=== PATIENT | male | born 1965 | race Caucasian/White ===

== ENCOUNTER → 2017-09-16 | Outpatient (CLI) | payer BC ==
--- NOTE | 2017-09-16 19:56 | CONS ---
CONSULTATION DATE OF SERVICE: 09/16/2017 52-year-old gentleman who has been evaluated in [facility] for obstructive sleep apnea-hypopnea syndrome. HISTORY OF PRESENT ILLNESS SLEEP WAKE EVALUATION: Patient has been diagnosed with obstructive sleep apnea about 9 years ago in [place]. Since then he is on treatment with CPAP every night for the whole night. He does not experiencing significant problem with his machine. He sleeps well with the machine. He does not have snoring, but he is not sure because he sleeps by himself. Before starting to use machine, he has had loud snoring, multiple awakenings from sleep, both sleepy during the day, tired during the day and now he just wakes up just occasionally. SLEEP SCHEDULE: His usual sleep schedule from 10 p.m. to 5 a.m. on working days and on weekends it is varied. FALLING ASLEEP: Usually no problem with falling asleep. He does have TV set in bedroom. No history of hypnagogic hallucinations, sleep paralysis or cataplexy. [place] Sleepiness Scale is 9. I checked patient's CPAP unit. CPAP pressure is 16 cm of water patient demonstrated 100% compliance with treatment on the machine. Does not have information about patient breathing during the sleep. PAST MEDICAL HISTORY: Positive for acid reflux, neck problems, low back problems, allergy. MEDICATIONS: Motrin, gabapentin, [place], Flexeril, Zyrtec, vitamin C supplement, Chantix. SOCIAL HISTORY: Positive for smoking about 1-1/2 pack a day for 35 years, trying to start stop smoking. Alcohol: Consumption occasional. FAMILY HISTORY: Cancer by his mother. REVIEW OF SYSTEMS: Occasional awakenings from sleep even while on treatment with CPAP. PHYSICAL EXAM: gentleman without distress. BP 139/91 on right arm, 136/93 on left arm, HR 90, RR 16, height 5 feet 10 inches, weight 253, BMI 36.3, temperature 98.1. Oxygen saturation on room air 98%. Oropharynx moderately low position of soft palate. Slight restriction of nasal breathing. ABDOMEN: Obese. Heart: Slight systolic murmur. Neck Supple, no JVD. Thyroid is not palpable. LUNGS Clear to percussion and to auscultation. Good air exchange. No wheezing or rhonchi. HEART : S1, S2 regular. Slight systolic murmur. ABDOMEN: Obese. Soft and nontender. Bowel sounds are present. No organomegaly appreciated. EXTREMITIES No clubbing or cyanosis. [employer] Awake, alert, and oriented X3. Cranial nerves 2 to 7 intact. There is no fasciculation or atrophy. noted. No focal deficits observed. IMPRESSION: 1. Obstructive sleep apnea-hypopnea syndrome for 9 years. [place]. The patient does not have results of sleep study. He continued to use his CPAP equipment every night. CPAP pressure is 16 cm of water. Sometimes he has awakenings from sleep while using CPAP and recently started to have some problem with CPAP equipment. 2. Obesity BMI 36.33. 3. Acid reflux. 4. Neck problem, neck pain. 5. Allergy. 6. Low back pain. PLAN: 1. Home sleep apnea test for reevaluation of patient breathing at the present time because we do not have results of previous sleep studies. 2. The patient is a candidate to replace CPAP unit to the new one. Recently, patient has started to have some problem with the equipment. 3. Losing weight. 4. Sleep hygiene with regular time in bed for at least 8 hours. 5. No driving if feels any sleepiness. Sincerely, Chino Stoll MD, PhD, FAASM Diplomat of [employer] [facility] Coordinator of [facility] [place] MMODL / HUMZA: [id number] /
== END | disposition home or self-care (01) ==
LOC: SLEEP 16:57
PROVIDERS: ATTEND Internal Medicine
DX: G47.33 Obstructive sleep apnea (adult) (pediatric) (principal); E66.9 Obesity, unspecified; M54.5 Low back pain; F17.210 Nicotine dependence, cigarettes, uncomplicated; K21.9 Gastro-esophageal reflux disease without esophagitis; M54.2 Cervicalgia; T78.40XD Allergy, unspecified, subsequent encounter; Z79.1 Long term (current) use of non-steroidal anti-inflammatories (NSAID); Z79.899 Other long term (current) drug therapy; Z79.891 Long term (current) use of opiate analgesic; Z99.89 Dependence on other enabling machines and devices; Z68.36 Body mass index [BMI] 36.0-36.9, adult
CPT/HCPCS: 99211

== ENCOUNTER → 2018-01-27 | Outpatient (CLI) | payer BC ==
--- NOTE | 2018-01-27 19:04 | PN ---
PROGRESS NOTE DATE OF SERVICE: 01/27/2018 This patient is a 52-year-old gentleman who has been followed in the sleep center for treatment of obstructive sleep apnea-hypopnea syndrome. Recently the patient had a home sleep apnea test which showed severe sleep apnea with apnea-hypopnea index 87 and oxygen desaturation to 80%. Then patient had CPAP titration and he received his new CPAP unit. Today is his first visit with the new CPAP unit. He is using his equipment every night without problems, likes his new machine, feels comfortable with the mask. [place] Sleepiness Scale today is 7. I checked readings from his machine. Usage is 100% of the time for more than 4 hours. Average usage is 7 hours 24 minutes. CPAP pressure is 16 cm of water. Apnea-hypopnea index is only 1.7. Leak is borderline. MEDICATIONS: 1. Motrin. 2. Gabapentin. 3. [place]. 4. Flexeril. 5. Prilosec. 6. Zyrtec. PHYSICAL EXAMINATION: GENERAL A pleasant gentleman in no distress. VITAL SIGNS: BP 138/90, HR 91, RR 16, weight 263.8, temperature 98.0, oxygen saturation at room air 97%. HEENT: PERRLA, EOMI. Evaluation of oropharynx showed tongue protrudes midline; low position of soft palate. NECK: Supple. No JVD. Thyroid is not palpable. LUNGS: Clear to percussion and to auscultation. Good air exchange. No wheezing or rhonchi. HEART: S1, S2 regular. No murmurs, gallops or rubs. ABDOMEN: Slightly obese. EXTREMITIES : No clubbing or cyanosis. [employer]: Awake, alert, and oriented X3. Cranial nerves 2 to 7 intact. There is no fasciculation or atrophy. noted. No focal deficits observed. IMPRESSION: 1. Extremely severe sleep apnea/hypopnea syndrome, fully controlled with CPAP. Patient demonstrated 100% compliance with treatment, benefitting from treatment. 2. Obesity. 3. Acid reflux. 4. History of neck problems. 5. Allergies. 6. Low back problems. PLAN: 1. Patient will continue to use CPAP equipment every night for the whole night. 2. Losing weight. 3. Sleep hygiene with regular time in bed for at least 8 hours. 4. No driving if feeling any sleepiness. 5. We will follow with prescriptions for all necessary CPAP supplies, including mask, tube, filters. Sincerely, Chino Stoll MD, PhD, FAASM Diplomat of [employer] Hr Manager of [facility] [place] MMODL / PRETTYN: [id number] /
== END | disposition home or self-care (01) ==
LOC: SLEEP 16:49
PROVIDERS: ATTEND Internal Medicine
DX: G47.33 Obstructive sleep apnea (adult) (pediatric) (principal); E66.9 Obesity, unspecified; K21.9 Gastro-esophageal reflux disease without esophagitis; T78.40XA Allergy, unspecified, initial encounter; Z99.89 Dependence on other enabling machines and devices; Z79.1 Long term (current) use of non-steroidal anti-inflammatories (NSAID); Z79.891 Long term (current) use of opiate analgesic; Z79.899 Other long term (current) drug therapy

== ENCOUNTER 2018-07-27 14:58 | Emergency (ER) | payer BC ==
[2018-07-27 15:20] VITALS: RESP 18; TEMP 97.8
[2018-07-27] MEDS ORDERED: HYDROmorphone 1 MG/ML 1 ML SYRINGE IM STA ×2 (15:48→18:25)
[2018-07-27] MEDS ORDERED: DIAZEPAM 5 MG TAB PO STA (15:48)
[2018-07-27] MEDS ORDERED: IBUPROFEN 800 MG TAB PO STA (15:48)
--- NOTE | 2018-07-27 17:08 | CT ---
EXAMINATION TYPE: CT thor lumbar spine wo con DATE OF EXAM: 07/27/2018 COMPARISON: None HISTORY: 53-year-old male Mid back pain TECHNIQUE: Contiguous axial scanning of the thoracic and lumbar spine without IV contrast. Coronal an d sagittal reconstructions performed. CT DLP: 2992.9 mGycm Automated exposure control for dose reduction was used. FINDINGS: Thoracic spine: 1.5 cm low-density nodule right adrenal gland suggestive of a benign lipid rich adrenal adenoma. There is mild to moderate degenerative disc disease mid thoracic spine characterized by mild disc hei ght loss since tiny endplate Schmorl's nodes. Vertebral body heights are preserved and alignment is maintained. Scattered facet degenerative changes also present. No acute fracture identified of the thoracic spine. Levoconvex curvature centered along the upper thoracic spine. On the left, changes noted in at least moderate neuroforaminal stenoses at T3-T4, T4-T5, T7-T8. On the right, changes result in at least moderate neuroforaminal narrowing at T3-T4, T4-T5, T10-T11. Lumbar spine: Vertebral body heights are preserved and alignment is maintained. Facet arthropathy particularly towa rds the left within the mid to lower lumbar spine. Bulging discs are present at multiple levels, particularly at L2-L3 mildly narrowing the spinal canal . On the left, changes result in mild to moderate neuroforaminal narrowing at L4-L5 and L5-S1. On the right, there is mild neuroforaminal narrowing at L4-L5 and L5-S1. IMPRESSION: 1. LEVOCONVEX SCOLIOTIC CURVATURE ALONG THE UPPER THORACIC SPINE. 2. NO VERTEBRAL COMPRESSION COLLAPSE OR MALALIGNMENT. 3. MILD TO MODERATE DEGENERATIVE DISC DISEASE MID THORACIC SPINE. ADDITIONAL SCATTERED FACET ARTHROPA THY IN THE THORACIC SPINE CONTRIBUTING TO VARIABLE NEURAL FORAMINAL STENOSES IN THE THORACIC SPINE OUTLINED ABOVE. 4. FACET ARTHROPATHY MID TO LOWER LUMBAR SPINE PARTICULARLY ON THE LEFT. 5. BULGING DISC AT L2-L3 MILDLY NARROWS THE SPINAL CANAL. 6. VARIABLE MILD TO MODERATE NEURAL FORAMINAL STENOSES LOWER LUMBAR SPINE OUTLINED ABOVE.
--- NOTE | 2018-07-27 17:24 | ED ---
Back Pain HPI - General Chief Complaint: Back Pain/Injury Stated Complaint: Back pain Time Seen by Provider: 07/27/18 15:22 Source: patient, RN notes reviewed, old records reviewed Limitations: no limitations - History of Present Illness Initial Comments: This is a 53-year-old male the ER today. Patient presents today for evaluation regards to back pain. Back pain for 2 days worsening. Patient has history of chronic back pain. No specific trauma noted maybe a lifting injury. No bowel or bladder issues, no neurological complaints MD Complaint: back pain -: days(s) (2) Similar Symptoms Previously: Yes Place: home Radiation: none Severity: severe Severity scale (1-10): 9 Quality: sharp, dull Consistency: constant Improves With: immobilization Worsens With: movement, walking Context: while lifting, turning/twisting Associated Symptoms: denies other symptoms - Related Data Home Medications Medication Instructions Recorded Confirmed Ascorbic Acid [Vitamin C] 500 mg PO DAILY 07/27/18 07/27/18 Cyclobenzaprine [Flexeril] 10 mg PO TID PRN 07/27/18 07/27/18 Flaxseed Oil 1,000 mg PO DAILY 07/27/18 07/27/18 Gabapentin 600 mg PO QID 07/27/18 07/27/18 Hydrocodone/Acetaminophen [[place] 1 tab PO TID PRN 07/27/18 07/27/18 10-325] Ibuprofen [Motrin Ib] 400 mg PO Q6H PRN 07/27/18 07/27/18 Multivit-Min/FA/Lycopen/Lutein 1 tab PO DAILY 07/27/18 07/27/18 [Centrum Silver Tablet] Varenicline [Chantix Continuing 1 mg PO BID 07/27/18 07/27/18 Pack] Previous Rx's Medication Instructions Recorded Diazepam [Valium] 5 mg PO Q8H PRN 3 Days #9 tab 07/27/18 predniSONE 50 mg PO DAILY #5 tab 07/27/18 Allergies Allergy/AdvReac Type Severity Reaction Status Date / Time Unable to Assess Allergy Verified 07/27/18 16:00 Review of Systems ROS Statement: Those systems with pertinent positive or pertinent negative responses have been documented in the HPI. ROS Other: All systems not noted in ROS Statement are negative. Past Medical History Additional Past Medical History / Comment(s): chronic back pain History of Any Multi-Drug Resistant Organisms: None Reported Past Surgical History: Orthopedic Surgery Past Psychological History: No Psychological Hx Reported Smoking Status: Current every day smoker Past Alcohol Use History: Occasional Past Drug Use History: None Reported General Exam Limitations: no limitations General appearance: alert, in no apparent distress Head exam: Present: atraumatic, normocephalic, normal inspection Eye exam: Present: normal appearance, PERRL, EOMI. Absent: scleral icterus, conjunctival injection, periorbital swelling ENT exam: Present: normal exam, mucous membranes moist Neck exam: Present: normal inspection. Absent: tenderness, meningismus, lymphadenopathy Respiratory exam: Present: normal lung sounds bilaterally. Absent: respiratory distress, wheezes, rales, rhonchi, stridor Cardiovascular Exam: Present: regular rate, normal rhythm, normal heart sounds. Absent: systolic murmur, diastolic murmur, rubs, gallop, clicks GI/Abdominal exam: Present: soft, normal bowel sounds. Absent: distended, tenderness, guarding, rebound, rigid Extremities exam: Present: normal inspection, full ROM, normal capillary refill. Absent: tenderness, pedal edema, joint swelling, calf tenderness Back exam: Present: normal inspection Neurological exam: Present: alert, oriented X3, CN II-XII intact Psychiatric exam: Present: normal affect, normal mood Skin exam: Present: warm, dry, intact, normal color. Absent: rash Course Vital Signs 07/27/18 15:16 Temperature 97.8 F Pulse Rate 115 H Respiratory 18 Rate Blood Pressure 158/93 O2 Sat by Pulse 97 Oximetry - Reevaluation(s) Reevaluation #1: 07/27/18 18:26 Medical record reviewed Reevaluation #2: 07/27/18 18:26 able to lay currently has improved pain control Medical Decision Making - Medical Decision Making 53 male the ER for evaluation. On chronic back pain. No specific trauma noted. Patient has normal CAT scan and can be discharged home - Radiology Data Radiology results: report reviewed (CT thoracolumbar spine negative for traumatic injury), image reviewed Disposition Clinical Impression: Thoracic back pain, Mid back pain, Mechanical back pain Disposition: HOME SELF-CARE Condition: Good Instructions (If sedation given, give patient instructions): Acute Low Back Pain (ED) Prescriptions: predniSONE 50 mg PO DAILY #5 tab Diazepam [Valium] 5 mg PO Q8H PRN 3 Days #9 tab PRN Reason: Muscle Spasm Is patient prescribed a controlled substance at d/c from ED?: Yes When asked, does pt state using other controlled substances?: Yes If prescribed controlled substance>3 days was MAPS reviewed?: Prescribed <3 Days Referrals: Nonstaff,Physician [Primary Care Provider] - 1-2 days
[2018-07-27] MEDS ORDERED: DEXAMETHASONE 4 MG TAB PO STA (17:42)
[2018-07-27 19:15] VITALS: BP 127/91; PULSE 114
== END 2018-07-27 19:12 | disposition home or self-care (01) ==
LOC: EC 14:58
DX: M54.6 Pain in thoracic spine (principal); M54.9 Dorsalgia, unspecified; G89.29 Other chronic pain; F17.200 Nicotine dependence, unspecified, uncomplicated; Z79.899 Other long term (current) drug therapy
CPT/HCPCS: 72128; 72131; 99284; 96372 ×2; J8540; J1170

== ENCOUNTER 2018-07-30 11:00 | Inpatient (IN) | payer BC ==
[2018-07-30] MEDS ORDERED: SODIUM CHLORIDE 0.9% 1,000 ML IV STA ×4 (11:15→12:25)
[2018-07-30] MEDS ORDERED: SODIUM CHLORIDE 0.9% 500 ML 500 ML IV STA (11:15)
[2018-07-30] MEDS ORDERED: HYDROmorphone 1 MG/ML 1 ML SYRINGE IVP STA ×3 (11:15→12:01)
--- NOTE | 2018-07-30 11:19 | ED ---
Back Pain HPI - General Chief Complaint: Back Pain/Injury Stated Complaint: pain in back/arms - recheck Time Seen by Provider: 07/30/18 11:17 Source: patient, RN notes reviewed, old records reviewed Limitations: no limitations - History of Present Illness Initial Comments: This is a 53-year-old male the ER for evaluation. This male presents today for evaluation regarding back pain. Patient states he was seen in ER 3 days ago for similar complaint. Patient states he did have some resolution of back pain but the pain is also been persistent. Patient's complaining of more pain in the neck now currently than it was in his thoracic spine prior. Again patient currently related to a lifting injury maybe 2 days prior to the original emergency room evaluation. Patient states pain is been progressively worse last night began with sweating and diaphoresis. Patient states he currently takes a day for chronic back pain. He hasn't taken that continuously with no relief. No nausea no vomiting no chest pain no shortness of breath. MD Complaint: back pain, other (neck pain) -: days(s) (6) Similar Symptoms Previously: Yes (ER visit 3 days prior for pain that began 2 days prior to that) Place: home Radiation: none Severity: severe Severity scale (1-10): 9 Quality: dull, aching Consistency: constant Improves With: none Worsens With: movement Context: while lifting (may have ovvured during lifting records fomr his attic) Associated Symptoms: diaphoresis Treatments Prior to Arrival: acetaminophen - Related Data Home Medications Medication Instructions Recorded Confirmed Ascorbic Acid [Vitamin C] 1,000 mg PO DAILY 07/27/18 07/30/18 Cyclobenzaprine [Flexeril] 10 mg PO TID PRN 07/27/18 07/30/18 Flaxseed Oil 1,000 mg PO DAILY 07/27/18 07/30/18 Gabapentin 600 mg PO QID 07/27/18 07/30/18 Hydrocodone/Acetaminophen [Melrose 1 tab PO TID PRN 07/27/18 07/30/18 10-325] Ibuprofen [Motrin Ib] 400 mg PO Q6H PRN 07/27/18 07/30/18 Multivit-Min/FA/Lycopen/Lutein 1 tab PO DAILY 07/27/18 07/30/18 [Centrum Silver Tablet] Varenicline [Chantix Continuing 1 mg PO BID 07/27/18 07/30/18 Pack] Previous Rx's Medication Instructions Recorded Diazepam [Valium] 5 mg PO Q8H PRN 3 Days #9 tab 07/27/18 predniSONE 50 mg PO DAILY #5 tab 07/27/18 Allergies Allergy/AdvReac Type Severity Reaction Status Date / Time Unable to Assess Allergy Verified 07/30/18 11:52 Review of Systems ROS Statement: Those systems with pertinent positive or pertinent negative responses have been documented in the HPI. ROS Other: All systems not noted in ROS Statement are negative. Past Medical History Additional Past Medical History / Comment(s): chronic back pain History of Any Multi-Drug Resistant Organisms: None Reported Past Surgical History: Orthopedic Surgery Past Psychological History: No Psychological Hx Reported Smoking Status: Current every day smoker Past Alcohol Use History: Occasional Past Drug Use History: None Reported General Exam Limitations: no limitations General appearance: anxious, in distress Head exam: Present: atraumatic, normocephalic, normal inspection Eye exam: Present: normal appearance, PERRL, EOMI. Absent: scleral icterus, conjunctival injection, periorbital swelling ENT exam: Present: normal exam, mucous membranes moist Neck exam: Present: normal inspection. Absent: tenderness, meningismus, lymphadenopathy Respiratory exam: Present: normal lung sounds bilaterally. Absent: respiratory distress, wheezes, rales, rhonchi, stridor Cardiovascular Exam: Present: normal rhythm, tachycardia, normal heart sounds. Absent: systolic murmur, diastolic murmur, rubs, gallop, clicks GI/Abdominal exam: Present: distended, tenderness, guarding (Voluntary), diminished bowel sounds. Absent: rebound, rigid Extremities exam: Present: normal inspection, full ROM, normal capillary refill. Absent: tenderness, pedal edema, joint swelling, calf tenderness Back exam: Present: normal inspection Neurological exam: Present: alert, altered (Waxing and waning), oriented X3, CN II-XII intact Psychiatric exam: Present: normal affect, normal mood Skin exam: Present: warm, dry, intact, normal color, diaphoretic, mottled (Abdomen). Absent: rash Course Vital Signs 07/30/18 07/30/18 07/30/18 11:06 11:14 11:15 Temperature 97.9 F Pulse Rate 136 H 128 H 123 H Respiratory 26 H 33 H 20 Rate Blood Pressure 125/81 O2 Sat by Pulse 95 94 L 96 Oximetry 07/30/18 07/30/18 07/30/18 11:30 11:45 12:00 Temperature Pulse Rate 115 H 113 H Respiratory 20 27 H Rate Blood Pressure 125/102 125/102 124/87 O2 Sat by Pulse 94 L 92 L Oximetry 07/30/18 07/30/18 07/30/18 12:15 12:30 13:00 Temperature Pulse Rate 113 H 114 H 118 H Respiratory 20 10 L 26 H Rate Blood Pressure 127/89 127/89 137/96 O2 Sat by Pulse 89 L 90 L 93 L Oximetry 07/30/18 07/30/18 07/30/18 13:30 14:00 14:30 Temperature Pulse Rate 120 H 114 H 114 H Respiratory 30 H 31 H Rate Blood Pressure 140/86 135/91 141/104 O2 Sat by Pulse 93 L Oximetry 07/30/18 07/30/18 07/30/18 15:00 15:30 15:35 Temperature Pulse Rate 117 H 116 H 116 H Respiratory 27 H Rate Blood Pressure 123/91 123/91 O2 Sat by Pulse 93 L 93 L Oximetry 07/30/18 15:56 Temperature 99.1 F Pulse Rate Respiratory Rate Blood Pressure O2 Sat by Pulse Oximetry - Reevaluation(s) Reevaluation #1: 07/30/18 11:24 Medical record is reviewed, prior ER visit 3 days ago and presenting for 2 days of back pain then. Patient did have computed tomography scan which is again reviewed without significant abnormality scan was thoraco lumbar spine Reevaluation #2: 07/30/18 15:[address] findings to concern and relocate CTA regarding abdominal pain, aside from significant stool burden, no acute findings found Reevaluation #3: 07/30/18 15:54 Patient did have bedside echocardiogram secondary to possible pericardial effu pawan, no effusion noted, aortic stenosis Reevaluation #4: 07/30/18 15:54 Dr. Martha davenport, Dr. Thomas did present to ER to evaluate patient at bedside Reevaluation #5: 07/30/18 15:55 (Again with patient's friend who is at bedside, again does take Melrose daily, for pain. Friend also admits patient likely does drink daily unsure of amount. 07/30/18 15:58 Patient was not altered upon prior presentation, patient is coherent but occasionally does ramble mildly altered mental status, friend also notes that he appears to be coherent and then having episodes of not acting and talking appropriately. 07/30/18 16:02 Patient will be scheduled for MRI spine to look further for abscess with back pain, leukocytosis, fever - Consultations Consultation #1: Spoke with helio SALEH for admission Consultation #2: Spoke with helio Gonzalez for ICU admission Consultation #3: Spoke with Dr. Wolfe regarding patient, was at bedside during conversation Procedures - Lumbar Puncture Consent Obtained: verbal consent Indication for Procedure: fever work up Patient Position: sitting upright/leaning forward Skin Prep: Povidone-Iodine 1% Local Anesthetic Used: Lidocaine 1% Spinal Needle Gauge: 20G Spinal Needle Length: 3.5in Interspace Used: L4-L5 Fluid Initially Obtained: clear, bloody (4) Complications: none Patient Tolerated Procedure: well Medical Decision Making - Medical Decision Making 53 male the ER for evaluation, patient resents today for evaluation of bowel pain and back pain. The patient's yesterday multiple medications patient did develop some confusion, he does have significant abdominal colonic distention with constipation, patient's diaphoresis significantly improved, vital signs are normal. Patient denying any current headache, occasionally complaining of some neck pain. Patient is neck exam and neurological exam is negative for meningismus. - Lab Data Result diagrams: 07/30/18 15:34 07/30/18 15:34 Lab Results 07/30/18 07/30/18 07/30/18 Range/Units 11:23 11:23 11:23 WBC 19.2 H (3.8-10.6) k/uL RBC 4.57 (4.30-5.90) m/uL Hgb 15.2 (13.0-17.5) gm/dL Hct 44.7 (39.0-53.0) % MCV 97.7 (80.0-100.0) fL MCH 33.1 (25.0-35.0) pg MCHC 33.9 (31.0-37.0) g/dL RDW 12.3 (11.5-15.5) % Plt Count 253 (150-450) k/uL Neutrophils % 86 % Neutrophils % (Manual) % Band Neutrophils % % Lymphocytes % 5 % Lymphocytes % (Manual) % Monocytes % 7 % Monocytes % (Manual) % Eosinophils % 0 % Basophils % 0 % Neutrophils # 16.6 H (1.3-7.7) k/uL Neutrophils # (Manual) (1.3-7.7) k/uL Lymphocytes # 0.9 L (1.0-4.8) k/uL Lymphocytes # (Manual) (1.0-4.8) k/uL Monocytes # 1.3 H (0-1.0) k/uL Monocytes # (Manual) (0-1.0) k/uL Eosinophils # 0.1 (0-0.7) k/uL Basophils # 0.0 (0-0.2) k/uL Nucleated RBCs (0-0) /100 WBC Manual Slide Review RBC Morphology ESR (0-15) mm/hr PT (9.0-12.0) sec INR (<1.2) APTT (22.0-30.0) sec VBG pH (7.31-7.41) VBG pCO2 (37-51) mmHg VBG HCO3 (24-28) mmol/L Sodium 142 (137-145) mmol/L Potassium 4.2 (3.5-5.1) mmol/L Chloride 102 (98-107) mmol/L Carbon Dioxide 25 (22-30) mmol/L Anion Gap 15 mmol/L BUN 26 H (9-20) mg/dL Creatinine 1.10 (0.66-1.25) mg/dL Est GFR (CKD-EPI)AfAm 88 (>60 ml/min/1.73 sqM) Est GFR (CKD-EPI)NonAf 76 (>60 ml/min/1.73 sqM) Glucose 219 H (74-99) mg/dL Lactic Ac Sepsis Rflx Plasma Lactic Acid Jama (0.7-2.0) mmol/L Calcium 10.2 (8.4-10.2) mg/dL Phosphorus 4.2 (2.5-4.5) mg/dL Magnesium 2.1 (1.6-2.3) mg/dL Total Bilirubin 1.4 H (0.2-1.3) mg/dL AST 25 (17-59) U/L ALT 40 (21-72) U/L Alkaline Phosphatase 98 (38-126) U/L Ammonia (<30) umol/L Troponin I (0.000-0.034) ng/mL C-Reactive Protein (<10.0) mg/L Total Protein 7.4 (6.3-8.2) g/dL Albumin 4.3 (3.5-5.0) g/dL Lipase (23-300) U/L Urine Color Urine Appearance (Clear) Urine pH (5.0-8.0) Ur Specific [place] (1.001-1.035) Urine Protein (Negative) Urine Glucose (UA) (Negative) Urine Ketones (Negative) Urine Blood (Negative) Urine Nitrite (Negative) Urine Bilirubin (Negative) Urine Urobilinogen (<2.0) mg/dL Ur Leukocyte Esterase (Negative) Urine RBC (0-5) /hpf Urine WBC (0-5) /hpf Urine Mucus (None) /hpf Salicylates mg/dL Urine Opiates Screen (NotDetected) Ur Oxycodone Screen (NotDetected) Urine Methadone Screen (NotDetected) Ur Propoxyphene Screen (NotDetected) Acetaminophen ug/mL Ur Barbiturates Screen (NotDetected) U Tricyclic Antidepress (NotDetected) Ur Phencyclidine Scrn (NotDetected) Ur Amphetamines Screen (NotDetected) U Methamphetamines Scrn (NotDetected) U Benzodiazepines Scrn (NotDetected) Urine Cocaine Screen (NotDetected) U Marijuana (THC) Screen (NotDetected) Influenza Type A RNA (Not Detectd) Influenza Type B (PCR) (Not Detectd) Blood Type O Positive Blood Type Confirm Blood Type Recheck CABO Indicated Antibody Screen NEGATIVE Spec Expiration Date 08/02/2018232207/30/18 07/30/18 07/30/18 Range/Units 11:23 11:23 11:23 WBC (3.8-10.6) k/uL RBC (4.30-5.90) m/uL Hgb (13.0-17.5) gm/dL Hct (39.0-53.0) % MCV (80.0-100.0) fL MCH (25.0-35.0) pg MCHC (31.0-37.0) g/dL RDW (11.5-15.5) % Plt Count (150-450) k/uL Neutrophils % % Neutrophils % (Manual) % Band Neutrophils % % Lymphocytes % % Lymphocytes % (Manual) % Monocytes % % Monocytes % (Manual) % Eosinophils % % Basophils % % Neutrophils # (1.3-7.7) k/uL Neutrophils # (Manual) (1.3-7.7) k/uL Lymphocytes # (1.0-4.8) k/uL Lymphocytes # (Manual) (1.0-4.8) k/uL Monocytes # (0-1.0) k/uL Monocytes # (Manual) (0-1.0) k/uL Eosinophils # (0-0.7) k/uL Basophils # (0-0.2) k/uL Nucleated RBCs (0-0) /100 WBC Manual Slide Review RBC Morphology ESR (0-15) mm/hr PT 11.3 (9.0-12.0) sec INR 1.1 (<1.2) APTT 22.0 (22.0-30.0) sec VBG pH (7.31-7.41) VBG pCO2 (37-51) mmHg VBG HCO3 (24-28) mmol/L Sodium (137-145) mmol/L Potassium (3.5-5.1) mmol/L Chloride (98-107) mmol/L Carbon Dioxide (22-30) mmol/L Anion Gap mmol/L BUN (9-20) mg/dL Creatinine (0.66-1.25) mg/dL Est GFR (CKD-EPI)AfAm (>60 ml/min/1.73 sqM) Est GFR (CKD-EPI)NonAf (>60 ml/min/1.73 sqM) Glucose (74-99) mg/dL Lactic Ac Sepsis Rflx Plasma Lactic Acid Jama 3.2 H* (0.7-2.0) mmol/L Calcium (8.4-10.2) mg/dL Phosphorus (2.5-4.5) mg/dL Magnesium (1.6-2.3) mg/dL Total Bilirubin (0.2-1.3) mg/dL AST (17-59) U/L ALT (21-72) U/L Alkaline Phosphatase (38-126) U/L Ammonia (<30) umol/L Troponin I <0.012 (0.000-0.034) ng/mL C-Reactive Protein (<10.0) mg/L Total Protein (6.3-8.2) g/dL Albumin (3.5-5.0) g/dL Lipase (23-300) U/L Urine Color Urine Appearance (Clear) Urine pH (5.0-8.0) Ur Specific [place] (1.001-1.035) Urine Protein (Negative) Urine Glucose (UA) (Negative) Urine Ketones (Negative) Urine Blood (Negative) Urine Nitrite (Negative) Urine Bilirubin (Negative) Urine Urobilinogen (<2.0) mg/dL Ur Leukocyte Esterase (Negative) Urine RBC (0-5) /hpf Urine WBC (0-5) /hpf Urine Mucus (None) /hpf Salicylates mg/dL Urine Opiates Screen (NotDetected) Ur Oxycodone Screen (NotDetected) Urine Methadone Screen (NotDetected) Ur Propoxyphene Screen (NotDetected) Acetaminophen ug/mL Ur Barbiturates Screen (NotDetected) U Tricyclic Antidepress (NotDetected) Ur Phencyclidine Scrn (NotDetected) Ur Amphetamines Screen (NotDetected) U Methamphetamines Scrn (NotDetected) U Benzodiazepines Scrn (NotDetected) Urine Cocaine Screen (NotDetected) U Marijuana (THC) Screen (NotDetected) Influenza Type A RNA (Not Detectd) Influenza Type B (PCR) (Not Detectd) Blood Type Blood Type Confirm Blood Type Recheck Antibody Screen Spec Expiration Date 07/30/18 07/30/18 07/30/18 Range/Units 11:23 12:03 12:39 WBC (3.8-10.6) k/uL RBC (4.30-5.90) m/uL Hgb (13.0-17.5) gm/dL Hct (39.0-53.0) % MCV (80.0-100.0) fL MCH (25.0-35.0) pg MCHC (31.0-37.0) g/dL RDW (11.5-15.5) % Plt Count (150-450) k/uL Neutrophils % % Neutrophils % (Manual) % Band Neutrophils % % Lymphocytes % % Lymphocytes % (Manual) % Monocytes % % Monocytes % (Manual) % Eosinophils % % Basophils % % Neutrophils # (1.3-7.7) k/uL Neutrophils # (Manual) (1.3-7.7) k/uL Lymphocytes # (1.0-4.8) k/uL Lymphocytes # (Manual) (1.0-4.8) k/uL Monocytes # (0-1.0) k/uL Monocytes # (Manual) (0-1.0) k/uL Eosinophils # (0-0.7) k/uL Basophils # (0-0.2) k/uL Nucleated RBCs (0-0) /100 WBC Manual Slide Review RBC Morphology ESR (0-15) mm/hr PT (9.0-12.0) sec INR (<1.2) APTT (22.0-30.0) sec VBG pH (7.31-7.41) VBG pCO2 (37-51) mmHg VBG HCO3 (24-28) mmol/L Sodium (137-145) mmol/L Potassium (3.5-5.1) mmol/L Chloride (98-107) mmol/L Carbon Dioxide (22-30) mmol/L Anion Gap mmol/L BUN (9-20) mg/dL Creatinine (0.66-1.25) mg/dL Est GFR (CKD-EPI)AfAm (>60 ml/min/1.73 sqM) Est GFR (CKD-EPI)NonAf (>60 ml/min/1.73 sqM) Glucose (74-99) mg/dL Lactic Ac Sepsis Rflx Y Plasma Lactic Acid Jama (0.7-2.0) mmol/L Calcium (8.4-10.2) mg/dL Phosphorus (2.5-4.5) mg/dL Magnesium (1.6-2.3) mg/dL Total Bilirubin (0.2-1.3) mg/dL AST (17-59) U/L ALT (21-72) U/L Alkaline Phosphatase (38-126) U/L Ammonia (<30) umol/L Troponin I (0.000-0.034) ng/mL C-Reactive Protein (<10.0) mg/L Total Protein (6.3-8.2) g/dL Albumin (3.5-5.0) g/dL Lipase (23-300) U/L Urine Color Yellow Urine Appearance Clear (Clear) Urine pH 6.0 (5.0-8.0) Ur Specific [place] >1.050 H (1.001-1.035) Urine Protein Trace H (Negative) Urine Glucose (UA) Trace H (Negative) Urine Ketones Negative (Negative) Urine Blood Trace H (Negative) Urine Nitrite Negative (Negative) Urine Bilirubin Negative (Negative) Urine Urobilinogen <2.0 (<2.0) mg/dL Ur Leukocyte Esterase Trace H (Negative) Urine RBC 8 H (0-5) /hpf Urine WBC 4 (0-5) /hpf Urine Mucus Rare H (None) /hpf Salicylates mg/dL Urine Opiates Screen (NotDetected) Ur Oxycodone Screen (NotDetected) Urine Methadone Screen (NotDetected) Ur Propoxyphene Screen (NotDetected) Acetaminophen ug/mL Ur Barbiturates Screen (NotDetected) U Tricyclic Antidepress (NotDetected) Ur Phencyclidine Scrn (NotDetected) Ur Amphetamines Screen (NotDetected) U Methamphetamines Scrn (NotDetected) U Benzodiazepines Scrn (NotDetected) Urine Cocaine Screen (NotDetected) U Marijuana (THC) Screen (NotDetected) Influenza Type A RNA (Not Detectd) Influenza Type B (PCR) (Not Detectd) Blood Type Blood Type Confirm O Positive Blood Type Recheck Antibody Screen Spec Expiration Date 07/30/18 07/30/18 07/30/18 Range/Units 12:43 12:43 13:35 WBC (3.8-10.6) k/uL RBC (4.30-5.90) m/uL Hgb (13.0-17.5) gm/dL Hct (39.0-53.0) % MCV (80.0-100.0) fL MCH (25.0-35.0) pg MCHC (31.0-37.0) g/dL RDW (11.5-15.5) % Plt Count (150-450) k/uL Neutrophils % % Neutrophils % (Manual) % Band Neutrophils % % Lymphocytes % % Lymphocytes % (Manual) % Monocytes % % Monocytes % (Manual) % Eosinophils % % Basophils % % Neutrophils # (1.3-7.7) k/uL Neutrophils # (Manual) (1.3-7.7) k/uL Lymphocytes # (1.0-4.8) k/uL Lymphocytes # (Manual) (1.0-4.8) k/uL Monocytes # (0-1.0) k/uL Monocytes # (Manual) (0-1.0) k/uL Eosinophils # (0-0.7) k/uL Basophils # (0-0.2) k/uL Nucleated RBCs (0-0) /100 WBC Manual Slide Review RBC Morphology ESR (0-15) mm/hr PT (9.0-12.0) sec INR (<1.2) APTT (22.0-30.0) sec VBG pH (7.31-7.41) VBG pCO2 (37-51) mmHg VBG HCO3 (24-28) mmol/L Sodium (137-145) mmol/L Potassium (3.5-5.1) mmol/L Chloride (98-107) mmol/L Carbon Dioxide (22-30) mmol/L Anion Gap mmol/L BUN (9-20) mg/dL Creatinine (0.66-1.25) mg/dL Est GFR (CKD-EPI)AfAm (>60 ml/min/1.73 sqM) Est GFR (CKD-EPI)NonAf (>60 ml/min/1.73 sqM) Glucose (74-99) mg/dL Lactic Ac Sepsis Rflx Plasma Lactic Acid Jama (0.7-2.0) mmol/L Calcium (8.4-10.2) mg/dL Phosphorus (2.5-4.5) mg/dL Magnesium (1.6-2.3) mg/dL Total Bilirubin (0.2-1.3) mg/dL AST (17-59) U/L ALT (21-72) U/L Alkaline Phosphatase (38-126) U/L Ammonia (<30) umol/L Troponin I (0.000-0.034) ng/mL C-Reactive Protein (<10.0) mg/L Total Protein (6.3-8.2) g/dL Albumin (3.5-5.0) g/dL Lipase 11 L (23-300) U/L Urine Color Urine Appearance (Clear) Urine pH (5.0-8.0) Ur Specific [place] (1.001-1.035) Urine Protein (Negative) Urine Glucose (UA) (Negative) Urine Ketones (Negative) Urine Blood (Negative) Urine Nitrite (Negative) Urine Bilirubin (Negative) Urine Urobilinogen (<2.0) mg/dL Ur Leukocyte Esterase (Negative) Urine RBC (0-5) /hpf Urine WBC (0-5) /hpf Urine Mucus (None) /hpf Salicylates mg/dL Urine Opiates Screen Detected H (NotDetected) Ur Oxycodone Screen Detected H (NotDetected) Urine Methadone Screen Not Detected (NotDetected) Ur Propoxyphene Screen Not Detected (NotDetected) Acetaminophen ug/mL Ur Barbiturates Screen Not Detected (NotDetected) U Tricyclic Antidepress Detected H (NotDetected) Ur Phencyclidine Scrn Not Detected (NotDetected) Ur Amphetamines Screen Not Detected (NotDetected) U Methamphetamines Scrn Not Detected (NotDetected) U Benzodiazepines Scrn Detected H (NotDetected) Urine Cocaine Screen Not Detected (NotDetected) U Marijuana (THC) Screen Not Detected (NotDetected) Influenza Type A RNA Not Detected (Not Detectd) Influenza Type B (PCR) Not Detected (Not Detectd) Blood Type Blood Type Confirm Blood Type Recheck Antibody Screen Spec Expiration Date 07/30/18 07/30/18 07/30/18 Range/Units 15:34 15:34 15:34 WBC 17.1 H (3.8-10.6) k/uL RBC 4.11 L (4.30-5.90) m/uL Hgb 13.4 (13.0-17.5) gm/dL Hct 40.4 (39.0-53.0) % MCV 98.1 (80.0-100.0) fL MCH 32.7 (25.0-35.0) pg MCHC 33.3 (31.0-37.0) g/dL RDW 12.8 (11.5-15.5) % Plt Count 225 (150-450) k/uL Neutrophils % % Neutrophils % (Manual) 59 % Band Neutrophils % 22 % Lymphocytes % % Lymphocytes % (Manual) 10 % Monocytes % % Monocytes % (Manual) 9 % Eosinophils % % Basophils % % Neutrophils # (1.3-7.7) k/uL Neutrophils # (Manual) 13.80 H (1.3-7.7) k/uL Lymphocytes # (1.0-4.8) k/uL Lymphocytes # (Manual) 1.71 (1.0-4.8) k/uL Monocytes # (0-1.0) k/uL Monocytes # (Manual) 1.54 H (0-1.0) k/uL Eosinophils # (0-0.7) k/uL Basophils # (0-0.2) k/uL Nucleated RBCs 0 (0-0) /100 WBC Manual Slide Review Performed RBC Morphology Normal ESR 70 H (0-15) mm/hr PT (9.0-12.0) sec INR (<1.2) APTT (22.0-30.0) sec VBG pH (7.31-7.41) VBG pCO2 (37-51) mmHg VBG HCO3 (24-28) mmol/L Sodium 139 (137-145) mmol/L Potassium 4.4 (3.5-5.1) mmol/L Chloride 107 (98-107) mmol/L Carbon Dioxide 22 (22-30) mmol/L Anion Gap 10 mmol/L BUN 26 H (9-20) mg/dL Creatinine 0.79 (0.66-1.25) mg/dL Est GFR (CKD-EPI)AfAm >90 (>60 ml/min/1.73 sqM) Est GFR (CKD-EPI)NonAf >90 (>60 ml/min/1.73 sqM) Glucose 214 H (74-99) mg/dL Lactic Ac Sepsis Rflx Plasma Lactic Acid Jama 1.4 (0.7-2.0) mmol/L Calcium 8.8 (8.4-10.2) mg/dL Phosphorus (2.5-4.5) mg/dL Magnesium (1.6-2.3) mg/dL Total Bilirubin 1.2 (0.2-1.3) mg/dL AST 20 (17-59) U/L ALT 39 (21-72) U/L Alkaline Phosphatase 91 (38-126) U/L Ammonia 12 (<30) umol/L Troponin I (0.000-0.034) ng/mL C-Reactive Protein 245.0 H (<10.0) mg/L Total Protein 6.4 (6.3-8.2) g/dL Albumin 3.6 (3.5-5.0) g/dL Lipase (23-300) U/L Urine Color Urine Appearance (Clear) Urine pH (5.0-8.0) Ur Specific [place] (1.001-1.035) Urine Protein (Negative) Urine Glucose (UA) (Negative) Urine Ketones (Negative) Urine Blood (Negative) Urine Nitrite (Negative) Urine Bilirubin (Negative) Urine Urobilinogen (<2.0) mg/dL Ur Leukocyte Esterase (Negative) Urine RBC (0-5) /hpf Urine WBC (0-5) /hpf Urine Mucus (None) /hpf Salicylates <1.0 mg/dL Urine Opiates Screen (NotDetected) Ur Oxycodone Screen (NotDetected) Urine Methadone Screen (NotDetected) Ur Propoxyphene Screen (NotDetected) Acetaminophen <10.0 ug/mL Ur Barbiturates Screen (NotDetected) U Tricyclic Antidepress (NotDetected) Ur Phencyclidine Scrn (NotDetected) Ur Amphetamines Screen (NotDetected) U Methamphetamines Scrn (NotDetected) U Benzodiazepines Scrn (NotDetected) Urine Cocaine Screen (NotDetected) U Marijuana (THC) Screen (NotDetected) Influenza Type A RNA (Not Detectd) Influenza Type B (PCR) (Not Detectd) Blood Type Blood Type Confirm Blood Type Recheck Antibody Screen Spec Expiration Date 07/30/18 Range/Units 15:34 WBC (3.8-10.6) k/uL RBC (4.30-5.90) m/uL Hgb (13.0-17.5) gm/dL Hct (39.0-53.0) % MCV (80.0-100.0) fL MCH (25.0-35.0) pg MCHC (31.0-37.0) g/dL RDW (11.5-15.5) % Plt Count (150-450) k/uL Neutrophils % % Neutrophils % (Manual) % Band Neutrophils % % Lymphocytes % % Lymphocytes % (Manual) % Monocytes % % Monocytes % (Manual) % Eosinophils % % Basophils % % Neutrophils # (1.3-7.7) k/uL Neutrophils # (Manual) (1.3-7.7) k/uL Lymphocytes # (1.0-4.8) k/uL Lymphocytes # (Manual) (1.0-4.8) k/uL Monocytes # (0-1.0) k/uL Monocytes # (Manual) (0-1.0) k/uL Eosinophils # (0-0.7) k/uL Basophils # (0-0.2) k/uL Nucleated RBCs (0-0) /100 WBC Manual Slide Review RBC Morphology ESR (0-15) mm/hr PT (9.0-12.0) sec INR (<1.2) APTT (22.0-30.0) sec VBG pH 7.44 H (7.31-7.41) VBG pCO2 32 L (37-51) mmHg VBG HCO3 21 L (24-28) mmol/L Sodium (137-145) mmol/L Potassium (3.5-5.1) mmol/L Chloride (98-107) mmol/L Carbon Dioxide (22-30) mmol/L Anion Gap mmol/L BUN (9-20) mg/dL Creatinine (0.66-1.25) mg/dL Est GFR (CKD-EPI)AfAm (>60 ml/min/1.73 sqM) Est GFR (CKD-EPI)NonAf (>60 ml/min/1.73 sqM) Glucose (74-99) mg/dL Lactic Ac Sepsis Rflx Plasma Lactic Acid Jama (0.7-2.0) mmol/L Calcium (8.4-10.2) mg/dL Phosphorus (2.5-4.5) mg/dL Magnesium (1.6-2.3) mg/dL Total Bilirubin (0.2-1.3) mg/dL AST (17-59) U/L ALT (21-72) U/L Alkaline Phosphatase (38-126) U/L Ammonia (<30) umol/L Troponin I (0.000-0.034) ng/mL C-Reactive Protein (<10.0) mg/L Total Protein (6.3-8.2) g/dL Albumin (3.5-5.0) g/dL Lipase (23-300) U/L Urine Color Urine Appearance (Clear) Urine pH (5.0-8.0) Ur Specific [place] (1.001-1.035) Urine Protein (Negative) Urine Glucose (UA) (Negative) Urine Ketones (Negative) Urine Blood (Negative) Urine Nitrite (Negative) Urine Bilirubin (Negative) Urine Urobilinogen (<2.0) mg/dL Ur Leukocyte Esterase (Negative) Urine RBC (0-5) /hpf Urine WBC (0-5) /hpf Urine Mucus (None) /hpf Salicylates mg/dL Urine Opiates Screen (NotDetected) Ur Oxycodone Screen (NotDetected) Urine Methadone Screen (NotDetected) Ur Propoxyphene Screen (NotDetected) Acetaminophen ug/mL Ur Barbiturates Screen (NotDetected) U Tricyclic Antidepress (NotDetected) Ur Phencyclidine Scrn (NotDetected) Ur Amphetamines Screen (NotDetected) U Methamphetamines Scrn (NotDetected) U Benzodiazepines Scrn (NotDetected) Urine Cocaine Screen (NotDetected) U Marijuana (THC) Screen (NotDetected) Influenza Type A RNA (Not Detectd) Influenza Type B (PCR) (Not Detectd) Blood Type Blood Type Confirm Blood Type Recheck Antibody Screen Spec Expiration Date - EKG Data -: EKG Interpreted by Me (EKG shows sinus tachycardia rate of 124, SD 140, QRS 84, QTc 453) Critical Care Time Critical Care Time: Yes Total Critical Care Time: 95 Disposition Clinical Impression: Back pain, Abdominal pain, Leukocytosis, Sepsis, Colon distention Narrative: r/o Bacteremia Disposition: ADMITTED IP TO THIS HOSP Condition: Serious
[2018-07-30 11:42] LABS: Basophils % (A) 0 %; Eosinophils # (A) 0.1 k/uL (0-0.7); Eosinophils % (A) 0 %; HCT 44.7 % (39.0-53.0); HGB 15.2 gm/dL (13.0-17.5); Lymphocytes # (A) 0.9 k/uL (1.0-4.8); Lymphocytes % (A) 5 %; MCH 33.1 pg (25.0-35.0); MCHC 33.9 g/dL (31.0-37.0); MCV 97.7 fL (80.0-100.0); Mean Platelet Volume 6.4; Monocytes # (A) 1.3 k/uL (0-1.0); Monocytes % (A) 7 %; Neutrophils # (A) 16.6 k/uL (1.3-7.7); Neutrophils % (A) 86 %; Platelet Count 253 k/uL (150-450); RBC 4.57 m/uL (4.30-5.90); RDW 12.3 % (11.5-15.5); WBC 19.2 k/uL (3.8-10.6)
[2018-07-30 11:57] LABS: Albumin 4.3 g/dL (3.5-5.0); Calcium 10.2 mg/dL (8.4-10.2); Magnesium 2.1 mg/dL (1.6-2.3); Phosphorus 4.2 mg/dL (2.5-4.5); Potassium 4.2 mmol/L (3.5-5.1); Total Bilirubin 1.4 mg/dL (0.2-1.3); Total Protein 7.4 g/dL (6.3-8.2)
[2018-07-30] MEDS ORDERED: LORazepam 2 MG/ML INJ IV STA ×2 (12:01→12:02)
--- NOTE | 2018-07-30 12:02 | CT ---
EXAMINATION TYPE: CT angio thor/abd pel aorta DATE OF EXAM: 07/30/2018 COMPARISON: None. HISTORY: Severe abdominal pain CT DLP: 1839.1 mGycm. Automated Exposure Control for Dose Reduction was Utilized. CONTRAST: CT scan of the thorax, abdomen and pelvis is performed without and with IV Contrast, patient injected with 100 mL of Isovue 370. FINDINGS: There are emphysematous changes in the upper lobes bilaterally. There is a 5 mm spiculated subpleural nodule in the right lung apex best seen on image 7. There is bibasilar airspace disease sl ightly greater on the right than the left. There is a small right-sided effusion. There is no significant axillary adenopathy. There is some shotty mediastinal lymph nodes. The heart is not enlarged. There is a 7 mm pericardial effusion. There is a small, sliding hiatal hernia. There are no large, central pulmonary emboli. The aorta is normal in caliber without evidence of diss ection. Within the abdomen, the liver is enlarged measuring 20 cm. The spleen and gallbladder are normal. Both adrenal glands are unremarkable. Both kidneys demonstrate function and appear morphologically normal. The pancreas is unremarkable. There is no significant retroperitoneal, iliac or inguinal adenopathy. The abdominal aorta is normal in caliber. There is no significant retroperitoneal, iliac or inguinal adenopathy. The bladder is unremarkable. There are scattered diverticula along the left side of the colon. There is no radiographic evidence o f diverticulitis. There is a large amount of feces within the right side of the colon. There is some fecal elevation of the distal small bowel suggesting fecal stasis. The appendix is not visualized. Small bowel loops ar e normal in caliber. There is no free fluid and no free air. There is a periventricular hernia containing fat only with a mouth measuring 1.6 cm. No bony lesion is seen. IMPRESSION: 1. NORMAL SIZED AORTA WITH OUT EVIDENCE OF DISSECTION. 2. BIBASILAR AIRSPACE DISEASE, GREATER ON THE RIGHT THAN THE LEFT WITH A SMALL ASSOCIATED RIGHT-SIDED EFFUSION. 3. TINY, SUBPLEURAL NODULE IN THE RIGHT LUNG APEX. 4. SMALL PERICARDIAL EFFUSION. 5. SMALL SLIDING HIATAL HERNIA. 6. HEPATOMEGALY. 7. UNCOMPLICATED DIVERTICULOSIS OF THE LEFT SIDE OF THE COLON. 8. NONVISUALIZATION OF THE APPENDIX. 9.. UMBILICAL HERNIA CONTAINING FAT ONLY WITH A MOUTH MEASURING 1.6 CM.
[2018-07-30] MEDS: MAGNESIUM SULFATE-D5W PMX 1 GM in DEXTROSE/WATER 1 100ML.BAG IVPB SCH ×2 (12:14→13:34)
[2018-07-30] MEDS ORDERED: GLYCERIN ADULT SUPPOSITORY 1 EACH RECTAL STA (12:24)
[2018-07-30 12:31] LABS: INR 1.1 (<1.2); Prothrombin Time 11.3 sec (9.0-12.0)
[2018-07-30] MEDS ORDERED: KETOROLAC 30 MG/ML 1 ML VIAL IVP STA (13:05)
[2018-07-30] MEDS ORDERED: ACETAMINOPHEN TAB 500 MG TAB PO STA (13:05)
[2018-07-30] MEDS ORDERED: ACETAMINOPHEN SUPPOSITORY 650 MG SUPP RECTAL STA (13:18)
[2018-07-30 13:38] LABS: Appearance,Urine Clear (Clear); Bilirubin,Urine Negative (Negative); Blood,Urine Trace (Negative); Color,Urine Yellow; Glucose,Urine (UA) Trace (Negative); Ketones,Urine Negative (Negative); Leukocyte Esterase,Urine Trace (Negative); Mucus,Urine Rare /hpf; Nitrite,Urine Negative (Negative); Protein,Urine Trace (Negative); RBC,Urine 8 /hpf (0-5); Urobilinogen,Urine <2.0 mg/dL (<2.0); WBC,Urine 4 /hpf (0-5)
[2018-07-30 13:45] LABS: Specific Gravity,Urine >1.050 (1.001-1.035)
--- NOTE | 2018-07-30 13:49 | US ---
EXAMINATION TYPE: US gallbladder DATE OF EXAM: 07/30/2018 COMPARISON: CT 07/30/2018 CLINICAL HISTORY: Pain. Patient scanned sitting up in bed due to shortness of breath. Difficult and l imited exam due to overlying bowel gas. Patient cannot take a deep breath in and hold. EXAM MEASUREMENTS: Liver Length: 19.7 cm Gallbladder Wall: 0.2 cm CBD: 0.4 cm Right Kidney: 12.0 x 5.6 x 4.7 cm Pancreas: Obscured by bowel gas Liver: Enlarged Gallbladder: No stones visualized Evidence for sonographic Quinones's sign: No CBD: wnl as visualized, distal portion obscured by bowel gas Right Kidney: No hydronephrosis or masses seen The pancreas is obscured by bowel gas. The liver is enlarged measuring 20 cm. There is no biliary dilatation. The gallbladder is unremarkable. The gallbladder wall measures 2 mm. The distal common hepatic duct m easures 4 mm. There is no sonographic Quinones's sign. The right kidney is normal in size and normal in morphology. IMPRESSION: NORMAL RIGHT UPPER QUADRANT ULTRASOUND.
[2018-07-30] MEDS ORDERED: PIPERACILLIN-TAZOBACTAM 3.375 GM in SODIUM CHLORIDE 0.9% 100 ML IVPB STA (14:11)
[2018-07-30] MEDS ORDERED: LEVOFLOXACIN 750MG-D5W PMX 750 MG in DEXTROSE/WATER 1 150ML.BAG IVPB STA (14:11)
[2018-07-30] MEDS ORDERED: IPRATROPIUM-ALBUTEROL 3 ML NEB INHALATION STA (14:12)
[2018-07-30 15:06] LABS: Amphetamine Screen,Urine Not Detected (NotDetected); Barbiturate Screen,Urine Not Detected (NotDetected); Benzodiazepines Screen,Urine Detected (NotDetected); Cocaine Screen,Urine Not Detected (NotDetected); Methadone Screen, Urine Not Detected (NotDetected); Opiate Screen,Urine Detected (NotDetected); Oxycodone Screen, Urine Detected (NotDetected); Phencyclidine Screen,Urine Not Detected (NotDetected); Tricyclic Antidepressant,Urine Detected (NotDetected); Urn Cannabinoid Scrn Not Detected (NotDetected)
[2018-07-30] MEDS ORDERED: DIAZEPAM 5 MG/ML 2 ML INJ IVP STA (15:09)
[2018-07-30] MEDS ORDERED: BISACODYL 10 MG SUPP RECTAL STA (15:15)
--- NOTE | 2018-07-30 15:15 | P.GSCN ---
History of Present Illness Consult date: 07/30/18 Reason for Consult: Abdominal distention and mottling, lactic acidosis History of present illness: The patient's a 53-year-old man who was brought into the emergency department by his friend who sought you look bad and was breathing hard and sweating. He was seen in the emergency department 3 days ago for back pain. A CT of the spine was done and was unremarkable and the patient was discharged home. The patient's friend saw him last night and says the patient was complaining of pain but otherwise his breathing was normal and he was not confused. When his friend saw him today, the patient was sweating, breathing hard and confused. In questioning the patient he has a poor historian. He answers questions but does seem confused and has nonsensical answers. Complaining of back pain, and some pain in the left side of his abdomen. He reportedly had a bowel movement Wednesday. None today. He thinks his had a colonoscopy while he was in the [place], he left the [place] in the early . Denies any previous abdominal surgery. Review of Systems ROS unobtainable: due to mental status All systems: negative Past Medical History Additional Past Medical History / Comment(s): chronic back pain History of Any Multi-Drug Resistant Organisms: None Reported Past Surgical History: Orthopedic Surgery Past Psychological History: No Psychological Hx Reported Smoking Status: Current every day smoker Past Alcohol Use History: Occasional Past Drug Use History: None Reported Medications and Allergies Home Medications Medication Instructions Recorded Confirmed Type Ascorbic Acid [Vitamin C] 1,000 mg PO DAILY 07/27/18 07/30/18 History Cyclobenzaprine [Flexeril] 10 mg PO TID PRN 07/27/18 07/30/18 History Diazepam [Valium] 5 mg PO Q8H PRN 3 Days #9 tab 07/27/18 07/30/18 Rx Flaxseed Oil 1,000 mg PO DAILY 07/27/18 07/30/18 History Gabapentin 600 mg PO QID 07/27/18 07/30/18 History Hydrocodone/Acetaminophen [[place] 1 tab PO TID PRN 07/27/18 07/30/18 History 10-325] Ibuprofen [Motrin Ib] 400 mg PO Q6H PRN 07/27/18 07/30/18 History Multivit-Min/FA/Lycopen/Lutein 1 tab PO DAILY 07/27/18 07/30/18 History [Centrum Silver Tablet] Varenicline [Chantix Continuing 1 mg PO BID 07/27/18 07/30/18 History Pack] predniSONE 50 mg PO DAILY #5 tab 07/27/18 07/30/18 Rx Allergies Allergy/AdvReac Type Severity Reaction Status Date / Time Unable to Assess Allergy Verified 07/30/18 11:52 Surgical - Exam Osteopathic Statement: *. No significant issues noted on an osteopathic structural exam other than those noted in the History and Physical/Consult. Vital Signs Temp Pulse Resp BP Pulse Ox 97.9 F 136 H 26 H 125/81 95 07/30/18 11:06 07/30/18 11:06 07/30/18 11:06 07/30/18 11:06 07/30/18 11:06 - General tachypenic, diaphoretic, appears ill moderate distress - Eyes normal ocular movement - ENT normal mucosa, no congestion - Neck trachea midline, no venous distension - Respiratory tachpnic clear to auscultation absent: wheezing, rales - Cardiovascular Rhythm: other (Tachycardic, regular rhythm) - Abdomen Abdomen is very firm and the skin is mottled Abdomen: tender (Minimal tenderness to deep palpation. No tenderness with percussion), bowel sounds, no guarding, no rebound - Neurologic Appears confused, friend also thinks he is confused and is unsure what the patient's responses are to questioning disoriented, no combative, confused - Psychiatric oriented to person Results - Labs 07/30/18 11:23 07/30/18 11:23 Abnormal Lab Results - Last 24 Hours (Table) 07/30/18 07/30/18 07/30/18 Range/Units 11:23 11:23 11:23 WBC 19.2 H (3.8-10.6) k/uL Neutrophils # 16.6 H (1.3-7.7) k/uL Lymphocytes # 0.9 L (1.0-4.8) k/uL Monocytes # 1.3 H (0-1.0) k/uL BUN 26 H (9-20) mg/dL Glucose 219 H (74-99) mg/dL Plasma Lactic Acid [place] 3.2 H* (0.7-2.0) mmol/L Total Bilirubin 1.4 H (0.2-1.3) mg/dL Lipase (23-300) U/L Ur Specific [place] (1.001-1.035) Urine Protein (Negative) Urine Glucose (UA) (Negative) Urine Blood (Negative) Ur Leukocyte Esterase (Negative) Urine RBC (0-5) /hpf Urine Mucus (None) /hpf 07/30/18 07/30/18 Range/Units 11:23 12:43 WBC (3.8-10.6) k/uL Neutrophils # (1.3-7.7) k/uL Lymphocytes # (1.0-4.8) k/uL Monocytes # (0-1.0) k/uL BUN (9-20) mg/dL Glucose (74-99) mg/dL Plasma Lactic Acid [place] (0.7-2.0) mmol/L Total Bilirubin (0.2-1.3) mg/dL Lipase 11 L (23-300) U/L Ur Specific [place] >1.050 H (1.001-1.035) Urine Protein Trace H (Negative) Urine Glucose (UA) Trace H (Negative) Urine Blood Trace H (Negative) Ur Leukocyte Esterase Trace H (Negative) Urine RBC 8 H (0-5) /hpf Urine Mucus Rare H (None) /hpf Diabetes panel 07/30/18 Range/Units 11:23 Sodium 142 (137-145) mmol/L Potassium 4.2 (3.5-5.1) mmol/L Chloride 102 (98-107) mmol/L Carbon Dioxide 25 (22-30) mmol/L BUN 26 H (9-20) mg/dL Creatinine 1.10 (0.66-1.25) mg/dL Glucose 219 H (74-99) mg/dL Calcium 10.2 (8.4-10.2) mg/dL AST 25 (17-59) U/L ALT 40 (21-72) U/L Alkaline Phosphatase 98 (38-126) U/L Total Protein 7.4 (6.3-8.2) g/dL Albumin 4.3 (3.5-5.0) g/dL Calcium panel 07/30/18 Range/Units 11:23 Calcium 10.2 (8.4-10.2) mg/dL Phosphorus 4.2 (2.5-4.5) mg/dL Albumin 4.3 (3.5-5.0) g/dL Pituitary panel 07/30/18 Range/Units 11:23 Sodium 142 (137-145) mmol/L Potassium 4.2 (3.5-5.1) mmol/L Chloride 102 (98-107) mmol/L Carbon Dioxide 25 (22-30) mmol/L BUN 26 H (9-20) mg/dL Creatinine 1.10 (0.66-1.25) mg/dL Glucose 219 H (74-99) mg/dL Calcium 10.2 (8.4-10.2) mg/dL Adrenal panel 07/30/18 Range/Units 11:23 Sodium 142 (137-145) mmol/L Potassium 4.2 (3.5-5.1) mmol/L Chloride 102 (98-107) mmol/L Carbon Dioxide 25 (22-30) mmol/L BUN 26 H (9-20) mg/dL Creatinine 1.10 (0.66-1.25) mg/dL Glucose 219 H (74-99) mg/dL Calcium 10.2 (8.4-10.2) mg/dL Total Bilirubin 1.4 H (0.2-1.3) mg/dL AST 25 (17-59) U/L ALT 40 (21-72) U/L Alkaline Phosphatase 98 (38-126) U/L Total Protein 7.4 (6.3-8.2) g/dL Albumin 4.3 (3.5-5.0) g/dL - Imaging CT scan - abdomen: report reviewed, image reviewed (I compared the convertible top installer x-ray of the abdomen on today's CT versus the CT from the . On the there was much more air in the right colon than today. Today there is more stool. There is also small bowel feces sign. The distal transverse colon, descending and sigmoid colons are very small as compared to the right colon.) Assessment and Plan (1) Lactic acidosis Current Visit: Yes Status: Acute Code(s): E87.2 - ACIDOSIS SNOMED Code(s): 65591986 (2) Leukocytosis Current Visit: Yes Status: Acute Code(s): D72.829 - ELEVATED WHITE BLOOD CELL COUNT, UNSPECIFIED SNOMED Code(s): 104546372 (3) SIRS (systemic inflammatory response syndrome) Current Visit: Yes Status: Acute Code(s): R65.10 - SIRS OF NON-INFECTIOUS ORIGIN W/O ACUTE ORGAN DYSFUNCTION SNOMED Code(s): 591985938 (4) Colon distention Current Visit: Yes Status: Acute Code(s): K63.89 - OTHER SPECIFIED DISEASES OF INTESTINE SNOMED Code(s): 486628813 Plan: The patient's right colon is very distended with stool. He's complaining of some tenderness in the abdomen but also the back. Other than distention of the colon the abdominal exam is fairly benign. There is no free fluid or free air on his computed tomography scan. Recommend admission to the ICU. Serial lab and x-rays. Order suppository to try to stimulate the distal colon to evacuate. Obtain a Hemoccult of the stool. I'll recheck him later today. Further recommendations to follow.
[2018-07-30 15:48] LABS: VBG PH 7.44 (7.31-7.41)
[2018-07-30] MEDS ORDERED: THIAMINE 200 MG in SODIUM CHLORIDE 0.9% 100 ML IVPB STA (15:48)
[2018-07-30] MEDS ORDERED: NALOXONE 0.4 MG/ML 1 ML VIAL IV PRN (15:50)
[2018-07-30] MEDS ORDERED: ACETAMINOPHEN SUPPOSITORY 650 MG SUPP RECTAL PRN (15:50)
[2018-07-30] MEDS ORDERED: LORazepam 2 MG/ML INJ IV PRN ×2 (15:50)
[2018-07-30] MEDS ORDERED: THIAMINE 100 MG/ML 2 ML VIAL IM STA (15:50)
[2018-07-30 15:55] LABS: HCT 40.4 % (39.0-53.0); HGB 13.4 gm/dL (13.0-17.5); MCH 32.7 pg (25.0-35.0); MCHC 33.3 g/dL (31.0-37.0); MCV 98.1 fL (80.0-100.0); Mean Platelet Volume 6.9; Platelet Count 225 k/uL (150-450); RBC 4.11 m/uL (4.30-5.90); RDW 12.8 % (11.5-15.5); WBC 17.1 k/uL (3.8-10.6)
[2018-07-30 15:57] LABS: Lactic Acid, Venous 1.4 mmol/L (0.7-2.0)
[2018-07-30] MEDS ORDERED: DEXTROSE 5%-0.45% NACL 1,000 ML IV SCH (16:00)
[2018-07-30 16:01] LABS: ALT 39 U/L (21-72); AST 20 U/L (17-59); Acetaminophen <10.0 ug/mL; Albumin 3.6 g/dL (3.5-5.0); Alkaline Phosphatase 91 U/L (38-126); Anion Gap 10 mmol/L; Blood Urea Nitrogen 26 mg/dL (9-20); Calcium 8.8 mg/dL (8.4-10.2); Carbon Dioxide 22 mmol/L (22-30); Chloride 107 mmol/L (98-107); Glucose 214 mg/dL (74-99); Potassium 4.4 mmol/L (3.5-5.1); Salicylate <1.0 mg/dL; Sodium 139 mmol/L (137-145); Total Bilirubin 1.2 mg/dL (0.2-1.3); Total Protein 6.4 g/dL (6.3-8.2)
[2018-07-30] MEDS ORDERED: VANCOMYCIN IV PER PHARMACY 1 EACH MISC MISCELLANE PRN (16:02)
[2018-07-30 16:13] LABS: Band Neutrophils % 22 %; Lymphocytes # (M) 1.71 k/uL (1.0-4.8); Monocytes # (M) 1.54 k/uL (0-1.0); Neutrophils % (M) 59 %; Nucleated Red Blood Cells 0 /100 WBC (0-0); Total Cells Counted 100
[2018-07-30 16:35] LABS: Erythrocyte Sedimentation Rate 70 mm/hr (0-15)
--- NOTE | 2018-07-30 16:43 | CT ---
EXAMINATION TYPE: CT brain mirian montgomery con DATE OF EXAM: 07/30/2018 COMPARISON: NONE HISTORY: neck pain, no injury CT DLP: 1538.3 mGycm. Automated Exposure Control for Dose Reduction was Utilized. TECHNIQUE: CT scan of the head and cervical spine are performed without contrast. FINDINGS: There is no acute intracranial hemorrhage, mass effect, or midline shift identified. The ventricles and sulci are within normal limits in size. The globes are intact and the visualized sin uses are clear. Cervical spine is visualized in its entirety from C1 through upper thoracic levels and demonstrates s atisfactory alignment without evidence of acute fracture or dislocation. Prevertebral soft tissue ap pears within normal limits. The C1-C2 articulation is unremarkable. Emphysematous changes are noted of the partially visualized lung apices. IMPRESSION: 1. There is no acute fracture or dislocation in the cervical spine. 2. No acute intracranial hemorrhage, mass effect, or midline shift.
[2018-07-30] MEDS ORDERED: THIAMINE 100 MG TAB PO SCH (17:00)
[2018-07-30] MEDS ORDERED: VANCOMYCIN 2,000 MG in SODIUM CHLORIDE 0.9% 500 ML 500 ML IVPB ONE (17:00)
[2018-07-30 17:57] LABS: ABG Base Excess -0.6 mmol/L; ABG HCO3 23 mmol/L (21-25); ABG Oxygen Saturation 96.1 % (94-97); ABG PCO2 32 mmHg (35-45); ABG PH 7.47 (7.35-7.45); ABG PO2 74 mmHg (83-108); ABG TCO2 24 mmol/L (19-24)
[2018-07-30 18:09] LABS: Glucose,Whole Blood 224 mg/dL (75-99)
[2018-07-30 18:10] LABS: Glucose,CSF 29 mg/dL (40-70); Total Protein,CSF >600 mg/dL (12-60)
[2018-07-30 18:32] LABS: CSF Tube Number 2
[2018-07-30 18:33] LABS: Appearance,CSF Hazy; CSF Tube Volume 0.25; Nucleated Cells, CSF 1415 u/L (0-5); Red Blood Cell,CSF 965 u/L (0-10)
[2018-07-30] MEDS ORDERED: ACYCLOVIR SODIUM IV ONE (18:37)
[2018-07-30] MEDS ORDERED: SODIUM CHLORIDE 0.9% IV ONE (18:37)
--- NOTE | 2018-07-30 18:47 | XR ---
EXAMINATION TYPE: XR chest 1V portable DATE OF EXAM: 07/30/2018 COMPARISON: 07/30/2018 HISTORY: Pneumonia. Shortness of breath. TECHNIQUE: Single frontal view of the chest is obtained. FINDINGS: There is minimal bibasilar airspace disease is seen on the CT dated 07/30/2018. The known t race right pleural effusion is not well visualized. The cardiac silhouette size is mildly enlarged. The osseous structures are intact. IMPRESSION: Normal bibasilar airspace disease is seen on the CT of the same date. This may represent atelectasis or pneumonia.
--- NOTE | 2018-07-30 18:59 | HP ---
HISTORY AND PHYSICAL DATE OF SERVICE: 07/30/2018 CHIEF COMPLAINT: Abdominal pain, abdominal wall mottling and as well as confusion. HISTORY OF PRESENT ILLNESS: This 53-year-old gentleman with a past medical history of chronic back pain, history of DJD, history of nicotine dependence. Apparently alcohol intake, is living by himself and the patient is complaining of back pain about 3 days ago and the patient was seen in the emergency room and CT scan was done which was unremarkable apparently and the patient discharged home. Last night again, the patient was complaining of back pain, abdominal pain and patient had abdominal mottling. Patient progressively became confused and the friend brought him to the emergency room and was admitted for further evaluation and treatment. The patient had elevated WBC indicating possible sepsis and plasma lactic acid was also elevated at 3.5, abdomen was distended and a CT scan of the thoracic aorta was done which showed with evidence of dissection but bibasilar airspace disease greater than the right than left and also tiny superior nodule and small pericardial effusion and hepatomegaly and complicated diverticulosis of the left side of the colon. Nonvisualized appendix and umbilical hernia containing fat only. Some fecal status was also noted. Surgical evaluation by Dr. Thomas is in progress. Dr. Flannery was also consulted. Patient transferred to ICU and is being closely monitored. Lumbar puncture was also done. The patient also started on broad spectrum IV antibiotics. Cultures are being obtained at this time. LP showed features of meningitis possibly bacterial per Dr Kenney who is evalauting the patient. The patient is able to given only sketchy history. Most of the history taken from my discussion with staff, ER physician and review of the chart and as well as discussion with the friend at the bedside. PAST MEDICAL HISTORY: History of DJD, history of back pain, history of smoking. MEDICATION: Medications are: 1. Prednisone 50 mg p.o. daily. 2. Chantix. 3. Multivitamins. 4. Motrin 400 mg q.h.s. 5. [place] 10 mg t.i.d. p.r.n. 6. Gabapentin 600 mg p.o. daily. 7. Flaxseed oil 1000 mg p.o. daily. 8. Valium 5 mg q.8 p.r.n. 9. Flexeril 10 mg p.o. t.i.d. 10.Vitamin C 1000 mg p.o. daily. ALLERGIES: Unable to access SOCIAL HISTORY: History of smoking, alcohol as mentioned earlier. FAMILY HISTORY: No history of heart disease or strokes in family. REVIEW OF SYSTEMS: Could not be taken the patient. The patient is slightly confused. PHYSICAL EXAM: Pulse is 116. Blood pressure 123/91, respiration 27, temperature 99.1, pulse ox 93% on room air. HEENT: Conjunctivae normal. Oral mucosa moist. Neck stiif. No jugular venous distention. No carotid bruit. No lymph node enlargement. Cardiovascular system: S1, S2. Tachycardic. No murmur. No thrill. RESPIRATORY: Breath sounds diminished in the bases. A few scattered rhonchi and crackles. ABDOMEN: Soft. Mild diffuse distention. Mild diffuse guarding present. Mild tenderness present otherwise. No ascites. Diffuse abdominal wall mottling also present. BS normal. LEGS: No edema. No swelling. NERVOUS SYSTEM: Higher functions as mentioned earlier. Moves all four extremities. No focal deficits.Neck stiffness. Lymphatics: No lymph nodes palpable in the neck, axillae or groin. SKIN: No ulcer, rash or bleeding. JOINTS: No active deforming arthropathy. LABS: WBC 19.2 and ABG showed pH of 7.47 and pCO2 32, and PO2 is 74. Glucose is 219, plasma lactic acid 3.5. Total bilirubin is 1.4. CO2 is 245. Lipase 11. ESR is elevated. UA noted. Drug screen is positive for benzodiazepines and oxycodone and opiates. Influenza is negative. ASSESSMENT: 1. Fever headache possible acute meningis, possibly bacterial with sepsis 2. Abdominal pain and distention with possible sepsis for evaluation.Rule out ischemic bowel. 3. Low back pain for evaluation, status post lumbar puncture. 4. Lactic acidosis, possibly secondary to either sepsis. 5. Increased random blood sugar. 6. Increased WBC. 7. Respiratory alkalosis. 8. Chronic back pain. 9. Degenerative joint disease. 10.History of nicotine dependence. 11.FULL CODE. 12.Obesity with body mass of 38. RECOMMENDATIONS AND DISCUSSION: In this 53-year-old gentleman who presented with multiple complex medical issues, we will monitor the patient closely, continue the current medications, management and symptomatic treatment. We will initiate broad-spectrum IV antibiotics. Await cultures. CSF reviewed by Dr Kenney. Monitor in ICU. See orders for detailed antibiotic orders prescribed by ID. Obtain cultures. I would also recommend DVT prophylaxis, proton pump inhibitors and we will follow the patient closely with surgery and as well as Dr. Flannery. The prognosis guarded because of multiple complex medical issues. We will also monitor for alcohol withdrawals and DT precautions. Final lumbar puncture results are pending at this time. Discussed with Dr Kenney who recommended close observation in ICU. The prognosis is guarded because of multiple complex medical issues. Further recommendations to follow. MMODL / IJN: [id number] / ELISE
[2018-07-30 19:15] LABS: Diff, Total Cells Cnt, CSF 100; Mononuclear WBC,CSF 8 %; Polynuclear WBC,CSF 92 %; Red Blood Cell, CSF Crenated 0 %; Red Blood Cell, CSF Fresh 100 %
[2018-07-30] MEDS ORDERED: PIPERACILLIN-TAZOBACTAM 3.375 GM in SODIUM CHLORIDE 0.9% 100 ML IVPB SCH (20:00)
[2018-07-30] MEDS: HYDROmorphone 0.5 MG/0.5 ML SYRINGE IVP PRN (20:15)
[2018-07-30] MEDS ORDERED: HYDROcodone/APAP 5-325MG 1 EACH TAB PO PRN (21:35)
[2018-07-30] MEDS: AMPICILLIN 2,000 MG in SODIUM CHLORIDE 0.9% 100 ML IVPB SCH (22:42)
[2018-07-30] MEDS: SODIUM CHLORIDE 0.9% 1,000 ML IV SCH (22:44)
[2018-07-30] MEDS: HEPARIN SODIUM,PORCINE 5,000 UNIT/ML 1 ML VIAL SQ SCH (22:45)
[2018-07-30] MEDS: HYDROmorphone 1 MG/ML 1 ML SYRINGE IVP PRN (22:59)
--- NOTE | 2018-07-30 22:59 | P.CONS ---
History of Present Illness - Reason for Consult Consult date: 07/30/18 - Chief Complaint Fever headaches stiff neck - History of Present Illness 53-year-old male presents to the emergency center with ongoing difficulties with abdominal pain and back pain. Approximate 5 days prior he developed worsening amounts of back pain and was taking some medication for it. 3 days prior to this admission he did come to the emergency center with complaints of back and abdominal pain. Imaging studies were performed and there was evidence of some colonic dilatation without other acute concern there was no diverticulitis or free air. During the time in the emergency center the patient's status worsened. His mental status altered, although he did not have evidence of high-grade fever there was leukocytosis. Given that the imaging studies were not acutely diffe rent, the patient underwent lumbar puncture. This material was markedly abnormal and with evidence of the significant white blood cells of the CSF the infectious diseases consultation was requested. The patient was transferred to the intensive care unit. At this time the patient is sitting upright in the intensive care unit. He is awake and alert, the visitors in the room relate that he is more cognizant than he was in the emergency center. The patient however continues to have a altered affect. Of note drug screen is positive admission for opiates, oxycodone, benzodiazepines, tricyclics. At the time of the call the patient's CSF material was evaluated personally in the laboratory. An extensive pleocytosis was seen but knows that he amount of bacteria were noted. The smears were reviewed with the lab techs and no bacteria was seen. Of note the medication list from the emergency center is reviewed and there is a notation on prednisone 50 mg a day. Review of Systems As noted with patient's poor mental status a full review of systems is difficult. The patient however does relate that he has abdominal pain, he has back pain and neck pain. Apparently he has been approximate 5 days since his last bowel movement but he has not had nausea or emesis, the visitors relate that he has not eaten well in the last several days either. ROS unobtainable: due to mental status Past Medical History Additional Past Medical History / Comment(s): chronic back pain History of Any Multi-Drug Resistant Organisms: None Reported Past Surgical History: Orthopedic Surgery Past Psychological History: No Psychological Hx Reported Additional Psychological History / Comment(s): This the visitors late the patient is single and lives independently. They do not relate that he has children. Positive tobacco use. Positive alcohol use, likely daily. No injection drug use. No travel. Not working. No animal exposures Smoking Status: Current every day smoker Past Alcohol Use History: Daily, Occasional Past Drug Use History: None Reported, Opiates Medications and Allergies Home Medications and Allergies Comment(s): Current Medications Acetaminophen (Tylenol Suppository) 650 mg RECTAL Q4HR PRN PRN Reason: Fever And/ Or Mild Pain Hydrocodone Bitart/Acetaminophen (Lupton 5-325) 1 each PO Q6HR PRN PRN Reason: Pain Albuterol/Ipratropium (Duoneb 0.5 Mg-3 Mg/3 Ml Soln) 3 ml INHALATION RT-Q4H PRN PRN Reason: Shortness Of Breath Or Wheezing Heparin Sodium (Porcine) (Heparin) 5,000 unit SQ Q12HR TOY Hydromorphone HCl (Dilaudid) 1 mg IVP Q4HR PRN PRN Reason: Pain Hydromorphone HCl (Dilaudid) 0.5 mg IVP Q6HR PRN PRN Reason: Severe Pain Last Admin: 07/30/18 20:15 Dose: 0.5 mg Documented by: Thiamine HCl 100 mg/ Sodium (Chloride) 101 mls @ 202 mls/hr IVPB Q12H [facility] Sodium Chloride (Saline 0.9%) 1,000 mls @ 100 mls/hr IV .Q10H [facility] Acyclovir Sodium 1,200 mg/ (Sodium Chloride) 274 mls @ 274 mls/hr IVPB Q8HR [facility] Ceftriaxone Sodium 2 gm/ (Sodium Chloride) 50 mls @ 100 mls/hr IVPB Q12HR [facility] Last Admin: 07/30/18 21:20 Dose: 100 mls/hr Documented by: Ampicillin Sodium 2,000 mg/ (Sodium Chloride) 100 mls @ 200 mls/hr IVPB Q4H [facility] Metronidazole 500 mg/ IV (Solution) 100 mls @ 100 mls/hr IVPB Q8HR [facility] Vancomycin HCl 1,500 mg/ (Sodium Chloride) 250 mls @ 125 mls/hr IVPB Q8H [facility] Insulin Aspart (Novolog) 0 unit SQ Q6HR [facility]; Protocol Lorazepam (Ativan) 1 mg IV Q2HR PRN PRN Reason: CIWA 8 or 9 Lorazepam (Ativan) 1 mg IV Q1HR PRN PRN Reason: CIWA 10 to 15 Lorazepam (Ativan) 2 mg IV Q10M PRN PRN Reason: CIWA 16 or higher Stop: 08/01/18 15:50 Miscellaneous Information (Pharmacy To Dose Iv Vancomycin) 1 each MISCELLANE DIRECTED PRN PRN Reason: Per Protocol Multivitamins (Theragran) 1 each PO DAILY@1200 TOY Naloxone HCl (Narcan) 0.2 mg IV Q2M PRN PRN Reason: Opioid Reversal Pantoprazole Sodium (Protonix) 40 mg IV DAILY [facility] Home Medications Medication Instructions Recorded Confirmed Type Ascorbic Acid [Vitamin C] 1,000 mg PO DAILY 07/27/18 07/30/18 History Cyclobenzaprine [Flexeril] 10 mg PO TID PRN 07/27/18 07/30/18 History Diazepam [Valium] 5 mg PO Q8H PRN 3 Days #9 tab 07/27/18 07/30/18 Rx Flaxseed Oil 1,000 mg PO DAILY 07/27/18 07/30/18 History Gabapentin 600 mg PO QID 07/27/18 07/30/18 History Hydrocodone/Acetaminophen [Lupton 1 tab PO TID PRN 07/27/18 07/30/18 History 10-325] Ibuprofen [Motrin Ib] 400 mg PO Q6H PRN 07/27/18 07/30/18 History Multivit-Min/FA/Lycopen/Lutein 1 tab PO DAILY 07/27/18 07/30/18 History [Centrum Silver Tablet] Varenicline [Chantix Continuing 1 mg PO BID 07/27/18 07/30/18 History Pack] predniSONE 50 mg PO DAILY #5 tab 07/27/18 07/30/18 Rx Allergies Allergy/AdvReac Type Severity Reaction Status Date / Time Unable to Assess Allergy Verified 07/30/18 11:52 Physical Exam Vitals: Vital Signs Temp Pulse Resp BP Pulse Ox 07/30/18 19:00 134 H 24 126/91 93 L 07/30/18 18:30 137 H 16 126/91 93 L 07/30/18 18:14 137 H 28 H 92 L 07/30/18 17:52 99.1 F 135 H 27 H 123/91 93 L 07/30/18 17:30 97.6 F 133 H 33 H 122/96 93 L 07/30/18 15:56 99.1 F 07/30/18 15:35 116 H 123/91 93 L 07/30/18 15:30 116 H 123/91 93 L 07/30/18 15:00 117 H 27 H 07/30/18 14:30 114 H 31 H 141/104 07/30/18 14:00 114 H 30 H 135/91 07/30/18 13:30 120 H 140/86 93 L 07/30/18 13:00 118 H 26 H 137/96 93 L 07/30/18 12:30 114 H 10 L 127/89 90 L 07/30/18 12:15 113 H 20 127/89 89 L 07/30/18 12:00 113 H 27 H 124/87 92 L 07/30/18 11:45 115 H 20 125/102 94 L 07/30/18 11:30 125/102 07/30/18 11:15 123 H 20 96 07/30/18 11:14 128 H 33 H 94 L 07/30/18 11:06 97.9 F 136 H 26 H 125/81 95 Intake and Output 07/30/18 07/30/18 07/30/18 06:59 14:59 22:59 Intake Total 3600 Balance 3600 Intake: IV 300 Sodium Chloride 0.9% 1, 300 000 ml @ 100 mls/hr IV . Q10H [facility] Rx#:[id number] Amount of Fluid Infused ( 3300 ml) Other: Weight 120.202 kg 53-year-old male presents to Hospital from home with a 5 day history of progressive illness. He has had abdominal pain, back pain and now has developed the progressive discomfort with his neck and then some altered mental status. The alterations in mental status was most noted when he was in the emergency center. HEENT: Anicteric conjunctiva are pink and moist nasal mucosa grossly intact without significant lesions, there is no thrush. Neck: The neck is with significant tenderness and complaint of pain upon flexion of the neck, is not frankly rigid Lungs: Symmetrical bilateral air entry few basilar crackles expiratory wheezes are noted throughout Heart: Tachycardic no audible murmur click or rub Abdomen: Obese, mildly distended is only minimal tenderness upon palpation of the right upper quadrant with percussion, no palpable mass or organomegaly no rigidity and no guarding or rebound Extremities: The upper extremities have excellent pulses they are symmetric, no significant petechiae or telangiectasia. No splinter hemorrhages were noted. Lower extremities have some chronic edema no open ulcerations Neuro: The patient is awake upon entry into the room. Looks to the observer. He does follow simple commands without difficulty. His muscle strength was 4/5 bilaterally to the upper extremities, patellar reflexes were 2+ and symmetric Patient was able to move all extremities without difficulty. Able to answer some simple questions but has vague and mildly disjointed answers. Is having difficulty with concentration. Results CBC & Chem 7: 07/30/18 15:34 07/30/18 15:34 Labs: Abnormal Lab Results - Last 24 Hours (Table) 07/30/18 07/30/18 07/30/18 Range/Units 11:23 11:23 11:23 WBC 19.2 H (3.8-10.6) k/uL RBC (4.30-5.90) m/uL Neutrophils # 16.6 H (1.3-7.7) k/uL Neutrophils # (Manual) (1.3-7.7) k/uL Lymphocytes # 0.9 L (1.0-4.8) k/uL Monocytes # 1.3 H (0-1.0) k/uL Monocytes # (Manual) (0-1.0) k/uL ESR (0-15) mm/hr D-Dimer (<0.60) mg/L FEU ABG pH (7.35-7.45) ABG pCO2 (35-45) mmHg ABG pO2 (83-108) mmHg VBG pH (7.31-7.41) VBG pCO2 (37-51) mmHg VBG HCO3 (24-28) mmol/L BUN 26 H (9-20) mg/dL Glucose 219 H (74-99) mg/dL POC Glucose (mg/dL) (75-99) mg/dL Plasma Lactic Acid Jama 3.2 H* (0.7-2.0) mmol/L Total Bilirubin 1.4 H (0.2-1.3) mg/dL C-Reactive Protein (<10.0) mg/L Lipase (23-300) U/L Ur Specific Barry (1.001-1.035) Urine Protein (Negative) Urine Glucose (UA) (Negative) Urine Blood (Negative) Ur Leukocyte Esterase (Negative) Urine RBC (0-5) /hpf Urine Mucus (None) /hpf CSF RBC (0-10) u/L CSF Tot Nucleated Cells (0-5) u/L CSF Glucose (40-70) mg/dL CSF Total Protein (12-60) mg/dL Urine Opiates Screen (NotDetected) Ur Oxycodone Screen (NotDetected) U Tricyclic Antidepress (NotDetected) U Benzodiazepines Scrn (NotDetected) 07/30/18 07/30/18 07/30/18 Range/Units 11:23 12:43 12:43 WBC (3.8-10.6) k/uL RBC (4.30-5.90) m/uL Neutrophils # (1.3-7.7) k/uL Neutrophils # (Manual) (1.3-7.7) k/uL Lymphocytes # (1.0-4.8) k/uL Monocytes # (0-1.0) k/uL Monocytes # (Manual) (0-1.0) k/uL ESR (0-15) mm/hr D-Dimer (<0.60) mg/L FEU ABG pH (7.35-7.45) ABG pCO2 (35-45) mmHg ABG pO2 (83-108) mmHg VBG pH (7.31-7.41) VBG pCO2 (37-51) mmHg VBG HCO3 (24-28) mmol/L BUN (9-20) mg/dL Glucose (74-99) mg/dL POC Glucose (mg/dL) (75-99) mg/dL Plasma Lactic Acid Jama (0.7-2.0) mmol/L Total Bilirubin (0.2-1.3) mg/dL C-Reactive Protein (<10.0) mg/L Lipase 11 L (23-300) U/L Ur Specific Barry >1.050 H (1.001-1.035) Urine Protein Trace H (Negative) Urine Glucose (UA) Trace H (Negative) Urine Blood Trace H (Negative) Ur Leukocyte Esterase Trace H (Negative) Urine RBC 8 H (0-5) /hpf Urine Mucus Rare H (None) /hpf CSF RBC (0-10) u/L CSF Tot Nucleated Cells (0-5) u/L CSF Glucose (40-70) mg/dL CSF Total Protein (12-60) mg/dL Urine Opiates Screen Detected H (NotDetected) Ur Oxycodone Screen Detected H (NotDetected) U Tricyclic Antidepress Detected H (NotDetected) U Benzodiazepines Scrn Detected H (NotDetected) 07/30/18 07/30/18 07/30/18 Range/Units 15:34 15:34 15:34 WBC 17.1 H (3.8-10.6) k/uL RBC 4.11 L (4.30-5.90) m/uL Neutrophils # (1.3-7.7) k/uL Neutrophils # (Manual) 13.80 H (1.3-7.7) k/uL Lymphocytes # (1.0-4.8) k/uL Monocytes # (0-1.0) k/uL Monocytes # (Manual) 1.54 H (0-1.0) k/uL ESR 70 H (0-15) mm/hr D-Dimer (<0.60) mg/L FEU ABG pH (7.35-7.45) ABG pCO2 (35-45) mmHg ABG pO2 (83-108) mmHg VBG pH 7.44 H (7.31-7.41) VBG pCO2 32 L (37-51) mmHg VBG HCO3 21 L (24-28) mmol/L BUN 26 H (9-20) mg/dL Glucose 214 H (74-99) mg/dL POC Glucose (mg/dL) (75-99) mg/dL Plasma Lactic Acid Jama (0.7-2.0) mmol/L Total Bilirubin (0.2-1.3) mg/dL C-Reactive Protein 245.0 H (<10.0) mg/L Lipase (23-300) U/L Ur Specific Barry (1.001-1.035) Urine Protein (Negative) Urine Glucose (UA) (Negative) Urine Blood (Negative) Ur Leukocyte Esterase (Negative) Urine RBC (0-5) /hpf Urine Mucus (None) /hpf CSF RBC (0-10) u/L CSF Tot Nucleated Cells (0-5) u/L CSF Glucose (40-70) mg/dL CSF Total Protein (12-60) mg/dL Urine Opiates Screen (NotDetected) Ur Oxycodone Screen (NotDetected) U Tricyclic Antidepress (NotDetected) U Benzodiazepines Scrn (NotDetected) 07/30/18 07/30/18 07/30/18 Range/Units 15:36 17:30 17:47 WBC (3.8-10.6) k/uL RBC (4.30-5.90) m/uL Neutrophils # (1.3-7.7) k/uL Neutrophils # (Manual) (1.3-7.7) k/uL Lymphocytes # (1.0-4.8) k/uL Monocytes # (0-1.0) k/uL Monocytes # (Manual) (0-1.0) k/uL ESR (0-15) mm/hr D-Dimer 2.27 H (<0.60) mg/L FEU ABG pH (7.35-7.45) ABG pCO2 (35-45) mmHg ABG pO2 (83-108) mmHg VBG pH (7.31-7.41) VBG pCO2 (37-51) mmHg VBG HCO3 (24-28) mmol/L BUN (9-20) mg/dL Glucose (74-99) mg/dL POC Glucose (mg/dL) 224 H (75-99) mg/dL Plasma Lactic Acid Jama (0.7-2.0) mmol/L Total Bilirubin (0.2-1.3) mg/dL C-Reactive Protein (<10.0) mg/L Lipase (23-300) U/L Ur Specific Barry (1.001-1.035) Urine Protein (Negative) Urine Glucose (UA) (Negative) Urine Blood (Negative) Ur Leukocyte Esterase (Negative) Urine RBC (0-5) /hpf Urine Mucus (None) /hpf CSF RBC 965 H (0-10) u/L CSF Tot Nucleated Cells 1415 H* (0-5) u/L CSF Glucose 29 L* (40-70) mg/dL CSF Total Protein >600 H (12-60) mg/dL Urine Opiates Screen (NotDetected) Ur Oxycodone Screen (NotDetected) U Tricyclic Antidepress (NotDetected) U Benzodiazepines Scrn (NotDetected) 07/30/18 Range/Units 17:50 WBC (3.8-10.6) k/uL RBC (4.30-5.90) m/uL Neutrophils # (1.3-7.7) k/uL Neutrophils # (Manual) (1.3-7.7) k/uL Lymphocytes # (1.0-4.8) k/uL Monocytes # (0-1.0) k/uL Monocytes # (Manual) (0-1.0) k/uL ESR (0-15) mm/hr D-Dimer (<0.60) mg/L FEU ABG pH 7.47 H (7.35-7.45) ABG pCO2 32 L (35-45) mmHg ABG pO2 74 L (83-108) mmHg VBG pH (7.31-7.41) VBG pCO2 (37-51) mmHg VBG HCO3 (24-28) mmol/L BUN (9-20) mg/dL Glucose (74-99) mg/dL POC Glucose (mg/dL) (75-99) mg/dL Plasma Lactic Acid Jama (0.7-2.0) mmol/L Total Bilirubin (0.2-1.3) mg/dL C-Reactive Protein (<10.0) mg/L Lipase (23-300) U/L Ur Specific Barry (1.001-1.035) Urine Protein (Negative) Urine Glucose (UA) (Negative) Urine Blood (Negative) Ur Leukocyte Esterase (Negative) Urine RBC (0-5) /hpf Urine Mucus (None) /hpf CSF RBC (0-10) u/L CSF Tot Nucleated Cells (0-5) u/L CSF Glucose (40-70) mg/dL CSF Total Protein (12-60) mg/dL Urine Opiates Screen (NotDetected) Ur Oxycodone Screen (NotDetected) U Tricyclic Antidepress (NotDetected) U Benzodiazepines Scrn (NotDetected) Microbiology - Last 24 Hours (Table) 07/30/18 17:30 CSF Gram Stain - Preliminary Cerebral Spinal Fluid CSF Culture - Preliminary Laboratory Results WBC 17.1 k/uL (3.8-10.6) H 07/30/18 15:34 RBC 4.11 m/uL (4.30-5.90) L 07/30/18 15:34 Hgb 13.4 gm/dL (13.0-17.5) 07/30/18 15:34 Hct 40.4 % (39.0-53.0) 07/30/18 15:34 MCV 98.1 fL (80.0-100.0) 07/30/18 15:34 MCH 32.7 pg (25.0-35.0) 07/30/18 15:34 MCHC 33.3 g/dL (31.0-37.0) 07/30/18 15:34 RDW 12.8 % (11.5-15.5) 07/30/18 15:34 Plt Count 225 k/uL (150-450) 07/30/18 15:34 Neutrophils % 86 % 07/30/18 11:23 Neutrophils % (Manual) 59 % 07/30/18 15:34 Band Neutrophils % 22 % 07/30/18 15:34 Lymphocytes % 5 % 07/30/18 11:23 Lymphocytes % (Manual) 10 % 07/30/18 15:34 Monocytes % 7 % 07/30/18 11:23 Monocytes % (Manual) 9 % 07/30/18 15:34 Eosinophils % 0 % 07/30/18 11:23 Basophils % 0 % 07/30/18 11:23 Neutrophils # 16.6 k/uL (1.3-7.7) H 07/30/18 11:23 Neutrophils # (Manual) 13.80 k/uL (1.3-7.7) H 07/30/18 15:34 Lymphocytes # 0.9 k/uL (1.0-4.8) L 07/30/18 11:23 Lymphocytes # (Manual) 1.71 k/uL (1.0-4.8) 07/30/18 15:34 Monocytes # 1.3 k/uL (0-1.0) H 07/30/18 11:23 Monocytes # (Manual) 1.54 k/uL (0-1.0) H 07/30/18 15:34 Eosinophils # 0.1 k/uL (0-0.7) 07/30/18 11:23 Basophils # 0.0 k/uL (0-0.2) 07/30/18 11:23 Nucleated RBCs 0 /100 WBC (0-0) 07/30/18 15:34 Manual Slide Review Performed 07/30/18 15:34 RBC Morphology Normal 07/30/18 15:34 ESR 70 mm/hr (0-15) H 07/30/18 15:34 PT 11.3 sec (9.0-12.0) 07/30/18 11:23 INR 1.1 (<1.2) 07/30/18 11:23 APTT 22.0 sec (22.0-30.0) 07/30/18 11:23 D-Dimer 2.27 mg/L FEU (<0.60) H 07/30/18 15:36 Sample Site r rad 07/30/18 17:50 ABG pH 7.47 (7.35-7.45) H 07/30/18 17:50 ABG pCO2 32 mmHg (35-45) L 07/30/18 17:50 ABG pO2 74 mmHg (83-108) L 07/30/18 17:50 ABG HCO3 23 mmol/L (21-25) 07/30/18 17:50 ABG Total CO2 24 mmol/L (19-24) 07/30/18 17:50 ABG O2 Saturation 96.1 % (94-97) 07/30/18 17:50 ABG Base Excess -0.6 mmol/L 07/30/18 17:50 Abhinav Test Yes 07/30/18 17:50 VBG pH 7.44 (7.31-7.41) H 07/30/18 15:34 VBG pCO2 32 mmHg (37-51) L 07/30/18 15:34 VBG HCO3 21 mmol/L (24-28) L 07/30/18 15:34 FiO2 36 % 07/30/18 17:50 Sodium 139 mmol/L (137-145) 07/30/18 15:34 Potassium 4.4 mmol/L (3.5-5.1) 07/30/18 15:34 Chloride 107 mmol/L (98-107) 07/30/18 15:34 Carbon Dioxide 22 mmol/L (22-30) 07/30/18 15:34 Anion Gap 10 mmol/L 07/30/18 15:34 BUN 26 mg/dL (9-20) H 07/30/18 15:34 Creatinine 0.79 mg/dL (0.66-1.25) 07/30/18 15:34 Est GFR (CKD-EPI)AfAm >90 (>60 ml/min/1.73 sqM) 07/30/18 15:34 Est GFR (CKD-EPI)NonAf >90 (>60 ml/min/1.73 sqM) 07/30/18 15:34 Glucose 214 mg/dL (74-99) H 07/30/18 15:34 POC Glucose (mg/dL) 224 mg/dL (75-99) H 07/30/18 17:47 POC Glu [employer] Collector ID Marcella Julien 07/30/18 17:47 Lactic Ac Sepsis Rflx Y 07/30/18 12:03 Plasma Lactic Acid Jama 1.4 mmol/L (0.7-2.0) 07/30/18 15:34 Calcium 8.8 mg/dL (8.4-10.2) 07/30/18 15:34 Phosphorus 4.2 mg/dL (2.5-4.5) 07/30/18 11:23 Magnesium 2.1 mg/dL (1.6-2.3) 07/30/18 11:23 Total Bilirubin 1.2 mg/dL (0.2-1.3) 07/30/18 15:34 AST 20 U/L (17-59) 07/30/18 15:34 ALT 39 U/L (21-72) 07/30/18 15:34 Alkaline Phosphatase 91 U/L (38-126) 07/30/18 15:34 Ammonia 12 umol/L (<30) 07/30/18 15:34 Troponin I <0.012 ng/mL (0.000-0.034) 07/30/18 11:23 C-Reactive Protein 245.0 mg/L (<10.0) H 07/30/18 15:34 Total Protein 6.4 g/dL (6.3-8.2) 07/30/18 15:34 Albumin 3.6 g/dL (3.5-5.0) 07/30/18 15:34 Lipase 11 U/L (23-300) L 07/30/18 12:43 Urine Color Yellow 07/30/18 11:23 Urine Appearance Clear (Clear) 07/30/18 11:23 Urine pH 6.0 (5.0-8.0) 07/30/18 11:23 Ur Specific Barry >1.050 (1.001-1.035) H 07/30/18 11:23 Urine Protein Trace (Negative) H 07/30/18 11:23 Urine Glucose (UA) Trace (Negative) H 07/30/18 11:23 Urine Ketones Negative (Negative) 07/30/18 11:23 Urine Blood Trace (Negative) H 07/30/18 11:23 Urine Nitrite Negative (Negative) 07/30/18 11:23 Urine Bilirubin Negative (Negative) 07/30/18 11:23 Urine Urobilinogen <2.0 mg/dL (<2.0) 07/30/18 11:23 Ur Leukocyte Esterase Trace (Negative) H 07/30/18 11:23 Urine RBC 8 /hpf (0-5) H 07/30/18 11:23 Urine WBC 4 /hpf (0-5) 07/30/18 11:23 Urine Mucus Rare /hpf (None) H 07/30/18 11:23 CSF Tube Number 2 07/30/18 17:30 CSF Volume 0.25 07/30/18 17:30 CSF Appearance Hazy 07/30/18 17:30 CSF Color Xanthochromic 07/30/18 17:30 CSF RBC 965 u/L (0-10) H 07/30/18 17:30 CSF Tot Nucleated Cells 1415 u/L (0-5) H* 07/30/18 17:30 CSF Mononuclear WBCs % 8 % 07/30/18 17:30 CSF Polynuclear WBCs % 92 % 07/30/18 17:30 CSF Crenated Cells 0 % 07/30/18 17:30 CSF Fresh RBCs 100 % 07/30/18 17:30 CSF Glucose 29 mg/dL (40-70) L* 07/30/18 17:30 CSF Total Protein >600 mg/dL (12-60) H 07/30/18 17:30 Salicylates <1.0 mg/dL 07/30/18 15:34 Urine Opiates Screen Detected (NotDetected) H 07/30/18 12:43 Ur Oxycodone Screen Detected (NotDetected) H 07/30/18 12:43 Urine Methadone Screen Not Detected (NotDetected) 07/30/18 12:43 Ur Propoxyphene Screen Not Detected (NotDetected) 07/30/18 12:43 Acetaminophen <10.0 ug/mL 07/30/18 15:34 Ur Barbiturates Screen Not Detected (NotDetected) 07/30/18 12:43 U Tricyclic Antidepress Detected (NotDetected) H 07/30/18 12:43 Ur Phencyclidine Scrn Not Detected (NotDetected) 07/30/18 12:43 Ur Amphetamines Screen Not Detected (NotDetected) 07/30/18 12:43 U Methamphetamines Scrn Not Detected (NotDetected) 07/30/18 12:43 U Benzodiazepines Scrn Detected (NotDetected) H 07/30/18 12:43 Urine Cocaine Screen Not Detected (NotDetected) 07/30/18 12:43 U Marijuana (THC) Screen Not Detected (NotDetected) 07/30/18 12:43 Influenza Type A RNA Not Detected (Not Detectd) 07/30/18 13:35 Influenza Type B (PCR) Not Detected (Not Detectd) 07/30/18 13:35 Blood Type O Positive 07/30/18 11:23 Blood Type Confirm O Positive 07/30/18 12:39 Blood Type Recheck CABO Indicated 07/30/18 11:23 Antibody Screen NEGATIVE 07/30/18 11:23 Spec Expiration Date 08/02/2018232207/30/18 11:23 Microbiology 07/30/18 12:43 Urine,Clean Catch Urine Culture - Preliminary 07/30/18 17:30 Cerebral Spinal Fluid CSF Gram Stain - Preliminary 07/30/18 17:30 Cerebral Spinal Fluid CSF Culture - Preliminary CT scan - abdomen: report reviewed, image reviewed (And reviewed with the surgeon evidence of the dilated bowel loops without free air, abscess or acute diverticulitis. No aneurysm of the abdominal aorta) CT scan - chest: report reviewed (Evidence of any mass effect cervical spine intact) Assessment and Plan (1) Abdominal pain Current Visit: Yes Status: Acute Code(s): R10.9 - UNSPECIFIED ABDOMINAL PAIN SNOMED Code(s): 69949590 (2) Acute exacerbation of chronic low back pain Current Visit: Yes Status: Acute Code(s): M54.5 - LOW BACK PAIN; G89.29 - OTHER CHRONIC PAIN SNOMED Code(s): 789429943 (3) Altered mental status Narrative/Plan: 53-year-old male presents to hospital with progressive symptoms over the 5 days before admission. Approximately 3 days prior he been in the emergency center with complaints of ongoing abdominal pain. There is evidence of some constipation at that point in time and patient was symptomatically treated. However he now has a great difficulties with ongoing abdominal pain worsening back pain and now while in the emergency center the altered mental status developed. Because of these findings in the leukocytosis lumbar puncture was performed the reveals a markedly abnormal fluid. There were 1415 white blood cells, 965 red blood cells, glucose was 29 and protein was greater than 600 with some xanthochromia being seen. The Gram stain is personally reviewed without evidence of any bacterial pathogens being seen. At this time the patient has evidence of bacterial meningitis with evidence of a systemic inflammatory response, leukocytosis, lactic acidosis, hypoglycorrhachia and evidence of marked elevated protein of the CSF. Without evidence of gram- negative organisms seen on the Gram stain is unlikely the patient has no severe meningitidis in no prophylaxis is given to visitors or to the care team here at the hospital. This will be with ongoing review. At this time cultures are in process however antimicrobial therapy is being utilized with concerns to multiple potential pathogens which would include Streptococcus pneumoniae, listeria meningitis which is of some great concern given the patient's history of alcohol use and what appears to be high doses of steroids as of late. Constantly for antibiotic therapy high doses of ampicillin, ceftriaxone and vancomycin are being utilized. Although I do not suspect brain abscess the patient does have potential intra-abdominal pathology with a dilated colon and constantly metronidazole is added to the ceftriaxone for treatment of potential intra-abdominal infection also. Cultures are all in process at this point in time he may further help direct antimicrobial therapy in the near future. Fortunately with hydration and initiation of some metabolic therapy his mentation seems to be a bit improved and as described in the emergency center. The case as directed we discussed with the surgeon and at this time no acute indication for surgical intervention to the abdomen at this time, treatment for constipation is in process. Also discussed with the hospitalist as far as the course of treatment for the meningitis and follow-up. Current Visit: Yes Status: Acute Code(s): R41.82 - ALTERED MENTAL STATUS, UNSPECIFIED SNOMED Code(s): 106724137 (4) SIRS (systemic inflammatory response syndrome) Current Visit: Yes Status: Acute Code(s): R65.10 - SIRS OF NON-INFECTIOUS ORIGIN W/O ACUTE ORGAN DYSFUNCTION SNOMED Code(s): 430233249
[2018-07-30] MEDS ORDERED: SUCCINYLCHOLINE CHLORIDE 100 MG/5 ML SYR IV ONE (23:30)
[2018-07-30] MEDS ORDERED: PROPOFOL 10 MG/ML 20 ML VIAL IV ONE ×2 (23:30→23:40)
[2018-07-30] MEDS ORDERED: SUCCINYLCHOLINE CHLORIDE VIAL 200 MG/10 ML VIAL IV ONE (23:40)
[2018-07-30] MEDS: PROPOFOL 1,000 MG in EMPTY BAG 1 BAG IV SCH (23:42)
[2018-07-31] MEDS ORDERED: SODIUM CHLORIDE 0.9% IVPB SCH ×2
[2018-07-31] MEDS ORDERED: AMPICILLIN 1,000 MG in SODIUM CHLORIDE 0.9% 50 ML IVPB SCH ×2
[2018-07-31] MEDS ORDERED: ACYCLOVIR SODIUM IVPB SCH ×2
--- NOTE | 2018-07-31 00:13 | XR ---
EXAM: XR Chest, 1 View CLINICAL HISTORY: ITS.REASON XR Reason: intubtion TECHNIQUE: Frontal view of the chest. COMPARISON: No relevant prior studies available. FINDINGS: Lungs: Unremarkable. No consolidation. Pleural space: Unremarkable. No pneumothorax. Heart: No pneumomediastinum. Mediastinum: Unremarkable. Bones/joints: No definite fracture. Tubes, lines and devices: Endotracheal and nasogastric tubes in proper placement. IMPRESSION: No acute findings.
[2018-07-31 00:31] LABS: ABG HCO3 25 mmol/L (21-25); ABG Oxygen Saturation 99.9 % (94-97); ABG PCO2 44 mmHg (35-45); ABG PH 7.35 (7.35-7.45); ABG PO2 286 mmHg (83-108); ABG TCO2 26 mmol/L (19-24)
[2018-07-31] MEDS: metroNIDAZOLE-NS PMX 500 MG in SALINE 1 100ML.BAG IVPB SCH ×3 (01:14→18:13)
[2018-07-31] MEDS: INSULIN ASPART (NovoLOG) 100 UNIT/ML VIAL SQ SCH ×4 (01:14→18:15)
[2018-07-31] MEDS: AMPICILLIN 2,000 MG in SODIUM CHLORIDE 0.9% 100 ML IVPB SCH ×6 (01:18→22:06)
[2018-07-31 01:22] LABS: Glucose,Whole Blood 177 mg/dL (75-99)
[2018-07-31] MEDS: PROPOFOL 1,000 MG in EMPTY BAG 1 BAG IV SCH ×7 (02:38→22:06)
[2018-07-31] MEDS: VANCOMYCIN 1,500 MG in SODIUM CHLORIDE 0.9% 250 ML IVPB SCH ×3 (03:59→22:05)
[2018-07-31] MEDS: HYDROmorphone 1 MG/ML 1 ML SYRINGE IVP PRN ×2 (04:17→11:49)
[2018-07-31] MEDS: LORazepam 2 MG/ML INJ IV PRN (04:18)
[2018-07-31 05:45] LABS: ALT 34 U/L (21-72); AST 25 U/L (17-59); Alkaline Phosphatase 78 U/L (38-126); Anion Gap 8 mmol/L; Blood Urea Nitrogen 33 mg/dL (9-20); Calcium 8.9 mg/dL (8.4-10.2); Carbon Dioxide 24 mmol/L (22-30); Chloride 110 mmol/L (98-107); Glucose 166 mg/dL (74-99); Lipase <10 U/L (23-300); Magnesium 2.6 mg/dL (1.6-2.3); Phosphorus 2.9 mg/dL (2.5-4.5); Potassium 4.2 mmol/L (3.5-5.1); Sodium 142 mmol/L (137-145); Total Protein 5.6 g/dL (6.3-8.2)
[2018-07-31 05:53] LABS: MCH 33.2 pg (25.0-35.0); MCHC 33.3 g/dL (31.0-37.0); MCV 99.7 fL (80.0-100.0); Mean Platelet Volume 7.2; Platelet Count 189 k/uL (150-450); RBC 3.91 m/uL (4.30-5.90); RDW 13.1 % (11.5-15.5); WBC 13.2 k/uL (3.8-10.6)
[2018-07-31 06:19] LABS: Band Neutrophils % 32 %; Monocytes # (M) 0.53 k/uL (0-1.0); Neutrophils % (M) 61 %; Nucleated Red Blood Cells 0 /100 WBC (0-0); Total Cells Counted 100
[2018-07-31 06:35] LABS: Glucose,Whole Blood 191 mg/dL (75-99)
[2018-07-31] MEDS: HYDROmorphone 0.5 MG/0.5 ML SYRINGE IVP PRN (06:35)
[2018-07-31 08:15] LABS: ABG HCO3 25 mmol/L (21-25); ABG Oxygen Saturation 96.7 % (94-97); ABG PCO2 35 mmHg (35-45); ABG PH 7.46 (7.35-7.45); ABG PO2 79 mmHg (83-108); ABG TCO2 26 mmol/L (19-24)
[2018-07-31] MEDS ORDERED: HYDROmorphone 1 MG/ML 1 ML SYRINGE IVP STA (08:41)
[2018-07-31] MEDS: SODIUM CHLORIDE 0.9% 1,000 ML IV SCH ×2 (08:43→16:10)
[2018-07-31] MEDS ORDERED: ENOXAPARIN 40 MG/0.4 ML SYRINGE SQ SCH (09:00)
[2018-07-31] MEDS: fentaNYL (PF) 1,000 MCG in SODIUM CHLORIDE 0.9% 80 ML IV SCH ×2 (09:23→16:40)
[2018-07-31] MEDS: THIAMINE 100 MG in SODIUM CHLORIDE 0.9% 100 ML IVPB SCH ×2 (09:26→21:00)
[2018-07-31] MEDS: PANTOPRAZOLE 40 MG/10 ML VIAL IV SCH (09:27)
[2018-07-31] MEDS: CHLORHEXIDINE GLUCONATE 15 ML CUP MUCOUS MEM SCH ×2 (09:27→22:04)
[2018-07-31] MEDS: HEPARIN SODIUM,PORCINE 5,000 UNIT/ML 1 ML VIAL SQ SCH ×2 (09:27→22:04)
[2018-07-31] MEDS ORDERED: CISATRACURIUM 2 MG/ML 5 ML VIAL IV ONE (09:56)
[2018-07-31 10:38] LABS: ABG Base Excess 1.1 mmol/L; ABG HCO3 26 mmol/L (21-25); ABG Oxygen Saturation 97.9 % (94-97); ABG PCO2 46 mmHg (35-45); ABG PH 7.37 (7.35-7.45); ABG PO2 101 mmHg (83-108); ABG TCO2 28 mmol/L (19-24)
--- NOTE | 2018-07-31 10:59 | ECHOF ---
Referral Reason:effusion MEASUREMENTS -------- HEIGHT: 182.9 cm WEIGHT: 120.2 kg BP: IVSd: 1.8 cm (0.6 - 1.1) LVIDd: 1.9 cm (3.9 - 5.3) LVPWd: 1.6 cm (0.6 - 1.1) IVSs: 2.1 cm LVIDs: 1.4 cm LVPWs: 1.6 cm LAESV Index (A-L): 15.60 ml/m Ao Diam: 3.1 cm (2.0 - 3.7) LA Diam: 3.3 cm (2.7 - 3.8) AV Cusp: 1.8 cm (1.5 - 2.6) EPSS: 1.6 cm AV maxP.24 mmHg AV meanP.95 mmHg RAP: 5.00 mmHg RVSP: 23.62 mmHg MV EF SLOPE: 69.69 mm/s (70 - 150) MV EXCURSION: 1.33 cm (> 18.000) FINDINGS -------- Resting tachycardia (HR>100bpm). This was a technically good study. The left ventricular size is normal. There is moderate concentric left ventricular hypertrophy. O verall left ventricular systolic function is normal with, an EF between 55 - 60 %. The right ventricle is normal in size. The left atrial size is normal. The right atrial size is normal. Aortic valve is trileaflet and is severely thickened. There is czhazjth-pu-olbbnh aortic stenosis p resent. Peak/mean gradient across the Aortic Valve is 45.24mmHg / 28.95mmHg. Can't exclude possib le bicuspid aortic valve. The mitral valve leaflets are mildly thickened. There is trace mitral regurgitation. Trace tricuspid regurgitation present. The right ventricular systolic pressure, as measured by Dopp ler, is 23.62mmHg. There is no pulmonic regurgitation present. The aortic root size is normal. Decending aorta appears narrowed with a max gradient of 23mmHg. Normal inferior vena cava with normal inspiratory collapse consistent with estimated right atrial pre ssure of 5 mmHg. There is a trivial pericardial effusion present. CONCLUSIONS -------- 1. Resting tachycardia (HR>100bpm). 2. This was a technically good study. 3. The left ventricular size is normal. 4. There is moderate concentric left ventricular hypertrophy. 5. Overall left ventricular systolic function is normal with, an EF between 55 - 60 %. 6. The right ventricle is normal in size. 7. The left atrial size is normal. 8. The right atrial size is normal. 9. Aortic valve is trileaflet and is severely thickened. 10. There is qwrzhxao-eg-ghsgck aortic stenosis present. 11. Peak/mean gradient across the Aortic Valve is 45.24mmHg / 28.95mmHg. 12. Can't exclude possible bicuspid aortic valve. 13. The mitral valve leaflets are mildly thickened. 14. There is trace mitral regurgitation. 15. Trace tricuspid regurgitation present. 16. The right ventricular systolic pressure, as measured by Doppler, is 23.62mmHg. 17. There is no pulmonic regurgitation present. 18. The aortic root size is normal. 19. Decending aorta appears narrowed with a max gradient of 23mmHg. 20. Normal inferior vena cava with normal inspiratory collapse consistent with estimated right atrial pressure of 5 mmHg. SALES REPRESENTATIVE: Joelle Mata RDCS
[2018-07-31] MEDS: CISATRACURIUM 200 MG in SODIUM CHLORIDE 0.9% 180 ML IV SCH ×2 (11:03→16:42)
--- NOTE | 2018-07-31 11:39 | P.PN ---
Subjective Progress Note Date: 07/31/18 Principal diagnosis: sepsis, SIRS, meningitis, abdominal distention The patient's a 53-year-old man who presented with back pain and abdominal pain along with confusion. He required intubation overnight and is currently sedated on the ventilator. Objective - Vital Signs Vital signs: Vital Signs Temp 99.5 F 07/31/18 08:30 Pulse 133 H 07/31/18 10:00 Resp 38 H 07/31/18 10:00 BP 144/105 07/31/18 10:00 Pulse Ox 95 07/31/18 10:00 Intake & Output 07/30/18 07/31/18 07/31/18 18:59 06:59 18:59 Intake Total 3500 2595.447 750 Output Total 875 450 Balance 3500 1720.447 300 Weight 120.202 kg 120.1 kg Intake: IV 200 2350 650 Ampicillin 2,000 mg In 200 Sodium Chloride 0.9% 100 ml @ 200 mls/hr IVPB Q4H TOY Rx#:[id number] Piperacillin-Tazobactam 3 100 .375 gm In Sodium Chloride 0.9% 100 ml @ 25 mls/hr IVPB ONCE STA Rx# :[id number] Sodium Chloride 0.9% 1, 200 1200 300 000 ml @ 100 mls/hr IV . Q10H TOY Rx#:[id number] Thiamine 200 mg In Sodium 200 Chloride 0.9% 100 ml @ 200 mls/hr IVPB ONCE STA Rx#:[id number] Vancomycin 1,500 mg In 250 Sodium Chloride 0.9% 250 ml @ 125 mls/hr IVPB Q8H TOY Rx#:[id number] Vancomycin 2,000 mg In 500 Sodium Chloride 0.9% 500 ml 500 ml @ 167 mls/hr IVPB ONCE ONE Rx#: [id number] cefTRIAXone 2 gm In 50 Sodium Chloride 0.9% 50 ml @ 100 mls/hr IVPB Q12HR TOY Rx#:[id number] metroNIDAZOLE-NS PMX 500 100 100 mg In Saline 1 100ml.bag @ 100 mls/hr IVPB Q8HR TOY Rx#:[id number] Amount of Fluid Infused ( 3300 ml) Intake, IV Titration 245.447 100 Amount Propofol 1,000 mg In 245.447 100 Empty Bag 1 bag @ Titrate IV .Q0M TOY Rx#: [id number] Output: Urine 875 450 - Constitutional Constitutional Comment(s): Sedated, some mild diaphoresis - Respiratory Respiratory: bilateral: CTA, rhonchi (Rare) - Cardiovascular Rhythm: other (Tachycardic, regular rhythm) - Gastrointestinal General gastrointestinal: Present: distended (abdomen may be slightly softer than last night.) - Labs CBC & Chem 7: 07/31/18 04:28 07/31/18 04:28 Labs: Abnormal Lab Results - Last 24 Hours (Table) 07/30/18 07/30/18 07/30/18 Range/Units 11:23 11:23 11:23 WBC 19.2 H (3.8-10.6) k/uL RBC (4.30-5.90) m/uL Neutrophils # 16.6 H (1.3-7.7) k/uL Neutrophils # (Manual) (1.3-7.7) k/uL Lymphocytes # 0.9 L (1.0-4.8) k/uL Lymphocytes # (Manual) (1.0-4.8) k/uL Monocytes # 1.3 H (0-1.0) k/uL Monocytes # (Manual) (0-1.0) k/uL ESR (0-15) mm/hr D-Dimer (<0.60) mg/L FEU ABG pH (7.35-7.45) ABG pCO2 (35-45) mmHg ABG pO2 (83-108) mmHg ABG HCO3 (21-25) mmol/L ABG Total CO2 (19-24) mmol/L ABG O2 Saturation (94-97) % VBG pH (7.31-7.41) VBG pCO2 (37-51) mmHg VBG HCO3 (24-28) mmol/L Chloride (98-107) mmol/L BUN 26 H (9-20) mg/dL Glucose 219 H (74-99) mg/dL POC Glucose (mg/dL) (75-99) mg/dL Plasma Lactic Acid Jama 3.2 H* (0.7-2.0) mmol/L Magnesium (1.6-2.3) mg/dL Total Bilirubin 1.4 H (0.2-1.3) mg/dL C-Reactive Protein (<10.0) mg/L Total Protein (6.3-8.2) g/dL Albumin (3.5-5.0) g/dL Lipase (23-300) U/L Ur Specific Brook (1.001-1.035) Urine Protein (Negative) Urine Glucose (UA) (Negative) Urine Blood (Negative) Ur Leukocyte Esterase (Negative) Urine RBC (0-5) /hpf Urine Mucus (None) /hpf CSF RBC (0-10) u/L CSF Tot Nucleated Cells (0-5) u/L CSF Glucose (40-70) mg/dL CSF Total Protein (12-60) mg/dL Urine Opiates Screen (NotDetected) Ur Oxycodone Screen (NotDetected) U Tricyclic Antidepress (NotDetected) U Benzodiazepines Scrn (NotDetected) 07/30/18 07/30/18 07/30/18 Range/Units 11:23 12:43 12:43 WBC (3.8-10.6) k/uL RBC (4.30-5.90) m/uL Neutrophils # (1.3-7.7) k/uL Neutrophils # (Manual) (1.3-7.7) k/uL Lymphocytes # (1.0-4.8) k/uL Lymphocytes # (Manual) (1.0-4.8) k/uL Monocytes # (0-1.0) k/uL Monocytes # (Manual) (0-1.0) k/uL ESR (0-15) mm/hr D-Dimer (<0.60) mg/L FEU ABG pH (7.35-7.45) ABG pCO2 (35-45) mmHg ABG pO2 (83-108) mmHg ABG HCO3 (21-25) mmol/L ABG Total CO2 (19-24) mmol/L ABG O2 Saturation (94-97) % VBG pH (7.31-7.41) VBG pCO2 (37-51) mmHg VBG HCO3 (24-28) mmol/L Chloride (98-107) mmol/L BUN (9-20) mg/dL Glucose (74-99) mg/dL POC Glucose (mg/dL) (75-99) mg/dL Plasma Lactic Acid Jama (0.7-2.0) mmol/L Magnesium (1.6-2.3) mg/dL Total Bilirubin (0.2-1.3) mg/dL C-Reactive Protein (<10.0) mg/L Total Protein (6.3-8.2) g/dL Albumin (3.5-5.0) g/dL Lipase 11 L (23-300) U/L Ur Specific Brook >1.050 H (1.001-1.035) Urine Protein Trace H (Negative) Urine Glucose (UA) Trace H (Negative) Urine Blood Trace H (Negative) Ur Leukocyte Esterase Trace H (Negative) Urine RBC 8 H (0-5) /hpf Urine Mucus Rare H (None) /hpf CSF RBC (0-10) u/L CSF Tot Nucleated Cells (0-5) u/L CSF Glucose (40-70) mg/dL CSF Total Protein (12-60) mg/dL Urine Opiates Screen Detected H (NotDetected) Ur Oxycodone Screen Detected H (NotDetected) U Tricyclic Antidepress Detected H (NotDetected) U Benzodiazepines Scrn Detected H (NotDetected) 07/30/18 07/30/18 07/30/18 Range/Units 15:34 15:34 15:34 WBC 17.1 H (3.8-10.6) k/uL RBC 4.11 L (4.30-5.90) m/uL Neutrophils # (1.3-7.7) k/uL Neutrophils # (Manual) 13.80 H (1.3-7.7) k/uL Lymphocytes # (1.0-4.8) k/uL Lymphocytes # (Manual) (1.0-4.8) k/uL Monocytes # (0-1.0) k/uL Monocytes # (Manual) 1.54 H (0-1.0) k/uL ESR 70 H (0-15) mm/hr D-Dimer (<0.60) mg/L FEU ABG pH (7.35-7.45) ABG pCO2 (35-45) mmHg ABG pO2 (83-108) mmHg ABG HCO3 (21-25) mmol/L ABG Total CO2 (19-24) mmol/L ABG O2 Saturation (94-97) % VBG pH 7.44 H (7.31-7.41) VBG pCO2 32 L (37-51) mmHg VBG HCO3 21 L (24-28) mmol/L Chloride (98-107) mmol/L BUN 26 H (9-20) mg/dL Glucose 214 H (74-99) mg/dL POC Glucose (mg/dL) (75-99) mg/dL Plasma Lactic Acid Jama (0.7-2.0) mmol/L Magnesium (1.6-2.3) mg/dL Total Bilirubin (0.2-1.3) mg/dL C-Reactive Protein 245.0 H (<10.0) mg/L Total Protein (6.3-8.2) g/dL Albumin (3.5-5.0) g/dL Lipase (23-300) U/L Ur Specific Brook (1.001-1.035) Urine Protein (Negative) Urine Glucose (UA) (Negative) Urine Blood (Negative) Ur Leukocyte Esterase (Negative) Urine RBC (0-5) /hpf Urine Mucus (None) /hpf CSF RBC (0-10) u/L CSF Tot Nucleated Cells (0-5) u/L CSF Glucose (40-70) mg/dL CSF Total Protein (12-60) mg/dL Urine Opiates Screen (NotDetected) Ur Oxycodone Screen (NotDetected) U Tricyclic Antidepress (NotDetected) U Benzodiazepines Scrn (NotDetected) 07/30/18 07/30/18 07/30/18 Range/Units 15:36 17:30 17:47 WBC (3.8-10.6) k/uL RBC (4.30-5.90) m/uL Neutrophils # (1.3-7.7) k/uL Neutrophils # (Manual) (1.3-7.7) k/uL Lymphocytes # (1.0-4.8) k/uL Lymphocytes # (Manual) (1.0-4.8) k/uL Monocytes # (0-1.0) k/uL Monocytes # (Manual) (0-1.0) k/uL ESR (0-15) mm/hr D-Dimer 2.27 H (<0.60) mg/L FEU ABG pH (7.35-7.45) ABG pCO2 (35-45) mmHg ABG pO2 (83-108) mmHg ABG HCO3 (21-25) mmol/L ABG Total CO2 (19-24) mmol/L ABG O2 Saturation (94-97) % VBG pH (7.31-7.41) VBG pCO2 (37-51) mmHg VBG HCO3 (24-28) mmol/L Chloride (98-107) mmol/L BUN (9-20) mg/dL Glucose (74-99) mg/dL POC Glucose (mg/dL) 224 H (75-99) mg/dL Plasma Lactic Acid Jama (0.7-2.0) mmol/L Magnesium (1.6-2.3) mg/dL Total Bilirubin (0.2-1.3) mg/dL C-Reactive Protein (<10.0) mg/L Total Protein (6.3-8.2) g/dL Albumin (3.5-5.0) g/dL Lipase (23-300) U/L Ur Specific Brook (1.001-1.035) Urine Protein (Negative) Urine Glucose (UA) (Negative) Urine Blood (Negative) Ur Leukocyte Esterase (Negative) Urine RBC (0-5) /hpf Urine Mucus (None) /hpf CSF RBC 965 H (0-10) u/L CSF Tot Nucleated Cells 1415 H* (0-5) u/L CSF Glucose 29 L* (40-70) mg/dL CSF Total Protein >600 H (12-60) mg/dL Urine Opiates Screen (NotDetected) Ur Oxycodone Screen (NotDetected) U Tricyclic Antidepress (NotDetected) U Benzodiazepines Scrn (NotDetected) 07/30/18 07/31/18 07/31/18 Range/Units 17:50 00:26 01:09 WBC (3.8-10.6) k/uL RBC (4.30-5.90) m/uL Neutrophils # (1.3-7.7) k/uL Neutrophils # (Manual) (1.3-7.7) k/uL Lymphocytes # (1.0-4.8) k/uL Lymphocytes # (Manual) (1.0-4.8) k/uL Monocytes # (0-1.0) k/uL Monocytes # (Manual) (0-1.0) k/uL ESR (0-15) mm/hr D-Dimer (<0.60) mg/L FEU ABG pH 7.47 H (7.35-7.45) ABG pCO2 32 L (35-45) mmHg ABG pO2 74 L 286 H (83-108) mmHg ABG HCO3 (21-25) mmol/L ABG Total CO2 26 H (19-24) mmol/L ABG O2 Saturation 99.9 H (94-97) % VBG pH (7.31-7.41) VBG pCO2 (37-51) mmHg VBG HCO3 (24-28) mmol/L Chloride (98-107) mmol/L BUN (9-20) mg/dL Glucose (74-99) mg/dL POC Glucose (mg/dL) 177 H (75-99) mg/dL Plasma Lactic Acid Jama (0.7-2.0) mmol/L Magnesium (1.6-2.3) mg/dL Total Bilirubin (0.2-1.3) mg/dL C-Reactive Protein (<10.0) mg/L Total Protein (6.3-8.2) g/dL Albumin (3.5-5.0) g/dL Lipase (23-300) U/L Ur Specific Brook (1.001-1.035) Urine Protein (Negative) Urine Glucose (UA) (Negative) Urine Blood (Negative) Ur Leukocyte Esterase (Negative) Urine RBC (0-5) /hpf Urine Mucus (None) /hpf CSF RBC (0-10) u/L CSF Tot Nucleated Cells (0-5) u/L CSF Glucose (40-70) mg/dL CSF Total Protein (12-60) mg/dL Urine Opiates Screen (NotDetected) Ur Oxycodone Screen (NotDetected) U Tricyclic Antidepress (NotDetected) U Benzodiazepines Scrn (NotDetected) 07/31/18 07/31/18 07/31/18 Range/Units 04:28 04:28 06:32 WBC 13.2 H (3.8-10.6) k/uL RBC 3.91 L (4.30-5.90) m/uL Neutrophils # (1.3-7.7) k/uL Neutrophils # (Manual) 12.20 H (1.3-7.7) k/uL Lymphocytes # (1.0-4.8) k/uL Lymphocytes # (Manual) 0.40 L (1.0-4.8) k/uL Monocytes # (0-1.0) k/uL Monocytes # (Manual) (0-1.0) k/uL ESR (0-15) mm/hr D-Dimer (<0.60) mg/L FEU ABG pH (7.35-7.45) ABG pCO2 (35-45) mmHg ABG pO2 (83-108) mmHg ABG HCO3 (21-25) mmol/L ABG Total CO2 (19-24) mmol/L ABG O2 Saturation (94-97) % VBG pH (7.31-7.41) VBG pCO2 (37-51) mmHg VBG HCO3 (24-28) mmol/L Chloride 110 H (98-107) mmol/L BUN 33 H (9-20) mg/dL Glucose 166 H (74-99) mg/dL POC Glucose (mg/dL) 191 H (75-99) mg/dL Plasma Lactic Acid Jama (0.7-2.0) mmol/L Magnesium 2.6 H (1.6-2.3) mg/dL Total Bilirubin (0.2-1.3) mg/dL C-Reactive Protein (<10.0) mg/L Total Protein 5.6 L (6.3-8.2) g/dL Albumin 3.0 L (3.5-5.0) g/dL Lipase <10 L (23-300) U/L Ur Specific Brook (1.001-1.035) Urine Protein (Negative) Urine Glucose (UA) (Negative) Urine Blood (Negative) Ur Leukocyte Esterase (Negative) Urine RBC (0-5) /hpf Urine Mucus (None) /hpf CSF RBC (0-10) u/L CSF Tot Nucleated Cells (0-5) u/L CSF Glucose (40-70) mg/dL CSF Total Protein (12-60) mg/dL Urine Opiates Screen (NotDetected) Ur Oxycodone Screen (NotDetected) U Tricyclic Antidepress (NotDetected) U Benzodiazepines Scrn (NotDetected) 07/31/18 07/31/18 Range/Units 08:10 10:36 WBC (3.8-10.6) k/uL RBC (4.30-5.90) m/uL Neutrophils # (1.3-7.7) k/uL Neutrophils # (Manual) (1.3-7.7) k/uL Lymphocytes # (1.0-4.8) k/uL Lymphocytes # (Manual) (1.0-4.8) k/uL Monocytes # (0-1.0) k/uL Monocytes # (Manual) (0-1.0) k/uL ESR (0-15) mm/hr D-Dimer (<0.60) mg/L FEU ABG pH 7.46 H (7.35-7.45) ABG pCO2 46 H (35-45) mmHg ABG pO2 79 L (83-108) mmHg ABG HCO3 26 H (21-25) mmol/L ABG Total CO2 26 H 28 H (19-24) mmol/L ABG O2 Saturation 97.9 H (94-97) % VBG pH (7.31-7.41) VBG pCO2 (37-51) mmHg VBG HCO3 (24-28) mmol/L Chloride (98-107) mmol/L BUN (9-20) mg/dL Glucose (74-99) mg/dL POC Glucose (mg/dL) (75-99) mg/dL Plasma Lactic Acid Jama (0.7-2.0) mmol/L Magnesium (1.6-2.3) mg/dL Total Bilirubin (0.2-1.3) mg/dL C-Reactive Protein (<10.0) mg/L Total Protein (6.3-8.2) g/dL Albumin (3.5-5.0) g/dL Lipase (23-300) U/L Ur Specific Brook (1.001-1.035) Urine Protein (Negative) Urine Glucose (UA) (Negative) Urine Blood (Negative) Ur Leukocyte Esterase (Negative) Urine RBC (0-5) /hpf Urine Mucus (None) /hpf CSF RBC (0-10) u/L CSF Tot Nucleated Cells (0-5) u/L CSF Glucose (40-70) mg/dL CSF Total Protein (12-60) mg/dL Urine Opiates Screen (NotDetected) Ur Oxycodone Screen (NotDetected) U Tricyclic Antidepress (NotDetected) U Benzodiazepines Scrn (NotDetected) Microbiology - Last 24 Hours (Table) 07/30/18 15:34 Blood Culture Gram Stain - Preliminary Blood 07/31/18 00:15 Sputum Culture - Preliminary Sputum 07/30/18 15:34 Blood Culture - Final Blood 07/30/18 17:30 CSF Gram Stain - Preliminary Cerebral Spinal Fluid CSF Culture - Preliminary 07/30/18 12:43 Urine Culture - Preliminary Urine,Clean Catch Assessment and Plan (1) Lactic acidosis Current Visit: Yes Status: Acute Code(s): E87.2 - ACIDOSIS SNOMED Code(s): 29016617 (2) Leukocytosis Current Visit: Yes Status: Acute Code(s): D72.829 - ELEVATED WHITE BLOOD CELL COUNT, UNSPECIFIED SNOMED Code(s): 509627193 (3) SIRS (systemic inflammatory response syndrome) Current Visit: Yes Status: Acute Code(s): R65.10 - SIRS OF NON-INFECTIOUS ORIGIN W/O ACUTE ORGAN DYSFUNCTION SNOMED Code(s): 227515865 (4) Colon distention Current Visit: Yes Status: Acute Code(s): K63.89 - OTHER SPECIFIED DISEASES OF INTESTINE SNOMED Code(s): 499030048 (5) Meningitis Current Visit: Yes Status: Acute Code(s): G03.9 - MENINGITIS, UNSPECIFIED SNOMED Code(s): 2435596 (6) Sepsis Current Visit: Yes Status: Acute Code(s): A41.9 - SEPSIS, UNSPECIFIED ORGANISM SNOMED Code(s): 89951304 Plan: The patient's leukocytosis and lactic acidosis have improved. Blood cultures are positive with gram-positive cocci in clusters. He is on broad-spectrum antibiotics. We'll monitor his abdomen closely. The colonic distention is likely a reactive colonic ileus due to his sepsis. I'll follow with you
--- NOTE | 2018-07-31 13:01 | P.CNPUL ---
History of Present Illness Consult date: 07/31/18 Requesting physician: Myron Wolfe Reason for consult: other (Acute meningitis) Chief complaint: Fever headache and stiff neck History of present illness: This is a 53-year-old white male admitted yesterday from the emergency room. Patient initially presented with 5 days history of back pain. Patient was seen in the ER 3 days ago for similar complaint. His pain was not getting any better, and it was persistent. Patient was also complaining of neck pain, patient gave a history of lifting injury 2 days prior to his original visit in the emergency room. Again the pain became worse, and this time was associated with fever, sweating, and diaphoresis. Patient had extensive workup in the ER, and the workup included thoracic aorta CT angiogram. Gallbladder ultrasound. CT of the head and cervical spine. Chest x-ray. And echocardiogram. Chest x- ray did show by basilar airspace disease. Suggestive of pneumonia or atelectasis. Surgery was consulted for his abdominal distention and mottling as well as lactic acidosis, it was felt that the patient did not have actual surgical abdomen. Then lumbar puncture was performed by the ER physician, and it came back positive for significantly elevated CSF protein, more than 600, glucose was quite low at 29, total nucleated cells were also noted to be high 1415 and 92% were polynuclear cells. Based on that finding alone, this is cons istent with acute bacterial meningitis. Patient was transferred to the ICU before the report on the CSF was available, and as soon as he arrived to the ICU, I was notified about the results of the spinal fluid. Recommended immediate vancomycin, Rocephin, ampicillin, and I have also recommended a stat infectious disease consultation. Patient was also placed on acyclovir by the ER physician. Patient was seen by Dr. Kenney on consultation, kept him on the same antibiotics, however he was also concerned about his abdominal complaints and he kept him on metronidazole. Shortly after the patient arrived to the ICU, I was later notified that the patient was getting more tachypneic, tachycardic, and his respiratory rate was in the 40 minute range. I recommended intubating the patient, placed on mechanical ventilation, also placed on propofol. This morning the patient was noted to be still tachypneic, tachycardic, and could not slow down his breathing or heart rate in spite of propofol and fentanyl. Then I recommended placing the patient on Nimbex. His ventilator settings were adjuste d, and he was placed on tidal volume of 480 assist control rate of 28 FiO2 of 50% and PEEP of 5. ABG with those vent changes showed a pO2 of 101 pCO2 of 46 pH of 7.37. Hence no more changes were made on the ventilator. Review of Systems ROS unobtainable: due to endotracheal tube Past Medical History Past Medical History: Hypertension Additional Past Medical History / Comment(s): chronic back pain History of Any Multi-Drug Resistant Organisms: None Reported Past Surgical History: Orthopedic Surgery Past Anesthesia/Blood Transfusion Reactions: No Reported Reaction Past Psychological History: No Psychological Hx Reported Additional Psychological History / Comment(s): This the visitors late the patient is single and lives independently. They do not relate that he has children. Positive tobacco use. Positive alcohol use, likely daily. No injection drug use. No travel. Not working. No animal exposures Smoking Status: Current every day smoker Past Alcohol Use History: Daily, Occasional Past Drug Use History: None Reported, Opiates Medications and Allergies Home Medications Medication Instructions Recorded Confirmed Type Ascorbic Acid [Vitamin C] 1,000 mg PO DAILY 07/27/18 07/30/18 History Cyclobenzaprine [Flexeril] 10 mg PO TID PRN 07/27/18 07/30/18 History Diazepam [Valium] 5 mg PO Q8H PRN 3 Days #9 tab 07/27/18 07/30/18 Rx Flaxseed Oil 1,000 mg PO DAILY 07/27/18 07/30/18 History Gabapentin 600 mg PO QID 07/27/18 07/30/18 History Hydrocodone/Acetaminophen [[place] 1 tab PO TID PRN 07/27/18 07/30/18 History 10-325] Ibuprofen [Motrin Ib] 400 mg PO Q6H PRN 07/27/18 07/30/18 History Multivit-Min/FA/Lycopen/Lutein 1 tab PO DAILY 07/27/18 07/30/18 History [Centrum Silver Tablet] Varenicline [Chantix Continuing 1 mg PO BID 07/27/18 07/30/18 History Pack] predniSONE 50 mg PO DAILY #5 tab 07/27/18 07/30/18 Rx Allergies Allergy/AdvReac Type Severity Reaction Status Date / Time Unable to Assess Allergy Verified 07/30/18 11:52 Physical Exam Vitals: Vital Signs Temp Pulse Resp BP Pulse Ox 07/31/18 12:00 99.8 F H 138 H 28 H 149/97 95 07/31/18 11:30 135 H 28 H 151/101 95 07/31/18 11:00 135 H 34 H 141/99 96 07/31/18 10:30 134 H 30 H 151/102 96 07/31/18 10:00 133 H 38 H 144/105 95 07/31/18 09:30 134 H 34 H 135/92 95 07/31/18 09:00 134 H 33 H 140/97 95 07/31/18 08:30 99.5 F 130 H 37 H 145/98 94 L 07/31/18 08:00 129 H 89 H 135/99 95 07/31/18 07:30 129 H 37 H 137/99 95 07/31/18 07:00 129 H 35 H 134/96 94 L 07/31/18 06:30 125 H 37 H 138/98 94 L 07/31/18 06:00 125 H 36 H 130/96 94 L 07/31/18 05:30 124 H 35 H 127/93 94 L 07/31/18 05:00 123 H 30 H 116/90 96 07/31/18 04:30 121 H 27 H 134/90 96 07/31/18 04:00 98.6 F 120 H 30 H 132/96 96 07/31/18 03:30 117 H 31 H 128/86 96 07/31/18 03:00 118 H 29 H 121/83 96 07/31/18 02:30 116 H 30 H 118/84 96 07/31/18 02:00 116 H 27 H 121/80 96 07/31/18 01:30 118 H 23 117/78 96 07/31/18 01:00 121 H 25 H 111/76 97 07/31/18 00:31 129 H 27 H 119/72 96 07/31/18 00:01 99.8 F H 125 H 28 H 121/86 97 07/30/18 23:30 133 H 16 141/89 97 07/30/18 23:00 140 H 34 H 130/79 97 07/30/18 22:30 149 H 42 H 134/87 94 L 07/30/18 22:00 138 H 19 133/101 94 L 07/30/18 21:30 137 H 23 129/97 95 07/30/18 21:00 137 H 41 H 127/102 94 L 07/30/18 20:30 134 H 46 H 129/83 93 L 07/30/18 20:00 100.4 F H 138 H 40 H 134/94 93 L 07/30/18 19:30 137 H 48 H 126/91 92 L 07/30/18 19:00 134 H 24 126/91 93 L 07/30/18 18:30 137 H 16 126/91 93 L 07/30/18 18:14 137 H 28 H 92 L 07/30/18 17:52 99.1 F 135 H 27 H 123/91 93 L 07/30/18 17:30 97.6 F 133 H 33 H 122/96 93 L 07/30/18 15:56 99.1 F 07/30/18 15:35 116 H 123/91 93 L 07/30/18 15:30 116 H 123/91 93 L 07/30/18 15:00 117 H 27 H 07/30/18 14:30 114 H 31 H 141/104 07/30/18 14:00 114 H 30 H 135/91 07/30/18 13:30 120 H 140/86 93 L 07/30/18 13:00 118 H 26 H 137/96 93 L Intake and Output 07/30/18 07/31/18 07/31/18 22:59 06:59 14:59 Intake Total 4500 6324.507 4883.526 Output Total 325 550 725 Balance 4175 1045.447 299.526 Intake: IV 1200 1350 850 Ampicillin 2,000 mg In 200 Sodium Chloride 0.9% 100 ml @ 200 mls/hr IVPB Q4H [facility] Rx#:[id number] Piperacillin-Tazobactam 3 100 .375 gm In Sodium Chloride 0.9% 100 ml @ 25 mls/hr IVPB ONCE STA Rx# :[id number] Sodium Chloride 0.9% 1, 600 800 500 000 ml @ 100 mls/hr IV . Q10H [facility] Rx#:[id number] Thiamine 200 mg In Sodium 200 Chloride 0.9% 100 ml @ 200 mls/hr IVPB ONCE STA Rx#:[id number] Vancomycin 1,500 mg In 250 Sodium Chloride 0.9% 250 ml @ 125 mls/hr IVPB Q8H [facility] Rx#:[id number] Vancomycin 2,000 mg In 500 Sodium Chloride 0.9% 500 ml 500 ml @ 167 mls/hr IVPB ONCE ONE Rx#: [id number] cefTRIAXone 2 gm In 50 Sodium Chloride 0.9% 50 ml @ 100 mls/hr IVPB Q12HR [facility] Rx#:[id number] metroNIDAZOLE-NS PMX 500 100 100 mg In Saline 1 100ml.bag @ 100 mls/hr IVPB Q8HR [facility] Rx#:[id number] Amount of Fluid Infused ( 3300 ml) Intake, IV Titration 245.447 174.526 Amount Propofol 1,000 mg In 245.447 174.526 Empty Bag 1 bag @ Titrate IV .Q0M [facility] Rx#: [id number] Output: Urine 325 550 725 Other: Weight 120.1 kg Physical exam revealed a 53-year-old white male, on mechanical ventilation, sedated, on propofol, fentanyl, and Nimbex was just added. Head: Atraumatic, normocephalic. HEENT: Anicteric conjunctiva are pink and moist nasal mucosa,noJVD. Neck: Neck is supple, however it was mentioned to be tender on motion, and patient was reported to have a stiff neck earlier before he was in the ICU. Lungs: Few crackles bilaterally, no rhonchi and no wheezes. Heart: Normal S1 and S2, no S3 gallop. No murmur. Abdomen: Obese, soft, nontender, no megaly, no rebound. No guarding. Extremities: 1+ bipedal edema, good distal pulses bilaterally, no rashes were appreciated. No cyanosis. Neuro: Could not be assessed. Patient is sedated on propofol, fentanyl, and N imbex. Psychiatric: Could not be assessed. Lymphatics: No lymphadenopathy. Skin: No rashes. Results - Laboratory Findings CBC and BMP: 07/31/18 04:28 07/31/18 04:28 ABG ABG pH 7.37 (7.35-7.45) 07/31/18 10:36 ABG pCO2 46 mmHg (35-45) H 07/31/18 10:36 ABG pO2 101 mmHg (83-108) 07/31/18 10:36 ABG O2 Saturation 97.9 % (94-97) H 07/31/18 10:36 PT/INR, D-dimer PT 11.3 sec (9.0-12.0) 07/30/18 11:23 INR 1.1 (<1.2) 07/30/18 11:23 D-Dimer 2.27 mg/L FEU (<0.60) H 07/30/18 15:36 Abnormal lab findings: Abnormal Labs 07/30/18 07/30/18 07/30/18 11:23 11:23 11:23 WBC 19.2 H RBC Neutrophils # 16.6 H Neutrophils # (Manual) Lymphocytes # 0.9 L Lymphocytes # (Manual) Monocytes # 1.3 H Monocytes # (Manual) ESR D-Dimer ABG pH ABG pCO2 ABG pO2 ABG HCO3 ABG Total CO2 ABG O2 Saturation VBG pH VBG pCO2 VBG HCO3 Chloride BUN 26 H Glucose 219 H POC Glucose (mg/dL) Plasma Lactic Acid [place] 3.2 H* Magnesium Total Bilirubin 1.4 H C-Reactive Protein Total Protein Albumin Lipase Ur Specific [place] Urine Protein Urine Glucose (UA) Urine Blood Ur Leukocyte Esterase Urine RBC Urine Mucus CSF RBC CSF Tot Nucleated Cells CSF Glucose CSF Total Protein Urine Opiates Screen Ur Oxycodone Screen U Tricyclic Antidepress U Benzodiazepines Scrn 07/30/18 07/30/18 07/30/18 11:23 12:43 12:43 WBC RBC Neutrophils # Neutrophils # (Manual) Lymphocytes # Lymphocytes # (Manual) Monocytes # Monocytes # (Manual) ESR D-Dimer ABG pH ABG pCO2 ABG pO2 ABG HCO3 ABG Total CO2 ABG O2 Saturation VBG pH VBG pCO2 VBG HCO3 Chloride BUN Glucose POC Glucose (mg/dL) Plasma Lactic Acid [place] Magnesium Total Bilirubin C-Reactive Protein Total Protein Albumin Lipase 11 L Ur Specific [place] >1.050 H Urine Protein Trace H Urine Glucose (UA) Trace H Urine Blood Trace H Ur Leukocyte Esterase Trace H Urine RBC 8 H Urine Mucus Rare H CSF RBC CSF Tot Nucleated Cells CSF Glucose CSF Total Protein Urine Opiates Screen Detected H Ur Oxycodone Screen Detected H U Tricyclic Antidepress Detected H U Benzodiazepines Scrn Detected H 07/30/18 07/30/18 07/30/18 15:34 15:34 15:34 WBC 17.1 H RBC 4.11 L Neutrophils # Neutrophils # (Manual) 13.80 H Lymphocytes # Lymphocytes # (Manual) Monocytes # Monocytes # (Manual) 1.54 H ESR 70 H D-Dimer ABG pH ABG pCO2 ABG pO2 ABG HCO3 ABG Total CO2 ABG O2 Saturation VBG pH 7.44 H VBG pCO2 32 L VBG HCO3 21 L Chloride BUN 26 H Glucose 214 H POC Glucose (mg/dL) Plasma Lactic Acid [place] Magnesium Total Bilirubin C-Reactive Protein 245.0 H Total Protein Albumin Lipase Ur Specific [place] Urine Protein Urine Glucose (UA) Urine Blood Ur Leukocyte Esterase Urine RBC Urine Mucus CSF RBC CSF Tot Nucleated Cells CSF Glucose CSF Total Protein Urine Opiates Screen Ur Oxycodone Screen U Tricyclic Antidepress U Benzodiazepines Scrn 07/30/18 07/30/18 07/30/18 15:36 17:30 17:47 WBC RBC Neutrophils # Neutrophils # (Manual) Lymphocytes # Lymphocytes # (Manual) Monocytes # Monocytes # (Manual) ESR D-Dimer 2.27 H ABG pH ABG pCO2 ABG pO2 ABG HCO3 ABG Total CO2 ABG O2 Saturation VBG pH VBG pCO2 VBG HCO3 Chloride BUN Glucose POC Glucose (mg/dL) 224 H Plasma Lactic Acid [place] Magnesium Total Bilirubin C-Reactive Protein Total Protein Albumin Lipase Ur Specific [place] Urine Protein Urine Glucose (UA) Urine Blood Ur Leukocyte Esterase Urine RBC Urine Mucus CSF RBC 965 H CSF Tot Nucleated Cells 1415 H* CSF Glucose 29 L* CSF Total Protein >600 H Urine Opiates Screen Ur Oxycodone Screen U Tricyclic Antidepress U Benzodiazepines Scrn 07/30/18 07/31/18 07/31/18 17:50 00:26 01:09 WBC RBC Neutrophils # Neutrophils # (Manual) Lymphocytes # Lymphocytes # (Manual) Monocytes # Monocytes # (Manual) ESR D-Dimer ABG pH 7.47 H ABG pCO2 32 L ABG pO2 74 L 286 H ABG HCO3 ABG Total CO2 26 H ABG O2 Saturation 99.9 H VBG pH VBG pCO2 VBG HCO3 Chloride BUN Glucose POC Glucose (mg/dL) 177 H Plasma Lactic Acid [place] Magnesium Total Bilirubin C-Reactive Protein Total Protein Albumin Lipase Ur Specific [place] Urine Protein Urine Glucose (UA) Urine Blood Ur Leukocyte Esterase Urine RBC Urine Mucus CSF RBC CSF Tot Nucleated Cells CSF Glucose CSF Total Protein Urine Opiates Screen Ur Oxycodone Screen U Tricyclic Antidepress U Benzodiazepines Scrn 07/31/18 07/31/18 07/31/18 04:28 04:28 06:32 WBC 13.2 H RBC 3.91 L Neutrophils # Neutrophils # (Manual) 12.20 H Lymphocytes # Lymphocytes # (Manual) 0.40 L Monocytes # Monocytes # (Manual) ESR D-Dimer ABG pH ABG pCO2 ABG pO2 ABG HCO3 ABG Total CO2 ABG O2 Saturation VBG pH VBG pCO2 VBG HCO3 Chloride 110 H BUN 33 H Glucose 166 H POC Glucose (mg/dL) 191 H Plasma Lactic Acid [place] Magnesium 2.6 H Total Bilirubin C-Reactive Protein Total Protein 5.6 L Albumin 3.0 L Lipase <10 L Ur Specific [place] Urine Protein Urine Glucose (UA) Urine Blood Ur Leukocyte Esterase Urine RBC Urine Mucus CSF RBC CSF Tot Nucleated Cells CSF Glucose CSF Total Protein Urine Opiates Screen Ur Oxycodone Screen U Tricyclic Antidepress U Benzodiazepines Scrn 07/31/18 07/31/18 08:10 10:36 WBC RBC Neutrophils # Neutrophils # (Manual) Lymphocytes # Lymphocytes # (Manual) Monocytes # Monocytes # (Manual) ESR D-Dimer ABG pH 7.46 H ABG pCO2 46 H ABG pO2 79 L ABG HCO3 26 H ABG Total CO2 26 H 28 H ABG O2 Saturation 97.9 H VBG pH VBG pCO2 VBG HCO3 Chloride BUN Glucose POC Glucose (mg/dL) Plasma Lactic Acid [place] Magnesium Total Bilirubin C-Reactive Protein Total Protein Albumin Lipase Ur Specific [place] Urine Protein Urine Glucose (UA) Urine Blood Ur Leukocyte Esterase Urine RBC Urine Mucus CSF RBC CSF Tot Nucleated Cells CSF Glucose CSF Total Protein Urine Opiates Screen Ur Oxycodone Screen U Tricyclic Antidepress U Benzodiazepines Scrn - Diagnostic Findings Chest x-ray: image reviewed (Chest x-ray is suggestive of bilateral infiltrates) Assessment and Plan Assessment: Impression: 1 acute hypoxic respiratory failure secondary to pneumonia and acute meningitis. Pneumonia is likely community-acquired. 2 acute bacterial meningitis is strongly suspected based on the CSF findings, however Gram stain is negative, and I am certain the cultures will be positive in the next 24-48 hours. 3 abdominal pain, exact etiology is not clear, patient is being followed by general surgery for his abdominal pain. It was felt that the patient did not have surgical abdomen. 4 altered mental status secondary to meningitis 5 positive drug screen for multiple narcotics, patient has been taking pain medications for his back pain. 6 acute lactic acidosis secondary to sepsis/meningitis, improved with fluid boluses. Recommendation: Patient will remain in the ICU on mechanical ventilation, his ventilator settings were reviewed and adjusted accordingly, ABG was noted. We'll continue antibiotics for presumptive bacterial meningitis including vancomycin, Rocephin, and ampicillin. Continue GI and DVT prophylaxis. Patient is extremely ill, not ready for any form of weaning at this point. We will address his nutritional status, and patient will be started on enteral feeding. At this point prognosis is guarded, discussed his condition with infectious disease on the case, and we will continue to follow. Time with Patient: Greater than 30
[2018-07-31] MEDS: MULTIVITAMINS, THERA 1 EACH TAB PO SCH (13:23)
[2018-07-31 13:39] LABS: Glucose,Whole Blood 173 mg/dL (75-99)
--- NOTE | 2018-07-31 14:04 | XR ---
EXAMINATION TYPE: XR chest 1V portable DATE OF EXAM: 07/31/2018 COMPARISON: 07/30/2018 INDICATION: CHF TECHNIQUE: Single frontal view of the chest is obtained. FINDINGS: The heart size is normal. The pulmonary vasculature is normal. Subtle infiltrate is along the right diaphragm likely related atelectasis. Endotracheal tube tip is above the heri. Nasogastric tube transverses the thorax. IMPRESSION: 1. Minimal right basilar atelectasis. 2. Lines and catheters discussed above
[2018-07-31] MEDS: ARTIFICIAL TEARS-HYPROMELLOSE DROPS 15 ML BTL BOTH EYES SCH ×2 (16:10→22:05)
[2018-07-31] MEDS: CLEVIDIPINE BUTYRATE 25 MG in EMPTY BAG 1 BAG IV SCH ×3 (16:11→22:04)
[2018-07-31] MEDS: ACETAMINOPHEN IV (For NPO) 1,000 MG in EMPTY BAG 1 BAG IVPB PRN (16:43)
[2018-07-31 18:08] LABS: Glucose,Whole Blood 168 mg/dL (75-99)
[2018-07-31] MEDS ORDERED: VANCOMYCIN TROUGH DUE 1 EACH MISC MISCELLANE ONE (19:00)
--- NOTE | 2018-07-31 19:49 | PN ---
PROGRESS NOTE DATE OF SERVICE: 07/31/2018 This 53-year-old gentleman with past medical history of multiple medical problems was admitted with features of sepsis and abdominal pain, Staph aureus is growing from the cultures. The CSF showed evidence of meningitis. The Staph is also growing from the cultures also. Patient on multiple antibiotics. Patient also has features of acute respiratory failure. Patient intubated and mechanically ventilated. Multiple consultants including Dr. Kenney and Dr. Flannery is following the patient closely. The most recent chest x-ray showed minimal right basilar atelectasis. Past medical history and review of systems could not be taken because the patient mechanically sedated. CURRENT MEDICATIONS ARE: 1. Tylenol suppository p.r.n. 2. Tylenol 1000 mg p.r.n. 3. [place] 5 mg q.6h p.r.n. 4. DuoNeb q.4h p.r.n. 5. Unasyn 2 g IV q.4. 6. Artificial Tears. 7. Cefotaxime 2 g IV b.i.d. 8. Peridex 15 mL b.i.d. 9. Nimbex. 10.Clevidipine 25 mg. 11.Fentanyl patch. 12.Ativan p.r.n. 13.Vancomycin. 14.Multivitamins. 15.Narcan. 16.Protonix. 17.P.r.n. medications. PHYSICAL EXAM: Patient is mechanically sedated. The vent settings are noted. They are assist- control 480, 50% FiO2 and 5 of PEEP. The patient is saturating around 96%. The pulse is 135, regular. Blood pressure 130/80. Respiratory rate 20. Temperature is normal. Pulse ox 94% on 50% FiO2. HEENT: Conjunctivae normal. Oral mucosa moist. Neck is no jugular venous distention. No carotid bruit. No lymph node enlargement. Cardiovascular systems: S1, S2 muffled. No S3, no S4. RESPIRATORY: Breath sounds diminished in the bases. A few scattered rhonchi and crackles. ABDOMEN: Soft, obese, minimal rash present in the abdomen. Soft. No guarding. No rigidity. Legs: No edema. No swelling. CENTRAL NERVOUS SYSTEM: No focal deficits. LABS: At this time shows pH of 7.37. Accu-Cheks are 173, 168. WBC 13.2, hemoglobin 13. ABGs noted. Sodium 140, potassium 4.2. CSF noted. Cultures noted. ASSESSMENT: 1. Fever, change in mental status. Possible acute meningitis possibly with Staph aureus with sepsis. 2. Abdominal pain and distention with possibly sepsis, rule out ischemic bowel. 3. Low back pain evaluation status post lumbar puncture. 4. Lactic acidosis, possibly secondary to sepsis. 5. Increased random blood sugar. 6. respiratory alkalosis. 7. Chronic back pain. 8. Degenerative joint disease. 9. History of nicotine dependence. 10.Obesity with body mass of 38. 11.FULL CODE. RECOMMENDATIONS AND DISCUSSION: Recommend to continue the current medications, continue with monitoring, symptomatic treatment. Otherwise, at this time, I recommend continue with broad-spectrum IV antibiotics. Treat meningitis, part and closely follow with Dr. Kenney and Dr. Flannery. Guarded prognosis. See orders for details. The patient is currently intubated and mechanically ventilated and we will await for the final ID of organisms. MMODL / IJN: [id number] / MTDD
--- NOTE | 2018-07-31 21:36 | P.PN ---
Subjective Progress Note Date: 07/31/18 53-year-old male presents to the emergency center with ongoing difficulties with abdominal pain and back pain. Approximate 5 days prior he developed worsening amounts of back pain and was taking some medication for it. 3 days prior to this admission he did come to the emergency center with com plaints of back and abdominal pain. Imaging studies were performed and there was evidence of some colonic dilatation without other acute concern there was no diverticulitis or free air. During the time in the emergency center the patient's status worsened. His mental status altered, although he did not have evidence of high-grade fever there was leukocytosis. Given that the imaging studies were not acutely different, the patient underwent lumbar puncture. This material was markedly abnormal and with evidence of the significant white blood cells of the CSF the infectious diseases consultation was requested. The patient was transferred to the intensive care unit. At this time the patient is sitting upright in the intensive care unit. He is awake and alert, the visitors in the room relate that he is more cognizant than he was in the emergency center. The patient however continues to have a altered affect. Of note drug screen is positive admission for opiates, oxycodone, benzodiazepines, tricyclics. At the time of the call the patient's CSF material was evaluated personally in t he laboratory. An extensive pleocytosis was seen but no evidnece of bacteria were noted. The smears were reviewed with the lab techs and no bacteria was seen. Of note the medication list from the emergency center is reviewed and there is a notation on prednisone 50 mg a day. 07/31/2018 the patient remains in intensive care unit now is intubated sedated and mechanically ventilated but seems to be more stable today than yesterday. Still seems to be somewhat uncomfortable and further steps are being taken to improve his discomfort and likely paralysis to improve his coordination with the ventilator. Has ongoing leukocytosis, no evidence of renal failure. Not on vasopressor therapy at this time. Laboratories during to identify staph aureus in cultures Objective - Vital Signs Vital signs: Vital Signs Temp 100.3 F H 07/31/18 16:00 Pulse 131 H 07/31/18 19:30 Resp 28 H 07/31/18 19:30 BP 131/90 07/31/18 19:30 Pulse Ox 93 L 07/31/18 19:30 Intake & Output 0307/31/18 08/01/18 06:59 18:59 06:59 Intake Total 2595.447 2353.042 404.582 Output Total 875 1530 80 Balance 1720.447 823.042 324.582 Weight 120.1 kg 120.1 kg Intake: IV 2350 1800 300 Ampicillin 2,000 mg In 200 100 100 Sodium Chloride 0.9% 100 ml @ 200 mls/hr IVPB Q4H TOY Rx#:[id number] Piperacillin-Tazobactam 3 100 .375 gm In Sodium Chloride 0.9% 100 ml @ 25 mls/hr IVPB ONCE STA Rx# :[id number] Sodium Chloride 0.9% 1, 1200 1100 100 000 ml @ 100 mls/hr IV . Q10H TOY Rx#:[id number] Thiamine 200 mg In Sodium 200 Chloride 0.9% 100 ml @ 200 mls/hr IVPB ONCE STA Rx#:[id number] Vancomycin 1,500 mg In 250 250 Sodium Chloride 0.9% 250 ml @ 125 mls/hr IVPB Q8H TOY Rx#:[id number] Vancomycin 2,000 mg In 500 Sodium Chloride 0.9% 500 ml 500 ml @ 167 mls/hr IVPB ONCE ONE Rx#: [id number] cefTRIAXone 2 gm In 50 Sodium Chloride 0.9% 50 ml @ 100 mls/hr IVPB Q12HR TOY Rx#:[id number] metroNIDAZOLE-NS PMX 500 100 100 100 mg In Saline 1 100ml.bag @ 100 mls/hr IVPB Q8HR TOY Rx#:[id number] Intake, IV Titration 245.447 448.042 74.582 Amount Cisatracurium 200 mg In 156.130 74.582 Sodium Chloride 0.9% 180 ml @ 4 MCG/KG/MIN 28.824 mls/hr IV .Q6H57M TOY Rx# :[id number] Clevidipine Butyrate 25 20.266 mg In Empty Bag 1 bag @ 1 MG/HR 2 mls/hr IV .Q24H [facility]Y Rx#:[id number] Propofol 1,000 mg In 245.447 235.229 Empty Bag 1 bag @ Titrate IV .Q0M TOY Rx#: [id number] fentaNYL (PF) 1,000 mcg 36.417 In Sodium Chloride 0.9% 80 ml @ 100 MCG/HR 10 mls /hr IV .Q10H [facility] Rx#: [id number] Tube Feeding 45 30 Other 60 Output: Urine 875 1530 80 Other: Voiding Method Indwelling Catheter - Exam 53-year-old male presents to Hospital from home with a 5 day history of progressive illness. He has had abdominal pain, back pain and now has developed the progressive discomfort with his neck and then some altered mental status. Patient has had alteration status is now intubated sedated and mechanically ventilated, likely will undergo paralysis HEENT: Anicteric conjunctiva are pink and moist nasal mucosa grossly intact without significant lesions, there is no thrush. Neck: The neck is mildly stiff but not rigid Lungs: Symmetrical bilateral air entry few basilar crackles expiratory wheezes are noted throughout Heart: Tachycardic no audible murmur click or rub Abdomen: Obese, mildly distended is only minimal tenderness upon palpation of the right upper quadrant with percussion, no palpable mass or organomegaly no rigidity and no guarding or rebound Extremities: The upper extremities have excellent pulses they are symmetric, no significant petechiae or telangiectasia. No splinter hemorrhages were noted. Lower extremities have some chronic edema no open ulcerations Neuro: Patient is no intubated sedated and mechanically ventilated and likely paralyzed to improve his coordination with the ventilator - Labs CBC & Chem 7: 07/31/18 04:28 07/31/18 04:28 Labs: Abnormal Lab Results - Last 24 Hours (Table) 07/31/18 07/31/18 07/31/18 Range/Units 00:26 01:09 04:28 WBC (3.8-10.6) k/uL RBC (4.30-5.90) m/uL Neutrophils # (Manual) (1.3-7.7) k/uL Lymphocytes # (Manual) (1.0-4.8) k/uL ABG pH (7.35-7.45) ABG pCO2 (35-45) mmHg ABG pO2 286 H (83-108) mmHg ABG HCO3 (21-25) mmol/L ABG Total CO2 26 H (19-24) mmol/L ABG O2 Saturation 99.9 H (94-97) % Chloride 110 H (98-107) mmol/L BUN 33 H (9-20) mg/dL Glucose 166 H (74-99) mg/dL POC Glucose (mg/dL) 177 H (75-99) mg/dL Magnesium 2.6 H (1.6-2.3) mg/dL Total Protein 5.6 L (6.3-8.2) g/dL Albumin 3.0 L (3.5-5.0) g/dL Lipase <10 L (23-300) U/L 07/31/18 07/31/18 07/31/18 Range/Units 04:28 06:32 08:10 WBC 13.2 H (3.8-10.6) k/uL RBC 3.91 L (4.30-5.90) m/uL Neutrophils # (Manual) 12.20 H (1.3-7.7) k/uL Lymphocytes # (Manual) 0.40 L (1.0-4.8) k/uL ABG pH 7.46 H (7.35-7.45) ABG pCO2 (35-45) mmHg ABG pO2 79 L (83-108) mmHg ABG HCO3 (21-25) mmol/L ABG Total CO2 26 H (19-24) mmol/L ABG O2 Saturation (94-97) % Chloride (98-107) mmol/L BUN (9-20) mg/dL Glucose (74-99) mg/dL POC Glucose (mg/dL) 191 H (75-99) mg/dL Magnesium (1.6-2.3) mg/dL Total Protein (6.3-8.2) g/dL Albumin (3.5-5.0) g/dL Lipase (23-300) U/L 07/31/18 07/31/18 07/31/18 Range/Units 10:36 12:31 18:05 WBC (3.8-10.6) k/uL RBC (4.30-5.90) m/uL Neutrophils # (Manual) (1.3-7.7) k/uL Lymphocytes # (Manual) (1.0-4.8) k/uL ABG pH (7.35-7.45) ABG pCO2 46 H (35-45) mmHg ABG pO2 (83-108) mmHg ABG HCO3 26 H (21-25) mmol/L ABG Total CO2 28 H (19-24) mmol/L ABG O2 Saturation 97.9 H (94-97) % Chloride (98-107) mmol/L BUN (9-20) mg/dL Glucose (74-99) mg/dL POC Glucose (mg/dL) 173 H 168 H (75-99) mg/dL Magnesium (1.6-2.3) mg/dL Total Protein (6.3-8.2) g/dL Albumin (3.5-5.0) g/dL Lipase (23-300) U/L Microbiology - Last 24 Hours (Table) 07/30/18 12:43 Urine Culture - Preliminary Urine,Clean Catch Presumptive Staph aureus 07/30/18 17:30 CSF Gram Stain - Preliminary Cerebral Spinal Fluid CSF Culture - Preliminary Presumptive Staph aureus 07/31/18 00:15 Gram Stain - Preliminary Sputum Sputum Culture - Preliminary 07/30/18 15:34 Blood Culture Gram Stain - Preliminary Blood Blood Culture - Preliminary Staphylococcus aureus 07/30/18 20:45 Blood Culture Gram Stain - Preliminary Blood 07/30/18 20:45 Blood Culture Gram Stain - Preliminary Blood 07/30/18 20:45 Blood Culture - Final Blood 07/30/18 20:45 Blood Culture - Final Blood 07/30/18 15:34 Blood Culture - Final Blood Laboratory Results WBC 13.2 k/uL (3.8-10.6) H 07/31/18 04:28 RBC 3.91 m/uL (4.30-5.90) L 07/31/18 04:28 Hgb 13.0 gm/dL (13.0-17.5) 07/31/18 04:28 Hct 39.0 % (39.0-53.0) 07/31/18 04:28 MCV 99.7 fL (80.0-100.0) 07/31/18 04:28 MCH 33.2 pg (25.0-35.0) 07/31/18 04:28 MCHC 33.3 g/dL (31.0-37.0) 07/31/18 04:28 RDW 13.1 % (11.5-15.5) 07/31/18 04:28 Plt Count 189 k/uL (150-450) 07/31/18 04:28 Neutrophils % 86 % 07/30/18 11:23 Neutrophils % (Manual) 61 % 07/31/18 04:28 Band Neutrophils % 32 % 07/31/18 04:28 Lymphocytes % 5 % 07/30/18 11:23 Lymphocytes % (Manual) 3 % 07/31/18 04:28 Monocytes % 7 % 07/30/18 11:23 Monocytes % (Manual) 4 % 07/31/18 04:28 Eosinophils % 0 % 07/30/18 11:23 Basophils % 0 % 07/30/18 11:23 Neutrophils # 16.6 k/uL (1.3-7.7) H 07/30/18 11:23 Neutrophils # (Manual) 12.20 k/uL (1.3-7.7) H 07/31/18 04:28 Lymphocytes # 0.9 k/uL (1.0-4.8) L 07/30/18 11:23 Lymphocytes # (Manual) 0.40 k/uL (1.0-4.8) L 07/31/18 04:28 Monocytes # 1.3 k/uL (0-1.0) H 07/30/18 11:23 Monocytes # (Manual) 0.53 k/uL (0-1.0) 07/31/18 04:28 Eosinophils # 0.1 k/uL (0-0.7) 07/30/18 11:23 Basophils # 0.0 k/uL (0-0.2) 07/30/18 11:23 Nucleated RBCs 0 /100 WBC (0-0) 07/31/18 04:28 Manual Slide Review Performed 07/31/18 04:28 RBC Morphology Normal 07/30/18 15:34 ESR 70 mm/hr (0-15) H 07/30/18 15:34 PT 11.3 sec (9.0-12.0) 07/30/18 11:23 INR 1.1 (<1.2) 07/30/18 11:23 APTT 22.0 sec (22.0-30.0) 07/30/18 11:23 D-Dimer 2.27 mg/L FEU (<0.60) H 07/30/18 15:36 Sample Site R radial 07/31/18 10:36 ABG pH 7.37 (7.35-7.45) 07/31/18 10:36 ABG pCO2 46 mmHg (35-45) H 07/31/18 10:36 ABG pO2 101 mmHg (83-108) 07/31/18 10:36 ABG HCO3 26 mmol/L (21-25) H 07/31/18 10:36 ABG Total CO2 28 mmol/L (19-24) H 07/31/18 10:36 ABG O2 Saturation 97.9 % (94-97) H 07/31/18 10:36 ABG Base Excess 1.1 mmol/L 07/31/18 10:36 Abhinav Test Yes 07/31/18 10:36 VBG pH 7.44 (7.31-7.41) H 07/30/18 15:34 VBG pCO2 32 mmHg (37-51) L 07/30/18 15:34 VBG HCO3 21 mmol/L (24-28) L 07/30/18 15:34 FiO2 50 % 07/31/18 10:36 Sodium 142 mmol/L (137-145) 07/31/18 04:28 Potassium 4.2 mmol/L (3.5-5.1) 07/31/18 04:28 Chloride 110 mmol/L (98-107) H 07/31/18 04:28 Carbon Dioxide 24 mmol/L (22-30) 07/31/18 04:28 Anion Gap 8 mmol/L 07/31/18 04:28 BUN 33 mg/dL (9-20) H 07/31/18 04:28 Creatinine 0.79 mg/dL (0.66-1.25) 07/31/18 04:28 Est GFR (CKD-EPI)AfAm >90 (>60 ml/min/1.73 sqM) 07/31/18 04:28 Est GFR (CKD-EPI)NonAf >90 (>60 ml/min/1.73 sqM) 07/31/18 04:28 Glucose 166 mg/dL (74-99) H 07/31/18 04:28 POC Glucose (mg/dL) 168 mg/dL (75-99) H 07/31/18 18:05 POC Glu Crime Analyst ID Marcella Julien 07/31/18 18:05 Lactic Ac Sepsis Rflx Y 07/30/18 12:03 Plasma Lactic Acid Jama 1.4 mmol/L (0.7-2.0) 07/31/18 04:28 Calcium 8.9 mg/dL (8.4-10.2) 07/31/18 04:28 Phosphorus 2.9 mg/dL (2.5-4.5) 07/31/18 04:28 Magnesium 2.6 mg/dL (1.6-2.3) H 07/31/18 04:28 Total Bilirubin 1.0 mg/dL (0.2-1.3) 07/31/18 04:28 AST 25 U/L (17-59) 07/31/18 04:28 ALT 34 U/L (21-72) 07/31/18 04:28 Alkaline Phosphatase 78 U/L (38-126) 07/31/18 04:28 Ammonia 12 umol/L (<30) 07/30/18 15:34 Troponin I <0.012 ng/mL (0.000-0.034) 07/30/18 11:23 C-Reactive Protein 245.0 mg/L (<10.0) H 07/30/18 15:34 Total Protein 5.6 g/dL (6.3-8.2) L 07/31/18 04:28 Albumin 3.0 g/dL (3.5-5.0) L 07/31/18 04:28 Lipase <10 U/L (23-300) L 07/31/18 04:28 Urine Color Yellow 07/30/18 11:23 Urine Appearance Clear (Clear) 07/30/18 11:23 Urine pH 6.0 (5.0-8.0) 07/30/18 11:23 Ur Specific [place] >1.050 (1.001-1.035) H 07/30/18 11:23 Urine Protein Trace (Negative) H 07/30/18 11:23 Urine Glucose (UA) Trace (Negative) H 07/30/18 11:23 Urine Ketones Negative (Negative) 07/30/18 11:23 Urine Blood Trace (Negative) H 07/30/18 11:23 Urine Nitrite Negative (Negative) 07/30/18 11:23 Urine Bilirubin Negative (Negative) 07/30/18 11:23 Urine Urobilinogen <2.0 mg/dL (<2.0) 07/30/18 11:23 Ur Leukocyte Esterase Trace (Negative) H 07/30/18 11:23 Urine RBC 8 /hpf (0-5) H 07/30/18 11:23 Urine WBC 4 /hpf (0-5) 07/30/18 11:23 Urine Mucus Rare /hpf (None) H 07/30/18 11:23 CSF Tube Number 2 07/30/18 17:30 CSF Volume 0.25 07/30/18 17:30 CSF Appearance Hazy 07/30/18 17:30 CSF Color Xanthochromic 07/30/18 17:30 CSF RBC 965 u/L (0-10) H 07/30/18 17:30 CSF Tot Nucleated Cells 1415 u/L (0-5) H* 07/30/18 17:30 CSF Mononuclear WBCs % 8 % 07/30/18 17:30 CSF Polynuclear WBCs % 92 % 07/30/18 17:30 CSF Crenated Cells 0 % 07/30/18 17:30 CSF Fresh RBCs 100 % 07/30/18 17:30 CSF Glucose 29 mg/dL (40-70) L* 07/30/18 17:30 CSF Total Protein >600 mg/dL (12-60) H 07/30/18 17:30 Vancomycin Trough 10.9 ug/mL 07/31/18 18:17 Salicylates <1.0 mg/dL 07/30/18 15:34 Urine Opiates Screen Detected (NotDetected) H 07/30/18 12:43 Ur Oxycodone Screen Detected (NotDetected) H 07/30/18 12:43 Urine Methadone Screen Not Detected (NotDetected) 07/30/18 12:43 Ur Propoxyphene Screen Not Detected (NotDetected) 07/30/18 12:43 Acetaminophen <10.0 ug/mL 07/30/18 15:34 Ur Barbiturates Screen Not Detected (NotDetected) 07/30/18 12:43 U Tricyclic Antidepress Detected (NotDetected) H 07/30/18 12:43 Ur Phencyclidine Scrn Not Detected (NotDetected) 07/30/18 12:43 Ur Amphetamines Screen Not Detected (NotDetected) 07/30/18 12:43 U Methamphetamines Scrn Not Detected (NotDetected) 07/30/18 12:43 U Benzodiazepines Scrn Detected (NotDetected) H 07/30/18 12:43 Urine Cocaine Screen Not Detected (NotDetected) 07/30/18 12:43 U Marijuana (THC) Screen Not Detected (NotDetected) 07/30/18 12:43 Influenza Type A RNA Not Detected (Not Detectd) 07/30/18 13:35 Influenza Type B (PCR) Not Detected (Not Detectd) 07/30/18 13:35 Blood Type O Positive 07/30/18 11:23 Blood Type Confirm O Positive 07/30/18 12:39 Blood Type Recheck CABO Indicated 07/30/18 11:23 Antibody Screen NEGATIVE 07/30/18 11:23 Spec Expiration Date 08/02/2018 - 232207/30/18 11:23 Microbiology 07/30/18 12:43 Urine,Clean Catch Urine Culture - Preliminary Presumptive Staph aureus 07/30/18 17:30 Cerebral Spinal Fluid CSF Gram Stain - Preliminary 07/30/18 17:30 Cerebral Spinal Fluid CSF Culture - Preliminary Presumptive Staph aureus 07/31/18 00:15 Sputum Gram Stain - Preliminary 07/31/18 00:15 Sputum Sputum Culture - Preliminary 07/30/18 15:34 Blood Blood Culture Gram Stain - Preliminary 07/30/18 15:34 Blood Blood Culture - Preliminary Staphylococcus aureus 07/30/18 20:45 Blood Blood Culture Gram Stain - Preliminary 07/30/18 20:45 Blood Blood Culture Gram Stain - Preliminary 07/30/18 20:45 Blood Blood Culture - Final 07/30/18 20:45 Blood Blood Culture - Final 07/30/18 15:34 Blood Blood Culture - Final Assessment and Plan (1) Abdominal pain Current Visit: Yes Status: Acute Code(s): R10.9 - UNSPECIFIED ABDOMINAL PAIN SNOMED Code(s): 99444986 (2) Acute exacerbation of chronic low back pain Current Visit: Yes Status: Acute Code(s): M54.5 - LOW BACK PAIN; G89.29 - OTHER CHRONIC PAIN SNOMED Code(s): 155748100 (3) Altered mental status Narrative/Plan: 53-year-old male presents to hospital with progressive symptoms over the 5 days before admission. Approximately 3 days prior he been in the emergency center with complaints of ongoing abdominal pain. There is evidence of some constipation at that point in time and patient was symptomatically treated. However he now has a great difficulties with ongoing abdominal pain worsening back pain and now while in the emergency center the altered mental status developed. Because of these findings in the leukocytosis lumbar puncture was performed the reveals a markedly abnormal fluid. There were 1415 white blood cells, 965 red blood cells, glucose was 29 and protein was greater than 600 with some xanthochromia being seen. The Gram stain is personally reviewed without evidence of any bacterial pathogens being seen. At this time the patient has evidence of bacterial meningitis with evidence of a systemic inflammatory response, leukocytosis, lactic acidosis, hypoglycorrhachia and evidence of marked elevated protein of the CSF. Without evidence of gram- negative organisms seen on the Gram stain is unlikely the patient has no severe meningitidis in no prophylaxis is given to visitors or to the care team here at the hospital. This will be with ongoing review. At this time cultures are in process however antimicrobial therapy is being utilized with concerns to multiple potential pathogens which would include Streptococcus pneumoniae, listeria meningitis which is of some great concern given the patient's history of alcohol use and what appears to be high doses of steroids as of late. Constantly for antibiotic therapy high doses of ampicillin, ceftriaxone and vancomycin are being utilized. Although I do not suspect brain abscess the patient does have potential intra-abdominal pathology with a dilated colon and constantly metronidazole is added to the ceftriaxone for treatment of potential intra-abdominal infection also. Cultures are all in process at this point in time he may further help direct antimicrobial therapy in the near future. Fortunately with hydration and initiation of some metabolic therapy his mentation seems to be a bit improved and as described in the emergency center. The case as directed we discussed with the surgeon and at this time no acute indication for surgical intervention to the abdomen at this time, treatment for constipation is in process. Also discussed with the hospitalist as far as the course of treatment for the meningitis and follow-up. 07/31/2018 the patient remains in intensive care unit, has now been intubated mechanically ventilated and is sedated and paralyzed later to improve synchrony with the ventilator. There is no evidence of positive blood culture, positive urine culture, and positive CSF culture for staph aureus. Laboratory has yet to definitively determine MSSA versus MRSA. However noted a pathogen has been identified ampicillin can be discontinued since it is not likely that this is listeria . Continue vancomycin, Rocephin and metronidazole. Although patient does have meningitis there is still concerned about an intra-abdominal process and consequently Rocephin and Flagyl would give coverage for that. Follow blood cultures are requested to determine the clearance of his bacteremia. Patient did have an outpatient computed tomography scan of the spine without evidence of discitis or osteomyelitis. A parameningeal focus of infection is still in consideration, but no evidence of that by the imaging studies to date. Current Visit: Yes Status: Acute Code(s): R41.82 - ALTERED MENTAL STATUS, UNSPECIFIED SNOMED Code(s): 640374770 (4) SIRS (systemic inflammatory response syndrome) Current Visit: Yes Status: Acute Code(s): R65.10 - SIRS OF NON-INFECTIOUS ORIGIN W/O ACUTE ORGAN DYSFUNCTION SNOMED Code(s): 312098100
[2018-07-31 23:51] LABS: Glucose,Whole Blood 189 mg/dL (75-99)
[2018-08-01] MEDS: PROPOFOL 1,000 MG in EMPTY BAG 1 BAG IV SCH ×11 (00:03→21:02)
[2018-08-01] MEDS: metroNIDAZOLE-NS PMX 500 MG in SALINE 1 100ML.BAG IVPB SCH ×3 (00:04→16:19)
[2018-08-01] MEDS: ARTIFICIAL TEARS-HYPROMELLOSE DROPS 15 ML BTL BOTH EYES SCH ×6 (00:04→20:53)
[2018-08-01] MEDS: INSULIN ASPART (NovoLOG) 100 UNIT/ML VIAL SQ SCH ×6 (00:04→21:01)
[2018-08-01] MEDS: SODIUM CHLORIDE 0.9% 1,000 ML IV SCH ×3 (00:05→20:54)
[2018-08-01] MEDS: CISATRACURIUM 200 MG in SODIUM CHLORIDE 0.9% 180 ML IV SCH ×4 (01:00→21:46)
[2018-08-01] MEDS: fentaNYL (PF) 1,000 MCG in SODIUM CHLORIDE 0.9% 80 ML IV SCH ×2 (01:36→10:28)
[2018-08-01] MEDS: CLEVIDIPINE BUTYRATE 25 MG in EMPTY BAG 1 BAG IV SCH ×6 (01:40→21:09)
[2018-08-01] MEDS: VANCOMYCIN 1,500 MG in SODIUM CHLORIDE 0.9% 250 ML IVPB SCH (03:42)
[2018-08-01] MEDS: AMPICILLIN 2,000 MG in SODIUM CHLORIDE 0.9% 100 ML IVPB SCH ×5 (03:42→19:26)
[2018-08-01 04:31] LABS: Basophils # (A) 0.1 k/uL (0-0.2); Basophils % (A) 0 %; Eosinophils # (A) 0.1 k/uL (0-0.7); Eosinophils % (A) 1 %; HCT 36.9 % (39.0-53.0); HGB 12.3 gm/dL (13.0-17.5); Lymphocytes # (A) 0.7 k/uL (1.0-4.8); Lymphocytes % (A) 4 %; MCH 33.2 pg (25.0-35.0); MCHC 33.3 g/dL (31.0-37.0); MCV 99.6 fL (80.0-100.0); Mean Platelet Volume 6.9; Monocytes # (A) 0.6 k/uL (0-1.0); Monocytes % (A) 4 %; Neutrophils # (A) 13.7 k/uL (1.3-7.7); Neutrophils % (A) 89 %; Platelet Count 184 k/uL (150-450); RDW 12.5 % (11.5-15.5); WBC 15.4 k/uL (3.8-10.6)
[2018-08-01 04:36] LABS: ALT 26 U/L (21-72); AST 37 U/L (17-59); Albumin 2.2 g/dL (3.5-5.0); Alkaline Phosphatase 57 U/L (38-126); Anion Gap 5 mmol/L; Blood Urea Nitrogen 23 mg/dL (9-20); Calcium 7.3 mg/dL (8.4-10.2); Carbon Dioxide 24 mmol/L (22-30); Chloride 115 mmol/L (98-107); Glucose 162 mg/dL (74-99); Magnesium 2.3 mg/dL (1.6-2.3); Phosphorus 2.3 mg/dL (2.5-4.5); Sodium 144 mmol/L (137-145); Total Protein 4.7 g/dL (6.3-8.2)
[2018-08-01] MEDS: ACETAMINOPHEN IV (For NPO) 1,000 MG in EMPTY BAG 1 BAG IVPB PRN ×3 (04:48→20:56)
[2018-08-01 04:49] LABS: Potassium 4.3 mmol/L (3.5-5.1)
[2018-08-01] MEDS: LORazepam 2 MG/ML INJ IV PRN (04:56)
[2018-08-01 05:28] LABS: ABG Base Excess 2.3 mmol/L; ABG HCO3 29 mmol/L (21-25); ABG Oxygen Saturation 94.2 % (94-97); ABG PCO2 60 mmHg (35-45); ABG PH 7.29 (7.35-7.45); ABG PO2 75 mmHg (83-108); ABG TCO2 31 mmol/L (19-24)
[2018-08-01 06:04] LABS: Glucose,Whole Blood 216 mg/dL (75-99)
[2018-08-01 07:18] LABS: Glucose,Whole Blood 216 mg/dL (75-99)
[2018-08-01] MEDS: THIAMINE 100 MG in SODIUM CHLORIDE 0.9% 100 ML IVPB SCH ×2 (07:18→20:51)
[2018-08-01] MEDS ORDERED: POTASSIUM PHOSPHATE 10 MMOL in SODIUM CHLORIDE 0.9% 250 ML IV ONE (07:30)
[2018-08-01] MEDS: IPRATROPIUM-ALBUTEROL 3 ML NEB INHALATION PRN ×3 (07:53→15:56)
--- NOTE | 2018-08-01 08:59 | XR ---
EXAMINATION TYPE: XR chest 1V portable DATE OF EXAM: 08/01/2018 COMPARISON: 07/31/2018 HISTORY: Shortness of breath TECHNIQUE: Single frontal view of the chest is obtained. FINDINGS: ET and NG tubes stable. Bilateral consolidation and pleural effusion noted. Heart is enlar ged. No pneumothorax. Marked asymmetric right apical pleural thickening. IMPRESSION: Bilateral infiltrate and pleural effusion stable. Correlate for CHF versus pneumonia. No te is made there is asymmetric right apical pleural thickening which could be correlated with CT of t he chest.
--- NOTE | 2018-08-01 09:39 | PN ---
PROGRESS NOTE This is a 53-year-old gentleman seen by my partner yesterday for acute hypoxemic respiratory failure secondary to both pneumonia and acute meningitis. The patient is on the mechanical ventilator. He was intubated on the , admitted on the . He came with mental status changes secondary to meningitis and a positive drug screen positive for narcotics. He had acute lactic acidosis and acute sepsis. He is suspected to have bacterial meningitis based on his CSF findings. Anyway, his CSF cultures, blood cultures, urine cultures, and sputum sampling was all positive for presumptive Staph. Currently, he is on the volume assist-control mode rate of 28, tidal volume 480, FiO2 80%, PEEP of 5. Blood gases show pO2 of 75, pCO2 60, pH 7.29. I asked the respiratory therapist to bump the PEEP up from 5 to 10 and titrate the FiO2 down. The patient is currently on ampicillin, Flagyl, Rocephin, and vancomycin. The IVs include saline at 100 mL an hour, fentanyl drip 100 mcg/hour, Diprivan at 75 mcg/kg per minute, Cleviprex at 8 mg an hour and Nimbex at 1 mcg/kg per minute. The Nimbex was apparently started yesterday. Currently, the patient appears to be relatively stable but obviously very ill. Current vital signs are reviewed. His most recent temperature is 100.1, heart rate is 131, respiratory rate is 28, blood pressure 144/98, mean 113, saturations are in the mid to low 90s. Appears in no acute distress. HEENT examination is grossly unremarkable. There is an orally placed endotracheal tube and NG tube. NECK: Supple. Full range of motion. No adenopathy or thyromegaly. Neck veins are flat. Cardiovascular examination reveals tachycardia. It is regular tachycardia, sinus likely. Heart rate 131. S1, S2 normal. No murmur. Heart sounds are somewhat distant. Lungs reveal coarse bilateral rhonchi. Breath sounds are diminished. There is prolongation. Abdomen is soft. Bowel sounds are noted. Extremities are intact. No cyanosis, clubbing, or edema. Skin without rash. Neurologic examination cannot be adequately assessed. The patient is currently sedated and paralyzed. Laboratory data is reviewed. White count 15.4, hemoglobin 12.3, hematocrit 36.9, platelet count 184,000. Blood gases are noted. The PEEP was increased to 10 and I asked the nurses to tell respiratory therapy to titrate down the FiO2. Sodium 144, potassium 4.3, chloride 115, CO2 is 24. Anion gap is 5. BUN and creatinine were 23 and 0.53. The rest of the labs look okay. Albumin is only 2.2. Microbiology as mentioned previously shows presumptive staph in the urine, blood, CSF and sputum. Medications are reviewed. In addition to ampicillin, Flagyl, Rocephin and Vanco, he is on appropriate medications. They will be reviewed. Chest x-ray shows evidence of some bilateral small effusions, right greater than left. A properly placed endotracheal tube. Infiltrates or atelectasis at the bases, particularly in the left basilar retrocardiac area. ASSESSMENT: 1. Acute hypoxemic respiratory failure requiring intubation and mechanical ventilation on July 31 for pneumonia and acute meningitis. 2. Presumptive Staphylococcus aureus sepsis/bacteremia with meningitis. 3. Acute bacterial meningitis secondary to Staphylococcus. 4. Diffuse abdominal pain. 5. Mental status changes secondary to meningitis. 6. Positive drug screen secondary to narcotics. 7. Acute lactic acidosis. 8. History of chronic pain syndrome. PLAN: The patient is on appropriate medications. The infectious disease team has been consulted. The ampicillin, Rocephin and Vanco are appropriate for the meningitis. We will continue to follow. Medications are reviewed. Labs are reviewed. The patient does have multiorgan system failure. Overall prognosis remains very guarded. We will continue to follow closely. CRITICAL CARE TIME: 34 minutes. MMKAVITA / PRETTYN: [id number] /
--- NOTE | 2018-08-01 09:45 | CDI ---
Documentation Clarification Form Date: 08/01/2018 9:30:36 AM From: Fani SchreiberRichardsonREMBERTO, CCDS Admit Date: 07/30/2018 3:50:00 PM Patient Name: James Ribeiro Visit Number: [id number] Discharge Date: ATTENTION: The Clinical Documentation Specialists (CDI) and [facility] Coding Staff appreciate your assistance in clarifying documentation. Please respond to the clarification below the line at the bottom and electronically sign. The CDI & [facility] Coding staff will review the response and follow-up if needed. Please note: Queries are made part of the Legal Health Record. If you have any questions, please contact the author of this message via ITS. Dr. Myron Wolfe: Per the History & Physical, the patient has confusion. Per the Surgical, ID & Pulm notes, the patient has altered mental status. History/Risk Factors: Hypertension, smoker, daily alcohol. Clinical Indicators: Presented with "Abdominal pain, abdominal wall mottling and as well as confusion." Went into acute hypoxic respiratory failure & is now intubated on vent. Diagnosed with Sepsis with preliminary Staph positive cultures & possible bacterial meningitis per LP cultures. VS: T 97.9, P 136^, R 26-37^, BP 125/81 - 141/104^, PO 95 - 91 RA. Labs: WBC 19.2^, Neut 16.6, D Dimer 2.27^. Blood Gas: pH 7.47^, pCO2 32*, pO2 74*, pH 7.44^, pCO2 32*, HCO3 21*. BUN 26^, Gluc 219^, Lactic Acid 3.2^^. CRP 245.0^. LP CSF: RBC 965^, Total Nucleated cells 1415^^, Glucose 29, total protein >600^. CT Brain: No acute Treatment: IV antibiotics: IV Dilaudid, IV Ativan, IV MagSulfate, IV toradol, IV Levaquin, IV Zosyn, IV Thiamine, Albuterol INH, IV Vancomycin, IV Acyclovir, IV Rocephin, IV Flagyl. Consults: Infectious Disease, Pulmonary/Critical Care (ICU management) In your professional opinion, can you please clarify the specific type of Encephalopathy, if known? Hypertensive Encephalopathy Metabolic Encephalopathy Septic Encephalopathy Toxic Encephalopathy Other, please specify Unable to determine (Last Revision: August 2017) Unable to determine MTDD
[2018-08-01] MEDS: HEPARIN SODIUM,PORCINE 5,000 UNIT/ML 1 ML VIAL SQ SCH ×2 (10:01→21:02)
[2018-08-01] MEDS: CHLORHEXIDINE GLUCONATE 15 ML CUP MUCOUS MEM SCH ×2 (10:01→21:02)
[2018-08-01] MEDS: PANTOPRAZOLE 40 MG/10 ML VIAL IV SCH (10:07)
[2018-08-01] MEDS ORDERED: NEOSTIGMINE 1 MG/ML 10 ML VIAL IV ONE (10:25)
--- NOTE | 2018-08-01 10:25 | P.PN ---
Subjective Progress Note Date: 08/01/18 Principal diagnosis: sepsis, SIRS, meningitis, abdominal distention The patient remains sedated on the ventilator. No real change in condition per nursing Objective - Vital Signs Vital signs: Vital Signs Temp 99.4 F 08/01/18 09:00 Pulse 135 H 08/01/18 09:00 Resp 28 H 08/01/18 09:00 BP 144/99 08/01/18 09:00 Pulse Ox 93 L 08/01/18 09:00 Intake & Output 07/31/18 08/01/18 08/01/18 18:59 06:59 18:59 Intake Total 2453.042 3375.799 497.330 Output Total 1530 1780 465 Balance 505.836 0694.799 32.330 Weight 120.1 kg 125.3 kg Intake: IV 1800 2350 200 Ampicillin 2,000 mg In 100 400 Sodium Chloride 0.9% 100 ml @ 200 mls/hr IVPB Q4H [facility] Rx#:[id number] Sodium Chloride 0.9% 1, 1100 1000 200 000 ml @ 100 mls/hr IV . Q10H [facility] Rx#:[id number] Thiamine 200 mg In Sodium 200 200 Chloride 0.9% 100 ml @ 200 mls/hr IVPB ONCE STA Rx#:[id number] Vancomycin 1,500 mg In 250 500 Sodium Chloride 0.9% 250 ml @ 125 mls/hr IVPB Q8H [facility] Rx#:[id number] cefTRIAXone 2 gm In 50 50 Sodium Chloride 0.9% 50 ml @ 100 mls/hr IVPB Q12HR [facility] Rx#:[id number] metroNIDAZOLE-NS PMX 500 100 200 mg In Saline 1 100ml.bag @ 100 mls/hr IVPB Q8HR [facility] Rx#:[id number] Intake, IV Titration 548.042 710.799 157.330 Amount Cisatracurium 200 mg In 156.130 192.400 Sodium Chloride 0.9% 180 ml @ 4 MCG/KG/MIN 28.824 mls/hr IV .Q6H57M [facility] Rx# :[id number] Clevidipine Butyrate 25 20.266 182.8 mg In Empty Bag 1 bag @ 1 MG/HR 2 mls/hr IV .Q24H [facility] Rx#:[id number] Propofol 1,000 mg In 335.229 246.266 157.330 Empty Bag 1 bag @ Titrate IV .Q0M [facility] Rx#: [id number] fentaNYL (PF) 1,000 mcg 36.417 89.333 In Sodium Chloride 0.9% 80 ml @ 100 MCG/HR 10 mls /hr IV .Q10H [facility] Rx#: [id number] Tube Feeding 45 225 140 Other 60 90 Output: Urine 1530 1780 465 Other: Voiding Method Indwelling Catheter Indwelling Catheter - Constitutional Constitutional Comment(s): Sedated on the ventilator, mild diaphoresis - Respiratory Respiratory: bilateral: CTA, rhonchi - Gastrointestinal Gastrointestinal Comment(s): Some mottling, much improved from the ER General gastrointestinal: Present: decreased bowel sounds (Hypoactive bowel sounds), distended (Tympanitic along the ascending and transverse colon) - Labs CBC & Chem 7: 08/01/18 04:15 08/01/18 04:15 Labs: Abnormal Lab Results - Last 24 Hours (Table) 07/31/18 07/31/18 07/31/18 Range/Units 10:36 12:31 18:05 WBC (3.8-10.6) k/uL RBC (4.30-5.90) m/uL Hgb (13.0-17.5) gm/dL Hct (39.0-53.0) % Neutrophils # (1.3-7.7) k/uL Lymphocytes # (1.0-4.8) k/uL ABG pH (7.35-7.45) ABG pCO2 46 H (35-45) mmHg ABG pO2 (83-108) mmHg ABG HCO3 26 H (21-25) mmol/L ABG Total CO2 28 H (19-24) mmol/L ABG O2 Saturation 97.9 H (94-97) % Chloride (98-107) mmol/L BUN (9-20) mg/dL Creatinine (0.66-1.25) mg/dL Glucose (74-99) mg/dL POC Glucose (mg/dL) 173 H 168 H (75-99) mg/dL Calcium (8.4-10.2) mg/dL Phosphorus (2.5-4.5) mg/dL Total Protein (6.3-8.2) g/dL Albumin (3.5-5.0) g/dL 07/31/18 08/01/18 08/01/18 Range/Units 23:49 04:15 04:15 WBC 15.4 H (3.8-10.6) k/uL RBC 3.70 L (4.30-5.90) m/uL Hgb 12.3 L (13.0-17.5) gm/dL Hct 36.9 L (39.0-53.0) % Neutrophils # 13.7 H (1.3-7.7) k/uL Lymphocytes # 0.7 L (1.0-4.8) k/uL ABG pH (7.35-7.45) ABG pCO2 (35-45) mmHg ABG pO2 (83-108) mmHg ABG HCO3 (21-25) mmol/L ABG Total CO2 (19-24) mmol/L ABG O2 Saturation (94-97) % Chloride 115 H (98-107) mmol/L BUN 23 H (9-20) mg/dL Creatinine 0.53 L (0.66-1.25) mg/dL Glucose 162 H (74-99) mg/dL POC Glucose (mg/dL) 189 H (75-99) mg/dL Calcium 7.3 L (8.4-10.2) mg/dL Phosphorus 2.3 L (2.5-4.5) mg/dL Total Protein 4.7 L (6.3-8.2) g/dL Albumin 2.2 L (3.5-5.0) g/dL 08/01/18 08/01/18 08/01/18 Range/Units 05:26 05:47 07:15 WBC (3.8-10.6) k/uL RBC (4.30-5.90) m/uL Hgb (13.0-17.5) gm/dL Hct (39.0-53.0) % Neutrophils # (1.3-7.7) k/uL Lymphocytes # (1.0-4.8) k/uL ABG pH 7.29 L (7.35-7.45) ABG pCO2 60 H (35-45) mmHg ABG pO2 75 L (83-108) mmHg ABG HCO3 29 H (21-25) mmol/L ABG Total CO2 31 H (19-24) mmol/L ABG O2 Saturation (94-97) % Chloride (98-107) mmol/L BUN (9-20) mg/dL Creatinine (0.66-1.25) mg/dL Glucose (74-99) mg/dL POC Glucose (mg/dL) 216 H 216 H (75-99) mg/dL Calcium (8.4-10.2) mg/dL Phosphorus (2.5-4.5) mg/dL Total Protein (6.3-8.2) g/dL Albumin (3.5-5.0) g/dL Microbiology - Last 24 Hours (Table) 07/30/18 20:45 Blood Culture Gram Stain - Preliminary Blood Blood Culture - Preliminary Staphylococcus aureus 07/30/18 20:45 Blood Culture Gram Stain - Preliminary Blood Blood Culture - Preliminary Staphylococcus aureus 07/30/18 12:43 Urine Culture - Preliminary Urine,Clean Catch Presumptive Staph aureus 07/30/18 17:30 CSF Gram Stain - Preliminary Cerebral Spinal Fluid CSF Culture - Preliminary Presumptive Staph aureus 07/31/18 00:15 Gram Stain - Preliminary Sputum Sputum Culture - Preliminary 07/30/18 15:34 Blood Culture Gram Stain - Preliminary Blood Blood Culture - Preliminary Staphylococcus aureus 07/30/18 20:45 Blood Culture - Final Blood 07/30/18 20:45 Blood Culture - Final Blood 07/30/18 15:34 Blood Culture - Final Blood Assessment and Plan (1) Lactic acidosis Current Visit: Yes Status: Acute Code(s): E87.2 - ACIDOSIS SNOMED Code(s): 14373358 (2) Leukocytosis Current Visit: Yes Status: Acute Code(s): D72.829 - ELEVATED WHITE BLOOD CELL COUNT, UNSPECIFIED SNOMED Code(s): 635569699 (3) SIRS (systemic inflammatory response syndrome) Current Visit: Yes Status: Acute Code(s): R65.10 - SIRS OF NON-INFECTIOUS ORIGIN W/O ACUTE ORGAN DYSFUNCTION SNOMED Code(s): 250118810 (4) Colon distention Current Visit: Yes Status: Acute Code(s): K63.89 - OTHER SPECIFIED DISEASES OF INTESTINE SNOMED Code(s): 224081136 (5) Meningitis Current Visit: Yes Status: Acute Code(s): G03.9 - MENINGITIS, UNSPECIFIED SNOMED Code(s): 6343973 (6) Sepsis Current Visit: Yes Status: Acute Code(s): A41.9 - SEPSIS, UNSPECIFIED ORGANISM SNOMED Code(s): 26966507 Plan: The patient's blood cultures, sputum culture, CSF culture are all positive for staph aureus. His abdomen remains distended. We will have nursing give him a dose of neostigmine to try to stimulate the colon to empty. Continue to monitor him. If his condition worsens on appropriate antibiotic therapy and it may be beneficial to repeat the computed tomography scan.
[2018-08-01 11:14] LABS: Hemoglobin A1C 6.9 % (4.0-6.0)
[2018-08-01] MEDS ORDERED: VANCOMYCIN 1,750 MG in SODIUM CHLORIDE 0.9% 500 ML 500 ML IVPB SCH (12:00)
[2018-08-01 12:33] LABS: Glucose,Whole Blood 190 mg/dL (75-99)
[2018-08-01] MEDS: MULTIVITAMINS, THERA 1 EACH TAB PO SCH (15:21)
[2018-08-01 16:49] LABS: Glucose,Whole Blood 203 mg/dL (75-99)
[2018-08-01] MEDS ORDERED: BISACODYL 10 MG SUPP RECTAL STA ×2 (19:29→19:33)
--- NOTE | 2018-08-01 19:42 | PN ---
PROGRESS NOTE DATE OF SERVICE: 08/01/2018 This 53-year-old gentleman who was admitted with fever, change in mental status with possible acute meningitis, possibly Staph aureus sepsis, is being closely monitored. The patient is on IV antibiotics. Patient is mechanically ventilated and sedated. Chest x-ray done today, reviewed personally by me, showed bilateral infiltrate and pleural effusion. The possibility of pneumonia is also being considered. The patient cannot undergo MRI of the back at this time because of the fact that the patient is mechanically ventilated and sedated. The patient is on broad-spectrum IV antibiotics, anyway. Past medical history reviewed. Review of systems could not be taken; the patient is mechanically ventilated and sedated. CURRENT MEDICATIONS: 1. Tylenol suppository 650. 2. DuoNeb q.i.d. and p.r.n. 3. Unasyn 2 grams IV q.4. 4. Artificial Tears. 5. Rocephin 2 grams IV b.i.d. 6. Peridex 15 mL b.i.d. 7. Cisatracurium p.r.n. 8. Clevidipine infusion. 9. Fentanyl patch. 10.Heparin 5000 units subcutaneously b.i.d. 11.Dilaudid. 12.NovoLog scale. 13.Multivitamins. 14.Other p.r.n. medications. PHYSICAL EXAMINATION: Patient is mechanically ventilated and sedated. Pulse is 134, regular, blood pressure 163/105, respiration 20, temperature normal, pulse ox 91% on mechanical ventilation. Vent settings are noted at 60% FiO2, tidal volume, PEEP of 10. HEENT: Conjunctivae normal. Oral mucosa moist. NECK: No jugular venous distention. No carotid bruit. No lymph node enlargement. CARDIOVASCULAR SYSTEM: S1, S2 muffled. RESPIRATORY SYSTEM: Breath sounds diminished at the bases. A few bilateral scattered rhonchi and crackles. ABDOMEN: Soft, obese, non-tender. LEGS: No edema. No swelling. NERVOUS SYSTEM: Patient is mechanically ventilated and sedated. SKIN: Some mild Otherwise, skin shows no ulcer, rash, bleeding. JOINTS: No active deforming arthropathy. LABS: ABGs noted; pH of 7.29, pCO2 60 and PO2 75. Other labs are WBC 15.4, hemoglobin 12.3. Sodium 144, potassium 4.3, glucose 203. Influenza positive. ASSESSMENT: 1. Fever, change in mental status, possible acute meningitis, possibly with Staphylococcus aureus with sepsis which is methicillin-susceptible Staphylococcus aeruginosa. 2. Abdominal pain and distention with possible sepsis; rule out ischemic bowel. 3. Low back pain evaluation, status post lumbar puncture. 4. Lactic acidosis, possibly secondary to sepsis. 5. Increased random blood sugar. 6. Respiratory alkalosis. 7. Chronic back pain. 8. Degenerative joint disease. 9. History of nicotine dependence. 10.Obesity with body mass index 38. 11.FULL CODE. RECOMMENDATIONS AND DISCUSSION: I recommend to continue current medications, continue with the monitoring, symptomatic treatment. Otherwise, continue with broad-spectrum IV antibiotics, including vancomycin, ampicillin as well as Rocephin. Otherwise closely follow with Infectious Disease. I would also recommend a CT scan of the spine. MRI could not be done because of the mechanical ventilation. Closely follow. Continue to follow with the consultants. Discussed with family. Prognosis guarded. Further recommendations to follow. MMIGNACIOL / IJN: [id number] / [id number]
[2018-08-01] MEDS: HYDROmorphone 1 MG/ML 1 ML SYRINGE IVP PRN (21:36)
--- NOTE | 2018-08-01 21:59 | P.PN ---
Subjective Progress Note Date: 08/01/18 53-year-old male presents to the emergency center with ongoing difficulties with abdominal pain and back pain. Approximate 5 days prior he developed worsening amounts of back pain and was taking some medication for it. 3 days prior to this admission he did come to the emergency center with com plaints of back and abdominal pain. Imaging studies were performed and there was evidence of some colonic dilatation without other acute concern there was no diverticulitis or free air. During the time in the emergency center the patient's status worsened. His mental status altered, although he did not have evidence of high-grade fever there was leukocytosis. Given that the imaging studies were not acutely different, the patient underwent lumbar puncture. This material was markedly abnormal and with evidence of the significant white blood cells of the CSF the infectious diseases consultation was requested. The patient was transferred to the intensive care unit. At this time the patient is sitting upright in the intensive care unit. He is awake and alert, the visitors in the room relate that he is more cognizant than he was in the emergency center. The patient however continues to have a altered affect. Of note drug screen is positive admission for opiates, oxycodone, benzodiazepines, tricyclics. At the time of the call the patient's CSF material was evaluated personally in t he laboratory. An extensive pleocytosis was seen but no evidnece of bacteria were noted. The smears were reviewed with the lab techs and no bacteria was seen. Of note the medication list from the emergency center is reviewed and there is a notation on prednisone 50 mg a day. 07/31/2018 the patient remains in intensive care unit now is intubated sedated and mechanically ventilated but seems to be more stable today than yesterday. Still seems to be somewhat uncomfortable and further steps are being taken to improve his discomfort and likely paralysis to improve his coordination with the ventilator. Has ongoing leukocytosis, no evidence of renal failure. Not on vasopressor therapy at this time. Laboratories during to identify staph aureus in cultures 08/01/2018 patient remains intubated sedated and mechanically ventilated. Hemodynamically he is become hypertension and cleviprexl has been started. Patient is sedated and comfortable, synchronous with the ventilator. No further fevers today. Objective - Vital Signs Vital signs: Vital Signs Temp 99.3 F 08/01/18 16:00 Pulse 131 H 08/01/18 19:00 Resp 28 H 08/01/18 19:00 BP 138/98 08/01/18 19:00 Pulse Ox 91 L 08/01/18 19:00 Intake & Output 08/01/18 08/01/18 08/02/18 06:59 18:59 06:59 Intake Total 3375.799 2635.767 195.741 Output Total 1780 2390 Balance 1595.799 245.767 195.741 Weight 125.3 kg Intake: IV 2350 1350 Ampicillin 2,000 mg In 400 Sodium Chloride 0.9% 100 ml @ 200 mls/hr IVPB Q4H TOY Rx#:[id number] Sodium Chloride 0.9% 1, 1000 1200 000 ml @ 100 mls/hr IV . Q10H TOY Rx#:[id number] Thiamine 200 mg In Sodium 200 Chloride 0.9% 100 ml @ 200 mls/hr IVPB ONCE STA Rx#:[id number] Vancomycin 1,500 mg In 500 Sodium Chloride 0.9% 250 ml @ 125 mls/hr IVPB Q8H TOY Rx#:[id number] cefTRIAXone 2 gm In 50 50 Sodium Chloride 0.9% 50 ml @ 100 mls/hr IVPB Q12HR TOY Rx#:[id number] metroNIDAZOLE-NS PMX 500 200 100 mg In Saline 1 100ml.bag @ 100 mls/hr IVPB Q8HR TOY Rx#:[id number] Intake, IV Titration 710.799 830.767 195.741 Amount Cisatracurium 200 mg In 192.400 113.735 54.585 Sodium Chloride 0.9% 180 ml @ 4 MCG/KG/MIN 28.824 mls/hr IV .Q6H57M TOY Rx# :[id number] Clevidipine Butyrate 25 182.8 100 50 mg In Empty Bag 1 bag @ 1 MG/HR 2 mls/hr IV .Q24H TOY Rx#:[id number] Propofol 1,000 mg In 246.266 528.365 91.156 Empty Bag 1 bag @ Titrate IV .Q0M TOY Rx#: [id number] fentaNYL (PF) 1,000 mcg 89.333 88.667 In Sodium Chloride 0.9% 80 ml @ 100 MCG/HR 10 mls /hr IV .Q10H TOY Rx#: [id number] Tube Feeding 225 455 Other 90 Output: Urine 1780 2390 Other: Voiding Method Indwelling Catheter Indwelling Catheter ABP, PAP, CO, CI - Last Documented Arterial Blood Pressure 144/84 - Exam 53-year-old male presents to Hospital from home with a 5 day history of progressive illness. He has had abdominal pain, back pain and now has developed the progressive discomfort with his neck and then some altered mental status. Patient has had alteration status is now intubated sedated and mechanically ventilated, likely will undergo paralysis HEENT: Anicteric conjunctiva are pink and moist nasal mucosa grossly intact without significant lesions, there is no thrush. Neck: The neck is mildly stiff but not rigid Lungs: Symmetrical bilateral air entry few basilar crackles expiratory wheezes are noted throughout Heart: Tachycardic no audible murmur click or rub Abdomen: Obese, mildly distended is only minimal tenderness upon palpation of the right upper quadrant with percussion, no palpable mass or organomegaly no rigidity and no guarding or rebound Extremities: The upper extremities have excellent pulses they are symmetric, no significant petechiae or telangiectasia. No splinter hemorrhages were noted. Lower extremities have some chronic edema no open ulcerations Neuro: Patient is no intubated sedated and mechanically ventilated and likely paralyzed to improve his coordination with the ventilator - Labs CBC & Chem 7: 08/01/18 04:15 08/01/18 04:15 Labs: Abnormal Lab Results - Last 24 Hours (Table) 07/31/18 07/31/18 08/01/18 Range/Units 04:28 23:49 04:15 WBC 15.4 H (3.8-10.6) k/uL RBC 3.70 L (4.30-5.90) m/uL Hgb 12.3 L (13.0-17.5) gm/dL Hct 36.9 L (39.0-53.0) % Neutrophils # 13.7 H (1.3-7.7) k/uL Lymphocytes # 0.7 L (1.0-4.8) k/uL ABG pH (7.35-7.45) ABG pCO2 (35-45) mmHg ABG pO2 (83-108) mmHg ABG HCO3 (21-25) mmol/L ABG Total CO2 (19-24) mmol/L Chloride (98-107) mmol/L BUN (9-20) mg/dL Creatinine (0.66-1.25) mg/dL Glucose (74-99) mg/dL POC Glucose (mg/dL) 189 H (75-99) mg/dL Hemoglobin A1c 6.9 H (4.0-6.0) % Calcium (8.4-10.2) mg/dL Phosphorus (2.5-4.5) mg/dL Total Protein (6.3-8.2) g/dL Albumin (3.5-5.0) g/dL 08/01/18 08/01/18 08/01/18 Range/Units 04:15 05:26 05:47 WBC (3.8-10.6) k/uL RBC (4.30-5.90) m/uL Hgb (13.0-17.5) gm/dL Hct (39.0-53.0) % Neutrophils # (1.3-7.7) k/uL Lymphocytes # (1.0-4.8) k/uL ABG pH 7.29 L (7.35-7.45) ABG pCO2 60 H (35-45) mmHg ABG pO2 75 L (83-108) mmHg ABG HCO3 29 H (21-25) mmol/L ABG Total CO2 31 H (19-24) mmol/L Chloride 115 H (98-107) mmol/L BUN 23 H (9-20) mg/dL Creatinine 0.53 L (0.66-1.25) mg/dL Glucose 162 H (74-99) mg/dL POC Glucose (mg/dL) 216 H (75-99) mg/dL Hemoglobin A1c (4.0-6.0) % Calcium 7.3 L (8.4-10.2) mg/dL Phosphorus 2.3 L (2.5-4.5) mg/dL Total Protein 4.7 L (6.3-8.2) g/dL Albumin 2.2 L (3.5-5.0) g/dL 08/01/18 08/01/18 08/01/18 Range/Units 07:15 12:30 16:46 WBC (3.8-10.6) k/uL RBC (4.30-5.90) m/uL Hgb (13.0-17.5) gm/dL Hct (39.0-53.0) % Neutrophils # (1.3-7.7) k/uL Lymphocytes # (1.0-4.8) k/uL ABG pH (7.35-7.45) ABG pCO2 (35-45) mmHg ABG pO2 (83-108) mmHg ABG HCO3 (21-25) mmol/L ABG Total CO2 (19-24) mmol/L Chloride (98-107) mmol/L BUN (9-20) mg/dL Creatinine (0.66-1.25) mg/dL Glucose (74-99) mg/dL POC Glucose (mg/dL) 216 H 190 H 203 H (75-99) mg/dL Hemoglobin A1c (4.0-6.0) % Calcium (8.4-10.2) mg/dL Phosphorus (2.5-4.5) mg/dL Total Protein (6.3-8.2) g/dL Albumin (3.5-5.0) g/dL Microbiology - Last 24 Hours (Table) 07/30/18 17:30 CSF Gram Stain - Final Cerebral Spinal Fluid CSF Culture - Final Staphylococcus aureus 07/30/18 12:43 Urine Culture - Final Urine,Clean Catch Staphylococcus aureus 07/30/18 20:45 Blood Culture Gram Stain - Preliminary Blood Blood Culture - Preliminary Staphylococcus aureus 07/30/18 20:45 Blood Culture Gram Stain - Preliminary Blood Blood Culture - Preliminary Staphylococcus aureus 07/31/18 00:15 Gram Stain - Preliminary Sputum Sputum Culture - Preliminary Presumptive Staph aureus Laboratory Results WBC 15.4 k/uL (3.8-10.6) H 08/01/18 04:15 RBC 3.70 m/uL (4.30-5.90) L 08/01/18 04:15 Hgb 12.3 gm/dL (13.0-17.5) L 08/01/18 04:15 Hct 36.9 % (39.0-53.0) L 08/01/18 04:15 MCV 99.6 fL (80.0-100.0) 08/01/18 04:15 MCH 33.2 pg (25.0-35.0) 08/01/18 04:15 MCHC 33.3 g/dL (31.0-37.0) 08/01/18 04:15 RDW 12.5 % (11.5-15.5) 08/01/18 04:15 Plt Count 184 k/uL (150-450) 08/01/18 04:15 Neutrophils % 89 % 08/01/18 04:15 Neutrophils % (Manual) 61 % 07/31/18 04:28 Band Neutrophils % 32 % 07/31/18 04:28 Lymphocytes % 4 % 08/01/18 04:15 Lymphocytes % (Manual) 3 % 07/31/18 04:28 Monocytes % 4 % 08/01/18 04:15 Monocytes % (Manual) 4 % 07/31/18 04:28 Eosinophils % 1 % 08/01/18 04:15 Basophils % 0 % 08/01/18 04:15 Neutrophils # 13.7 k/uL (1.3-7.7) H 08/01/18 04:15 Neutrophils # (Manual) 12.20 k/uL (1.3-7.7) H 07/31/18 04:28 Lymphocytes # 0.7 k/uL (1.0-4.8) L 08/01/18 04:15 Lymphocytes # (Manual) 0.40 k/uL (1.0-4.8) L 07/31/18 04:28 Monocytes # 0.6 k/uL (0-1.0) 08/01/18 04:15 Monocytes # (Manual) 0.53 k/uL (0-1.0) 07/31/18 04:28 Eosinophils # 0.1 k/uL (0-0.7) 08/01/18 04:15 Basophils # 0.1 k/uL (0-0.2) 08/01/18 04:15 Nucleated RBCs 0 /100 WBC (0-0) 07/31/18 04:28 Manual Slide Review Performed 07/31/18 04:28 RBC Morphology Normal 07/30/18 15:34 ESR 70 mm/hr (0-15) H 07/30/18 15:34 PT 11.3 sec (9.0-12.0) 07/30/18 11:23 INR 1.1 (<1.2) 07/30/18 11:23 APTT 22.0 sec (22.0-30.0) 07/30/18 11:23 D-Dimer 2.27 mg/L FEU (<0.60) H 07/30/18 15:36 Sample Site lrad 08/01/18 05:26 ABG pH 7.29 (7.35-7.45) L 08/01/18 05:26 ABG pCO2 60 mmHg (35-45) H 08/01/18 05:26 ABG pO2 75 mmHg (83-108) L 08/01/18 05:26 ABG HCO3 29 mmol/L (21-25) H 08/01/18 05:26 ABG Total CO2 31 mmol/L (19-24) H 08/01/18 05:26 ABG O2 Saturation 94.2 % (94-97) 08/01/18 05:26 ABG Base Excess 2.3 mmol/L 08/01/18 05:26 Abhinav Test Yes 08/01/18 05:26 VBG pH 7.44 (7.31-7.41) H 07/30/18 15:34 VBG pCO2 32 mmHg (37-51) L 07/30/18 15:34 VBG HCO3 21 mmol/L (24-28) L 07/30/18 15:34 FiO2 80 % 08/01/18 05:26 Sodium 144 mmol/L (137-145) 08/01/18 04:15 Potassium 4.3 mmol/L (3.5-5.1) 08/01/18 04:15 Chloride 115 mmol/L (98-107) H 08/01/18 04:15 Carbon Dioxide 24 mmol/L (22-30) 08/01/18 04:15 Anion Gap 5 mmol/L 08/01/18 04:15 BUN 23 mg/dL (9-20) H 08/01/18 04:15 Creatinine 0.53 mg/dL (0.66-1.25) L 08/01/18 04:15 Est GFR (CKD-EPI)AfAm >90 (>60 ml/min/1.73 sqM) 08/01/18 04:15 Est GFR (CKD-EPI)NonAf >90 (>60 ml/min/1.73 sqM) 08/01/18 04:15 Glucose 162 mg/dL (74-99) H 08/01/18 04:15 POC Glucose (mg/dL) 203 mg/dL (75-99) H 08/01/18 16:46 POC Glu Graduate Student ID 08/01/18 16:[address] Glu mg/dL 151 07/31/18 04:28 Hemoglobin A1c 6.9 % (4.0-6.0) H 07/31/18 04:28 Lactic Ac Sepsis Rflx Y 07/30/18 12:03 Plasma Lactic Acid Jama 1.4 mmol/L (0.7-2.0) 07/31/18 04:28 Calcium 7.3 mg/dL (8.4-10.2) L 08/01/18 04:15 Phosphorus 2.3 mg/dL (2.5-4.5) L 08/01/18 04:15 Magnesium 2.3 mg/dL (1.6-2.3) 08/01/18 04:15 Total Bilirubin 1.0 mg/dL (0.2-1.3) 08/01/18 04:15 AST 37 U/L (17-59) 08/01/18 04:15 ALT 26 U/L (21-72) 08/01/18 04:15 Alkaline Phosphatase 57 U/L (38-126) 08/01/18 04:15 Ammonia 12 umol/L (<30) 07/30/18 15:34 Troponin I <0.012 ng/mL (0.000-0.034) 07/30/18 11:23 C-Reactive Protein 245.0 mg/L (<10.0) H 07/30/18 15:34 Total Protein 4.7 g/dL (6.3-8.2) L 08/01/18 04:15 Albumin 2.2 g/dL (3.5-5.0) L 08/01/18 04:15 Lipase <10 U/L (23-300) L 07/31/18 04:28 Urine Color Yellow 07/30/18 11:23 Urine Appearance Clear (Clear) 07/30/18 11:23 Urine pH 6.0 (5.0-8.0) 07/30/18 11:23 Ur Specific [place] >1.050 (1.001-1.035) H 07/30/18 11:23 Urine Protein Trace (Negative) H 07/30/18 11:23 Urine Glucose (UA) Trace (Negative) H 07/30/18 11:23 Urine Ketones Negative (Negative) 07/30/18 11:23 Urine Blood Trace (Negative) H 07/30/18 11:23 Urine Nitrite Negative (Negative) 07/30/18 11:23 Urine Bilirubin Negative (Negative) 07/30/18 11:23 Urine Urobilinogen <2.0 mg/dL (<2.0) 07/30/18 11:23 Ur Leukocyte Esterase Trace (Negative) H 07/30/18 11:23 Urine RBC 8 /hpf (0-5) H 07/30/18 11:23 Urine WBC 4 /hpf (0-5) 07/30/18 11:23 Urine Mucus Rare /hpf (None) H 07/30/18 11:23 CSF Tube Number 2 07/30/18 17:30 CSF Volume 0.25 07/30/18 17:30 CSF Appearance Hazy 07/30/18 17:30 CSF Color Xanthochromic 07/30/18 17:30 CSF RBC 965 u/L (0-10) H 07/30/18 17:30 CSF Tot Nucleated Cells 1415 u/L (0-5) H* 07/30/18 17:30 CSF Mononuclear WBCs % 8 % 07/30/18 17:30 CSF Polynuclear WBCs % 92 % 07/30/18 17:30 CSF Crenated Cells 0 % 07/30/18 17:30 CSF Fresh RBCs 100 % 07/30/18 17:30 CSF Glucose 29 mg/dL (40-70) L* 07/30/18 17:30 CSF Total Protein >600 mg/dL (12-60) H 07/30/18 17:30 Vancomycin Trough 10.9 ug/mL 07/31/18 18:17 Salicylates <1.0 mg/dL 07/30/18 15:34 Urine Opiates Screen Detected (NotDetected) H 07/30/18 12:43 Ur Oxycodone Screen Detected (NotDetected) H 07/30/18 12:43 Urine Methadone Screen Not Detected (NotDetected) 07/30/18 12:43 Ur Propoxyphene Screen Not Detected (NotDetected) 07/30/18 12:43 Acetaminophen <10.0 ug/mL 07/30/18 15:34 Ur Barbiturates Screen Not Detected (NotDetected) 07/30/18 12:43 U Tricyclic Antidepress Detected (NotDetected) H 07/30/18 12:43 Ur Phencyclidine Scrn Not Detected (NotDetected) 07/30/18 12:43 Ur Amphetamines Screen Not Detected (NotDetected) 07/30/18 12:43 U Methamphetamines Scrn Not Detected (NotDetected) 07/30/18 12:43 U Benzodiazepines Scrn Detected (NotDetected) H 07/30/18 12:43 Urine Cocaine Screen Not Detected (NotDetected) 07/30/18 12:43 U Marijuana (THC) Screen Not Detected (NotDetected) 07/30/18 12:43 Influenza Type A RNA Not Detected (Not Detectd) 07/30/18 13:35 Influenza Type B (PCR) Not Detected (Not Detectd) 07/30/18 13:35 Blood Type O Positive 07/30/18 11:23 Blood Type Confirm O Positive 07/30/18 12:39 Blood Type Recheck CABO Indicated 07/30/18 11:23 Antibody Screen NEGATIVE 07/30/18 11:23 Spec Expiration Date 08/02/2018232207/30/18 11:23 Microbiology 07/30/18 17:30 Cerebral Spinal Fluid CSF Gram Stain - Final 07/30/18 17:30 Cerebral Spinal Fluid CSF Culture - Final Staphylococcus aureus 07/30/18 12:43 Urine,Clean Catch Urine Culture - Final Staphylococcus aureus 07/30/18 20:45 Blood Blood Culture Gram Stain - Preliminary 07/30/18 20:45 Blood Blood Culture - Preliminary Staphylococcus aureus 07/30/18 20:45 Blood Blood Culture Gram Stain - Preliminary 07/30/18 20:45 Blood Blood Culture - Preliminary Staphylococcus aureus 07/31/18 00:15 Sputum Gram Stain - Preliminary 07/31/18 00:15 Sputum Sputum Culture - Preliminary Presumptive Staph aureus 07/30/18 15:34 Blood Blood Culture Gram Stain - Preliminary 07/30/18 15:34 Blood Blood Culture - Preliminary Staphylococcus aureus 07/30/18 20:45 Blood Blood Culture - Final 07/30/18 20:45 Blood Blood Culture - Final 07/30/18 15:34 Blood Blood Culture - Final Assessment and Plan (1) Abdominal pain Current Visit: Yes Status: Acute Code(s): R10.9 - UNSPECIFIED ABDOMINAL PAIN SNOMED Code(s): 87799123 (2) Acute exacerbation of chronic low back pain Current Visit: Yes Status: Acute Code(s): M54.5 - LOW BACK PAIN; G89.29 - OTHER CHRONIC PAIN SNOMED Code(s): 708588939 (3) Altered mental status Narrative/Plan: 53-year-old male presents to hospital with progressive symptoms over the 5 days before admission. Approximately 3 days prior he been in the emergency center with complaints of ongoing abdominal pain. There is evidence of some constipation at that point in time and patient was symptomatically don ated. However he now has a great difficulties with ongoing abdominal pain worsening back pain and now while in the emergency center the altered mental status developed. Because of these findings in the leukocytosis lumbar puncture was performed the reveals a markedly abnormal fluid. There were 1415 white blood cells, 965 red blood cells, glucose was 29 and protein was greater than 600 with some xanthochromia being seen. The Gram stain is personally reviewed without evidence of any bacterial p athogens being seen. At this time the patient has evidence of bacterial meningitis with evidence of a systemic inflammatory response, leukocytosis, lactic acidosis, hypoglycorrhachia and evidence of marked elevated protein of the CSF. Without evidence of gram- negative organisms seen on the Gram stain is unlikely the patient has no severe meningitidis in no prophylaxis is given to visitors or to the care team here at the hospital. This will be with ongoing review. At this time cultures are in process however antimicrobial therapy is being utilized with concerns to multiple potential pathogens which would include Streptococcus pneumoniae, listeria meningitis which is of some great concern keo maravilla the patient's history of alcohol use and what appears to be high doses of steroids as of late. Constantly for antibiotic therapy high doses of ampicillin, ceftriaxone and vancomycin are being utilized. Although I do not suspect brain abscess the patient does have potential intra-abdominal pathology with a dilated colon and constantly metronidazole is added to the ceftriaxone for treatment of potential intra-abdominal infection also. Cultures are all in process at this point in time he may further help direct antimicrobial therapy in the near future. Fortunately with hydration and initiation of some metabolic therapy his mentation seems to be a bit improved and as described in the emergency center. The case as directed we discussed with the surgeon and at this time no acute indication for surgical intervention to the abdomen at this time, treatment for constipation is in process. Also discussed with the hospitalist as far as the course of treatment for the meningitis and follow-up. 07/31/2018 the patient remains in intensive care unit, has now been intubated mechanically ventilated and is sedated and paralyzed later to improve synchrony with the ventilator. There is no evidence of positive blood culture, positive urine culture, and positive CSF culture for staph aureus. Laboratory has yet to definitively determine MSSA versus MRSA. However noted a pathogen has been identified ampicillin can be discontinued since it is not likely that this is listeria . Continue vancomycin, Rocephin and metronidazole. Although patient does have meningitis there is still concerned about an intra-abdominal process and consequently Rocephin and Flagyl would give coverage for that. Follow blood cultures are requested to determine the clearance of his bacteremia. Patient did have an outpatient computed tomography scan of the spine without evidence of discitis or osteomyelitis. A parameningeal focus of infection is still in consideration, but no evidence of that by the imaging studies to date. 08/01/2018 patient remains in intensive care unit intubated state and mechanically ventilated. There has been some improvement. He is no longer hypotensive actually is hypertensive and cleviprex has been added. Oxygenation is adequate Leukocytosis continues with response to his MSSA sepsis, bacteremia, and meningitis. Patient did have a computed tomography scan of the spine on 07/27/2018 without evidence of discitis or osteomyelitis of the spine. CT of the brain without intracranial abscess Patient has evidence of MSSA meningitis and sepsis currently being treated with Rocephin, vancomycin and Flagyl. The patient did have complaints of stabbing abdominal pain at admission and is being followed by surgery and since there is a concern for potential intra-abdominal process also the metronidazole continues for now Once the blood cultures are finalized vancomycin will likely be discontinued at that time. Current Visit: Yes Status: Acute Code(s): R41.82 - ALTERED MENTAL STATUS, UNSPECIFIED SNOMED Code(s): 505653450 (4) SIRS (systemic inflammatory response syndrome) Current Visit: Yes Status: Acute Code(s): R65.10 - SIRS OF NON-INFECTIOUS ORIGIN W/O ACUTE ORGAN DYSFUNCTION SNOMED Code(s): 534496174
[2018-08-01] MEDS ORDERED: MINERAL OIL 1 APPLIC/ML OIL TOPICAL PRN (22:22)
[2018-08-01 23:13] LABS: Glucose,Whole Blood 196 mg/dL (75-99)
[2018-08-01 23:53] LABS: Glucose,Whole Blood 215 mg/dL (75-99)
[2018-08-01] MEDS ORDERED: INSULIN REGULAR BOLUS (FROM DRIP BAG) IV PRN (23:57)
[2018-08-02] MEDS: ARTIFICIAL TEARS-HYPROMELLOSE DROPS 15 ML BTL BOTH EYES SCH ×6 (00:04→21:25)
[2018-08-02] MEDS: metroNIDAZOLE-NS PMX 500 MG in SALINE 1 100ML.BAG IVPB SCH ×3 (00:04→16:15)
[2018-08-02] MEDS: VANCOMYCIN 1,750 MG in SODIUM CHLORIDE 0.9% 500 ML 500 ML IVPB SCH ×3 (00:05→16:24)
[2018-08-02] MEDS: PROPOFOL 1,000 MG in EMPTY BAG 1 BAG IV SCH ×8 (00:05→22:11)
[2018-08-02] MEDS: INSULIN REGULAR 100 UNIT in SODIUM CHLORIDE 0.9% 100 ML IV SCH ×2 (00:27→21:26)
[2018-08-02] MEDS: HYDROmorphone 1 MG/ML 1 ML SYRINGE IVP PRN ×2 (00:54→20:19)
[2018-08-02] MEDS: CLEVIDIPINE BUTYRATE 25 MG in EMPTY BAG 1 BAG IV SCH ×6 (01:04→23:47)
[2018-08-02 01:05] LABS: Glucose,Whole Blood 170 mg/dL (75-99)
[2018-08-02 02:13] LABS: Glucose,Whole Blood 174 mg/dL (75-99)
[2018-08-02 03:17] LABS: Glucose,Whole Blood 146 mg/dL (75-99)
[2018-08-02] MEDS: IPRATROPIUM-ALBUTEROL 3 ML NEB INHALATION PRN ×2 (03:31→07:22)
[2018-08-02 04:28] LABS: Glucose,Whole Blood 156 mg/dL (75-99)
[2018-08-02] MEDS: fentaNYL (PF) 1,000 MCG in SODIUM CHLORIDE 0.9% 80 ML IV SCH ×3 (04:45→19:59)
[2018-08-02 05:15] LABS: ABG Base Excess 5.9 mmol/L; ABG HCO3 32 mmol/L (21-25); ABG Oxygen Saturation 92.3 % (94-97); ABG PCO2 62 mmHg (35-45); ABG PH 7.32 (7.35-7.45); ABG PO2 66 mmHg (83-108); ABG TCO2 34 mmol/L (19-24)
[2018-08-02] MEDS: CISATRACURIUM 200 MG in SODIUM CHLORIDE 0.9% 180 ML IV SCH ×3 (05:15→20:13)
[2018-08-02] MEDS: ACETAMINOPHEN IV (For NPO) 1,000 MG in EMPTY BAG 1 BAG IVPB PRN ×3 (05:19→21:27)
[2018-08-02 05:20] LABS: Glucose,Whole Blood 168 mg/dL (75-99)
--- NOTE | 2018-08-02 05:41 | PCN ---
PROCEDURE NOTE ARTERIAL LINE PLACEMENT: Indications: Hemodynamic monitoring. A time-out was completed verifying correct patient, procedure, site, positioning, and implant(s) or special equipment if applicable. Abhinav's test was performed to ensure adequate perfusion. The patient's right wrist was prepped and draped in sterile fashion. 1% Lidocaine was used to anesthetize the area. An 18G Arrow arterial line was introduced into the right radial artery. The catheter was threaded over the guide wire and the needle was removed with appropriate pulsatile blood return. Blood loss was minimal. The catheter was then sutured in place to the skin and a sterile dressing applied. Perfusion to the extremity distal to the point of catheter insertion was checked and found to be adequate. The patient tolerated the procedure well and there were no complications. The patient tolerated the procedure very well, right radial art line was inserted without any difficulty, good waveform was noted, blood return. Line was sutured in place. Sterile dressing was applied. MMODL / IJN: [id number] /
[2018-08-02 05:43] LABS: HCT 38.9 % (39.0-53.0); HGB 13.3 gm/dL (13.0-17.5); MCH 34.2 pg (25.0-35.0); MCHC 34.1 g/dL (31.0-37.0); MCV 100.2 fL (80.0-100.0); Mean Platelet Volume 6.6; Platelet Count 245 k/uL (150-450); RBC 3.88 m/uL (4.30-5.90); RDW 12.8 % (11.5-15.5); WBC 25.7 k/uL (3.8-10.6)
--- NOTE | 2018-08-02 05:44 | PCN ---
PROCEDURE NOTE PROCEDURE: Central line, right femoral vein triple lumen catheter. PREOPERATIVE DIAGNOSIS: Administration of fluids and pressors. POSTOPERATIVE DIAGNOSIS: Administration of fluids and pressors. TRIPLE LUMEN CATHETER PLACEMENT: Indication: Hemodynamic monitoring/Intravenous access. A time-out was completed verifying correct patient, procedure, site, positioning, and implant(s) or special equipment if applicable. The patient was placed in a dependent position appropriate for triple lumen catheter placement based on the vein to be cannulated. The patient's right groin was prepped and draped in sterile fashion. 1% Lidocaine was used to anesthetize the surrounding skin area. A triple lumen 9F Cordis catheter was introduced into the right common femoral vein using Seldinger technique. The catheter was threaded smoothly over the guide wire and appropriate blood return was obtained. Each lumen of the catheter was evacuated of air and flushed with sterile saline. The catheter was then sutured in place to the skin and a sterile dressing applied. Perfusion to the extremity distal to the point of catheter insertion was checked and found to be adequate. There was no immediate complications. There was good blood return from all 3 ports. The catheter was sutured in place. Sterile dressing was applied by the nurse. There was no immediate complication. The patient tolerated the procedure well. MMODL / IJN: [id number] /
[2018-08-02 05:52] LABS: ALT 33 U/L (21-72); AST 23 U/L (17-59); Albumin 2.4 g/dL (3.5-5.0); Alkaline Phosphatase 130 U/L (38-126); Anion Gap 5 mmol/L; Blood Urea Nitrogen 25 mg/dL (9-20); Calcium 8.7 mg/dL (8.4-10.2); Carbon Dioxide 30 mmol/L (22-30); Chloride 109 mmol/L (98-107); Glucose 171 mg/dL (74-99); Magnesium 2.5 mg/dL (1.6-2.3); Phosphorus 3.2 mg/dL (2.5-4.5); Potassium 3.7 mmol/L (3.5-5.1); Sodium 144 mmol/L (137-145); Total Bilirubin 0.6 mg/dL (0.2-1.3); Total Protein 4.9 g/dL (6.3-8.2)
[2018-08-02 06:07] LABS: Glucose,Whole Blood 161 mg/dL (75-99)
[2018-08-02] MEDS: SODIUM CHLORIDE 0.9% 1,000 ML IV SCH ×2 (06:09→18:00)
[2018-08-02] MEDS ORDERED: Potassium Replacement Protocol 1 EACH MISC MISCELLANE PRN (06:20)
[2018-08-02 06:23] LABS: Band Neutrophils % 22 %; Eosinophils # (M) 0.26 k/uL (0-0.7); Lymphocytes # (M) 0.77 k/uL (1.0-4.8); Metamyelocytes # (M) 0.51 k/uL (0); Metamyelocytes % 2 %; Monocytes # (M) 0.26 k/uL (0-1.0); Neutrophils % (M) 71 %; Nucleated Red Blood Cells 0 /100 WBC (0-0); Total Cells Counted 100
[2018-08-02] MEDS: POTASSIUM CHLORIDE 10 MEQ in WATER FOR INJECTION 1 100ML.BAG IVPB SCH ×2 (06:35→07:38)
[2018-08-02] MEDS: THIAMINE 100 MG in SODIUM CHLORIDE 0.9% 100 ML IVPB SCH ×2 (07:09→19:59)
[2018-08-02 07:19] LABS: Glucose,Whole Blood 179 mg/dL (75-99)
--- NOTE | 2018-08-02 08:05 | P.PN ---
Subjective Principal diagnosis: sepsis, SIRS, meningitis, abdominal distention Remains sedated on the ventilator. No longer hypotensive. Tube feeding was started yesterday. Objective - Vital Signs Vital signs: Vital Signs Temp 100.6 F H 08/02/18 04:00 Pulse 134 H 08/02/18 07:40 Resp 28 H 08/02/18 07:00 BP 138/98 08/01/18 19:00 Pulse Ox 91 L 08/02/18 07:00 Intake & Output 08/01/18 08/02/18 08/02/18 18:59 06:59 18:59 Intake Total 2635.767 3059.063 237.958 Output Total 2390 1850 175 Balance 653.442 7434.063 62.958 Weight 126 kg Intake: IV 1350 1800 200 ACETAMINOPHEN IV (For NPO 200 ) 1,000 mg In Empty Bag 1 bag @ 400 mls/hr IVPB Q6HR PRN Rx#:[id number] Potassium Chloride 10 meq 100 In Water For Injection 1 100ml.bag @ 100 mls/hr IVPB Q1H TOY Rx#: [id number] Sodium Chloride 0.9% 1, 1200 1000 100 000 ml @ 100 mls/hr IV . Q10H TOY Rx#:[id number] Thiamine 200 mg In Sodium 100 100 Chloride 0.9% 100 ml @ 200 mls/hr IVPB ONCE STA Rx#:[id number] Vancomycin 1,500 mg In 250 Sodium Chloride 0.9% 250 ml @ 125 mls/hr IVPB Q8H TOY Rx#:[id number] cefTRIAXone 2 gm In 50 50 Sodium Chloride 0.9% 50 ml @ 100 mls/hr IVPB Q12HR TOY Rx#:[id number] metroNIDAZOLE-NS PMX 500 100 100 mg In Saline 1 100ml.bag @ 100 mls/hr IVPB Q8HR TOY Rx#:[id number] Intake, IV Titration 830.767 784.063 2.958 Amount Cisatracurium 200 mg In 113.735 54.585 Sodium Chloride 0.9% 180 ml @ 4 MCG/KG/MIN 28.824 mls/hr IV .Q6H57M TOY Rx# :[id number] Clevidipine Butyrate 25 100 175.6 mg In Empty Bag 1 bag @ 1 MG/HR 2 mls/hr IV .Q24H TOY Rx#:[id number] Insulin Regular 100 unit 14.242 2.958 In Sodium Chloride 0.9% 100 ml @ Per Protocol IV .Q0M TOY Rx#:[id number] Propofol 1,000 mg In 528.365 439.636 Empty Bag 1 bag @ Titrate IV .Q0M TOY Rx#: [id number] fentaNYL (PF) 1,000 mcg 88.667 100 In Sodium Chloride 0.9% 80 ml @ 100 MCG/HR 10 mls /hr IV .Q10H TOY Rx#: [id number] Tube Feeding 455 385 35 Other 90 Output: Urine 2390 1850 175 Other: Voiding Method Indwelling Catheter Indwelling Catheter ABP, PAP, CO, CI - Last Documented Arterial Blood Pressure 139/75 - Constitutional Constitutional Comment(s): Sedated on the ventilator - Respiratory Respiratory: bilateral: CTA (Improved aeration from yesterday) - Cardiovascular Rhythm: other (Tachycardic with regular rhythm) - Gastrointestinal General gastrointestinal: Present: decreased bowel sounds (Still distended but somewhat softer than yesterday and tympanitic,), distended - Labs CBC & Chem 7: 08/02/18 05:16 08/02/18 05:16 Labs: Abnormal Lab Results - Last 24 Hours (Table) 07/31/18 08/01/18 08/01/18 Range/Units 04:28 12:30 16:46 WBC (3.8-10.6) k/uL RBC (4.30-5.90) m/uL Hct (39.0-53.0) % MCV (80.0-100.0) fL Neutrophils # (Manual) (1.3-7.7) k/uL Lymphocytes # (Manual) (1.0-4.8) k/uL Metamyelocytes # (Man) (0) k/uL ABG pH (7.35-7.45) ABG pCO2 (35-45) mmHg ABG pO2 (83-108) mmHg ABG HCO3 (21-25) mmol/L ABG Total CO2 (19-24) mmol/L ABG O2 Saturation (94-97) % Chloride (98-107) mmol/L BUN (9-20) mg/dL Creatinine (0.66-1.25) mg/dL Glucose (74-99) mg/dL POC Glucose (mg/dL) 190 H 203 H (75-99) mg/dL Hemoglobin A1c 6.9 H (4.0-6.0) % Magnesium (1.6-2.3) mg/dL Alkaline Phosphatase (38-126) U/L Total Protein (6.3-8.2) g/dL Albumin (3.5-5.0) g/dL 08/01/18 08/01/18 08/02/18 Range/Units 20:57 23:50 01:00 WBC (3.8-10.6) k/uL RBC (4.30-5.90) m/uL Hct (39.0-53.0) % MCV (80.0-100.0) fL Neutrophils # (Manual) (1.3-7.7) k/uL Lymphocytes # (Manual) (1.0-4.8) k/uL Metamyelocytes # (Man) (0) k/uL ABG pH (7.35-7.45) ABG pCO2 (35-45) mmHg ABG pO2 (83-108) mmHg ABG HCO3 (21-25) mmol/L ABG Total CO2 (19-24) mmol/L ABG O2 Saturation (94-97) % Chloride (98-107) mmol/L BUN (9-20) mg/dL Creatinine (0.66-1.25) mg/dL Glucose (74-99) mg/dL POC Glucose (mg/dL) 196 H 215 H 170 H (75-99) mg/dL Hemoglobin A1c (4.0-6.0) % Magnesium (1.6-2.3) mg/dL Alkaline Phosphatase (38-126) U/L Total Protein (6.3-8.2) g/dL Albumin (3.5-5.0) g/dL 08/02/18 08/02/18 08/02/18 Range/Units 02:09 03:03 04:02 WBC (3.8-10.6) k/uL RBC (4.30-5.90) m/uL Hct (39.0-53.0) % MCV (80.0-100.0) fL Neutrophils # (Manual) (1.3-7.7) k/uL Lymphocytes # (Manual) (1.0-4.8) k/uL Metamyelocytes # (Man) (0) k/uL ABG pH (7.35-7.45) ABG pCO2 (35-45) mmHg ABG pO2 (83-108) mmHg ABG HCO3 (21-25) mmol/L ABG Total CO2 (19-24) mmol/L ABG O2 Saturation (94-97) % Chloride (98-107) mmol/L BUN (9-20) mg/dL Creatinine (0.66-1.25) mg/dL Glucose (74-99) mg/dL POC Glucose (mg/dL) 174 H 146 H 156 H (75-99) mg/dL Hemoglobin A1c (4.0-6.0) % Magnesium (1.6-2.3) mg/dL Alkaline Phosphatase (38-126) U/L Total Protein (6.3-8.2) g/dL Albumin (3.5-5.0) g/dL 08/02/18 08/02/18 08/02/18 Range/Units 05:08 05:10 05:16 WBC 25.7 H (3.8-10.6) k/uL RBC 3.88 L (4.30-5.90) m/uL Hct 38.9 L (39.0-53.0) % MCV 100.2 H (80.0-100.0) fL Neutrophils # (Manual) 23.90 H (1.3-7.7) k/uL Lymphocytes # (Manual) 0.77 L (1.0-4.8) k/uL Metamyelocytes # (Man) 0.51 H (0) k/uL ABG pH 7.32 L (7.35-7.45) ABG pCO2 62 H (35-45) mmHg ABG pO2 66 L (83-108) mmHg ABG HCO3 32 H (21-25) mmol/L ABG Total CO2 34 H (19-24) mmol/L ABG O2 Saturation 92.3 L (94-97) % Chloride (98-107) mmol/L BUN (9-20) mg/dL Creatinine (0.66-1.25) mg/dL Glucose (74-99) mg/dL POC Glucose (mg/dL) 168 H (75-99) mg/dL Hemoglobin A1c (4.0-6.0) % Magnesium (1.6-2.3) mg/dL Alkaline Phosphatase (38-126) U/L Total Protein (6.3-8.2) g/dL Albumin (3.5-5.0) g/dL 08/02/18 08/02/18 08/02/18 Range/Units 05:16 06:04 07:15 WBC (3.8-10.6) k/uL RBC (4.30-5.90) m/uL Hct (39.0-53.0) % MCV (80.0-100.0) fL Neutrophils # (Manual) (1.3-7.7) k/uL Lymphocytes # (Manual) (1.0-4.8) k/uL Metamyelocytes # (Man) (0) k/uL ABG pH (7.35-7.45) ABG pCO2 (35-45) mmHg ABG pO2 (83-108) mmHg ABG HCO3 (21-25) mmol/L ABG Total CO2 (19-24) mmol/L ABG O2 Saturation (94-97) % Chloride 109 H (98-107) mmol/L BUN 25 H (9-20) mg/dL Creatinine 0.56 L (0.66-1.25) mg/dL Glucose 171 H (74-99) mg/dL POC Glucose (mg/dL) 161 H 179 H (75-99) mg/dL Hemoglobin A1c (4.0-6.0) % Magnesium 2.5 H (1.6-2.3) mg/dL Alkaline Phosphatase 130 H (38-126) U/L Total Protein 4.9 L (6.3-8.2) g/dL Albumin 2.4 L (3.5-5.0) g/dL Microbiology - Last 24 Hours (Table) 08/01/18 06:00 Blood Culture Gram Stain - Preliminary Blood 08/01/18 06:00 Blood Culture - Final Blood 07/30/18 20:45 Blood Culture Gram Stain - Final Blood Blood Culture - Final Staphylococcus aureus 07/30/18 20:45 Blood Culture Gram Stain - Final Blood Blood Culture - Final Staphylococcus aureus 07/30/18 15:34 Blood Culture Gram Stain - Final Blood Blood Culture - Final Staphylococcus aureus 07/30/18 17:30 CSF Gram Stain - Final Cerebral Spinal Fluid CSF Culture - Final Staphylococcus aureus 07/30/18 12:43 Urine Culture - Final Urine,Clean Catch Staphylococcus aureus 07/31/18 00:15 Gram Stain - Preliminary Sputum Sputum Culture - Preliminary Presumptive Staph aureus Assessment and Plan (1) Lactic acidosis Current Visit: Yes Status: Acute Code(s): E87.2 - ACIDOSIS SNOMED Code(s): 03315861 (2) Leukocytosis Current Visit: Yes Status: Acute Code(s): D72.829 - ELEVATED WHITE BLOOD CELL COUNT, UNSPECIFIED SNOMED Code(s): 039620810 (3) SIRS (systemic inflammatory response syndrome) Current Visit: Yes Status: Acute Code(s): R65.10 - SIRS OF NON-INFECTIOUS ORIGIN W/O ACUTE ORGAN DYSFUNCTION SNOMED Code(s): 187498606 (4) Colon distention Current Visit: Yes Status: Acute Code(s): K63.89 - OTHER SPECIFIED DISEASES OF INTESTINE SNOMED Code(s): 547046269 (5) Meningitis Current Visit: Yes Status: Acute Code(s): G03.9 - MENINGITIS, UNSPECIFIED SNOMED Code(s): 4898047 (6) Sepsis Current Visit: Yes Status: Acute Code(s): A41.9 - SEPSIS, UNSPECIFIED ORGANISM SNOMED Code(s): 35906191 Plan: Cultures continue to show staph aureus. Repeated blood cultures from yesterday are again suggestive of staph. We'll monitor the patient. At the present he shows no signs of gram negatives or anaerobes so the colonic ileus is likely r eactive. We'll monitor.
--- NOTE | 2018-08-02 08:44 | XR ---
EXAMINATION TYPE: XR chest 1V portable DATE OF EXAM: 08/02/2018 COMPARISON: Prior chest x-ray dated 08/01/2018 HISTORY: Intubated TECHNIQUE: Single frontal view of the chest is obtained. FINDINGS: Endotracheal tube and NG tube are overlying appropriate position. Patient is again rotated . Heart size is stable and there are cardiac leads. Pleural parenchymal changes are stable, there is no pneumothorax. Apical pleural thickening is stable. IMPRESSION: No significant interval change. There may be basilar effusions and atelectasis, correlat e to exclude pneumonia. Congestive heart failure not excluded.
[2018-08-02] MEDS: HEPARIN SODIUM,PORCINE 5,000 UNIT/ML 1 ML VIAL SQ SCH ×2 (08:55→21:26)
[2018-08-02] MEDS: CHLORHEXIDINE GLUCONATE 15 ML CUP MUCOUS MEM SCH ×2 (08:55→21:25)
[2018-08-02] MEDS: PANTOPRAZOLE 40 MG/10 ML VIAL IV SCH (08:56)
[2018-08-02 09:56] LABS: Glucose,Whole Blood 158 mg/dL (75-99)
--- NOTE | 2018-08-02 10:06 | PN ---
PROGRESS NOTE DATE OF SERVICE: August 02, 2018 This is a 53-year-old gentleman seen by my partner 2 days for acute hypoxic respiratory failure secondary to both pneumonia and acute meningitis. The patient was placed on mechanical ventilator because of hypoxemic respiratory failure and intubated on the . He was admitted the day before the . He came in with mental status changes secondary to meningitis and a positive drug screen for narcotics. He had acute lactic acidosis and acute sepsis. Anyway, currently, the patient remains on mechanical ventilator. He is on the volume assist-control mode rate of 28, tidal volume 480, FiO2 60%, PEEP of 10. The blood gases show a pO2 of 66, a PaCO2 of 62, and a pH 7.32. This is consistent with respiratory acidosis and relative hypoxemia. The PEEP was increased from 10 to 13 to improve oxygenation and hopefully wean the FiO2. The patient's chest x-ray shows a right-sided pleural effusion. In addition, cultures including CSF, blood, sputum and urine were all positive for Staph. The patient is on a saline IV 100 mL an hour, Diprivan at 75 mcg/kg per per minute, fentanyl 100 mcg/hour, Cleviprex at 9 mg an hour, Nimbex 2 mcg/kg per minute, Vital high-protein at 35 with a goal of 35 mL an hour and insulin drip of 4 units an hour. Currently, the patient is relatively stable. He has had an uneventful evening. Not much progress has been made though. Infectious Disease has been consulted. Current vital signs are reviewed. Temperature 100.1, heart rate 134, respiratory rate 28, blood pressure 136/72, saturations are 91% on 60% and 10 of PEEP. HEENT examination is grossly unremarkable. He has got an orally placed endotracheal tube and NG tube. NECK: Supple. Full range of motion. No adenopathy. Neck veins are flat. Cardiovascular examination reveals tachycardia. Heart rate about 120 beats per minute. S1, S2 normal. No S3, S4, or murmur. Lungs reveal coarse rhonchi. No wheezes or crackles. Breath sounds equal bilaterally. No crackles. ABDOMEN: Soft. Bowel sounds are heard. No masses or tenderness. Extremities are intact. No cyanosis, clubbing, or edema. Skin without rash. Neurologic examination could not be adequately assessed as the patient is currently heavily sedated. Current labs include a white count of 25.7, hemoglobin 13.3, hematocrit 38.9, platelet count 245,000. Sodium 144, potassium 3.7, chloride 109, CO2 is 30, BUN and creatinine were 25 and 0.56. Alkaline phosphatase is 130, total protein 4.9. Albumin 2.4. Chest x-ray is relatively stable. It shows a properly placed endotracheal tube and and NG tube. Heart size is stable. No pneumothorax is noted. There appears to be some right-sided pleural effusion and/or atelectasis. Microbiologic studies are positive for Staph as mentioned above. The Staph is oxacillin sensitive. Currently, the patient's antibiotics include Rocephin, Flagyl and vancomycin. ASSESSMENT: 1. Acute hypoxemic respiratory failure secondary to pneumonia and acute meningitis caused by oxacillin sensitive Staph aureus, requiring intubation and mechanical ventilation on July 31. 2. Presumptive Staphylococcus aureus sepsis bacteremia with meningitis. 3. Acute bacterial meningitis secondary to oxacillin sensitive Staphylococcus aureus. 4. Diffuse abdominal pain. 5. Mental status changes secondary to meningitis. 6. Positive drug screen secondary to narcotics. 7. Acute lactic acidemia. 8. History of chronic pain syndrome. PLAN: Currently patient is on appropriate antibiotics. Infectious Disease is following along. The PEEP was increased from 10 to 13 to improve oxygenation and wean the FiO2. The patient will get Lasix 40 mg IV push x1. Chest x-ray, labs and medications are all reviewed. The patient remains on appropriate medications. The patient is being nourished. Additional recommendations and suggestions are forthcoming. Prognosis is very guarded. CRITICAL CARE TIME: 35 minutes. MARISOLL / PRETTYN: [id number] /
[2018-08-02 10:48] LABS: VDRL, Qualitative CSF Nonreactive (Nonreactive)
[2018-08-02] MEDS ORDERED: FUROSEMIDE 10 MG/ML 4 ML VIAL IV STA (11:08)
[2018-08-02] MEDS ORDERED: FUROSEMIDE 10 MG/ML 4 ML VIAL ONE (11:13)
[2018-08-02 11:27] LABS: Glucose,Whole Blood 158 mg/dL (75-99)
[2018-08-02] MEDS: IPRATROPIUM-ALBUTEROL 3 ML NEB INHALATION SCH ×3 (11:52→19:17)
[2018-08-02] MEDS: MULTIVITAMINS, THERA 1 EACH TAB PO SCH (12:48)
[2018-08-02 13:26] LABS: Glucose,Whole Blood 191 mg/dL (75-99)
[2018-08-02 14:37] LABS: Glucose,Whole Blood 193 mg/dL (75-99)
[2018-08-02] MEDS: METOPROLOL TARTRATE 5 MG/5 ML VIAL IVP PRN ×2 (15:02→22:12)
[2018-08-02 16:11] LABS: Glucose,Whole Blood 172 mg/dL (75-99)
[2018-08-02 17:11] LABS: Glucose,Whole Blood 173 mg/dL (75-99)
[2018-08-02 18:06] LABS: Glucose,Whole Blood 152 mg/dL (75-99)
[2018-08-02 19:24] LABS: Glucose,Whole Blood 166 mg/dL (75-99)
[2018-08-02 20:29] LABS: Glucose,Whole Blood 163 mg/dL (75-99)
[2018-08-02 20:59] LABS: Glucose,Whole Blood 147 mg/dL (75-99)
--- NOTE | 2018-08-02 21:15 | PN ---
PROGRESS NOTE DATE OF SERVICE: 08/02/2018 This 53-year-old gentleman who was admitted with fever, change in mental status also had features of acute meningitis, Staph aureus MSSA grown from the cultures. Multiple cultures. Patient continues to be on mechanical ventilation, needing high set at 13 and the patient also had heart rate 132. Multiple consultants are following the patient closely. The cultures apparently growing Staph aureus in multiple samples. PAST MEDICAL HISTORY: Reviewed. REVIEW OF SYSTEMS: Could not be taken. CURRENT MEDICATIONS ARE: Reviewed and include: 1. Tylenol 50 q.6h p.r.n. 2. DuoNeb. 4. Rocephin 2 g IV b.i.d. 5. Peridex. 7. Fentanyl drip. 8. Heparin subcu b.i.d. 9. Dilaudid. 10.P.r.n. 11.Lopressor. 12.Magnesium. 13.Narcan. 14.Protonix. 15.Thiamin. 16.Vancomycin. PHYSICAL EXAM: Patient is mechanically ventilated and sedated. Pulse is 133, respirations 28, temperature is normal. Temperature T-max is 100.7. The blood pressure 175/90, respiration 28, pulse ox 93% on 50% vent settings. Vent settings are noted. HEENT: Conjunctivae normal. NECK: No jugular venous distention. CARDIOVASCULAR: S1, S2 muffled. RESPIRATORY: Breath sounds diminished in the bases. A few scattered rhonchi and crackles. ABDOMEN: Soft, obese, nontender. No guarding and no rigidity. LEGS:ntd Nervous system: Patient is mechanically ventilated and sedated. LAB STUDIES: At this time shows labs WBC 25.2, hemoglobin 13.3, and . ABGs: PH of 7.3 and pCO2 of 62, and glucose 152, albumin is 2.4, CSF noted. ASSESSMENT: 1. Fever, change in mental status, possible acute meningitis, possibly with MSSA and Staph aureus with acute hypoxic respiratory failure on mechanical ventilation. 2. Abdominal pain and distention with possible sepsis, rule out ischemic bowel. 3. Low back pain for evaluation status post lumbar puncture. 4. Lactic acidosis, possibly secondary to sepsis. 5. Increased random blood sugar. 6. Alkalosis. 7. Chronic back pain. 8. Degenerative joint disease. 9. History of nicotine dependence. 10.Obesity with body mass index of 38. 11.FULL CODE. RECOMMENDATIONS AND DISCUSSION: Recommend to continue current medications, monitoring, management and symptomatic treatment. Continue current broad-spectrum IV antibiotics. Currently the patient is on a combination of multiple antibiotics including Rocephin, Flagyl and vancomycin. We will monitor the patient closely. Infectious Disease, Dr. Kenney as well as Pulmonary Critical Care Dr. Briceño. The patient stable at this time with multiple complex medical issues as listed above. The patient is on high PEEP. I would also recommend further evaluation once the patient's condition is slightly better. Past medical history reviewed. Discussed with staff. ANDREW / PRETTYN: [id number] / MTDD
[2018-08-02 22:11] LABS: Glucose,Whole Blood 161 mg/dL (75-99)
[2018-08-02 23:35] LABS: Glucose,Whole Blood 172 mg/dL (75-99)
[2018-08-03 00:12] LABS: Glucose,Whole Blood 172 mg/dL (75-99)
[2018-08-03] MEDS: IPRATROPIUM-ALBUTEROL 3 ML NEB INHALATION SCH ×7 (00:22→23:42)
[2018-08-03] MEDS: PROPOFOL 1,000 MG in EMPTY BAG 1 BAG IV SCH ×6 (00:24→16:42)
[2018-08-03] MEDS: VANCOMYCIN 1,750 MG in SODIUM CHLORIDE 0.9% 500 ML 500 ML IVPB SCH ×3 (00:24→16:56)
[2018-08-03] MEDS: ARTIFICIAL TEARS-HYPROMELLOSE DROPS 15 ML BTL BOTH EYES SCH ×6 (00:25→20:34)
[2018-08-03] MEDS: metroNIDAZOLE-NS PMX 500 MG in SALINE 1 100ML.BAG IVPB SCH ×3 (00:25→16:57)
[2018-08-03 00:54] LABS: Glucose,Whole Blood 157 mg/dL (75-99)
[2018-08-03] MEDS: CISATRACURIUM 200 MG in SODIUM CHLORIDE 0.9% 180 ML IV SCH ×4 (01:53→23:29)
[2018-08-03] MEDS: HYDROmorphone 1 MG/ML 1 ML SYRINGE IVP PRN ×3 (02:10→21:11)
[2018-08-03] MEDS: SODIUM CHLORIDE 0.9% 1,000 ML IV SCH ×2 (02:29→16:47)
[2018-08-03 02:45] LABS: Glucose,Whole Blood 154 mg/dL (75-99)
[2018-08-03 02:59] LABS: Glucose,Whole Blood 172 mg/dL (75-99)
[2018-08-03] MEDS: ACETAMINOPHEN IV (For NPO) 1,000 MG in EMPTY BAG 1 BAG IVPB PRN ×2 (03:52→17:07)
[2018-08-03] MEDS: CLEVIDIPINE BUTYRATE 25 MG in EMPTY BAG 1 BAG IV SCH ×3 (03:57→16:49)
[2018-08-03 04:04] LABS: Glucose,Whole Blood 170 mg/dL (75-99)
[2018-08-03] MEDS: METOPROLOL TARTRATE 5 MG/5 ML VIAL IVP PRN ×4 (04:15→23:31)
[2018-08-03 05:19] LABS: Glucose,Whole Blood 159 mg/dL (75-99)
[2018-08-03 05:42] LABS: ABG Base Excess 9.5 mmol/L; ABG HCO3 35 mmol/L (21-25); ABG Oxygen Saturation 90.6 % (94-97); ABG PCO2 65 mmHg (35-45); ABG PH 7.35 (7.35-7.45); ABG PO2 63 mmHg (83-108); ABG TCO2 37 mmol/L (19-24)
[2018-08-03 05:53] LABS: ALT 37 U/L (21-72); AST 36 U/L (17-59); Albumin 2.3 g/dL (3.5-5.0); Alkaline Phosphatase 137 U/L (38-126); Anion Gap 5 mmol/L; Blood Urea Nitrogen 30 mg/dL (9-20); Calcium 8.4 mg/dL (8.4-10.2); Carbon Dioxide 32 mmol/L (22-30); Chloride 109 mmol/L (98-107); Glucose 164 mg/dL (74-99); Phosphorus 3.1 mg/dL (2.5-4.5); Sodium 146 mmol/L (137-145); Total Bilirubin 0.8 mg/dL (0.2-1.3); Total Protein 4.8 g/dL (6.3-8.2)
[2018-08-03 06:04] LABS: Potassium 3.8 mmol/L (3.5-5.1)
[2018-08-03 06:13] LABS: HGB 13.8 gm/dL (13.0-17.5); MCH 34.9 pg (25.0-35.0); MCHC 35.3 g/dL (31.0-37.0); MCV 98.8 fL (80.0-100.0); Mean Platelet Volume 7.3; Platelet Count 269 k/uL (150-450); RBC 3.95 m/uL (4.30-5.90); RDW 13.2 % (11.5-15.5); WBC 24.6 k/uL (3.8-10.6)
[2018-08-03] MEDS ORDERED: Potassium Replacement Protocol 1 EACH MISC MISCELLANE PRN (06:19)
[2018-08-03 06:26] LABS: Glucose,Whole Blood 148 mg/dL (75-99)
[2018-08-03] MEDS ORDERED: VANCOMYCIN TROUGH DUE 1 EACH MISC MISCELLANE ONE ×2 (07:00→15:00)
[2018-08-03] MEDS: THIAMINE 100 MG in SODIUM CHLORIDE 0.9% 100 ML IVPB SCH ×2 (07:19→20:27)
[2018-08-03] MEDS: POTASSIUM CHLORIDE 10 MEQ in WATER FOR INJECTION 1 100ML.BAG IVPB SCH ×2 (07:19→08:24)
[2018-08-03 07:27] LABS: Glucose,Whole Blood 161 mg/dL (75-99)
--- NOTE | 2018-08-03 08:13 | XR ---
Abdomen HISTORY: Pain Frontal view of the abdomen on 2 images There is a large amount of suspected fecal debris at the level of the right lower quadrant. Suspect t here is some contrast material and air within the urinary bladder. Right femoral catheter is in place with the tip overlying the L5 vertebral body. There is an NG tube with the distal tip at the level o f the 1st-2nd portion of the duodenum. Basilar atelectatic changes and possible associated effusion a re noted. No evident pneumoperitoneum or bowel obstruction. IMPRESSION: Basilar atelectasis and possible associated effusions, correlate to exclude pneumonia. Th ere may be colonic distention at the level of the cecum. Correlate, consider additional imaging as in dicated.
--- NOTE | 2018-08-03 08:23 | XR ---
EXAMINATION TYPE: XR chest 1V portable DATE OF EXAM: 08/03/2018 COMPARISON: Prior chest x-ray dated 08/02/2018 HISTORY: Intubated Technique: frontal view of the chest is obtained on 2 images. FINDINGS: Endotracheal tube and NG tube are overlying appropriate positions. There are overlying car diac leads. Bibasilar density persists. No evident pneumothorax. Heart size is stable. IMPRESSION: There is not a significant interval change. Follow-up recommended.
[2018-08-03] MEDS: PANTOPRAZOLE 40 MG/10 ML VIAL IV SCH (08:24)
[2018-08-03] MEDS: HEPARIN SODIUM,PORCINE 5,000 UNIT/ML 1 ML VIAL SQ SCH ×2 (08:24→20:34)
[2018-08-03] MEDS: CHLORHEXIDINE GLUCONATE 15 ML CUP MUCOUS MEM SCH ×2 (08:24→20:34)
[2018-08-03 08:31] LABS: Band Neutrophils % 12 %; Lymphocytes # (M) 1.72 k/uL (1.0-4.8); Metamyelocytes # (M) 0.74 k/uL (0); Metamyelocytes % 3 %; Monocytes # (M) 0.74 k/uL (0-1.0); Myelocytes # (M) 0.98 k/uL (0); Myelocytes % 4 %; Neutrophils % (M) 72 %; Nucleated Red Blood Cells 0 /100 WBC (0-0); Total Cells Counted 200
[2018-08-03 08:32] LABS: Poikilocytosis (M) Present
[2018-08-03 08:33] LABS: Toxic Granulation Present
[2018-08-03 09:19] LABS: Glucose,Whole Blood 135 mg/dL (75-99)
--- NOTE | 2018-08-03 10:02 | P.PN ---
Subjective Progress Note Date: 08/03/18 Principal diagnosis: sepsis, SIRS, meningitis, abdominal distention The patient remains sedated on the ventilator. Attempt was made at tube feeding yesterday. He became more distended. Objective - Vital Signs Vital signs: Vital Signs Temp 101.8 F H 08/03/18 04:00 Pulse 135 H 08/03/18 08:27 Resp 28 H 08/03/18 07:00 BP 138/98 08/01/18 19:00 Pulse Ox 88 L 08/03/18 07:00 Intake & Output 08/02/18 08/03/18 08/03/18 18:59 06:59 18:59 Intake Total 3651.938 3183.193 437.75 Output Total 2745 1870 325 Balance 707.651 1372.193 112.75 Weight 126 kg 128.9 kg Intake: IV 2550 2050 400 ACETAMINOPHEN IV (For NPO 200 ) 1,000 mg In Empty Bag 1 bag @ 400 mls/hr IVPB Q6HR PRN Rx#:[id number] Potassium Chloride 10 meq 100 In Water For Injection 1 100ml.bag @ 100 mls/hr IVPB Q1H TOY Rx#: [id number] Sodium Chloride 0.9% 1, 1200 1100 200 000 ml @ 100 mls/hr IV . Q10H TOY Rx#:[id number] Thiamine 100 mg In Sodium 100 100 Chloride 0.9% 100 ml @ 202 mls/hr IVPB Q12H TOY Rx#:[id number] Thiamine 200 mg In Sodium 100 Chloride 0.9% 100 ml @ 200 mls/hr IVPB ONCE STA Rx#:[id number] Vancomycin 1,500 mg In 500 Sodium Chloride 0.9% 250 ml @ 125 mls/hr IVPB Q8H TOY Rx#:[id number] Vancomycin 1,750 mg In 500 500 Sodium Chloride 0.9% 500 ml 500 ml @ 167 mls/hr IVPB Q8H TOY Rx#: [id number] cefTRIAXone 2 gm In 50 50 Sodium Chloride 0.9% 50 ml @ 100 mls/hr IVPB Q12HR TOY Rx#:[id number] metroNIDAZOLE-NS PMX 500 200 100 mg In Saline 1 100ml.bag @ 100 mls/hr IVPB Q8HR TOY Rx#:[id number] Intake, IV Titration 686.938 858.193 2.75 Amount Cisatracurium 200 mg In 262.298 126.259 Sodium Chloride 0.9% 180 ml @ 4 MCG/KG/MIN 28.824 mls/hr IV .Q6H57M TOY Rx# :[id number] Clevidipine Butyrate 25 93.399 139.534 mg In Empty Bag 1 bag @ 1 MG/HR 2 mls/hr IV .Q24H TOY Rx#:[id number] Insulin Regular 100 unit 42.408 39.624 2.75 In Sodium Chloride 0.9% 100 ml @ Per Protocol IV .Q0M TOY Rx#:[id number] Propofol 1,000 mg In 200 489.276 Empty Bag 1 bag @ Titrate IV .Q0M TOY Rx#: [id number] fentaNYL (PF) 1,000 mcg 88.833 63.5 In Sodium Chloride 0.9% 80 ml @ 100 MCG/HR 10 mls /hr IV .Q10H TOY Rx#: [id number] Tube Feeding 385 245 35 Other 30 30 Output: Urine 2745 1870 325 Other: Voiding Method Indwelling Catheter Indwelling Catheter ABP, PAP, CO, CI - Last Documented Arterial Blood Pressure 129/74 - Exam Sedated on the ventilator - Respiratory Respiratory: bilateral: rhonchi - Cardiovascular Rhythm: other (Tachycardic, regular rhythm) - Gastrointestinal General gastrointestinal: Present: absent bowel sounds, distended (More distended than yesterday) - Integumentary Integumentary Comment(s): Increased mottling on the abdomen. He now has mottling on both lower extremities - Labs CBC & Chem 7: 08/03/18 05:15 08/03/18 05:15 Labs: Abnormal Lab Results - Last 24 Hours (Table) 08/02/18 08/02/18 08/02/18 Range/Units 09:53 11:25 13:23 WBC (3.8-10.6) k/uL RBC (4.30-5.90) m/uL Neutrophils # (Manual) (1.3-7.7) k/uL Metamyelocytes # (Man) (0) k/uL Myelocytes # (Manual) (0) k/uL ABG pCO2 (35-45) mmHg ABG pO2 (83-108) mmHg ABG HCO3 (21-25) mmol/L ABG Total CO2 (19-24) mmol/L ABG O2 Saturation (94-97) % Sodium (137-145) mmol/L Chloride (98-107) mmol/L Carbon Dioxide (22-30) mmol/L BUN (9-20) mg/dL Creatinine (0.66-1.25) mg/dL Glucose (74-99) mg/dL POC Glucose (mg/dL) 158 H 158 H 191 H (75-99) mg/dL Magnesium (1.6-2.3) mg/dL Alkaline Phosphatase (38-126) U/L Total Protein (6.3-8.2) g/dL Albumin (3.5-5.0) g/dL 08/02/18 08/02/18 08/02/18 Range/Units 14:33 16:05 17:09 WBC (3.8-10.6) k/uL RBC (4.30-5.90) m/uL Neutrophils # (Manual) (1.3-7.7) k/uL Metamyelocytes # (Man) (0) k/uL Myelocytes # (Manual) (0) k/uL ABG pCO2 (35-45) mmHg ABG pO2 (83-108) mmHg ABG HCO3 (21-25) mmol/L ABG Total CO2 (19-24) mmol/L ABG O2 Saturation (94-97) % Sodium (137-145) mmol/L Chloride (98-107) mmol/L Carbon Dioxide (22-30) mmol/L BUN (9-20) mg/dL Creatinine (0.66-1.25) mg/dL Glucose (74-99) mg/dL POC Glucose (mg/dL) 193 H 172 H 173 H (75-99) mg/dL Magnesium (1.6-2.3) mg/dL Alkaline Phosphatase (38-126) U/L Total Protein (6.3-8.2) g/dL Albumin (3.5-5.0) g/dL 08/02/18 08/02/18 08/02/18 Range/Units 18:03 19:21 20:24 WBC (3.8-10.6) k/uL RBC (4.30-5.90) m/uL Neutrophils # (Manual) (1.3-7.7) k/uL Metamyelocytes # (Man) (0) k/uL Myelocytes # (Manual) (0) k/uL ABG pCO2 (35-45) mmHg ABG pO2 (83-108) mmHg ABG HCO3 (21-25) mmol/L ABG Total CO2 (19-24) mmol/L ABG O2 Saturation (94-97) % Sodium (137-145) mmol/L Chloride (98-107) mmol/L Carbon Dioxide (22-30) mmol/L BUN (9-20) mg/dL Creatinine (0.66-1.25) mg/dL Glucose (74-99) mg/dL POC Glucose (mg/dL) 152 H 166 H 163 H (75-99) mg/dL Magnesium (1.6-2.3) mg/dL Alkaline Phosphatase (38-126) U/L Total Protein (6.3-8.2) g/dL Albumin (3.5-5.0) g/dL 08/02/18 08/02/18 08/02/18 Range/Units 20:57 22:07 23:08 WBC (3.8-10.6) k/uL RBC (4.30-5.90) m/uL Neutrophils # (Manual) (1.3-7.7) k/uL Metamyelocytes # (Man) (0) k/uL Myelocytes # (Manual) (0) k/uL ABG pCO2 (35-45) mmHg ABG pO2 (83-108) mmHg ABG HCO3 (21-25) mmol/L ABG Total CO2 (19-24) mmol/L ABG O2 Saturation (94-97) % Sodium (137-145) mmol/L Chloride (98-107) mmol/L Carbon Dioxide (22-30) mmol/L BUN (9-20) mg/dL Creatinine (0.66-1.25) mg/dL Glucose (74-99) mg/dL POC Glucose (mg/dL) 147 H 161 H 172 H (75-99) mg/dL Magnesium (1.6-2.3) mg/dL Alkaline Phosphatase (38-126) U/L Total Protein (6.3-8.2) g/dL Albumin (3.5-5.0) g/dL 08/03/18 08/03/18 08/03/18 Range/Units 00:08 00:51 02:18 WBC (3.8-10.6) k/uL RBC (4.30-5.90) m/uL Neutrophils # (Manual) (1.3-7.7) k/uL Metamyelocytes # (Man) (0) k/uL Myelocytes # (Manual) (0) k/uL ABG pCO2 (35-45) mmHg ABG pO2 (83-108) mmHg ABG HCO3 (21-25) mmol/L ABG Total CO2 (19-24) mmol/L ABG O2 Saturation (94-97) % Sodium (137-145) mmol/L Chloride (98-107) mmol/L Carbon Dioxide (22-30) mmol/L BUN (9-20) mg/dL Creatinine (0.66-1.25) mg/dL Glucose (74-99) mg/dL POC Glucose (mg/dL) 172 H 157 H 154 H (75-99) mg/dL Magnesium (1.6-2.3) mg/dL Alkaline Phosphatase (38-126) U/L Total Protein (6.3-8.2) g/dL Albumin (3.5-5.0) g/dL 08/03/18 08/03/18 08/03/18 Range/Units 02:55 04:02 05:13 WBC (3.8-10.6) k/uL RBC (4.30-5.90) m/uL Neutrophils # (Manual) (1.3-7.7) k/uL Metamyelocytes # (Man) (0) k/uL Myelocytes # (Manual) (0) k/uL ABG pCO2 (35-45) mmHg ABG pO2 (83-108) mmHg ABG HCO3 (21-25) mmol/L ABG Total CO2 (19-24) mmol/L ABG O2 Saturation (94-97) % Sodium (137-145) mmol/L Chloride (98-107) mmol/L Carbon Dioxide (22-30) mmol/L BUN (9-20) mg/dL Creatinine (0.66-1.25) mg/dL Glucose (74-99) mg/dL POC Glucose (mg/dL) 172 H 170 H 159 H (75-99) mg/dL Magnesium (1.6-2.3) mg/dL Alkaline Phosphatase (38-126) U/L Total Protein (6.3-8.2) g/dL Albumin (3.5-5.0) g/dL 08/03/18 08/03/18 08/03/18 Range/Units 05:15 05:15 05:35 WBC 24.6 H (3.8-10.6) k/uL RBC 3.95 L (4.30-5.90) m/uL Neutrophils # (Manual) 20.60 H (1.3-7.7) k/uL Metamyelocytes # (Man) 0.74 H (0) k/uL Myelocytes # (Manual) 0.98 H (0) k/uL ABG pCO2 65 H (35-45) mmHg ABG pO2 63 L (83-108) mmHg ABG HCO3 35 H (21-25) mmol/L ABG Total CO2 37 H (19-24) mmol/L ABG O2 Saturation 90.6 L (94-97) % Sodium 146 H (137-145) mmol/L Chloride 109 H (98-107) mmol/L Carbon Dioxide 32 H (22-30) mmol/L BUN 30 H (9-20) mg/dL Creatinine 0.59 L (0.66-1.25) mg/dL Glucose 164 H (74-99) mg/dL POC Glucose (mg/dL) (75-99) mg/dL Magnesium (1.6-2.3) mg/dL Alkaline Phosphatase 137 H (38-126) U/L Total Protein 4.8 L (6.3-8.2) g/dL Albumin 2.3 L (3.5-5.0) g/dL 08/03/18 08/03/18 08/03/18 Range/Units 06:12 07:03 07:17 WBC (3.8-10.6) k/uL RBC (4.30-5.90) m/uL Neutrophils # (Manual) (1.3-7.7) k/uL Metamyelocytes # (Man) (0) k/uL Myelocytes # (Manual) (0) k/uL ABG pCO2 (35-45) mmHg ABG pO2 (83-108) mmHg ABG HCO3 (21-25) mmol/L ABG Total CO2 (19-24) mmol/L ABG O2 Saturation (94-97) % Sodium (137-145) mmol/L Chloride (98-107) mmol/L Carbon Dioxide (22-30) mmol/L BUN (9-20) mg/dL Creatinine (0.66-1.25) mg/dL Glucose (74-99) mg/dL POC Glucose (mg/dL) 148 H 161 H (75-99) mg/dL Magnesium 2.4 H (1.6-2.3) mg/dL Alkaline Phosphatase (38-126) U/L Total Protein (6.3-8.2) g/dL Albumin (3.5-5.0) g/dL 08/03/18 Range/Units 09:04 WBC (3.8-10.6) k/uL RBC (4.30-5.90) m/uL Neutrophils # (Manual) (1.3-7.7) k/uL Metamyelocytes # (Man) (0) k/uL Myelocytes # (Manual) (0) k/uL ABG pCO2 (35-45) mmHg ABG pO2 (83-108) mmHg ABG HCO3 (21-25) mmol/L ABG Total CO2 (19-24) mmol/L ABG O2 Saturation (94-97) % Sodium (137-145) mmol/L Chloride (98-107) mmol/L Carbon Dioxide (22-30) mmol/L BUN (9-20) mg/dL Creatinine (0.66-1.25) mg/dL Glucose (74-99) mg/dL POC Glucose (mg/dL) 135 H (75-99) mg/dL Magnesium (1.6-2.3) mg/dL Alkaline Phosphatase (38-126) U/L Total Protein (6.3-8.2) g/dL Albumin (3.5-5.0) g/dL Microbiology - Last 24 Hours (Table) 08/01/18 05:40 Blood Culture Gram Stain - Preliminary Blood 08/01/18 05:40 Blood Culture - Final Blood 07/31/18 00:15 Gram Stain - Final Sputum Sputum Culture - Final Staphylococcus aureus 08/01/18 06:00 Blood Culture Gram Stain - Preliminary Blood Blood Culture - Preliminary Presumptive Staph aureus 07/30/18 20:45 Blood Culture Gram Stain - Final Blood Blood Culture - Final Staphylococcus aureus 07/30/18 20:45 Blood Culture Gram Stain - Final Blood Blood Culture - Final Staphylococcus aureus - Imaging and Cardiology Abdominal x-ray: report reviewed, image reviewed (The overall size of the fecal bolus in the cecum has increased from admission) Assessment and Plan (1) Lactic acidosis Current Visit: Yes Status: Acute Code(s): E87.2 - ACIDOSIS SNOMED Code(s): 21343113 (2) Leukocytosis Current Visit: Yes Status: Acute Code(s): D72.829 - ELEVATED WHITE BLOOD CELL COUNT, UNSPECIFIED SNOMED Code(s): 240491846 (3) SIRS (systemic inflammatory response syndrome) Current Visit: Yes Status: Acute Code(s): R65.10 - SIRS OF NON-INFECTIOUS ORIGIN W/O ACUTE ORGAN DYSFUNCTION SNOMED Code(s): 281695765 (4) Colon distention Current Visit: Yes Status: Acute Code(s): K63.89 - OTHER SPECIFIED DISEASES OF INTESTINE SNOMED Code(s): 044300622 (5) Meningitis Current Visit: Yes Status: Acute Code(s): G03.9 - MENINGITIS, UNSPECIFIED SNOMED Code(s): 4941747 (6) Sepsis Current Visit: Yes Status: Acute Code(s): A41.9 - SEPSIS, UNSPECIFIED ORGANISM SNOMED Code(s): 21543967 Plan: He remains critically ill. Repeated blood cultures continue to show staph aureus. Agree with computed tomography scan of the abdomen. If any pathology shows up we'll need to talk to his friend and sister about how aggressive we should be. Overall prognosis poor
[2018-08-03] MEDS: IOPAMIDOL-300 CONTRAST 30 ML VIAL (ORAL USE) PO PRN ×2 (10:17→11:27)
[2018-08-03 10:22] LABS: Glucose,Whole Blood 138 mg/dL (75-99)
--- NOTE | 2018-08-03 11:41 | PN ---
PROGRESS NOTE DATE OF SERVICE: 08/03/2018 This is a 53-year-old gentleman seen by my partner 3 days ago for acute hypoxemic respiratory failure secondary to both pneumonia and acute meningitis thought to be secondary to Staph. The patient was placed on mechanical ventilation because of hypoxemic respiratory failure and was intubated on July 31. He was admitted the day before on July 30. He came with mental status changes, secondary to meningitis and a positive drug screen for narcotics with an altered mental status. He had acute lactic acidosis and acute sepsis. The patient remains on mechanical ventilation. He is on the volume assist-control mode rate of 28, tidal volume 480, FiO2 50%, PEEP of 13. Blood gases show PO2 63, pCO2 65, pH is 7.35. The patient is on an insulin drip at 3.5 units an hour, fentanyl 100 mcg/hour, Nimbex at 2.5 mcg/kg per minute, Diprivan at 75 mcg/kg per minute 0.9 at 100 mL an hour and Cleviprex 4 mg an hour. Antibiotics with vancomycin, Rocephin and Flagyl. Infectious Disease is on the case. His abdominal film shows a paucity of air and some stool within the intestinal tract. His abdomen is distended and tympanitic. I am going to send him for a CT scan of the abdomen. Will do it with oral contrast only. Overall, the patient really has not made much progress. Tube feeds are on hold given his abdominal distention and lack of bowel transit. Current vital signs are reviewed. Temperature is 101.8, heart rate is 135, respiratory rate 28, blood pressure 129/74, saturations are right around 90% and that is on 50% FiO2 and PEEP of 13. He is currently sedated. He is not paralyzed. He is paralyzed. The patient had a reasonably stable 9 OU. He is very critically ill. HEENT examination is grossly unremarkable. There is an orally placed endotracheal tube and NG tube. Neck is supple. Cardiovascular examination reveals regular rhythm and rate. Heart rate is 130. He has got sinus tachycardia. Some of the sinus tachycardia certainly relates to fever. Cardiovascular and pulmonary examination reveals diffuse coarse rhonchi. Breath sounds equal. No wheezes or crackles. Breath sounds equal bilaterally but diminished throughout. Abdomen is distended and tympanitic. No bowel sounds. Extremities are intact. No cyanosis, clubbing, or edema. 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 Skin is positive for the livedo reticularis and some mildly in lower extremities. Neurologic examination could not be assessed because the patient is sedated and paralyzed. Microbiologic study show Staph everywhere. It is in the blood. Sputum, CSF and urine. It is an oxacillin sensitive Staph aureus. LAB DATA: Lab data is reviewed. His white count 24.6, hemoglobin 13.8, hematocrit 39.0, platelet count 269,000. His sodium 146, potassium 3.8, chloride 109, CO2 is 32, anion gap is 5, BUN and creatinine were 30 and 0.59. His magnesium is 2.4, alkaline phosphatase 137, albumin 2.3. The rest of his labs are reviewed. Medications are reviewed extensively. ASSESSMENT: 1. Acute hypoxemic respiratory failure secondary to pneumonia and acute meningitis caused by oxacillin sensitive Staph aureus, requiring intubation and mechanical ventilation on July 31. The patient has not had much progress since that time. 2. Presumptive Staph aureus sepsis bacteremia and meningitis. 3. Acute bacterial meningitis secondary to oxacillin sensitive Staph aureus. 4. Diffuse abdominal pain. 5. Mental status changes secondary to meningitis. 6. Positive drug screen secondary to narcotics. 7. Two lactic acidosis. 8. History of chronic pain syndrome. PLAN: Because of his abdominal distention and tympany, the patient's tube feeds were stopped and the patient was going for CT scan of the abdomen with oral contrast today. No vent changes today. When she comes back from CT scan, we will see if we cannot wean him off the Nimbex. Additional recommendations and suggestions are forthcoming. He remains on vancomycin, Rocephin and Flagyl. Prognosis is very poor. We will attempt to talk to the family members today. Code status needs to be addressed. Again, the patient has made very little progress Critical care time is 37 minutes. MMODL / IJN: [id number] /
--- NOTE | 2018-08-03 13:56 | CT ---
EXAMINATION TYPE: CT abdomen pelvis wo con DATE OF EXAM: 08/03/2018 COMPARISON: 07/30/2018 INDICATION: abdominal pain, sepsis DLP: 1612 mGycm, Automated exposure control for dose reduction was used. CONTRAST: 0 mL of Isovue 300. Study performed with Oral Contrast TECHNIQUE: Axial images were obtained from above the diaphragm to the pubic rami in the axial plane a t 5 mm thick sections. Reconstructed images are reviewed on the computer in the coronal plane. FINDINGS: Limited CT sections are obtained the lung bases. Bilateral lung consolidations are present read smal l pleural effusions are present. These have developed from the comparison study. CT ABDOMEN: Liver: Normal. Small amount fluid is adjacent to the liver. Spleen: Normal Pancreas: Normal Adrenal glands: The adrenal glands are normal. Gallbladder: Small amount of density is within the gallbladder. This could be some extrarenal excreti on of contrast. Gallstones or not identified previously. Kidneys: No masses are evident. No hydronephrosis is present. No cysts are present. No renal stone s are identified. Some minimal fluid may be adjacent to left kidney. Aorta: Vascular calcification is within the aorta. Inferior vena cava: Normal. CT PELVIS: Small amount of fluid is within the pelvis. Loops of bowel within the abdomen and pelvis are normal. Large fecal bolus is at the ascending co chantel and cecum. Transverse colon has a normal appearance Appendix: Normal as visualized. No suspicious tubular structures or inflammatory changes evident. Urinary bladder: Decompressed the Mcknight catheter. Genitourinary structures: Prostate appears normal. Some prostate calcifications present. Osseous structures: No suspicious lytic or sclerotic lesions. IMPRESSIONS: 1. Abundant fecal debris within the ascending colon. Obstruction however is not identified. 2. A small amount of ascites fluid is distributed through the abdomen. 3. Interval development of large consolidations in the posterior lung bases with small bilateral pleu ral effusions.
[2018-08-03 14:00] LABS: Glucose,Whole Blood 143 mg/dL (75-99)
[2018-08-03] MEDS ORDERED: BISACODYL 10 MG SUPP RECTAL STA (15:08)
[2018-08-03 15:12] LABS: Glucose,Whole Blood 140 mg/dL (75-99)
--- NOTE | 2018-08-03 15:14 | P.PN ---
Progress Note - Text Progress Note Date: 08/03/18 CT scan report and films personally reviewed. No changes concerning for acute surgical abdomen. Will give additional suppositories. Will recheck in am
[2018-08-03 16:41] LABS: Glucose,Whole Blood 144 mg/dL (75-99)
[2018-08-03] MEDS: MULTIVITAMINS, THERA 1 EACH TAB PO SCH (16:47)
[2018-08-03] MEDS: fentaNYL (PF) 1,000 MCG in SODIUM CHLORIDE 0.9% 80 ML IV SCH ×2 (16:57→23:15)
[2018-08-03] MEDS: SODIUM CHLORIDE 0.45% 1,000 ML IV SCH (17:02)
[2018-08-03 18:18] LABS: Glucose,Whole Blood 140 mg/dL (75-99)
--- NOTE | 2018-08-03 18:53 | PN ---
PROGRESS NOTE DATE OF SERVICE: 08/03/2018 This 53-year-old gentleman who was admitted with fever and change in mental status is being closely monitored. Patient also had MSSA sepsis. The patient had acute hypoxic respiratory failure. The patient is being closely monitored at this time. The patient is mechanically sedated. He continues to require a high amount of PEEP at 13. His chest x-ray done today, reviewed by me personally, showed features of bibasilar shadows and possible infiltrates. The patient staph sepsis and bacteremia. Patient is on multiple antibiotics, including Rocephin, Flagyl and vancomycin. Past medical history reviewed. REVIEW OF SYSTEMS: CARDIOVASCULAR SYSTEM: No angina, palpitations. RESPIRATORY SYSTEM: As mentioned earlier. GI: As mentioned earlier. : No dysuria or retention. NERVOUS SYSTEM: No numbness, weakness. Otherwise as mentioned earlier. CURRENT MEDICATIONS: Reviewed. They include:; 1. Tylenol p.r.n. 2. Acetaminophen p.r.n. 3. DuoNeb q.i.d. and p.r.n. 4. Rocephin 2 grams IV b.i.d. 5. Peridex. 6. Clevidipine 25 mg drip. 7. Fentanyl patch. 8. Heparin. 9. Dilaudid. 10.Lopressor p.r.n. 11.Flagyl 500 mg p.o. at bedtime. 12.Narcan. 13.Protonix. 14.Propofol. 15.Thiamine. 16.Vancomycin. PHYSICAL EXAMINATION: Patient is mechanically ventilated and sedated. Pulse is 130, blood pressure 121/76, respiration 30, temperature normal, pulse ox 90% on 50% FiO2. HEENT: Conjunctivae normal. Oral mucosa moist. NECK: No jugular venous distention. No carotid bruit. No lymph node enlargement. CARDIOVASCULAR SYSTEM: S1, S2 muffled. RESPIRATORY SYSTEM: Breath sounds diminished at the bases. A few scattered rhonchi and crackles. ABDOMEN: Soft, obese, non-tender. LEGS: No edema. No swelling. NERVOUS SYSTEM: No focal deficit. LABS: WBC 24.6, hemoglobin 13.8. ABGs: pH of 7.35, pCO2 65. Sodium is 146, potassium 3.8. Serum ammonia normal, but alkaline phosphatase 137. Albumin is 3.1. CSF cultures are noted. Influenza, HSV negative. ASSESSMENT: 1. Fever and change in mental status, possible acute meningitis with methicillin- susceptible Staphylococcus aeruginosa with acute hypoxic respiratory failure, on mechanical ventilation. 2. Abdominal pain and distention, possibly sepsis. 3. Low back pain for evaluation. 4. Status post lumbar puncture. 5. Lactic acidosis, possibly secondary to sepsis. 6. Respiratory alkalosis. 7. Increased random blood sugar. 8. Chronic back pain. 9. Degenerative joint disease. 10.History of nicotine dependence. 11.Obesity with body mass index of 38. 12.FULL CODE. RECOMMENDATIONS AND DISCUSSION: I recommend to continue current medications, continue with the monitoring, symptomatic treatment. Continue with the broad-spectrum IV antibiotics. Will closely follow with Infectious Disease and multiple consultants. Continue with mechanical ventilation. Otherwise, we will repeat cultures and continue to monitor. The prognosis is guarded because of the multiple complex medical issues. Discussed with the family at length. The patient has a significant history of alcoholism also prior to the episode. Further recommendations to follow. MMIGNACIOL / IJN: [id number] / ELISE
[2018-08-03 20:14] LABS: Glucose,Whole Blood 117 mg/dL (75-99)
[2018-08-03 21:20] LABS: Glucose,Whole Blood 112 mg/dL (75-99)
[2018-08-03 22:15] LABS: Glucose,Whole Blood 110 mg/dL (75-99)
--- NOTE | 2018-08-03 22:55 | P.PN ---
Subjective Progress Note Date: 08/03/18 53-year-old male presents to the emergency center with ongoing difficulties with abdominal pain and back pain. Approximate 5 days prior he developed worsening amounts of back pain and was taking some medication for it. 3 days prior to this admission he did come to the emergency center with com plaints of back and abdominal pain. Imaging studies were performed and there was evidence of some colonic dilatation without other acute concern there was no diverticulitis or free air. During the time in the emergency center the patient's status worsened. His mental status altered, although he did not have evidence of high-grade fever there was leukocytosis. Given that the imaging studies were not acutely different, the patient underwent lumbar puncture. This material was markedly abnormal and with evidence of the significant white blood cells of the CSF the infectious diseases consultation was requested. The patient was transferred to the intensive care unit. At this time the patient is sitting upright in the intensive care unit. He is awake and alert, the visitors in the room relate that he is more cognizant than he was in the emergency center. The patient however continues to have a altered affect. Of note drug screen is positive admission for opiates, oxycodone, benzodiazepines, tricyclics. At the time of the call the patient's CSF material was evaluated personally in t he laboratory. An extensive pleocytosis was seen but no evidnece of bacteria were noted. The smears were reviewed with the lab techs and no bacteria was seen. Of note the medication list from the emergency center is reviewed and there is a notation on prednisone 50 mg a day. 07/31/2018 the patient remains in intensive care unit now is intubated sedated and mechanically ventilated but seems to be more stable today than yesterday. Still seems to be somewhat uncomfortable and further steps are being taken to improve his discomfort and likely paralysis to improve his coordination with the ventilator. Has ongoing leukocytosis, no evidence of renal failure. Not on vasopressor therapy at this time. Laboratories during to identify staph aureus in cultures 08/01/2018 patient remains intubated sedated and mechanically ventilated. Hemodynamically he is become hypertension and cleviprexl has been started. Patient is sedated and comfortable, synchronous with the ventilator. No further fevers today. 08/03/2018 patient remains profoundly ill, intubated sedated and mechanically ventilated on Cleviprex therapy. Despite antibiotic therapy is continued to have positive blood cultures and has had some further fevers again today. He's been followed by surgery and a computed tomography scan of abdomen and pelvis was performed without evidence of any acute perforation tumor mass. Does have retained stool. The computed tomography scan does show evidence of worsening bibasilar infiltrates. Objective - Vital Signs Vital signs: Vital Signs Temp 101.9 F H 08/03/18 21:00 Pulse 133 H 08/03/18 22:30 Resp 28 H 08/03/18 22:30 BP 138/98 08/01/18 19:00 Pulse Ox 94 L 08/03/18 22:30 Intake & Output 08/03/18 08/03/18 08/04/18 06:59 18:59 06:59 Intake Total 3283.193 1870.298 623.731 Output Total 1870 1785 600 Balance 1413.193 85.298 23.731 Weight 128.9 kg Intake: IV 2050 1400 550 ACETAMINOPHEN IV (For NPO 200 ) 1,000 mg In Empty Bag 1 bag @ 400 mls/hr IVPB Q6HR PRN Rx#:[id number] Potassium Chloride 10 meq 100 In Water For Injection 1 100ml.bag @ 100 mls/hr IVPB Q1H TOY Rx#: [id number] Sodium Chloride 0.45% 1, 300 400 000 ml @ 100 mls/hr IV . Q10H TOY Rx#:[id number] Sodium Chloride 0.9% 1, 1100 900 000 ml @ 100 mls/hr IV . Q10H TOY Rx#:[id number] Thiamine 100 mg In Sodium 100 100 100 Chloride 0.9% 100 ml @ 202 mls/hr IVPB Q12H TOY Rx#:[id number] Vancomycin 1,750 mg In 500 Sodium Chloride 0.9% 500 ml 500 ml @ 167 mls/hr IVPB Q8H TOY Rx#: [id number] cefTRIAXone 2 gm In 50 50 Sodium Chloride 0.9% 50 ml @ 100 mls/hr IVPB Q12HR TOY Rx#:[id number] metroNIDAZOLE-NS PMX 500 100 mg In Saline 1 100ml.bag @ 100 mls/hr IVPB Q8HR TOY Rx#:[id number] Intake, IV Titration 958.193 435.298 73.731 Amount Cisatracurium 200 mg In 126.259 139.256 25.581 Sodium Chloride 0.9% 180 ml @ 4 MCG/KG/MIN 28.824 mls/hr IV .Q6H57M TOY Rx# :[id number] Clevidipine Butyrate 25 139.534 56.367 42.4 mg In Empty Bag 1 bag @ 1 MG/HR 2 mls/hr IV .Q24H TOY Rx#:[id number] Insulin Regular 100 unit 39.624 39.675 5.75 In Sodium Chloride 0.9% 100 ml @ Per Protocol IV .Q0M TOY Rx#:[id number] Propofol 1,000 mg In 489.276 200 Empty Bag 1 bag @ Titrate IV .Q0M TOY Rx#: [id number] fentaNYL (PF) 1,000 mcg 163.5 In Sodium Chloride 0.9% 80 ml @ 100 MCG/HR 10 mls /hr IV .Q10H TOY Rx#: [id number] Tube Feeding 245 35 Other 30 Output: Urine 1870 1785 600 Other: Voiding Method Indwelling Catheter Indwelling Catheter ABP, PAP, CO, CI - Last Documented Arterial Blood Pressure 114/73 - Exam 53-year-old male presents to Hospital from home with a 5 day history of progressive illness. He has had abdominal pain, back pain and now has de veloped the progressive discomfort with his neck and then some altered mental status. Patient has had alteration status is now intubated sedated and mechanically ventilated, and has required paralysis HEENT: Anicteric conjunctiva are pink and moist nasal mucosa grossly intact without significant lesions, there is no thrush. Neck: The neck is mildly stiff but not rigid Lungs: Symmetrical bilateral air entry few basilar crackles Heart: Tachycardic no audible murmur click or rub Abdomen: Obese, mildly distended is only minimal tenderness upon palpation of the right upper quadrant with percussion, no palpable mass or organomegaly no rigidity and no guarding or rebound Extremities: The upper extremities have excellent pulses they are symmetric, no significant petechiae or telangiectasia. No splinter hemorrhages were noted. Without open lesions Neuro: Patient is no intubated sedated and mechanically ventilated and paralyzed to improve his coordination with the ventilator - Labs CBC & Chem 7: 08/03/18 05:15 08/03/18 05:15 Labs: Abnormal Lab Results - Last 24 Hours (Table) 08/02/18 08/03/18 08/03/18 Range/Units 23:08 00:08 00:51 WBC (3.8-10.6) k/uL RBC (4.30-5.90) m/uL Neutrophils # (Manual) (1.3-7.7) k/uL Metamyelocytes # (Man) (0) k/uL Myelocytes # (Manual) (0) k/uL ABG pCO2 (35-45) mmHg ABG pO2 (83-108) mmHg ABG HCO3 (21-25) mmol/L ABG Total CO2 (19-24) mmol/L ABG O2 Saturation (94-97) % Sodium (137-145) mmol/L Chloride (98-107) mmol/L Carbon Dioxide (22-30) mmol/L BUN (9-20) mg/dL Creatinine (0.66-1.25) mg/dL Glucose (74-99) mg/dL POC Glucose (mg/dL) 172 H 172 H 157 H (75-99) mg/dL Magnesium (1.6-2.3) mg/dL Alkaline Phosphatase (38-126) U/L Total Protein (6.3-8.2) g/dL Albumin (3.5-5.0) g/dL 08/03/18 08/03/18 08/03/18 Range/Units 02:18 02:55 04:02 WBC (3.8-10.6) k/uL RBC (4.30-5.90) m/uL Neutrophils # (Manual) (1.3-7.7) k/uL Metamyelocytes # (Man) (0) k/uL Myelocytes # (Manual) (0) k/uL ABG pCO2 (35-45) mmHg ABG pO2 (83-108) mmHg ABG HCO3 (21-25) mmol/L ABG Total CO2 (19-24) mmol/L ABG O2 Saturation (94-97) % Sodium (137-145) mmol/L Chloride (98-107) mmol/L Carbon Dioxide (22-30) mmol/L BUN (9-20) mg/dL Creatinine (0.66-1.25) mg/dL Glucose (74-99) mg/dL POC Glucose (mg/dL) 154 H 172 H 170 H (75-99) mg/dL Magnesium (1.6-2.3) mg/dL Alkaline Phosphatase (38-126) U/L Total Protein (6.3-8.2) g/dL Albumin (3.5-5.0) g/dL 08/03/18 08/03/18 08/03/18 Range/Units 05:13 05:15 05:15 WBC 24.6 H (3.8-10.6) k/uL RBC 3.95 L (4.30-5.90) m/uL Neutrophils # (Manual) 20.60 H (1.3-7.7) k/uL Metamyelocytes # (Man) 0.74 H (0) k/uL Myelocytes # (Manual) 0.98 H (0) k/uL ABG pCO2 (35-45) mmHg ABG pO2 (83-108) mmHg ABG HCO3 (21-25) mmol/L ABG Total CO2 (19-24) mmol/L ABG O2 Saturation (94-97) % Sodium 146 H (137-145) mmol/L Chloride 109 H (98-107) mmol/L Carbon Dioxide 32 H (22-30) mmol/L BUN 30 H (9-20) mg/dL Creatinine 0.59 L (0.66-1.25) mg/dL Glucose 164 H (74-99) mg/dL POC Glucose (mg/dL) 159 H (75-99) mg/dL Magnesium (1.6-2.3) mg/dL Alkaline Phosphatase 137 H (38-126) U/L Total Protein 4.8 L (6.3-8.2) g/dL Albumin 2.3 L (3.5-5.0) g/dL 08/03/18 08/03/18 08/03/18 Range/Units 05:35 06:12 07:03 WBC (3.8-10.6) k/uL RBC (4.30-5.90) m/uL Neutrophils # (Manual) (1.3-7.7) k/uL Metamyelocytes # (Man) (0) k/uL Myelocytes # (Manual) (0) k/uL ABG pCO2 65 H (35-45) mmHg ABG pO2 63 L (83-108) mmHg ABG HCO3 35 H (21-25) mmol/L ABG Total CO2 37 H (19-24) mmol/L ABG O2 Saturation 90.6 L (94-97) % Sodium (137-145) mmol/L Chloride (98-107) mmol/L Carbon Dioxide (22-30) mmol/L BUN (9-20) mg/dL Creatinine (0.66-1.25) mg/dL Glucose (74-99) mg/dL POC Glucose (mg/dL) 148 H 161 H (75-99) mg/dL Magnesium (1.6-2.3) mg/dL Alkaline Phosphatase (38-126) U/L Total Protein (6.3-8.2) g/dL Albumin (3.5-5.0) g/dL 08/03/18 08/03/18 08/03/18 Range/Units 07:17 09:04 10:13 WBC (3.8-10.6) k/uL RBC (4.30-5.90) m/uL Neutrophils # (Manual) (1.3-7.7) k/uL Metamyelocytes # (Man) (0) k/uL Myelocytes # (Manual) (0) k/uL ABG pCO2 (35-45) mmHg ABG pO2 (83-108) mmHg ABG HCO3 (21-25) mmol/L ABG Total CO2 (19-24) mmol/L ABG O2 Saturation (94-97) % Sodium (137-145) mmol/L Chloride (98-107) mmol/L Carbon Dioxide (22-30) mmol/L BUN (9-20) mg/dL Creatinine (0.66-1.25) mg/dL Glucose (74-99) mg/dL POC Glucose (mg/dL) 135 H 138 H (75-99) mg/dL Magnesium 2.4 H (1.6-2.3) mg/dL Alkaline Phosphatase (38-126) U/L Total Protein (6.3-8.2) g/dL Albumin (3.5-5.0) g/dL 08/03/18 08/03/18 08/03/18 Range/Units 13:11 14:57 16:03 WBC (3.8-10.6) k/uL RBC (4.30-5.90) m/uL Neutrophils # (Manual) (1.3-7.7) k/uL Metamyelocytes # (Man) (0) k/uL Myelocytes # (Manual) (0) k/uL ABG pCO2 (35-45) mmHg ABG pO2 (83-108) mmHg ABG HCO3 (21-25) mmol/L ABG Total CO2 (19-24) mmol/L ABG O2 Saturation (94-97) % Sodium (137-145) mmol/L Chloride (98-107) mmol/L Carbon Dioxide (22-30) mmol/L BUN (9-20) mg/dL Creatinine (0.66-1.25) mg/dL Glucose (74-99) mg/dL POC Glucose (mg/dL) 143 H 140 H 144 H (75-99) mg/dL Magnesium (1.6-2.3) mg/dL Alkaline Phosphatase (38-126) U/L Total Protein (6.3-8.2) g/dL Albumin (3.5-5.0) g/dL 08/03/18 08/03/18 08/03/18 Range/Units 17:52 20:11 21:06 WBC (3.8-10.6) k/uL RBC (4.30-5.90) m/uL Neutrophils # (Manual) (1.3-7.7) k/uL Metamyelocytes # (Man) (0) k/uL Myelocytes # (Manual) (0) k/uL ABG pCO2 (35-45) mmHg ABG pO2 (83-108) mmHg ABG HCO3 (21-25) mmol/L ABG Total CO2 (19-24) mmol/L ABG O2 Saturation (94-97) % Sodium (137-145) mmol/L Chloride (98-107) mmol/L Carbon Dioxide (22-30) mmol/L BUN (9-20) mg/dL Creatinine (0.66-1.25) mg/dL Glucose (74-99) mg/dL POC Glucose (mg/dL) 140 H 117 H 112 H (75-99) mg/dL Magnesium (1.6-2.3) mg/dL Alkaline Phosphatase (38-126) U/L Total Protein (6.3-8.2) g/dL Albumin (3.5-5.0) g/dL 08/03/18 Range/Units 22:11 WBC (3.8-10.6) k/uL RBC (4.30-5.90) m/uL Neutrophils # (Manual) (1.3-7.7) k/uL Metamyelocytes # (Man) (0) k/uL Myelocytes # (Manual) (0) k/uL ABG pCO2 (35-45) mmHg ABG pO2 (83-108) mmHg ABG HCO3 (21-25) mmol/L ABG Total CO2 (19-24) mmol/L ABG O2 Saturation (94-97) % Sodium (137-145) mmol/L Chloride (98-107) mmol/L Carbon Dioxide (22-30) mmol/L BUN (9-20) mg/dL Creatinine (0.66-1.25) mg/dL Glucose (74-99) mg/dL POC Glucose (mg/dL) 110 H (75-99) mg/dL Magnesium (1.6-2.3) mg/dL Alkaline Phosphatase (38-126) U/L Total Protein (6.3-8.2) g/dL Albumin (3.5-5.0) g/dL Microbiology - Last 24 Hours (Table) 08/01/18 05:40 Blood Culture Gram Stain - Final Blood Blood Culture - Final Staph aureus 08/01/18 06:00 Blood Culture Gram Stain - Final Blood Blood Culture - Final Staphylococcus aureus Laboratory Results WBC 24.6 k/uL (3.8-10.6) H 08/03/18 05:15 RBC 3.95 m/uL (4.30-5.90) L 08/03/18 05:15 Hgb 13.8 gm/dL (13.0-17.5) 08/03/18 05:15 Hct 39.0 % (39.0-53.0) 08/03/18 05:15 MCV 98.8 fL (80.0-100.0) 08/03/18 05:15 MCH 34.9 pg (25.0-35.0) 08/03/18 05:15 MCHC 35.3 g/dL (31.0-37.0) 08/03/18 05:15 RDW 13.2 % (11.5-15.5) 08/03/18 05:15 Plt Count 269 k/uL (150-450) 08/03/18 05:15 Neutrophils % 89 % 08/01/18 04:15 Neutrophils % (Manual) 72 % 08/03/18 05:15 Band Neutrophils % 12 % 08/03/18 05:15 Lymphocytes % 4 % 08/01/18 04:15 Lymphocytes % (Manual) 7 % 08/03/18 05:15 Monocytes % 4 % 08/01/18 04:15 Monocytes % (Manual) 3 % 08/03/18 05:15 Eosinophils % 1 % 08/01/18 04:15 Eosinophils % (Manual) 1 % 08/02/18 05:16 Basophils % 0 % 08/01/18 04:15 Metamyelocytes % 3 % 08/03/18 05:15 Myelocytes % 4 % 08/03/18 05:15 Neutrophils # 13.7 k/uL (1.3-7.7) H 08/01/18 04:15 Neutrophils # (Manual) 20.60 k/uL (1.3-7.7) H 08/03/18 05:15 Lymphocytes # 0.7 k/uL (1.0-4.8) L 08/01/18 04:15 Lymphocytes # (Manual) 1.72 k/uL (1.0-4.8) 08/03/18 05:15 Monocytes # 0.6 k/uL (0-1.0) 08/01/18 04:15 Monocytes # (Manual) 0.74 k/uL (0-1.0) 08/03/18 05:15 Eosinophils # 0.1 k/uL (0-0.7) 08/01/18 04:15 Eosinophils # (Manual) 0.26 k/uL (0-0.7) 08/02/18 05:16 Basophils # 0.1 k/uL (0-0.2) 08/01/18 04:15 Metamyelocytes # (Man) 0.74 k/uL (0) H 08/03/18 05:15 Myelocytes # (Manual) 0.98 k/uL (0) H 08/03/18 05:15 Nucleated RBCs 0 /100 WBC (0-0) 08/03/18 05:15 Manual Slide Review Performed 08/03/18 05:15 Toxic Granulation Present 08/03/18 05:15 RBC Morphology Normal 07/30/18 15:34 Poikilocytosis (manual Present 08/03/18 05:15 ESR 70 mm/hr (0-15) H 07/30/18 15:34 PT 11.3 sec (9.0-12.0) 07/30/18 11:23 INR 1.1 (<1.2) 07/30/18 11:23 APTT 22.0 sec (22.0-30.0) 07/30/18 11:23 D-Dimer 2.27 mg/L FEU (<0.60) H 07/30/18 15:36 Sample Site TRINITY 08/03/18 05:35 ABG pH 7.35 (7.35-7.45) 08/03/18 05:35 ABG pCO2 65 mmHg (35-45) H 08/03/18 05:35 ABG pO2 63 mmHg (83-108) L 08/03/18 05:35 ABG HCO3 35 mmol/L (21-25) H 08/03/18 05:35 ABG Total CO2 37 mmol/L (19-24) H 08/03/18 05:35 ABG O2 Saturation 90.6 % (94-97) L 08/03/18 05:35 ABG Base Excess 9.5 mmol/L 08/03/18 05:35 Abhinav Test Yes 08/03/18 05:35 ABG Lactic Acid 0.9 mmol/L (0.5-1.6) 08/03/18 05:15 VBG pH 7.44 (7.31-7.41) H 07/30/18 15:34 VBG pCO2 32 mmHg (37-51) L 07/30/18 15:34 VBG HCO3 21 mmol/L (24-28) L 07/30/18 15:34 FiO2 50 % 08/03/18 05:35 Sodium 146 mmol/L (137-145) H 08/03/18 05:15 Potassium 3.8 mmol/L (3.5-5.1) 08/03/18 05:15 Chloride 109 mmol/L (98-107) H 08/03/18 05:15 Carbon Dioxide 32 mmol/L (22-30) H 08/03/18 05:15 Anion Gap 5 mmol/L 08/03/18 05:15 BUN 30 mg/dL (9-20) H 08/03/18 05:15 Creatinine 0.59 mg/dL (0.66-1.25) L 08/03/18 05:15 Est GFR (CKD-EPI)AfAm >90 (>60 ml/min/1.73 sqM) 08/03/18 05:15 Est GFR (CKD-EPI)NonAf >90 (>60 ml/min/1.73 sqM) 08/03/18 05:15 Glucose 164 mg/dL (74-99) H 08/03/18 05:15 POC Glucose (mg/dL) 110 mg/dL (75-99) H 08/03/18 22:11 POC Glu Chefs ID 08/03/18 22:[address] Glu mg/dL 151 07/31/18 04:28 Hemoglobin A1c 6.9 % (4.0-6.0) H 07/31/18 04:28 Lactic Ac Sepsis Rflx Y 07/30/18 12:03 Plasma Lactic Acid [place] 1.4 mmol/L (0.7-2.0) 07/31/18 04:28 Calcium 8.4 mg/dL (8.4-10.2) 08/03/18 05:15 Phosphorus 3.1 mg/dL (2.5-4.5) 08/03/18 05:15 Magnesium 2.4 mg/dL (1.6-2.3) H 08/03/18 07:17 Total Bilirubin 0.8 mg/dL (0.2-1.3) 08/03/18 05:15 AST 36 U/L (17-59) 08/03/18 05:15 ALT 37 U/L (21-72) 08/03/18 05:15 Alkaline Phosphatase 137 U/L (38-126) H 08/03/18 05:15 Ammonia 12 umol/L (<30) 07/30/18 15:34 Troponin I <0.012 ng/mL (0.000-0.034) 07/30/18 11:23 C-Reactive Protein 245.0 mg/L (<10.0) H 07/30/18 15:34 Total Protein 4.8 g/dL (6.3-8.2) L 08/03/18 05:15 Albumin 2.3 g/dL (3.5-5.0) L 08/03/18 05:15 Lipase <10 U/L (23-300) L 07/31/18 04:28 Urine Color Yellow 07/30/18 11:23 Urine Appearance Clear (Clear) 07/30/18 11:23 Urine pH 6.0 (5.0-8.0) 07/30/18 11:23 Ur Specific [place] >1.050 (1.001-1.035) H 07/30/18 11:23 Urine Protein Trace (Negative) H 07/30/18 11:23 Urine Glucose (UA) Trace (Negative) H 07/30/18 11:23 Urine Ketones Negative (Negative) 07/30/18 11:23 Urine Blood Trace (Negative) H 07/30/18 11:23 Urine Nitrite Negative (Negative) 07/30/18 11:23 Urine Bilirubin Negative (Negative) 07/30/18 11:23 Urine Urobilinogen <2.0 mg/dL (<2.0) 07/30/18 11:23 Ur Leukocyte Esterase Trace (Negative) H 07/30/18 11:23 Urine RBC 8 /hpf (0-5) H 07/30/18 11:23 Urine WBC 4 /hpf (0-5) 07/30/18 11:23 Urine Mucus Rare /hpf (None) H 07/30/18 11:23 CSF Tube Number 2 07/30/18 17:30 CSF Volume 0.25 07/30/18 17:30 CSF Appearance Hazy 07/30/18 17:30 CSF Color Xanthochromic 07/30/18 17:30 CSF RBC 965 u/L (0-10) H 07/30/18 17:30 CSF Tot Nucleated Cells 1415 u/L (0-5) H* 07/30/18 17:30 CSF Mononuclear WBCs % 8 % 07/30/18 17:30 CSF Polynuclear WBCs % 92 % 07/30/18 17:30 CSF Crenated Cells 0 % 07/30/18 17:30 CSF Fresh RBCs 100 % 07/30/18 17:30 CSF Glucose 29 mg/dL (40-70) L* 07/30/18 17:30 CSF Total Protein >600 mg/dL (12-60) H 07/30/18 17:30 CSF VDRL Titer TNP 07/30/18 17:30 CSF VDRL Nonreactive (Nonreactive) 07/30/18 17:30 Vancomycin Trough 16.6 ug/mL 08/03/18 14:55 Salicylates <1.0 mg/dL 07/30/18 15:34 Urine Opiates Screen Detected (NotDetected) H 07/30/18 12:43 Ur Oxycodone Screen Detected (NotDetected) H 07/30/18 12:43 Urine Methadone Screen Not Detected (NotDetected) 07/30/18 12:43 Ur Propoxyphene Screen Not Detected (NotDetected) 07/30/18 12:43 Acetaminophen <10.0 ug/mL 07/30/18 15:34 Ur Barbiturates Screen Not Detected (NotDetected) 07/30/18 12:43 U Tricyclic Antidepress Detected (NotDetected) H 07/30/18 12:43 Ur Phencyclidine Scrn Not Detected (NotDetected) 07/30/18 12:43 Ur Amphetamines Screen Not Detected (NotDetected) 07/30/18 12:43 U Methamphetamines Scrn Not Detected (NotDetected) 07/30/18 12:43 U Benzodiazepines Scrn Detected (NotDetected) H 07/30/18 12:43 Urine Cocaine Screen Not Detected (NotDetected) 07/30/18 12:43 U Marijuana (THC) Screen Not Detected (NotDetected) 07/30/18 12:43 HSV I DNA PCR Not detected (Not detected) 07/30/18 17:30 HSV II DNA PCR Not detected (Not detected) 07/30/18 17:30 HSV (PCR) Source 07/30/18 17:30 Influenza Type A RNA Not Detected (Not Detectd) 07/30/18 13:35 Influenza Type B (PCR) Not Detected (Not Detectd) 07/30/18 13:35 Blood Type O Positive 07/30/18 11:23 Blood Type Confirm O Positive 07/30/18 12:39 Blood Type Recheck CABO Indicated 07/30/18 11:23 Antibody Screen NEGATIVE 07/30/18 11:23 Spec Expiration Date 08/02/2018 - 232207/30/18 11:23 Microbiology 08/01/18 05:40 Blood Blood Culture Gram Stain - Final 08/01/18 05:40 Blood Blood Culture - Final Staph aureus 08/01/18 06:00 Blood Blood Culture Gram Stain - Final 08/01/18 06:00 Blood Blood Culture - Final Staphylococcus aureus 08/01/18 05:40 Blood Blood Culture - Final 07/31/18 00:15 Sputum Gram Stain - Final 07/31/18 00:15 Sputum Sputum Culture - Final Staphylococcus aureus 07/30/18 20:45 Blood Blood Culture Gram Stain - Final 07/30/18 20:45 Blood Blood Culture - Final Staphylococcus aureus 07/30/18 20:45 Blood Blood Culture Gram Stain - Final 07/30/18 20:45 Blood Blood Culture - Final Staphylococcus aureus 08/01/18 06:00 Blood Blood Culture - Final 07/30/18 15:34 Blood Blood Culture Gram Stain - Final 07/30/18 15:34 Blood Blood Culture - Final Staphylococcus aureus 07/30/18 17:30 Cerebral Spinal Fluid CSF Gram Stain - Final 07/30/18 17:30 Cerebral Spinal Fluid CSF Culture - Final Staphylococcus aureus 07/30/18 12:43 Urine,Clean Catch Urine Culture - Final Staphylococcus aureus 07/30/18 20:45 Blood Blood Culture - Final 07/30/18 20:45 Blood Blood Culture - Final 07/30/18 15:34 Blood Blood Culture - Final Assessment and Plan (1) Abdominal pain Current Visit: Yes Status: Acute Code(s): R10.9 - UNSPECIFIED ABDOMINAL PAIN SNOMED Code(s): 50290681 (2) Acute exacerbation of chronic low back pain Current Visit: Yes Status: Acute Code(s): M54.5 - LOW BACK PAIN; G89.29 - OTHER CHRONIC PAIN SNOMED Code(s): 352783036 (3) Altered mental status Narrative/Plan: 53-year-old male presents to hospital with progressive symptoms over the 5 days before admission. Approximately 3 days prior he been in the emergency center with complaints of ongoing abdominal pain. There is evidence of some constipation at that point in time and patient was symptomatically treated. However he now has a great difficulties with ongoing abdominal pain wo rsening back pain and now while in the emergency center the altered mental status developed. Because of these findings in the leukocytosis lumbar puncture was performed the reveals a markedly abnormal fluid. There were 1415 white blood cells, 965 red blood cells, glucose was 29 and protein was greater than 600 with some xanthochromia being seen. The Gram stain is personally reviewed without evidence of any bacterial pathogens being seen. At this time the patient has evidence of bacterial meningitis with evidence of a systemic inflammatory response, leukocytosis, lactic acidosis, hypoglycorrhachia and evidence of marked elevated protein of the CSF. Without evidence of gram- negative organisms seen on the Gram stain is unlikely the patient has no severe meningitidis in no prophylaxis is given to visitors or to the care team here at the hospital. This will be with ongoing review. At this time cultures are in process however antimicrobial therapy is being utilized with concerns to multiple potential pathogens which would include Streptococcus pneumoniae, listeria meningitis which is of some great concern given the patient's history of alcohol use and what appears to be high doses of steroids as of late. Constantly for antibiotic therapy high doses of ampicillin, ceftriaxone and v ancomycin are being utilized. Although I do not suspect brain abscess the patient does have potential intra-abdominal pathology with a dilated colon and constantly metronidazole is added to the ceftriaxone for treatment of potential intra-abdominal infection also. Cultures are all in process at this point in time he may further help direct antimicrobial therapy in the near future. Fortunately with hydration and initiation of some metabolic therapy his mentation seems to be a bit improved and as described in the emergency center. The case as directed we discussed with the surgeon and at this time no acute indication for surgical intervention to the abdomen at this time, treatment for constipation is in process. Also discussed with the hospitalist as far as the course of treatment for the meningitis and follow-up. 07/31/2018 the patient remains in intensive care unit, has now been intubated mechanically ventilated and is sedated and paralyzed later to improve synchrony with the ventilator. There is now evidence of positive blood culture, positive urine culture, and positive CSF culture for staph aureus. Laboratory has yet to definitively determine MSSA versus MRSA. However noted a pathogen has been identified ampicillin can be discontinued since it is not likely that this is listeria . Continue vancomycin, Rocephin and metronidazole. Although patient does have meningitis there is still concerned about an intra-abdominal process and consequently Rocephin and Flagyl would give coverage for that. Follow blood cultures are requested to determine the clearance of his bactere kamila. Patient did have an outpatient computed tomography scan of the spine without evidence of discitis or osteomyelitis. A parameningeal focus of infection is still in consideration, but no evidence of that by the imaging studies to date. 08/01/2018 patient remains in intensive care unit intubated state and mechanically ventilated. There has been some improvement. He is no longer hypotensive actually is hypertensive and cleviprex has been added. Oxygenation is adequate Leukocytosis continues with response to his MSSA sepsis, bacteremia, and meningitis. Patient did have a computed tomography scan of the spine on 07/27/2018 without evidence of discitis or osteomyelitis of the spine. CT of the brain without intracranial abscess Patient has evidence of MSSA meningitis and sepsis currently being treated with Rocephin, vancomycin and Flagyl. The patient did have complaints of stabbing ab dominal pain at admission and is being followed by surgery and since there is a concern for potential intra-abdominal process also the metronidazole continues for now Once the blood cultures are finalized vancomycin will likely be discontinued at that time. 08/03/2018 patient has now become febrile again and remains intubated, sedated and mechanically ventilated and paralyzed requiring Cleviprex. Blood cultures continue to have ongoing MSSA. Imaging studies of failed to find any distinct abscess related to his unremitting infection and bacteremia. However the most recent computed tomography scan does show evidence of bibasilar infiltrates With MSSA vancomycin will be discontinued. Continue the high-dose ceftriaxone. Flagyl has been utilized in conjunction with Rocephin for potential intra-abdominal sepsis. Given the lack of improvement of the bacteremia, and now the changes in the pul monary status, we'll plan to discontinue metronidazole initiating meropenem in addition to the ceftriaxone. Goals for potential synergistic reaction between the 2 agents to clear the staph aureus bacteremia, treated underlying pneumonia, and will remove the need for metronidazole for treatment of intra-abdominal infection. We'll obtain some follow-up blood cultures. Prognosis is very poor. Current Visit: Yes Status: Acute Code(s): R41.82 - ALTERED MENTAL STATUS, UNSPECIFIED SNOMED Code(s): 402053934 (4) SIRS (systemic inflammatory response syndrome) Current Visit: Yes Status: Acute Code(s): R65.10 - SIRS OF NON-INFECTIOUS ORIGIN W/O ACUTE ORGAN DYSFUNCTION SNOMED Code(s): 095516476
[2018-08-03 23:21] LABS: Glucose,Whole Blood 117 mg/dL (75-99)
[2018-08-04 00:13] LABS: Glucose,Whole Blood 116 mg/dL (75-99)
[2018-08-04] MEDS: MEROPENEM 2 GM in SODIUM CHLORIDE 0.9% 100 ML IVPB SCH ×4 (01:09→23:51)
[2018-08-04] MEDS: ARTIFICIAL TEARS-HYPROMELLOSE DROPS 15 ML BTL BOTH EYES SCH ×7 (01:09→23:51)
[2018-08-04] MEDS: SODIUM CHLORIDE 0.45% 1,000 ML IV SCH ×3 (03:00→23:59)
[2018-08-04] MEDS: IPRATROPIUM-ALBUTEROL 3 ML NEB INHALATION SCH ×6 (03:38→23:42)
[2018-08-04 03:48] LABS: Glucose,Whole Blood 120 mg/dL (75-99)
[2018-08-04 03:48] LABS: Glucose,Whole Blood 120 mg/dL (75-99)
[2018-08-04 03:48] LABS: Glucose,Whole Blood 133 mg/dL (75-99)
[2018-08-04 04:41] LABS: ABG Base Excess 8.7 mmol/L; ABG HCO3 35 mmol/L (21-25); ABG Oxygen Saturation 98.2 % (94-97); ABG PCO2 64 mmHg (35-45); ABG PH 7.34 (7.35-7.45); ABG PO2 101 mmHg (83-108); ABG TCO2 37 mmol/L (19-24)
[2018-08-04 05:00] LABS: Glucose,Whole Blood 147 mg/dL (75-99)
[2018-08-04 05:09] LABS: HCT 37.3 % (39.0-53.0); HGB 12.9 gm/dL (13.0-17.5); MCH 34.7 pg (25.0-35.0); MCHC 34.6 g/dL (31.0-37.0); MCV 100.4 fL (80.0-100.0); Mean Platelet Volume 7.5; Platelet Count 284 k/uL (150-450); RBC 3.71 m/uL (4.30-5.90); RDW 13.7 % (11.5-15.5); WBC 22.3 k/uL (3.8-10.6)
[2018-08-04] MEDS: PROPOFOL 1,000 MG in EMPTY BAG 1 BAG IV SCH ×5 (05:26→18:47)
[2018-08-04] MEDS: CISATRACURIUM 200 MG in SODIUM CHLORIDE 0.9% 180 ML IV SCH ×3 (05:26→18:48)
[2018-08-04] MEDS: INSULIN REGULAR 100 UNIT in SODIUM CHLORIDE 0.9% 100 ML IV SCH (05:35)
[2018-08-04 05:43] LABS: ALT 36 U/L (21-72); AST 41 U/L (17-59); Albumin 2.2 g/dL (3.5-5.0); Alkaline Phosphatase 129 U/L (38-126); Anion Gap 4 mmol/L; Blood Urea Nitrogen 29 mg/dL (9-20); Calcium 8.3 mg/dL (8.4-10.2); Carbon Dioxide 32 mmol/L (22-30); Chloride 110 mmol/L (98-107); Glucose 135 mg/dL (74-99); Potassium 4.3 mmol/L (3.5-5.1); Sodium 146 mmol/L (137-145); Total Bilirubin 0.7 mg/dL (0.2-1.3); Total Protein 4.6 g/dL (6.3-8.2)
[2018-08-04 06:08] LABS: Band Neutrophils % 32 %; Eosinophils # (M) 0.22 k/uL (0-0.7); Lymphocytes # (M) 1.34 k/uL (1.0-4.8); Metamyelocytes # (M) 0.67 k/uL (0); Metamyelocytes % 3 %; Myelocytes # (M) 0.45 k/uL (0); Myelocytes % 2 %; Neutrophils % (M) 56 %; Nucleated Red Blood Cells 0 /100 WBC (0-0); Total Cells Counted 200
[2018-08-04 06:09] LABS: Toxic Granulation Present
[2018-08-04 06:24] LABS: Glucose,Whole Blood 146 mg/dL (75-99)
[2018-08-04] MEDS: fentaNYL (PF) 1,000 MCG in SODIUM CHLORIDE 0.9% 80 ML IV SCH ×2 (06:39→18:47)
[2018-08-04 07:15] LABS: Glucose,Whole Blood 146 mg/dL (75-99)
--- NOTE | 2018-08-04 08:06 | XR ---
EXAMINATION TYPE: XR chest 1V portable DATE OF EXAM: 08/04/2018 COMPARISON: Prior chest x-ray 08/03/2018 HISTORY: Intubated TECHNIQUE: frontal view of the chest is obtained on 2 images. FINDINGS: Endotracheal tube and NG tube are overlying appropriate positions. There are overlying car diac leads. There is no pneumothorax. Bibasilar increased density persists, there are obscured hemidi aphragms. Heart size is stable. IMPRESSION: Basilar atelectasis versus edema, correlate to exclude pneumonia, possible pleural effus ion.
[2018-08-04 08:08] LABS: Glucose,Whole Blood 139 mg/dL (75-99)
[2018-08-04] MEDS: THIAMINE 100 MG in SODIUM CHLORIDE 0.9% 100 ML IVPB SCH ×2 (08:15→20:10)
[2018-08-04] MEDS: PANTOPRAZOLE 40 MG/10 ML VIAL IV SCH (08:16)
[2018-08-04] MEDS: METOPROLOL TARTRATE 5 MG/5 ML VIAL IVP PRN (08:16)
[2018-08-04] MEDS: HEPARIN SODIUM,PORCINE 5,000 UNIT/ML 1 ML VIAL SQ SCH ×2 (08:17→20:11)
[2018-08-04] MEDS ORDERED: LACTULOSE 20 GM/30 ML CUP PO ONE (10:00)
[2018-08-04] MEDS: CHLORHEXIDINE GLUCONATE 15 ML CUP MUCOUS MEM SCH ×2 (10:05→20:11)
[2018-08-04 10:10] LABS: Glucose,Whole Blood 126 mg/dL (75-99)
--- NOTE | 2018-08-04 10:27 | PN ---
PROGRESS NOTE This is a 53-year-old gentleman seen by my partner 4 days ago in consultation for acute hypoxemic respiratory failure secondary to both pneumonia and acute meningitis, thought to be secondary to Staphylococcus aureus. Blood, urine, sputum and CSF cultures have all been positive for Staph. He was placed on mechanical ventilation for hypoxemic respiratory failure on July 31, has remained on mechanical ventilation. He was admitted actually on July 30. His initial complaints include mental status changes, secondary to the meningitis, positive drug screen for narcotics was which caused mental status changes as well as abdominal and back pain. He initially had severe acute lactic acidemia with acute sepsis. The patient remains on mechanical ventilation. He is on the volume assist-control mode rate of 28, tidal volume 480, FiO2 60%, PEEP of 15. Blood gases were PO2 of 101, pCO2 of 64, and a pH of 7.34. These blood gases are consistent with a respiratory acidosis. His blood gases were done on 70% and the FiO2 was dropped down to 60%. The patient's antibiotics include Merrem and Rocephin. He is on insulin drip at 1.5 units an hour, half-normal saline at 100 mL an hour, Nimbex at 2 mcg/kg per per minute, fentanyl at 100 mcg/hour, propofol at 75 mcg/kg per minute and we are going to provide him with some lactulose to see if we cannot get his bowels moving. He had a CT of the abdomen and pelvis yesterday which did not show anything acute other than fecal stasis. The patient may end up with a tracheostomy and PEG tube. We are going to talk to the sister Nhi today about code status. He really has not made much improvement at all. Current vital signs are reviewed. Temperature is 102.6, heart rate 131, respiratory rate 28, blood pressure 119/69, and saturations are in the mid to low 90s. Appears in no acute distress, currently sedated and paralyzed. HEENT examination is grossly unremarkable. Mucous membranes are dry. There is an orally placed endotracheal tube and NG tube. Neck is supple. Full range of motion. No adenopathy or thyromegaly. Cardiovascular examination reveals regular rhythm and rate. He is quite tachycardic. Heart rate about 125. No murmur. Lungs reveal coarse rhonchi. Breath sounds are diminished. There is prolongation. Abdomen is soft. Bowel sounds are heard. Extremities are intact. There is no cyanosis or clubbing. There is some edema. There is also note noted to be some mottling with livedo reticularis and mild acrocyanosis. These changes have improved. Skin is otherwise unremarkable. Neurologic examination cannot be done adequately because of his sedation and paralysis. Microbiology continues to be evaluated on a daily basis. LABORATORY DATA: Are reviewed. His white count 22.3, hemoglobin 12.9, hematocrit 37.3, platelet count 384,000. His sodium was 146, potassium 4.3, chloride 110, CO2 is 32, anion gap is 4, BUN and creatinine were 29 and 0.75, calcium 8.3, alkaline phosphatase 129, total protein 4.6, albumin 2.2. Rest of the labs are reviewed. Medications are reviewed. Chest x-ray shows a properly placed endotracheal tube and NG tube. There is no pneumothorax. There appears to be some fluid overload. There is some small effusions. It is difficult to exclude pneumonia on chest x-ray. ASSESSMENT: 1. Acute hypoxemic respiratory failure secondary to pneumonia and acute meningitis caused by oxacillin sensitive Staphylococcus aureus, requiring intubation and mechanical ventilation on July 31. 2. Oxacillin sensitive Staphylococcus aureus sepsis with bacteremia, meningitis. 3. Acute bacterial meningitis secondary to oxacillin sensitive Staphylococcus aureus. 4. Diffuse abdominal pain on admission. 5. Mental status changes on admission likely secondary to meningitis/sepsis. 6. Positive drug screen secondary to narcotics. 7. Lactic acidosis, resolved. 8. History of chronic pain syndrome. PLAN: The patient went for a CT scan of the abdomen. It did not show anything acute other than fecal stasis. The patient will be given some lactulose. He remains on all the appropriate medications. The FiO2 is dropped from 70%-60%. He remains on good antibiotics in form of Merrem and Rocephin. The patient may be heading towards a trach and a PEG. I will see if I cannot talk to the family member today about code status. No additional recommendations are made other than for a transesophageal echo to rule out endocarditis. Will continue to follow. CRITICAL CARE TIME: 35 minutes. MMODL / IJN: [id number] /
[2018-08-04] MEDS: ACETAMINOPHEN IV (For NPO) 1,000 MG in EMPTY BAG 1 BAG IVPB PRN (10:50)
[2018-08-04 12:08] LABS: Glucose,Whole Blood 134 mg/dL (75-99)
--- NOTE | 2018-08-04 12:57 | P.PN ---
Subjective Progress Note Date: 08/04/18 Principal diagnosis: sepsis, SIRS, meningitis, abdominal distention The patient remains critically ill on the ventilator. Family is at bedside today. Objective - Vital Signs Vital signs: Vital Signs Temp 103 F H 08/04/18 08:00 Pulse 122 H 08/04/18 11:35 Resp 28 H 08/04/18 10:30 BP 138/98 08/01/18 19:00 Pulse Ox 92 L 08/04/18 10:30 Intake & Output 08/03/18 08/04/18 08/04/18 18:59 06:59 18:59 Intake Total 2172.900 8024.861 798.674 Output Total 1785 1750 1200 Balance 185.298 657.861 -401.326 Weight 134.2 kg Intake: IV 1400 2050 600 Meropenem 2 gm In Sodium 100 Chloride 0.9% 100 ml @ 200 mls/hr IVPB Q8HR TOY Rx#:[id number] Potassium Chloride 10 meq 100 In Water For Injection 1 100ml.bag @ 100 mls/hr IVPB Q1H TOY Rx#: [id number] Sodium Chloride 0.45% 1, 300 1200 600 000 ml @ 100 mls/hr IV . Q10H TOY Rx#:[id number] Sodium Chloride 0.9% 1, 900 000 ml @ 100 mls/hr IV . Q10H TOY Rx#:[id number] Thiamine 100 mg In Sodium 100 100 Chloride 0.9% 100 ml @ 202 mls/hr IVPB Q12H TOY Rx#:[id number] Vancomycin 1,750 mg In 500 Sodium Chloride 0.9% 500 ml 500 ml @ 167 mls/hr IVPB Q8H TOY Rx#: [id number] cefTRIAXone 2 gm In 50 Sodium Chloride 0.9% 50 ml @ 100 mls/hr IVPB Q12HR TOY Rx#:[id number] metroNIDAZOLE-NS PMX 500 100 mg In Saline 1 100ml.bag @ 100 mls/hr IVPB Q8HR TOY Rx#:[id number] Intake, IV Titration 535.298 357.861 198.674 Amount Cisatracurium 200 mg In 139.256 173.544 Sodium Chloride 0.9% 180 ml @ 4 MCG/KG/MIN 28.824 mls/hr IV .Q6H57M TOY Rx# :[id number] Clevidipine Butyrate 25 56.367 42.4 mg In Empty Bag 1 bag @ 1 MG/HR 2 mls/hr IV .Q24H TOY Rx#:[id number] Insulin Regular 100 unit 39.675 5.75 In Sodium Chloride 0.9% 100 ml @ Per Protocol IV .Q0M TOY Rx#:[id number] Propofol 1,000 mg In 300 198.674 Empty Bag 1 bag @ Titrate IV .Q0M TOY Rx#: [id number] fentaNYL (PF) 1,000 mcg 136.167 In Sodium Chloride 0.9% 80 ml @ 100 MCG/HR 10 mls /hr IV .Q10H TOY Rx#: [id number] Tube Feeding 35 Output: Urine 1785 1750 1200 Other: Voiding Method Indwelling Catheter Indwelling Catheter Indwelling Catheter ABP, PAP, CO, CI - Last Documented Arterial Blood Pressure 125/75 - Constitutional Constitutional Comment(s): Sedated on the ventilator - Respiratory Respiratory: bilateral: CTA, diminished (At the bases) - Cardiovascular Rhythm: other (Tachycardic) - Gastrointestinal General gastrointestinal: Present: decreased bowel sounds (Rare hypoactive bowel sounds), distended (To deep palpation I don't feel any mass) - Integumentary Integumentary Comment(s): Continues to have some mottling on his abdomen and her extremities - Labs CBC & Chem 7: 08/04/18 04:25 04 04:25 Labs: Abnormal Lab Results - Last 24 Hours (Table) 08/03/18 08/03/18 08/03/18 Range/Units 13:11 14:57 16:03 WBC (3.8-10.6) k/uL RBC (4.30-5.90) m/uL Hgb (13.0-17.5) gm/dL Hct (39.0-53.0) % MCV (80.0-100.0) fL Neutrophils # (Manual) (1.3-7.7) k/uL Metamyelocytes # (Man) (0) k/uL Myelocytes # (Manual) (0) k/uL ABG pH (7.35-7.45) ABG pCO2 (35-45) mmHg ABG HCO3 (21-25) mmol/L ABG Total CO2 (19-24) mmol/L ABG O2 Saturation (94-97) % Sodium (137-145) mmol/L Chloride (98-107) mmol/L Carbon Dioxide (22-30) mmol/L BUN (9-20) mg/dL Glucose (74-99) mg/dL POC Glucose (mg/dL) 143 H 140 H 144 H (75-99) mg/dL Calcium (8.4-10.2) mg/dL Alkaline Phosphatase (38-126) U/L Total Protein (6.3-8.2) g/dL Albumin (3.5-5.0) g/dL 08/03/18 08/03/18 08/03/18 Range/Units 17:52 20:11 21:06 WBC (3.8-10.6) k/uL RBC (4.30-5.90) m/uL Hgb (13.0-17.5) gm/dL Hct (39.0-53.0) % MCV (80.0-100.0) fL Neutrophils # (Manual) (1.3-7.7) k/uL Metamyelocytes # (Man) (0) k/uL Myelocytes # (Manual) (0) k/uL ABG pH (7.35-7.45) ABG pCO2 (35-45) mmHg ABG HCO3 (21-25) mmol/L ABG Total CO2 (19-24) mmol/L ABG O2 Saturation (94-97) % Sodium (137-145) mmol/L Chloride (98-107) mmol/L Carbon Dioxide (22-30) mmol/L BUN (9-20) mg/dL Glucose (74-99) mg/dL POC Glucose (mg/dL) 140 H 117 H 112 H (75-99) mg/dL Calcium (8.4-10.2) mg/dL Alkaline Phosphatase (38-126) U/L Total Protein (6.3-8.2) g/dL Albumin (3.5-5.0) g/dL 08/03/18 08/03/18 08/04/18 Range/Units 22:11 23:17 00:09 WBC (3.8-10.6) k/uL RBC (4.30-5.90) m/uL Hgb (13.0-17.5) gm/dL Hct (39.0-53.0) % MCV (80.0-100.0) fL Neutrophils # (Manual) (1.3-7.7) k/uL Metamyelocytes # (Man) (0) k/uL Myelocytes # (Manual) (0) k/uL ABG pH (7.35-7.45) ABG pCO2 (35-45) mmHg ABG HCO3 (21-25) mmol/L ABG Total CO2 (19-24) mmol/L ABG O2 Saturation (94-97) % Sodium (137-145) mmol/L Chloride (98-107) mmol/L Carbon Dioxide (22-30) mmol/L BUN (9-20) mg/dL Glucose (74-99) mg/dL POC Glucose (mg/dL) 110 H 117 H 116 H (75-99) mg/dL Calcium (8.4-10.2) mg/dL Alkaline Phosphatase (38-126) U/L Total Protein (6.3-8.2) g/dL Albumin (3.5-5.0) g/dL 08/04/18 08/04/18 08/04/18 Range/Units 01:06 02:03 02:46 WBC (3.8-10.6) k/uL RBC (4.30-5.90) m/uL Hgb (13.0-17.5) gm/dL Hct (39.0-53.0) % MCV (80.0-100.0) fL Neutrophils # (Manual) (1.3-7.7) k/uL Metamyelocytes # (Man) (0) k/uL Myelocytes # (Manual) (0) k/uL ABG pH (7.35-7.45) ABG pCO2 (35-45) mmHg ABG HCO3 (21-25) mmol/L ABG Total CO2 (19-24) mmol/L ABG O2 Saturation (94-97) % Sodium (137-145) mmol/L Chloride (98-107) mmol/L Carbon Dioxide (22-30) mmol/L BUN (9-20) mg/dL Glucose (74-99) mg/dL POC Glucose (mg/dL) 133 H 120 H 120 H (75-99) mg/dL Calcium (8.4-10.2) mg/dL Alkaline Phosphatase (38-126) U/L Total Protein (6.3-8.2) g/dL Albumin (3.5-5.0) g/dL 08/04/18 08/04/18 08/04/18 Range/Units 04:25 04:25 04:34 WBC 22.3 H (3.8-10.6) k/uL RBC 3.71 L (4.30-5.90) m/uL Hgb 12.9 L (13.0-17.5) gm/dL Hct 37.3 L (39.0-53.0) % MCV 100.4 H (80.0-100.0) fL Neutrophils # (Manual) 19.60 H (1.3-7.7) k/uL Metamyelocytes # (Man) 0.67 H (0) k/uL Myelocytes # (Manual) 0.45 H (0) k/uL ABG pH 7.34 L (7.35-7.45) ABG pCO2 64 H (35-45) mmHg ABG HCO3 35 H (21-25) mmol/L ABG Total CO2 37 H (19-24) mmol/L ABG O2 Saturation 98.2 H (94-97) % Sodium 146 H (137-145) mmol/L Chloride 110 H (98-107) mmol/L Carbon Dioxide 32 H (22-30) mmol/L BUN 29 H (9-20) mg/dL Glucose 135 H (74-99) mg/dL POC Glucose (mg/dL) (75-99) mg/dL Calcium 8.3 L (8.4-10.2) mg/dL Alkaline Phosphatase 129 H (38-126) U/L Total Protein 4.6 L (6.3-8.2) g/dL Albumin 2.2 L (3.5-5.0) g/dL 08/04/18 08/04/18 08/04/18 Range/Units 04:56 06:22 07:12 WBC (3.8-10.6) k/uL RBC (4.30-5.90) m/uL Hgb (13.0-17.5) gm/dL Hct (39.0-53.0) % MCV (80.0-100.0) fL Neutrophils # (Manual) (1.3-7.7) k/uL Metamyelocytes # (Man) (0) k/uL Myelocytes # (Manual) (0) k/uL ABG pH (7.35-7.45) ABG pCO2 (35-45) mmHg ABG HCO3 (21-25) mmol/L ABG Total CO2 (19-24) mmol/L ABG O2 Saturation (94-97) % Sodium (137-145) mmol/L Chloride (98-107) mmol/L Carbon Dioxide (22-30) mmol/L BUN (9-20) mg/dL Glucose (74-99) mg/dL POC Glucose (mg/dL) 147 H 146 H 146 H (75-99) mg/dL Calcium (8.4-10.2) mg/dL Alkaline Phosphatase (38-126) U/L Total Protein (6.3-8.2) g/dL Albumin (3.5-5.0) g/dL 08/04/18 08/04/18 08/04/18 Range/Units 08:06 10:07 11:54 WBC (3.8-10.6) k/uL RBC (4.30-5.90) m/uL Hgb (13.0-17.5) gm/dL Hct (39.0-53.0) % MCV (80.0-100.0) fL Neutrophils # (Manual) (1.3-7.7) k/uL Metamyelocytes # (Man) (0) k/uL Myelocytes # (Manual) (0) k/uL ABG pH (7.35-7.45) ABG pCO2 (35-45) mmHg ABG HCO3 (21-25) mmol/L ABG Total CO2 (19-24) mmol/L ABG O2 Saturation (94-97) % Sodium (137-145) mmol/L Chloride (98-107) mmol/L Carbon Dioxide (22-30) mmol/L BUN (9-20) mg/dL Glucose (74-99) mg/dL POC Glucose (mg/dL) 139 H 126 H 134 H (75-99) mg/dL Calcium (8.4-10.2) mg/dL Alkaline Phosphatase (38-126) U/L Total Protein (6.3-8.2) g/dL Albumin (3.5-5.0) g/dL Microbiology - Last 24 Hours (Table) 08/03/18 17:16 Blood Culture Gram Stain - Preliminary Blood 08/03/18 17:16 Blood Culture - Final Blood 08/01/18 05:40 Blood Culture Gram Stain - Final Blood Blood Culture - Final Staph aureus 08/03/18 17:55 Urine Culture - Preliminary Urine,Catheterized 08/01/18 06:00 Blood Culture Gram Stain - Final Blood Blood Culture - Final Staphylococcus aureus Assessment and Plan (1) Lactic acidosis Current Visit: Yes Status: Acute Code(s): E87.2 - ACIDOSIS SNOMED Code(s): 78269498 (2) Leukocytosis Current Visit: Yes Status: Acute Code(s): D72.829 - ELEVATED WHITE BLOOD CELL COUNT, UNSPECIFIED SNOMED Code(s): 105769507 (3) SIRS (systemic inflammatory response syndrome) Current Visit: Yes Status: Acute Code(s): R65.10 - SIRS OF NON-INFECTIOUS ORIGIN W/O ACUTE ORGAN DYSFUNCTION SNOMED Code(s): 928263204 (4) Colon distention Current Visit: Yes Status: Acute Code(s): K63.89 - OTHER SPECIFIED DISEASES OF INTESTINE SNOMED Code(s): 391361891 (5) Meningitis Current Visit: Yes Status: Acute Code(s): G03.9 - MENINGITIS, UNSPECIFIED SNOMED Code(s): 3008762 (6) Sepsis Current Visit: Yes Status: Acute Code(s): A41.9 - SEPSIS, UNSPECIFIED O RGANISM SNOMED Code(s): 56903578 Plan: The patient continues to have positive blood cultures showing methicillin sensitive staph. No enteric organisms. No obvious intra-abdominal source of his continued sepsis. There is a large fecal burden in the right colon. He was given a dose of lactulose this morning. I think that's okay to run the tube feedings at a low rate. The sister and aunt had several questions which I tried answered to the best of my ability. Other questions were deferred to infectious disease or critical care medicine. Overall prognosis is poor.
[2018-08-04 15:37] LABS: Glucose,Whole Blood 129 mg/dL (75-99)
[2018-08-04] MEDS: MULTIVITAMINS, THERA 1 EACH TAB PO SCH (15:39)
[2018-08-04 17:12] LABS: Glucose,Whole Blood 132 mg/dL (75-99)
--- NOTE | 2018-08-04 18:16 | P.TEE ---
Indications for Procedure(s): Rule out cardiac source of infection, rule out vegetation Date of Procedure: 08/04/18 Preoperative Diagnosis: Septicemia and a staph bacteremia Postoperative Diagnosis: No definite evidence of infection on the cardiac valves, at this time Procedure(s) Performed: EZ Description of Procedure(s): INDICATION: To rule out Cardec source of infection and vegetation on the valves CONSENT:. Verbal consent was obtained from the family PROCEDURE: The patient was in the intensive care unit. Patient is intubated and sedated. A lubricated Omni probe was introduced into the oropharynx and was advanced into the esophagus. Multiple views were obtained. Patient tolerated the procedure well without any complications. Color Doppler studies were performed. Contrast bubble injection was also done with a saline FINDINGS:. The aortic valve appeared to be bicuspid. The valve leaflets showed some thickening and also restricted her opening excursion. There is mild aortic regurgitation and the aorta. The aortic root isn't dilated. By transthoracic echo, moderate gradient was obtained across the aortic valve suggestive of moderate stenosis. No vegetations are noted on the aortic valve. The mitral valve structures appeared within normal. No vegetations noted. Function appear to be normal with trace regurgitation. Tricuspid valve was reasonably visualized. No definite vegetation noted. Pulmonic valve appeared to be normal. There is no clot in the left atrial appendage. Contrast bubble injections did not reveal any crossing of the bubble across intra-atrial septum IMPRESSION: #1. Bicuspid aortic valve with mild to moderate stenosis and mild regurgitation. No definite with agitation noted on the aortic valve. #2. Normal mitral, tricuspid and pulmonic valves without any vegetation #3. No PFO #4. No clot in the left atrial appendage PLAN:. Continue with antibiotic therapy. Look for other source of infection. May repeat transthoracic echo, If for no other source of infection is found.
--- NOTE | 2018-08-04 19:12 | P.CRDCN ---
History of Present Illness History of present illness: Patient being treated for sepsis. Intubated at this point EZ recommended by ID service to evaluate for vegetations We'll schedule EZ for him Past Medical History Past Medical History: Hypertension Additional Past Medical History / Comment(s): chronic back pain History of Any Multi-Drug Resistant Organisms: None Reported Past Surgical History: Orthopedic Surgery Past Anesthesia/Blood Transfusion Reactions: No Reported Reaction Past Psychological History: No Psychological Hx Reported Additional Psychological History / Comment(s): This the visitors late the patient is single and lives independently. They do not relate that he has children. Positive tobacco use. Positive alcohol use, likely daily. No injection drug use. No travel. Not working. No animal exposures Smoking Status: Current every day smoker Past Alcohol Use History: Daily, Occasional Past Drug Use History: None Reported, Opiates Medications and Allergies Home Medications Medication Instructions Recorded Confirmed Type Ascorbic Acid [Vitamin C] 1,000 mg PO DAILY 07/27/18 07/30/18 History Cyclobenzaprine [Flexeril] 10 mg PO TID PRN 07/27/18 07/30/18 History Diazepam [Valium] 5 mg PO Q8H PRN 3 Days #9 tab 07/27/18 07/30/18 Rx Flaxseed Oil 1,000 mg PO DAILY 07/27/18 07/30/18 History Gabapentin 600 mg PO QID 07/27/18 07/30/18 History Hydrocodone/Acetaminophen [[place] 1 tab PO TID PRN 07/27/18 07/30/18 History 10-325] Ibuprofen [Motrin Ib] 400 mg PO Q6H PRN 07/27/18 07/30/18 History Multivit-Min/FA/Lycopen/Lutein 1 tab PO DAILY 07/27/18 07/30/18 History [Centrum Silver Tablet] Varenicline [Chantix Continuing 1 mg PO BID 07/27/18 07/30/18 History Pack] predniSONE 50 mg PO DAILY #5 tab 07/27/18 07/30/18 Rx Allergies Allergy/AdvReac Type Severity Reaction Status Date / Time Unable to Assess Allergy Verified 07/30/18 11:52 Physical Exam Vitals: Vital Signs Temp Pulse Resp Pulse Ox 08/04/18 17:00 116 H 28 H 96 08/04/18 16:30 117 H 28 H 95 08/04/18 16:00 99.3 F 116 H 28 H 95 08/04/18 15:43 118 H 08/04/18 15:30 116 H 28 H 93 L 08/04/18 15:29 115 H 08/04/18 15:00 114 H 28 H 95 08/04/18 14:30 116 H 28 H 94 L 08/04/18 14:00 117 H 28 H 95 08/04/18 13:30 118 H 28 H 95 08/04/18 13:00 121 H 28 H 94 L 08/04/18 12:30 122 H 28 H 94 L 08/04/18 12:00 99.7 F H 124 H 28 H 94 L 08/04/18 11:35 122 H 08/04/18 11:30 125 H 28 H 94 L 08/04/18 11:00 128 H 28 H 93 L 08/04/18 10:30 128 H 28 H 92 L 08/04/18 10:00 128 H 28 H 92 L 08/04/18 09:30 126 H 28 H 91 L 08/04/18 09:00 123 H 28 H 92 L 08/04/18 08:30 137 H 28 H 94 L 08/04/18 08:00 103 F H 133 H 28 H 94 L 08/04/18 07:30 134 H 28 H 95 08/04/18 07:15 136 H 08/04/18 07:00 135 H 28 H 94 L 08/04/18 06:30 135 H 28 H 94 L 08/04/18 06:00 135 H 28 H 94 L 08/04/18 05:30 137 H 28 H 93 L 08/04/18 05:00 102.6 F H 138 H 28 H 93 L 08/04/18 04:30 137 H 28 H 95 08/04/18 04:00 102.8 F H 135 H 28 H 95 08/04/18 03:48 135 H 08/04/18 03:38 134 H 08/04/18 03:30 135 H 28 H 93 L 08/04/18 03:00 134 H 28 H 94 L 08/04/18 02:30 133 H 28 H 94 L 08/04/18 02:00 102.6 F H 131 H 28 H 95 08/04/18 01:30 129 H 28 H 96 04/04/19 01:00 125 H 28 H 96 04/04/19 00:30 123 H 28 H 96 08/04/18 00:11 118 H 08/04/18 00:00 102.9 F H 118 H 28 H 96 08/03/18 23:42 117 H 08/03/18 23:30 134 H 28 H 95 08/03/18 23:00 134 H 28 H 95 08/03/18 22:30 133 H 28 H 94 L 08/03/18 22:00 134 H 28 H 93 L 08/03/18 21:00 101.9 F H 135 H 28 H 96 08/03/18 20:00 102.2 F H 131 H 28 H 95 08/03/18 19:43 136 H 28 H 08/03/18 19:33 131 H 28 H Intake and Output 08/04/18 08/04/18 08/04/18 06:59 14:59 22:59 Intake Total 4004.371 6560.674 892.640 Output Total 1150 1600 800 Balance 634.130 -501.326 92.640 Intake: IV 1500 800 500 Meropenem 2 gm In Sodium 100 Chloride 0.9% 100 ml @ 200 mls/hr IVPB Q8HR TOY Rx#:[id number] Sodium Chloride 0.45% 1, 800 800 500 000 ml @ 100 mls/hr IV . Q10H TOY Rx#:[id number] Vancomycin 1,750 mg In 500 Sodium Chloride 0.9% 500 ml 500 ml @ 167 mls/hr IVPB Q8H TOY Rx#: [id number] metroNIDAZOLE-NS PMX 500 100 mg In Saline 1 100ml.bag @ 100 mls/hr IVPB Q8HR TOY Rx#:[id number] Intake, IV Titration 284.130 298.674 392.640 Amount Cisatracurium 200 mg In 147.963 192.640 Sodium Chloride 0.9% 180 ml @ 4 MCG/KG/MIN 28.824 mls/hr IV .Q6H57M TOY Rx# :[id number] Insulin Regular 100 unit 0 In Sodium Chloride 0.9% 100 ml @ Per Protocol IV .Q0M TOY Rx#:[id number] Propofol 1,000 mg In 298.674 100 Empty Bag 1 bag @ Titrate IV .Q0M TOY Rx#: [id number] fentaNYL (PF) 1,000 mcg 136.167 100 In Sodium Chloride 0.9% 80 ml @ 100 MCG/HR 10 mls /hr IV .Q10H [facility] Rx#: [id number] Output: Urine 1150 1600 800 Other: Voiding Method Indwelling Catheter Indwelling Catheter Indwelling Catheter Weight 134.2 kg ABP, PAP, CO, CI - Last 8 Hours Arterial Blood Pressure 119/72 Arterial Blood Pressure 131/75 Arterial Blood Pressure 132/79 Arterial Blood Pressure 122/68 Arterial Blood Pressure 128/76 Arterial Blood Pressure 135/76 Arterial Blood Pressure 131/72 Arterial Blood Pressure 118/73 Arterial Blood Pressure 128/72 Arterial Blood Pressure 132/75 Arterial Blood Pressure 122/78 Arterial Blood Pressure 121/74 Results 08/04/18 04:25 08/04/18 04:25 Cardiac Enzymes 08/04/18 Range/Units 04:25 AST 41 (17-59) U/L CBC 08/04/18 Range/Units 04:25 WBC 22.3 H (3.8-10.6) k/uL RBC 3.71 L (4.30-5.90) m/uL Hgb 12.9 L (13.0-17.5) gm/dL Hct 37.3 L (39.0-53.0) % Plt Count 284 (150-450) k/uL Comprehensive Metabolic Panel 08/04/18 Range/Units 04:25 Sodium 146 H (137-145) mmol/L Potassium 4.3 (3.5-5.1) mmol/L Chloride 110 H (98-107) mmol/L Carbon Dioxide 32 H (22-30) mmol/L BUN 29 H (9-20) mg/dL Creatinine 0.75 (0.66-1.25) mg/dL Glucose 135 H (74-99) mg/dL Calcium 8.3 L (8.4-10.2) mg/dL AST 41 (17-59) U/L ALT 36 (21-72) U/L Alkaline Phosphatase 129 H (38-126) U/L Total Protein 4.6 L (6.3-8.2) g/dL Albumin 2.2 L (3.5-5.0) g/dL Current Medications Generic Name Dose Route Start Last Admin Trade Name Freq PRN Reason Stop Dose Admin Acetaminophen 650 mg 07/30/18 15:50 08/04/18 01:08 Tylenol Suppository RECTAL 650 mg Q4HR PRN Administration Fever And/ Or Mild Pain Albuterol/Ipratropium 3 ml 08/02/18 12:00 08/04/18 15:26 Duoneb 0.5 Mg-3 Mg/3 Ml Soln INHALATION 3 ml RT-Q4H TOY Administration Artificial Tears 2 drops 07/31/18 16:00 08/04/18 18:45 Artificial Tear Drops BOTH EYES 2 drops Q4HR TOY Administration Chlorhexidine Gluconate 15 ml 07/31/18 09:00 08/04/18 10:05 Peridex MUCOUS MEM 15 ml BID TOY Administration Heparin Sodium (Porcine) 5,000 unit 07/30/18 21:00 08/04/18 08:17 Heparin SQ 5,000 unit Q12HR TOY Administration Hydromorphone HCl 1 mg 07/30/18 12:01 08/03/18 21:11 Dilaudid IVP 1 mg Q4HR PRN Administration Pain Hydromorphone HCl 0.5 mg 07/30/18 18:11 07/31/18 06:35 Dilaudid IVP 0.5 mg Q6HR PRN Administration Severe Pain Thiamine HCl 100 mg/ Sodium 101 mls @ 202 mls/hr 07/31/18 07:00 08/04/18 08:15 Chloride IVPB 202 mls/hr Q12H TOY Administration Ceftriaxone Sodium 2 gm/ 50 mls @ 100 mls/hr 07/30/18 21:00 08/04/18 08:16 Sodium Chloride IVPB 100 mls/hr Q12HR [facility] Administration Propofol 1,000 mg/ IV Solution 100 mls @ 0 mls/hr 07/30/18 23:15 08/04/18 18:47 IV 75 mcg/kg/min .Q0M TOY 56.385 mls/hr Administration Protocol Titrate Fentanyl Citrate 1,000 mcg/ 100 mls @ 10 mls/hr 07/31/18 08:45 08/04/18 18:47 Sodium Chloride IV 100 mcg/hr .Q10H TOY 10 mls/hr Administration 100 MCG/HR Cisatracurium Besylate 200 mg/ 200 mls @ 28.824 mls/hr 07/31/18 10:30 08/04/18 18:48 Sodium Chloride IV 2 mcg/kg/min .Q6H57M TOY 14.412 mls/hr Administration Protocol 4 MCG/KG/MIN Clevidipine 25 mg/ IV Solution 50 mls @ 2 mls/hr 07/31/18 16:00 08/03/18 22:07 IV 0 mg/hr .Q24H TOY 0 mls/hr Titration Protocol 1 MG/HR Acetaminophen 1,000 mg/ IV 100 mls @ 400 mls/hr 07/31/18 15:49 08/04/18 10:50 Solution IVPB 400 mls/hr Q6HR PRN Administration Fever Insulin Human Regular 100 unit 101 mls @ 0 mls/hr 08/02/18 00:00 08/04/18 05:35 / Sodium Chloride IV 1.5 mls/hr .Q0M TOY 1.5 mls/hr Administration Protocol Per Protocol Sodium Chloride 1,000 mls @ 100 mls/hr 08/03/18 17:00 08/04/18 15:49 Saline 0.45% IV 100 mls/hr .Q10H TOY Administration Meropenem 2 gm/ Sodium 100 mls @ 200 mls/hr 08/04/18 00:00 08/04/18 17:00 Chloride IVPB 200 mls/hr Q8HR TOY Administration Protocol Ibuprofen 800 mg/ Sodium 258 mls @ 500 mls/hr 08/04/18 09:57 Chloride IV Q6HR PRN Fever>101 Metoprolol Tartrate 5 mg 08/02/18 14:41 08/04/18 08:16 Lopressor IVP 5 mg Q6HR PRN Administration Blood Pressure - High Mineral Oil 1 applic 08/01/18 22:22 Topical Light Mineral Oil TOPICAL TID PRN Dry Eye(s) Miscellaneous Information 1 each 08/03/18 06:19 Potassium Per Protocol MISCELLANE DAILY PRN Per Protocol Protocol Multivitamins 1 each 07/31/18 12:00 08/04/18 15:39 Theragran PO 1 each DAILY@1200 TOY Administration Naloxone HCl 0.2 mg 07/30/18 15:50 Narcan IV Q2M PRN Opioid Reversal Pantoprazole Sodium 40 mg 07/31/18 09:00 08/04/18 08:16 Protonix IV 40 mg DAILY TOY Administration Intake and Output 08/04/18 08/04/18 08/04/18 06:59 14:59 22:59 Intake Total 1509.830 5703.674 892.640 Output Total 1150 1600 800 Balance 634.130 -501.326 92.640 Intake: IV 1500 800 500 Meropenem 2 gm In Sodium 100 Chloride 0.9% 100 ml @ 200 mls/hr IVPB Q8HR TOY Rx#:[id number] Sodium Chloride 0.45% 1, 800 800 500 000 ml @ 100 mls/hr IV . Q10H TOY Rx#:[id number] Vancomycin 1,750 mg In 500 Sodium Chloride 0.9% 500 ml 500 ml @ 167 mls/hr IVPB Q8H TOY Rx#: [id number] metroNIDAZOLE-NS PMX 500 100 mg In Saline 1 100ml.bag @ 100 mls/hr IVPB Q8HR TOY Rx#:[id number] Intake, IV Titration 284.130 298.674 392.640 Amount Cisatracurium 200 mg In 147.963 192.640 Sodium Chloride 0.9% 180 ml @ 4 MCG/KG/MIN 28.824 mls/hr IV .Q6H57M TOY Rx# :[id number] Insulin Regular 100 unit 0 In Sodium Chloride 0.9% 100 ml @ Per Protocol IV .Q0M TOY Rx#:[id number] Propofol 1,000 mg In 298.674 100 Empty Bag 1 bag @ Titrate IV .Q0M TOY Rx#: [id number] fentaNYL (PF) 1,000 mcg 136.167 100 In Sodium Chloride 0.9% 80 ml @ 100 MCG/HR 10 mls /hr IV .Q10H TOY Rx#: [id number] Output: Urine 1150 1600 800 Other: Voiding Method Indwelling Catheter Indwelling Catheter Indwelling Catheter Weight 134.2 kg 08/04/18 04:25 08/04/18 04:25
--- NOTE | 2018-08-04 20:00 | PN ---
PROGRESS NOTE DATE OF SERVICE: 08/04/2018 This 53-year-old gentleman who was admitted with fever and features of meningitis had persistent bacteremia. The patient has grown MSSA from multiple cultures. Patient is on broad-spectrum IV antibiotics. Patient has also been evaluated by EZ by Cardiology. Surgery is following the patient closely as well as Infectious Disease, Dr. Kenney, and Dr. Briceño. The patient is still on significant PEEP to maintain oxygenation. The most recent chest x-ray, which was personally reviewed by me, showed significant lower lobe opacities. CT scan of the abdomen and pelvis repeated by Dr. Thomas did not show any new acute abnormalities. Past medical history reviewed. Review of systems could not be taken; patient is mechanically ventilated and sedated. CURRENT MEDICATIONS: Reviewed. They include: 1. Tylenol 650 and Tylenol p.r.n. 2. DuoNeb q.i.d. 3. Artificial Tears. 4. Rocephin 2 grams IV b.i.d. 5. Peridex. 6. Cisatracurium. 7. Clevidipine 25 mg b.i.d. 8. Fentanyl patch. 9. Heparin 5000 units subcutaneously b.i.d. 10.Dilaudid 1 mg IV q.4 p.r.n. 11.Ibuprofen p.r.n. 12.Meropenem 2 grams IV q.8. 13.Multivitamins 1 p.o. daily. 14.Narcan. 15.Protonix. 16.Thiamine. PHYSICAL EXAMINATION: Patient is mechanically ventilated and sedated. Pulse is 117, blood pressure 131/75, respiration 28, temperature 95% on mechanical ventilation, 60% FiO2, 13 of PEEP, tidal volume 480. Other settings are noted. HEENT: Conjunctivae normal. Oral mucosa moist. NECK: No jugular venous distention. No carotid bruit. No lymph node enlargement. CARDIOVASCULAR SYSTEM: S1, S2 muffled. Tachycardic. No S3. No S4. RESPIRATORY SYSTEM: Breath sounds diminished at the bases. Bilateral scattered rhonchi and crackles. Patient is on mechanical ventilation. ABDOMEN: Soft. Minimally obese. Non-tender. No mass palpable. LEGS: No edema. No swelling. NERVOUS SYSTEM: Higher functions as mentioned earlier. Patient is mechanically ventilated and sedated. SKIN: Diffuse livedo pattern noted. LABS: Labs at this time show WBC 22.3, hemoglobin 12.9, neutrophils 19.6 and ABGs show pH of 7.34, sodium 146, potassium 4.3. The creatinine is 0.75. ASSESSMENT: 1. Fever and change in mental status with possible acute meningitis with persistent methicillin-susceptible Staphylococcus aeruginosa bacteremia with acute hypoxic respiratory failure, on mechanical ventilation. 2. Abdominal pain and distention with possible sepsis. 3. Bibasilar lesions; possible bibasilar pneumonia. 4. Low back pain for evaluation. 5. Status post lumbar puncture. 6. Lactic acidosis, possibly secondary to sepsis. 7. Respiratory acidosis. 8. Increased random blood sugar. 9. Chronic back pain. 10.Degenerative joint disease. 11.History of nicotine dependence. 12.Obesity with body mass index of 38. 13.FULL CODE. RECOMMENDATIONS AND DISCUSSION: I recommend to continue current medications, continue with the monitoring, continue with symptomatic treatment, continue with mechanical ventilation. Closely follow with Dr. Briceño. Continue with broad-spectrum IV antibiotics. Cultures are negative so far. Will repeat more cultures. Consider EZ per Cardiology. The patient also had some back pain; however, the patient cannot undergo an MRI at this time. The overall prognosis is extremely guarded. The patient is on high PEEP at this time. We will continue to monitor the liver functions that showed albumin of 2.2. Otherwise, medications are reviewed. Prognosis guarded. Further recommendations to follow. MMODL / IJN: [id number] / MTDD
[2018-08-04 20:20] LABS: Glucose,Whole Blood 130 mg/dL (75-99)
[2018-08-04 20:50] LABS: Magnesium 2.7 mg/dL (1.6-2.3)
--- NOTE | 2018-08-04 22:19 | P.PN ---
Subjective Progress Note Date: 08/04/18 53-year-old male presents to the emergency center with ongoing difficulties with abdominal pain and back pain. Approximate 5 days prior he developed worsening amounts of back pain and was taking some medication for it. 3 days prior to this admission he did come to the emergency center with com plaints of back and abdominal pain. Imaging studies were performed and there was evidence of some colonic dilatation without other acute concern there was no diverticulitis or free air. During the time in the emergency center the patient's status worsened. His mental status altered, although he did not have evidence of high-grade fever there was leukocytosis. Given that the imaging studies were not acutely different, the patient underwent lumbar puncture. This material was markedly abnormal and with evidence of the significant white blood cells of the CSF the infectious diseases consultation was requested. The patient was transferred to the intensive care unit. At this time the patient is sitting upright in the intensive care unit. He is awake and alert, the visitors in the room relate that he is more cognizant than he was in the emergency center. The patient however continues to have a altered affect. Of note drug screen is positive admission for opiates, oxycodone, benzodiazepines, tricyclics. At the time of the call the patient's CSF material was evaluated personally in t he laboratory. An extensive pleocytosis was seen but no evidnece of bacteria were noted. The smears were reviewed with the lab techs and no bacteria was seen. Of note the medication list from the emergency center is reviewed and there is a notation on prednisone 50 mg a day. 07/31/2018 the patient remains in intensive care unit now is intubated sedated and mechanically ventilated but seems to be more stable today than yesterday. Still seems to be somewhat uncomfortable and further steps are being taken to improve his discomfort and likely paralysis to improve his coordination with the ventilator. Has ongoing leukocytosis, no evidence of renal failure. Not on vasopressor therapy at this time. Laboratories during to identify staph aureus in cultures 08/01/2018 patient remains intubated sedated and mechanically ventilated. Hemodynamically he is become hypertension and cleviprexl has been started. Patient is sedated and comfortable, synchronous with the ventilator. No further fevers today. 08/03/2018 patient remains profoundly ill, intubated sedated and mechanically ventilated on Cleviprex therapy. Despite antibiotic therapy is continued to have positive blood cultures and has had some further fevers again today. He's been followed by surgery and a computed tomography scan of abdomen and pelvis was performed without evidence of any acute perforation tumor mass. Does have retained stool. The computed tomography scan does show evidence of worsening bibasilar infiltrates. 08/04/2018 patient remains in intensive care unit intubated, sedated and mechanically ventilated hemodynamically stable. No increased needs on the ventilator have been noted. Urine output is adequate. Cleviprex has been discontinued. Patient however was having ongoing fevers. Antibiotic changes occurred yesterday. Given the concerns with persistent bacteremia echocardiogram was performed potential abnormality and cardiology's been consulted for EZ. No other acute changes are noted. Objective - Vital Signs Vital signs: Vital Signs Temp 98.8 F 08/04/18 20:00 Pulse 118 H 08/04/18 20:36 Resp 28 H 08/04/18 20:00 BP 138/98 08/01/18 19:00 Pulse Ox 95 08/04/18 20:00 Intake & Output 08/04/18 08/04/18 08/05/18 06:59 18:59 06:59 Intake Total 2407.861 1991.314 350 Output Total 1750 2400 325 Balance 657.861 -408.686 25 Weight 134.2 kg Intake: IV 0 1300 350 Meropenem 2 gm In Sodium 100 Chloride 0.9% 100 ml @ 200 mls/hr IVPB Q8HR TOY Rx#:[id number] Sodium Chloride 0.45% 1, 1200 1300 200 000 ml @ 100 mls/hr IV . Q10H TOY Rx#:[id number] Thiamine 100 mg In Sodium 100 100 Chloride 0.9% 100 ml @ 202 mls/hr IVPB Q12H TOY Rx#:[id number] Vancomycin 1,750 mg In 500 Sodium Chloride 0.9% 500 ml 500 ml @ 167 mls/hr IVPB Q8H TOY Rx#: [id number] cefTRIAXone 2 gm In 50 50 Sodium Chloride 0.9% 50 ml @ 100 mls/hr IVPB Q12HR TOY Rx#:[id number] metroNIDAZOLE-NS PMX 500 100 mg In Saline 1 100ml.bag @ 100 mls/hr IVPB Q8HR TOY Rx#:[id number] Intake, IV Titration 357.861 691.314 Amount Cisatracurium 200 mg In 173.544 192.640 Sodium Chloride 0.9% 180 ml @ 4 MCG/KG/MIN 28.824 mls/hr IV .Q6H57M TOY Rx# :[id number] Clevidipine Butyrate 25 42.4 mg In Empty Bag 1 bag @ 1 MG/HR 2 mls/hr IV .Q24H TOY Rx#:[id number] Insulin Regular 100 unit 5.75 In Sodium Chloride 0.9% 100 ml @ Per Protocol IV .Q0M TOY Rx#:[id number] Propofol 1,000 mg In 398.674 Empty Bag 1 bag @ Titrate IV .Q0M TOY Rx#: [id number] fentaNYL (PF) 1,000 mcg 136.167 100 In Sodium Chloride 0.9% 80 ml @ 100 MCG/HR 10 mls /hr IV .Q10H TOY Rx#: [id number] Output: Urine 1750 2400 325 Other: Voiding Method Indwelling Catheter Indwelling Catheter Indwelling Catheter ABP, PAP, CO, CI - Last Documented Arterial Blood Pressure 127/78 - Exam 53-year-old male presents to Hospital from home with a 5 day history of progressive illness. He has had abdominal pain, back pain and now has developed the progressive discomfort with his neck and then some altered mental status. Patient has had alteration status is now intubated sedated and mechanically ventilated, and has required paralysis HEENT: Anicteric conjunctiva are pink and moist nasal mucosa grossly intact without significant lesions, there is no thrush. Neck: The neck is mildly stiff but not rigid Lungs: Symmetrical bilateral air entry few basilar crackles Heart: Tachycardic no audible murmur click or rub Abdomen: Obese, mildly distended is only minimal tenderness upon palpation of the right upper quadrant with percussion, no palpable mass or organomegaly no rigidity and no guarding or rebound Extremities: The upper extremities have excellent pulses they are symmetric, no significant petechiae or telangiectasia. No splinter hemorrhages were noted. Without open lesions Neuro: Patient is no intubated sedated and mechanically ventilated and paralyzed to improve his coordination with the ventilator - Labs CBC & Chem 7: 08/04/18 04:25 08/04/18 20:25 Labs: Abnormal Lab Results - Last 24 Hours (Table) 08/03/18 08/03/1808/04/19 Range/Units 22:11 23:17 00:09 WBC (3.8-10.6) k/uL RBC (4.30-5.90) m/uL Hgb (13.0-17.5) gm/dL Hct (39.0-53.0) % MCV (80.0-100.0) fL Neutrophils # (Manual) (1.3-7.7) k/uL Metamyelocytes # (Man) (0) k/uL Myelocytes # (Manual) (0) k/uL ABG pH (7.35-7.45) ABG pCO2 (35-45) mmHg ABG HCO3 (21-25) mmol/L ABG Total CO2 (19-24) mmol/L ABG O2 Saturation (94-97) % Sodium (137-145) mmol/L Chloride (98-107) mmol/L Carbon Dioxide (22-30) mmol/L BUN (9-20) mg/dL Glucose (74-99) mg/dL POC Glucose (mg/dL) 110 H 117 H 116 H (75-99) mg/dL Calcium (8.4-10.2) mg/dL Magnesium (1.6-2.3) mg/dL Alkaline Phosphatase (38-126) U/L Total Protein (6.3-8.2) g/dL Albumin (3.5-5.0) g/dL 08/04/18 08/04/18 08/04/18 Range/Units 01:06 02:03 02:46 WBC (3.8-10.6) k/uL RBC (4.30-5.90) m/uL Hgb (13.0-17.5) gm/dL Hct (39.0-53.0) % MCV (80.0-100.0) fL Neutrophils # (Manual) (1.3-7.7) k/uL Metamyelocytes # (Man) (0) k/uL Myelocytes # (Manual) (0) k/uL ABG pH (7.35-7.45) ABG pCO2 (35-45) mmHg ABG HCO3 (21-25) mmol/L ABG Total CO2 (19-24) mmol/L ABG O2 Saturation (94-97) % Sodium (137-145) mmol/L Chloride (98-107) mmol/L Carbon Dioxide (22-30) mmol/L BUN (9-20) mg/dL Glucose (74-99) mg/dL POC Glucose (mg/dL) 133 H 120 H 120 H (75-99) mg/dL Calcium (8.4-10.2) mg/dL Magnesium (1.6-2.3) mg/dL Alkaline Phosphatase (38-126) U/L Total Protein (6.3-8.2) g/dL Albumin (3.5-5.0) g/dL 08/04/18 08/04/18 08/04/18 Range/Units 04:25 04:25 04:34 WBC 22.3 H (3.8-10.6) k/uL RBC 3.71 L (4.30-5.90) m/uL Hgb 12.9 L (13.0-17.5) gm/dL Hct 37.3 L (39.0-53.0) % MCV 100.4 H (80.0-100.0) fL Neutrophils # (Manual) 19.60 H (1.3-7.7) k/uL Metamyelocytes # (Man) 0.67 H (0) k/uL Myelocytes # (Manual) 0.45 H (0) k/uL ABG pH 7.34 L (7.35-7.45) ABG pCO2 64 H (35-45) mmHg ABG HCO3 35 H (21-25) mmol/L ABG Total CO2 37 H (19-24) mmol/L ABG O2 Saturation 98.2 H (94-97) % Sodium 146 H (137-145) mmol/L Chloride 110 H (98-107) mmol/L Carbon Dioxide 32 H (22-30) mmol/L BUN 29 H (9-20) mg/dL Glucose 135 H (74-99) mg/dL POC Glucose (mg/dL) (75-99) mg/dL Calcium 8.3 L (8.4-10.2) mg/dL Magnesium (1.6-2.3) mg/dL Alkaline Phosphatase 129 H (38-126) U/L Total Protein 4.6 L (6.3-8.2) g/dL Albumin 2.2 L (3.5-5.0) g/dL 08/04/18 08/04/18 08/04/18 Range/Units 04:56 06:22 07:12 WBC (3.8-10.6) k/uL RBC (4.30-5.90) m/uL Hgb (13.0-17.5) gm/dL Hct (39.0-53.0) % MCV (80.0-100.0) fL Neutrophils # (Manual) (1.3-7.7) k/uL Metamyelocytes # (Man) (0) k/uL Myelocytes # (Manual) (0) k/uL ABG pH (7.35-7.45) ABG pCO2 (35-45) mmHg ABG HCO3 (21-25) mmol/L ABG Total CO2 (19-24) mmol/L ABG O2 Saturation (94-97) % Sodium (137-145) mmol/L Chloride (98-107) mmol/L Carbon Dioxide (22-30) mmol/L BUN (9-20) mg/dL Glucose (74-99) mg/dL POC Glucose (mg/dL) 147 H 146 H 146 H (75-99) mg/dL Calcium (8.4-10.2) mg/dL Magnesium (1.6-2.3) mg/dL Alkaline Phosphatase (38-126) U/L Total Protein (6.3-8.2) g/dL Albumin (3.5-5.0) g/dL 08/04/18 08/04/18 08/04/18 Range/Units 08:06 10:07 11:54 WBC (3.8-10.6) k/uL RBC (4.30-5.90) m/uL Hgb (13.0-17.5) gm/dL Hct (39.0-53.0) % MCV (80.0-100.0) fL Neutrophils # (Manual) (1.3-7.7) k/uL Metamyelocytes # (Man) (0) k/uL Myelocytes # (Manual) (0) k/uL ABG pH (7.35-7.45) ABG pCO2 (35-45) mmHg ABG HCO3 (21-25) mmol/L ABG Total CO2 (19-24) mmol/L ABG O2 Saturation (94-97) % Sodium (137-145) mmol/L Chloride (98-107) mmol/L Carbon Dioxide (22-30) mmol/L BUN (9-20) mg/dL Glucose (74-99) mg/dL POC Glucose (mg/dL) 139 H 126 H 134 H (75-99) mg/dL Calcium (8.4-10.2) mg/dL Magnesium (1.6-2.3) mg/dL Alkaline Phosphatase (38-126) U/L Total Protein (6.3-8.2) g/dL Albumin (3.5-5.0) g/dL 08/04/18 08/04/18 08/04/18 Range/Units 15:33 17:09 20:17 WBC (3.8-10.6) k/uL RBC (4.30-5.90) m/uL Hgb (13.0-17.5) gm/dL Hct (39.0-53.0) % MCV (80.0-100.0) fL Neutrophils # (Manual) (1.3-7.7) k/uL Metamyelocytes # (Man) (0) k/uL Myelocytes # (Manual) (0) k/uL ABG pH (7.35-7.45) ABG pCO2 (35-45) mmHg ABG HCO3 (21-25) mmol/L ABG Total CO2 (19-24) mmol/L ABG O2 Saturation (94-97) % Sodium (137-145) mmol/L Chloride (98-107) mmol/L Carbon Dioxide (22-30) mmol/L BUN (9-20) mg/dL Glucose (74-99) mg/dL POC Glucose (mg/dL) 129 H 132 H 130 H (75-99) mg/dL Calcium (8.4-10.2) mg/dL Magnesium (1.6-2.3) mg/dL Alkaline Phosphatase (38-126) U/L Total Protein (6.3-8.2) g/dL Albumin (3.5-5.0) g/dL 08/04/18 Range/Units 20:25 WBC (3.8-10.6) k/uL RBC (4.30-5.90) m/uL Hgb (13.0-17.5) gm/dL Hct (39.0-53.0) % MCV (80.0-100.0) fL Neutrophils # (Manual) (1.3-7.7) k/uL Metamyelocytes # (Man) (0) k/uL Myelocytes # (Manual) (0) k/uL ABG pH (7.35-7.45) ABG pCO2 (35-45) mmHg ABG HCO3 (21-25) mmol/L ABG Total CO2 (19-24) mmol/L ABG O2 Saturation (94-97) % Sodium (137-145) mmol/L Chloride (98-107) mmol/L Carbon Dioxide (22-30) mmol/L BUN (9-20) mg/dL Glucose (74-99) mg/dL POC Glucose (mg/dL) (75-99) mg/dL Calcium (8.4-10.2) mg/dL Magnesium 2.7 H (1.6-2.3) mg/dL Alkaline Phosphatase (38-126) U/L Total Protein (6.3-8.2) g/dL Albumin (3.5-5.0) g/dL Microbiology - Last 24 Hours (Table) 08/03/18 17:16 Blood Culture Gram Stain - Preliminary Blood 08/03/18 17:16 Blood Culture - Final Blood 08/01/18 05:40 Blood Culture Gram Stain - Final Blood Blood Culture - Final Staph aureus 08/03/18 17:55 Urine Culture - Preliminary Urine,Catheterized Laboratory Results WBC 22.3 k/uL (3.8-10.6) H 08/04/18 04:25 RBC 3.71 m/uL (4.30-5.90) L 08/04/18 04:25 Hgb 12.9 gm/dL (13.0-17.5) L 08/04/18 04:25 Hct 37.3 % (39.0-53.0) L 08/04/18 04:25 MCV 100.4 fL (80.0-100.0) H 08/04/18 04:25 MCH 34.7 pg (25.0-35.0) 08/04/18 04:25 MCHC 34.6 g/dL (31.0-37.0) 08/04/18 04:25 RDW 13.7 % (11.5-15.5) 08/04/18 04:25 Plt Count 284 k/uL (150-450) 08/04/18 04:25 Neutrophils % 89 % 08/01/18 04:15 Neutrophils % (Manual) 56 % 08/04/18 04:25 Band Neutrophils % 32 % 08/04/18 04:25 Lymphocytes % 4 % 08/01/18 04:15 Lymphocytes % (Manual) 6 % 08/04/18 04:25 Monocytes % 4 % 08/01/18 04:15 Monocytes % (Manual) 3 % 08/03/18 05:15 Eosinophils % 1 % 08/01/18 04:15 Eosinophils % (Manual) 1 % 08/04/18 04:25 Basophils % 0 % 08/01/18 04:15 Metamyelocytes % 3 % 08/04/18 04:25 Myelocytes % 2 % 08/04/18 04:25 Neutrophils # 13.7 k/uL (1.3-7.7) H 08/01/18 04:15 Neutrophils # (Manual) 19.60 k/uL (1.3-7.7) H 08/04/18 04:25 Lymphocytes # 0.7 k/uL (1.0-4.8) L 08/01/18 04:15 Lymphocytes # (Manual) 1.34 k/uL (1.0-4.8) 08/04/18 04:25 Monocytes # 0.6 k/uL (0-1.0) 08/01/18 04:15 Monocytes # (Manual) 0.74 k/uL (0-1.0) 08/03/18 05:15 Eosinophils # 0.1 k/uL (0-0.7) 08/01/18 04:15 Eosinophils # (Manual) 0.22 k/uL (0-0.7) 08/04/18 04:25 Basophils # 0.1 k/uL (0-0.2) 08/01/18 04:15 Metamyelocytes # (Man) 0.67 k/uL (0) H 08/04/18 04:25 Myelocytes # (Manual) 0.45 k/uL (0) H 08/04/18 04:25 Nucleated RBCs 0 /100 WBC (0-0) 08/04/18 04:25 Manual Slide Review Performed 08/04/18 04:25 Toxic Granulation Present 08/04/18 04:25 RBC Morphology Normal 07/30/18 15:34 Poikilocytosis (manual Present 08/03/18 05:15 ESR 70 mm/hr (0-15) H 07/30/18 15:34 PT 11.3 sec (9.0-12.0) 07/30/18 11:23 INR 1.1 (<1.2) 07/30/18 11:23 APTT 22.0 sec (22.0-30.0) 07/30/18 11:23 D-Dimer 2.27 mg/L FEU (<0.60) H 07/30/18 15:36 Sample Site shorty 08/04/18 04:34 ABG pH 7.34 (7.35-7.45) L 08/04/18 04:34 ABG pCO2 64 mmHg (35-45) H 08/04/18 04:34 ABG pO2 101 mmHg (83-108) 08/04/18 04:34 ABG HCO3 35 mmol/L (21-25) H 08/04/18 04:34 ABG Total CO2 37 mmol/L (19-24) H 08/04/18 04:34 ABG O2 Saturation 98.2 % (94-97) H 08/04/18 04:34 ABG Base Excess 8.7 mmol/L 08/04/18 04:34 Abhinav Test Yes 08/04/18 04:34 ABG Lactic Acid 0.9 mmol/L (0.5-1.6) 08/03/18 05:15 VBG pH 7.44 (7.31-7.41) H 07/30/18 15:34 VBG pCO2 32 mmHg (37-51) L 07/30/18 15:34 VBG HCO3 21 mmol/L (24-28) L 07/30/18 15:34 FiO2 70 % 08/04/18 04:34 Sodium 146 mmol/L (137-145) H 08/04/18 04:25 Potassium 4.0 mmol/L (3.5-5.1) 08/04/18 20:25 Chloride 110 mmol/L (98-107) H 08/04/18 04:25 Carbon Dioxide 32 mmol/L (22-30) H 08/04/18 04:25 Anion Gap 4 mmol/L 08/04/18 04:25 BUN 29 mg/dL (9-20) H 08/04/18 04:25 Creatinine 0.75 mg/dL (0.66-1.25) 08/04/18 04:25 Est GFR (CKD-EPI)AfAm >90 (>60 ml/min/1.73 sqM) 08/04/18 04:25 Est GFR (CKD-EPI)NonAf >90 (>60 ml/min/1.73 sqM) 08/04/18 04:25 Glucose 135 mg/dL (74-99) H 08/04/18 04:25 POC Glucose (mg/dL) 130 mg/dL (75-99) H 08/04/18 20:17 POC Glu Manager Billing Jessica Figueroa 08/04/18 20:[address] Glu mg/dL 151 07/31/18 04:28 Hemoglobin A1c 6.9 % (4.0-6.0) H 07/31/18 04:28 Lactic Ac Sepsis Rflx Y 07/30/18 12:03 Plasma Lactic Acid [place] 1.4 mmol/L (0.7-2.0) 07/31/18 04:28 Calcium 8.3 mg/dL (8.4-10.2) L 08/04/18 04:25 Phosphorus 3.1 mg/dL (2.5-4.5) 08/03/18 05:15 Magnesium 2.7 mg/dL (1.6-2.3) H 08/04/18 20:25 Total Bilirubin 0.7 mg/dL (0.2-1.3) 08/04/18 04:25 AST 41 U/L (17-59) 08/04/18 04:25 ALT 36 U/L (21-72) 08/04/18 04:25 Alkaline Phosphatase 129 U/L (38-126) H 08/04/18 04:25 Ammonia 12 umol/L (<30) 07/30/18 15:34 Troponin I <0.012 ng/mL (0.000-0.034) 07/30/18 11:23 C-Reactive Protein 245.0 mg/L (<10.0) H 07/30/18 15:34 Total Protein 4.6 g/dL (6.3-8.2) L 08/04/18 04:25 Albumin 2.2 g/dL (3.5-5.0) L 08/04/18 04:25 Lipase <10 U/L (23-300) L 07/31/18 04:28 Urine Color Yellow 07/30/18 11:23 Urine Appearance Clear (Clear) 07/30/18 11:23 Urine pH 6.0 (5.0-8.0) 07/30/18 11:23 Ur Specific [place] >1.050 (1.001-1.035) H 07/30/18 11:23 Urine Protein Trace (Negative) H 07/30/18 11:23 Urine Glucose (UA) Trace (Negative) H 07/30/18 11:23 Urine Ketones Negative (Negative) 07/30/18 11:23 Urine Blood Trace (Negative) H 07/30/18 11:23 Urine Nitrite Negative (Negative) 07/30/18 11:23 Urine Bilirubin Negative (Negative) 07/30/18 11:23 Urine Urobilinogen <2.0 mg/dL (<2.0) 07/30/18 11:23 Ur Leukocyte Esterase Trace (Negative) H 07/30/18 11:23 Urine RBC 8 /hpf (0-5) H 07/30/18 11:23 Urine WBC 4 /hpf (0-5) 07/30/18 11:23 Urine Mucus Rare /hpf (None) H 07/30/18 11:23 CSF Tube Number 2 07/30/18 17:30 CSF Volume 0.25 07/30/18 17:30 CSF Appearance Hazy 07/30/18 17:30 CSF Color Xanthochromic 07/30/18 17:30 CSF RBC 965 u/L (0-10) H 07/30/18 17:30 CSF Tot Nucleated Cells 1415 u/L (0-5) H* 07/30/18 17:30 CSF Mononuclear WBCs % 8 % 07/30/18 17:30 CSF Polynuclear WBCs % 92 % 07/30/18 17:30 CSF Crenated Cells 0 % 07/30/18 17:30 CSF Fresh RBCs 100 % 07/30/18 17:30 CSF Glucose 29 mg/dL (40-70) L* 07/30/18 17:30 CSF Total Protein >600 mg/dL (12-60) H 07/30/18 17:30 CSF VDRL Titer TNP 07/30/18 17:30 CSF VDRL Nonreactive (Nonreactive) 07/30/18 17:30 Vancomycin Trough 16.6 ug/mL 08/03/18 14:55 Salicylates <1.0 mg/dL 07/30/18 15:34 Urine Opiates Screen Detected (NotDetected) H 07/30/18 12:43 Ur Oxycodone Screen Detected (NotDetected) H 07/30/18 12:43 Urine Methadone Screen Not Detected (NotDetected) 07/30/18 12:43 Ur Propoxyphene Screen Not Detected (NotDetected) 07/30/18 12:43 Acetaminophen <10.0 ug/mL 07/30/18 15:34 Ur Barbiturates Screen Not Detected (NotDetected) 07/30/18 12:43 U Tricyclic Antidepress Detected (NotDetected) H 07/30/18 12:43 Ur Phencyclidine Scrn Not Detected (NotDetected) 07/30/18 12:43 Ur Amphetamines Screen Not Detected (NotDetected) 07/30/18 12:43 U Methamphetamines Scrn Not Detected (NotDetected) 07/30/18 12:43 U Benzodiazepines Scrn Detected (NotDetected) H 07/30/18 12:43 Urine Cocaine Screen Not Detected (NotDetected) 07/30/18 12:43 U Marijuana (THC) Screen Not Detected (NotDetected) 07/30/18 12:43 HSV I DNA PCR Not detected (Not detected) 07/30/18 17:30 HSV II DNA PCR Not detected (Not detected) 07/30/18 17:30 HSV (PCR) Source 07/30/18 17:30 Influenza Type A RNA Not Detected (Not Detectd) 07/30/18 13:35 Influenza Type B (PCR) Not Detected (Not Detectd) 07/30/18 13:35 Blood Type O Positive 07/30/18 11:23 Blood Type Confirm O Positive 07/30/18 12:39 Blood Type Recheck CABO Indicated 07/30/18 11:23 Antibody Screen NEGATIVE 07/30/18 11:23 Spec Expiration Date 08/02/2018232207/30/18 11:23 Microbiology 08/03/18 17:16 Blood Blood Culture Gram Stain - Preliminary 08/03/18 17:16 Blood Blood Culture - Final 08/01/18 05:40 Blood Blood Culture Gram Stain - Final 08/01/18 05:40 Blood Blood Culture - Final Staph aureus 08/03/18 17:55 Urine,Catheterized Urine Culture - Preliminary 08/01/18 06:00 Blood Blood Culture Gram Stain - Final 08/01/18 06:00 Blood Blood Culture - Final Staphylococcus aureus 08/01/18 05:40 Blood Blood Culture - Final 07/31/18 00:15 Sputum Gram Stain - Final 07/31/18 00:15 Sputum Sputum Culture - Final Staphylococcus aureus 07/30/18 20:45 Blood Blood Culture Gram Stain - Final 07/30/18 20:45 Blood Blood Culture - Final Staphylococcus aureus 07/30/18 20:45 Blood Blood Culture Gram Stain - Final 07/30/18 20:45 Blood Blood Culture - Final Staphylococcus aureus 08/01/18 06:00 Blood Blood Culture - Final 07/30/18 15:34 Blood Blood Culture Gram Stain - Final 07/30/18 15:34 Blood Blood Culture - Final Staphylococcus aureus 07/30/18 17:30 Cerebral Spinal Fluid CSF Gram Stain - Final 07/30/18 17:30 Cerebral Spinal Fluid CSF Culture - Final Staphylococcus aureus 07/30/18 12:43 Urine,Clean Catch Urine Culture - Final Staphylococcus aureus 07/30/18 20:45 Blood Blood Culture - Final 07/30/18 20:45 Blood Blood Culture - Final 07/30/18 15:34 Blood Blood Culture - Final Assessment and Plan (1) Abdominal pain Current Visit: Yes Status: Acute Code(s): R10.9 - UNSPECIFIED ABDOMINAL PAIN SNOMED Code(s): 53855526 (2) Acute exacerbation of chronic low back pain Current Visit: Yes Status: Acute Code(s): M54.5 - LOW BACK PAIN; G89.29 - OTHER CHRONIC PAIN SNOMED Code(s): 372084838 (3) Altered mental status Narrative/Plan: 53-year-old male presents to hospital with progressive symptoms over the 5 days before admission. Approximately 3 days prior he been in the emergency center with complaints of ongoing abdominal pain. There is evidence of some constipation at that point in time and patient was symptomatically treated. However he now has a great difficulties with ongoing abdominal pain worsening back pain and now while in the emergency center the altered mental status developed. Because of these findings in the leukocytosis lumbar puncture was performed the reveals a markedly abnormal fluid. There were 1415 white blood cells, 965 red blood cells, glucose was 29 and protein was greater than 600 with some xanthochromia being seen. The Gram stain is personally reviewed without evidence of any bacterial pathogens being seen. At this time the patient has evidence of bacterial meningitis with evidence of a systemic inflammatory response, leukocytosis, lactic acidosis, hypoglycorrhachia and evidence of marked elevated protein of the CSF. Without evidence of gram- negative organisms seen on the Gram stain is unlikely the patient has no severe meningitidis in no prophylaxis is given to visitors or to the care team here at the hospital. This will be with ongoing review. At this time cultures are in process however antimicrobial therapy is being utilized with concerns to multiple potential pathogens which would include Streptococcus pneumoniae, listeria meningitis which is of some great concern given the patient's history of alcohol use and what appears to be high doses of steroids as of late. Constantly for antibiotic therapy high doses of ampicillin, ceftriaxone and vancomycin are being utilized. Although I do not suspect brain abscess the patient does have potential intra-abdominal pathology with a dilated colon and constantly metronidazole is added to the ceftriaxone for treatment of potential intra-abdominal infection also. Cultures are all in process at this point in time he may further help direct antimicrobial therapy in the near future. Fortunately with hydration and initiation of some metabolic therapy his mentation seems to be a bit improved and as described in the emergency center. The case as directed we discussed with the surgeon and at this time no acute indication for surgical intervention to the abdomen at this time, treatment for constipation is in process. Also discussed with the hospitalist as far as the course of treatment for the meningitis and follow-up. 07/31/2018 the patient remains in intensive care unit, has now been intubated mechanically ventilated and is sedated and paralyzed later to improve synchrony with the ventilator. There is now evidence of positive blood culture, positive urine culture, and positive CSF culture for staph aureus. Laboratory has yet to definitively determine MSSA versus MRSA. However noted a pathogen has been identified ampicillin can be discontinued since it is not likely that this is listeria . Continue vancomycin, Rocephin and metronidazole. Although patient does have meningitis there is still concerned about an intra-abdominal process and consequently Rocephin and Flagyl would give coverage for that. Follow blood cultures are requested to determine the clearance of his bacteremia. Patient did have an outpatient computed tomography scan of the spine without evidence of discitis or osteomyelitis. A parameningeal focus of infection is still in consideration, but no evidence of that by the imaging studies to date. 08/01/2018 patient remains in intensive care unit intubated state and mechanically ventilated. There has been some improvement. He is no longer hypotensive actually is hypertensive and cleviprex has been added. Oxygenation is adequate Leukocytosis continues with response to his MSSA sepsis, bacteremia, and meningitis. Patient did have a computed tomography scan of the spine on 07/27/2018 without evidence of discitis or osteomyelitis of the spine. CT of the brain without intracranial abscess Patient has evidence of MSSA meningitis and sepsis currently being treated with Rocephin, vancomycin and Flagyl. The patient did have complaints of stabbing abdominal pain at admission and is being followed by surgery and since there is a concern for potential intra-abdominal process also the metronidazole continues for now Once the blood cultures are finalized vancomycin will likely be discontinued at that time. 08/03/2018 patient has now become febrile again and remains intubated, sedated and mechanically ventilated and paralyzed requiring Cleviprex. Blood cultures continue to have ongoing MSSA. Imaging studies of failed to find any distinct abscess related to his unremitting infection and bacteremia. However the most recent computed tomography scan does show evidence of bibasilar infiltrates With MSSA vancomycin will be discontinued. Continue the high-dose ceftriaxone. Flagyl has been utilized in conjunction with Rocephin for potential intra-abdominal sepsis. Given the lack of improvement of the bacteremia, and now the changes in the pulmonary status, we'll plan to discontinue metronidazole initiating meropenem in addition to the ceftriaxone. Goals for potential synergistic reaction between the 2 agents to clear the staph aureus bacteremia, treated underlying pneumonia, and will remove the need for metronidazole for treatment of intra- abdominal infection. We'll obtain some follow-up blood cultures. Prognosis is very poor. 08/04/2018 patient's fever has now improved. As noted the echocardiogram was mildly abnormal and EZ has been requested to evaluate the possibility of endocarditis. Patient continues to have positive blood cultures. However antibiotic therapy was altered yesterday and await if there is no further improvement in his status. Would consider follow-up computed tomography scan of the head if there is any further fever. Continue antibiotic therapy with Rocephin meropenem at this time. Current Visit: Yes Status: Acute Code(s): R41.82 - ALTERED MENTAL STATUS, UNSPECIFIED SNOMED Code(s): 325209437 (4) SIRS (systemic inflammatory response syndrome) Current Visit: Yes Status: Acute Code(s): R65.10 - SIRS OF NON-INFECTIOUS ORIGIN W/O ACUTE ORGAN DYSFUNCTION SNOMED Code(s): 511295253
[2018-08-04] MEDS: POTASSIUM CHLORIDE 10 MEQ in WATER FOR INJECTION 1 100ML.BAG IVPB SCH ×2 (22:53→23:59)
[2018-08-04 23:16] LABS: Glucose,Whole Blood 124 mg/dL (75-99)
[2018-08-05] MEDS: fentaNYL (PF) 1,000 MCG in SODIUM CHLORIDE 0.9% 80 ML IV SCH ×3 (00:05→20:00)
[2018-08-05] MEDS: CISATRACURIUM 200 MG in SODIUM CHLORIDE 0.9% 180 ML IV SCH ×4 (02:00→21:46)
[2018-08-05 02:44] LABS: Glucose,Whole Blood 130 mg/dL (75-99)
[2018-08-05] MEDS: METOPROLOL TARTRATE 5 MG/5 ML VIAL IVP PRN ×2 (03:08→17:46)
[2018-08-05] MEDS: IPRATROPIUM-ALBUTEROL 3 ML NEB INHALATION SCH ×6 (03:23→23:38)
[2018-08-05 04:09] LABS: Glucose,Whole Blood 154 mg/dL (75-99)
[2018-08-05] MEDS: PROPOFOL 1,000 MG in EMPTY BAG 1 BAG IV SCH ×5 (04:35→21:51)
[2018-08-05] MEDS: ARTIFICIAL TEARS-HYPROMELLOSE DROPS 15 ML BTL BOTH EYES SCH ×6 (04:35→23:31)
[2018-08-05 04:46] LABS: ABG Base Excess 10.3 mmol/L; ABG HCO3 36 mmol/L (21-25); ABG Oxygen Saturation 95.6 % (94-97); ABG PCO2 60 mmHg (35-45); ABG PH 7.38 (7.35-7.45); ABG PO2 78 mmHg (83-108); ABG TCO2 37 mmol/L (19-24)
[2018-08-05 05:38] LABS: HCT 36.9 % (39.0-53.0); HGB 12.4 gm/dL (13.0-17.5); Hypochromasia Slight; MCH 33.9 pg (25.0-35.0); MCHC 33.7 g/dL (31.0-37.0); MCV 100.6 fL (80.0-100.0); Macrocytosis Slight; Mean Platelet Volume 9.1; Platelet Count 254 k/uL (150-450); RBC 3.67 m/uL (4.30-5.90); RDW 14.4 % (11.5-15.5); WBC 19.7 k/uL (3.8-10.6)
[2018-08-05 05:47] LABS: ALT 31 U/L (21-72); AST 34 U/L (17-59); Albumin 2.2 g/dL (3.5-5.0); Alkaline Phosphatase 114 U/L (38-126); Anion Gap 3 mmol/L; Blood Urea Nitrogen 26 mg/dL (9-20); Calcium 8.3 mg/dL (8.4-10.2); Carbon Dioxide 33 mmol/L (22-30); Chloride 109 mmol/L (98-107); Glucose 140 mg/dL (74-99); Potassium 4.3 mmol/L (3.5-5.1); Sodium 145 mmol/L (137-145); Total Bilirubin 0.6 mg/dL (0.2-1.3); Total Protein 4.7 g/dL (6.3-8.2)
[2018-08-05] MEDS: ACETAMINOPHEN IV (For NPO) 1,000 MG in EMPTY BAG 1 BAG IVPB PRN ×2 (05:58→18:32)
[2018-08-05 06:05] LABS: Glucose,Whole Blood 140 mg/dL (75-99)
[2018-08-05] MEDS: THIAMINE 100 MG in SODIUM CHLORIDE 0.9% 100 ML IVPB SCH ×2 (06:30→21:44)
[2018-08-05 07:03] LABS: Glucose,Whole Blood 132 mg/dL (75-99)
[2018-08-05 08:04] LABS: Glucose,Whole Blood 136 mg/dL (75-99)
--- NOTE | 2018-08-05 08:06 | XR ---
EXAMINATION TYPE: XR chest 1V portable DATE OF EXAM: 08/05/2018 COMPARISON: 08/04/2018 HISTORY: Tube placement TECHNIQUE: Single frontal view of the chest is obtained. FINDINGS: ET and NG tubes stable. Bilateral consolidation and pleural effusion noted. There is no pn eumothorax. Interstitial pattern seen. Heart size stable. IMPRESSION: Bilateral consolidation and pleural effusion correlate for CHF versus pneumonia.
[2018-08-05] MEDS: HEPARIN SODIUM,PORCINE 5,000 UNIT/ML 1 ML VIAL SQ SCH ×2 (08:14→21:45)
[2018-08-05] MEDS: PANTOPRAZOLE 40 MG/10 ML VIAL IV SCH (08:14)
[2018-08-05] MEDS: CHLORHEXIDINE GLUCONATE 15 ML CUP MUCOUS MEM SCH ×2 (08:15→21:45)
[2018-08-05] MEDS: MEROPENEM 2 GM in SODIUM CHLORIDE 0.9% 100 ML IVPB SCH ×3 (08:15→23:31)
[2018-08-05 08:20] LABS: Band Neutrophils % 6 %; Lymphocytes # (M) 0.99 k/uL (1.0-4.8); Metamyelocytes # (M) 0.59 k/uL (0); Metamyelocytes % 3 %; Myelocytes # (M) 0.59 k/uL (0); Myelocytes % 3 %; Neutrophils % (M) 83 %; Nucleated Red Blood Cells 0 /100 WBC (0-0); Total Cells Counted 200
[2018-08-05 08:22] LABS: Poikilocytosis (M) Present
--- NOTE | 2018-08-05 09:34 | XR ---
EXAMINATION TYPE: XR knee limited LT DATE OF EXAM: 08/05/2018 COMPARISON: NONE HISTORY: Pain TECHNIQUE: Four views are submitted. FINDINGS: Joint spaces are preserved. Osseous structures are intact. No acute fracture seen. Postsurgical ch anges are noted and there is diffuse osteopenia with narrowing of the knee joint and patellofemoral j oint. There is a suprapatellar bursal fluid collection. IMPRESSION: 1. Suprapatellar bursal fluid collection correlate clinically.
--- NOTE | 2018-08-05 10:04 | PN ---
PROGRESS NOTE DATE OF SERVICE: August 05, 2018 This 53-year-old gentleman who was seen by my partner 5 days ago in consultation. He presented to the hospital with acute hypoxemic respiratory failure secondary to both pneumonia and acute meningitis caused by Staph aureus. Blood, urine, sputum and CSF cultures have all been positive for Staph. He was placed on mechanical ventilation for hypoxemic respiratory failure on july 31 and has remained on mechanical ventilation since. We attempted to wean him off his paralysis, but that has been unsuccessful. He also presented initially with mental status changes, secondary to meningitis, positive drug screen for narcotic as well as both abdominal and back pain. He did have a transesophageal echocardiogram which was negative. His left knee is a bit swollen and inflamed and erythematous and we are doing a left knee x-ray. His cultures remain positive. The patient remains on the volume assist-control mode rate of 28, tidal volume 480, FiO2 50%, PEEP of 15. Blood gases show pO2 of 78, pCO2 of 60, pH 7.38. The patient remains on IVs of insulin at 1 unit an hour, Nimbex at 2 mcg/kg per minute, Diprivan at 75 mcg/kg per minute, 0.45 at 100 mL an hour, fentanyl 100 mcg/hour and Vital high-protein at 20. We have been dealing with significant constipation and fecal stasis. He was given lactulose without benefit. He will be given it again. He is currently on Merrem and Rocephin as per ID. I have had conversations with his sister, Nhi. Current vital signs reviewed. Temperature 101.5, heart rate 129, respiratory rate 28, blood pressure 122/75, saturations in the low to mid 90s and FiO2 60% with a PEEP of 15. Appears in no acute distress. Currently sedated and paralyzed. HEENT examination is grossly unremarkable. Mucous membranes are moist. There is an orally placed endotracheal tube. NECK: Supple. Full range of motion. No adenopathy or thyromegaly. Neck veins are flat. Cardiovascular examination reveals tachycardia. Heart rate about 125 to 130. S1, S2 normal. Lungs reveal diffusely diminished breath sounds. There is a few scattered rhonchi. No wheezes or crackles. Breath sounds are unchanged. Abdomen is soft. Bowel sounds are heard. Extremities are intact. There is some livedo reticularis. The left knee is somewhat inflamed with possible effusion. It is mildly erythematous and warm. Skin without rash otherwise. Neurologic examination is difficult to assess. Microbiology is checked. There has been no changes there. White count 19.7, hemoglobin 12.4, hematocrit 36.9, and platelet count 254,000. Sodium 145, potassium 4.3, chloride 109, CO2 of 33. Anion gap is normal. BUN and creatinine were 26 and 0.63. Medications are reviewed. Left knee x-ray shows a suprapatellar bursal fluid collection. Chest x-ray shows diffuse bilateral infiltrates, right greater than left, and bilateral effusions right greater than left. This could be related to consolidation infiltrates, atelectasis or pneumonia. ASSESSMENT: 1. Acute hypoxemic respiratory failure secondary to pneumonia and acute meningitis caused by oxacillin sensitive Staphylococcus aureus, requiring intubation and mechanical ventilation on July 31. 2. Oxacillin sensitive Staphylococcus aureus sepsis with bacteremia, meningitis. 3. Acute bacterial meningitis secondary to oxacillin sensitive Staphylococcus aureus. 4. Diffuse abdominal pain on admission. 5. Mental status changes on admission likely secondary to meningitis/sepsis. 6. Positive drug screen secondary to narcotics. 7. Lactic acidosis, resolved. 8. History of chronic pain syndrome. 9. Negative transesophageal echocardiogram. PLAN: The patient's transesophageal echocardiogram was negative. He should have drainage of that left knee. The patient will be maintained on the ventilator. No additional recommendations are made. He is on Rocephin and Merrem. Additional recommendations and suggestions are forthcoming. He will continue with tube feeds. We will give him some additional lactulose today. Overall prognosis remains poor. I talked to his sister again today. CRITICAL CARE TIME: 37 minutes. MMODL / IJN: [id number] /
[2018-08-05] MEDS: IBUPROFEN IV 800 MG in SODIUM CHLORIDE 0.9% 250 ML IV PRN (10:11)
[2018-08-05 11:05] LABS: Glucose,Whole Blood 137 mg/dL (75-99)
[2018-08-05] MEDS ORDERED: LACTULOSE 20 GM/30 ML CUP PO ONE (11:26)
[2018-08-05 12:18] LABS: Glucose,Whole Blood 132 mg/dL (75-99)
[2018-08-05] MEDS: MULTIVITAMINS, THERA 1 EACH TAB PO SCH (12:36)
[2018-08-05 13:33] VITALS: BMI 42.9
--- NOTE | 2018-08-05 13:39 | P.PN ---
Subjective Progress Note Date: 08/05/18 Principal diagnosis: sepsis, SIRS, meningitis, abdominal distention The patient remains sedated on the ventilator. According to nursing there is been no bowel function yet. He is tolerating tube feedings at 20 mL's an hour. Objective - Vital Signs Vital signs: Vital Signs Temp 101.5 F H 08/05/18 08:00 Pulse 120 H 08/05/18 11:15 Resp 28 H 08/05/18 11:00 BP 138/98 08/01/18 19:00 Pulse Ox 95 08/05/18 11:00 Intake & Output 08/04/18 08/05/18 08/05/18 18:59 06:59 18:59 Intake Total 5603.890 4201.524 880 Output Total 2400 1585 1195 Balance -408.686 346.524 -315 Weight 135.6 kg 135.6 kg Intake: IV 1300 1550 600 ACETAMINOPHEN IV (For NPO 100 ) 1,000 mg In Empty Bag 1 bag @ 400 mls/hr IVPB Q6HR PRN Rx#:[id number] Potassium Chloride 10 meq 200 In Water For Injection 1 100ml.bag @ 100 mls/hr IVPB Q1H TOY Rx#: [id number] Sodium Chloride 0.45% 1, 1300 1100 600 000 ml @ 100 mls/hr IV . Q10H TOY Rx#:[id number] Thiamine 100 mg In Sodium 100 Chloride 0.9% 100 ml @ 202 mls/hr IVPB Q12H TOY Rx#:[id number] cefTRIAXone 2 gm In 50 Sodium Chloride 0.9% 50 ml @ 100 mls/hr IVPB Q12HR TOY Rx#:[id number] Intake, IV Titration 691.314 381.524 200 Amount Cisatracurium 200 mg In 192.640 103.766 Sodium Chloride 0.9% 180 ml @ 4 MCG/KG/MIN 28.824 mls/hr IV .Q6H57M TOY Rx# :[id number] Insulin Regular 100 unit 24.758 In Sodium Chloride 0.9% 100 ml @ Per Protocol IV .Q0M TOY Rx#:[id number] Propofol 1,000 mg In 398.674 200 100 Empty Bag 1 bag @ Titrate IV .Q0M TOY Rx#: [id number] fentaNYL (PF) 1,000 mcg 100 53 100 In Sodium Chloride 0.9% 80 ml @ 100 MCG/HR 10 mls /hr IV .Q10H [facility] Rx#: [id number] Tube Feeding 80 Output: Gastric Drainage 300 Urine 2400 1585 895 Other: Voiding Method Indwelling Catheter Indwelling Catheter Indwelling Catheter ABP, PAP, CO, CI - Last Documented Arterial Blood Pressure 102/61 - Constitutional Constitutional Comment(s): Sedated - Respiratory Respiratory: bilateral: rhonchi - Cardiovascular Rhythm: other (Tachycardic, regular rhythm) - Gastrointestinal General gastrointestinal: Present: absent bowel sounds, distended (But softer than earlier in the week. No masses. ) - Integumentary Integumentary Comment(s): The mottling on his abdomen and legs has improved. Around the left knee there is erythema and swelling. This was aspirated earlier today. Fluid was sent for culture. - Labs CBC & Chem 7: 08/05/18 04:45 08/05/18 04:45 Labs: Abnormal Lab Results - Last 24 Hours (Table) 08/04/18 08/04/18 08/04/18 Range/Units 15:33 17:09 20:17 WBC (3.8-10.6) k/uL RBC (4.30-5.90) m/uL Hgb (13.0-17.5) gm/dL Hct (39.0-53.0) % MCV (80.0-100.0) fL Neutrophils # (Manual) (1.3-7.7) k/uL Lymphocytes # (Manual) (1.0-4.8) k/uL Metamyelocytes # (Man) (0) k/uL Myelocytes # (Manual) (0) k/uL ABG pCO2 (35-45) mmHg ABG pO2 (83-108) mmHg ABG HCO3 (21-25) mmol/L ABG Total CO2 (19-24) mmol/L Chloride (98-107) mmol/L Carbon Dioxide (22-30) mmol/L BUN (9-20) mg/dL Creatinine (0.66-1.25) mg/dL Glucose (74-99) mg/dL POC Glucose (mg/dL) 129 H 132 H 130 H (75-99) mg/dL Calcium (8.4-10.2) mg/dL Magnesium (1.6-2.3) mg/dL Total Protein (6.3-8.2) g/dL Albumin (3.5-5.0) g/dL 08/04/18 08/04/18 08/05/18 Range/Units 20:25 23:02 02:42 WBC (3.8-10.6) k/uL RBC (4.30-5.90) m/uL Hgb (13.0-17.5) gm/dL Hct (39.0-53.0) % MCV (80.0-100.0) fL Neutrophils # (Manual) (1.3-7.7) k/uL Lymphocytes # (Manual) (1.0-4.8) k/uL Metamyelocytes # (Man) (0) k/uL Myelocytes # (Manual) (0) k/uL ABG pCO2 (35-45) mmHg ABG pO2 (83-108) mmHg ABG HCO3 (21-25) mmol/L ABG Total CO2 (19-24) mmol/L Chloride (98-107) mmol/L Carbon Dioxide (22-30) mmol/L BUN (9-20) mg/dL Creatinine (0.66-1.25) mg/dL Glucose (74-99) mg/dL POC Glucose (mg/dL) 124 H 130 H (75-99) mg/dL Calcium (8.4-10.2) mg/dL Magnesium 2.7 H (1.6-2.3) mg/dL Total Protein (6.3-8.2) g/dL Albumin (3.5-5.0) g/dL 08/05/18 08/05/18 08/05/18 Range/Units 03:54 04:40 04:45 WBC 19.7 H (3.8-10.6) k/uL RBC 3.67 L (4.30-5.90) m/uL Hgb 12.4 L (13.0-17.5) gm/dL Hct 36.9 L (39.0-53.0) % MCV 100.6 H (80.0-100.0) fL Neutrophils # (Manual) 17.50 H (1.3-7.7) k/uL Lymphocytes # (Manual) 0.99 L (1.0-4.8) k/uL Metamyelocytes # (Man) 0.59 H (0) k/uL Myelocytes # (Manual) 0.59 H (0) k/uL ABG pCO2 60 H (35-45) mmHg ABG pO2 78 L (83-108) mmHg ABG HCO3 36 H (21-25) mmol/L ABG Total CO2 37 H (19-24) mmol/L Chloride (98-107) mmol/L Carbon Dioxide (22-30) mmol/L BUN (9-20) mg/dL Creatinine (0.66-1.25) mg/dL Glucose (74-99) mg/dL POC Glucose (mg/dL) 154 H (75-99) mg/dL Calcium (8.4-10.2) mg/dL Magnesium (1.6-2.3) mg/dL Total Protein (6.3-8.2) g/dL Albumin (3.5-5.0) g/dL 08/05/18 08/05/18 08/05/18 Range/Units 04:45 06:03 06:59 WBC (3.8-10.6) k/uL RBC (4.30-5.90) m/uL Hgb (13.0-17.5) gm/dL Hct (39.0-53.0) % MCV (80.0-100.0) fL Neutrophils # (Manual) (1.3-7.7) k/uL Lymphocytes # (Manual) (1.0-4.8) k/uL Metamyelocytes # (Man) (0) k/uL Myelocytes # (Manual) (0) k/uL ABG pCO2 (35-45) mmHg ABG pO2 (83-108) mmHg ABG HCO3 (21-25) mmol/L ABG Total CO2 (19-24) mmol/L Chloride 109 H (98-107) mmol/L Carbon Dioxide 33 H (22-30) mmol/L BUN 26 H (9-20) mg/dL Creatinine 0.63 L (0.66-1.25) mg/dL Glucose 140 H (74-99) mg/dL POC Glucose (mg/dL) 140 H 132 H (75-99) mg/dL Calcium 8.3 L (8.4-10.2) mg/dL Magnesium (1.6-2.3) mg/dL Total Protein 4.7 L (6.3-8.2) g/dL Albumin 2.2 L (3.5-5.0) g/dL 08/05/18 08/05/18 08/05/18 Range/Units 08:01 11:02 12:04 WBC (3.8-10.6) k/uL RBC (4.30-5.90) m/uL Hgb (13.0-17.5) gm/dL Hct (39.0-53.0) % MCV (80.0-100.0) fL Neutrophils # (Manual) (1.3-7.7) k/uL Lymphocytes # (Manual) (1.0-4.8) k/uL Metamyelocytes # (Man) (0) k/uL Myelocytes # (Manual) (0) k/uL ABG pCO2 (35-45) mmHg ABG pO2 (83-108) mmHg ABG HCO3 (21-25) mmol/L ABG Total CO2 (19-24) mmol/L Chloride (98-107) mmol/L Carbon Dioxide (22-30) mmol/L BUN (9-20) mg/dL Creatinine (0.66-1.25) mg/dL Glucose (74-99) mg/dL POC Glucose (mg/dL) 136 H 137 H 132 H (75-99) mg/dL Calcium (8.4-10.2) mg/dL Magnesium (1.6-2.3) mg/dL Total Protein (6.3-8.2) g/dL Albumin (3.5-5.0) g/dL Microbiology - Last 24 Hours (Table) 08/04/18 04:25 Blood Culture Gram Stain - Preliminary Blood 08/04/18 04:25 Blood Culture - Final Blood 08/03/18 17:55 Urine Culture - Final Urine,Catheterized 08/03/18 17:16 Blood Culture Gram Stain - Preliminary Blood Blood Culture - Preliminary Presumptive Staph aureus 08/03/18 17:16 Blood Culture - Final Blood Assessment and Plan (1) Lactic acidosis Current Visit: Yes Status: Acute Code(s): E87.2 - ACIDOSIS SNOMED Code(s): 58790149 (2) Leukocytosis Current Visit: Yes Status: Acute Code(s): D72.829 - ELEVATED WHITE BLOOD CELL COUNT, UNSPECIFIED SNOMED Code(s): 567030950 (3) SIRS (systemic inflammatory response syndrome) Current Visit: Yes Status: Acute Code(s): R65.10 - SIRS OF NON-INFECTIOUS ORIGIN W/O ACUTE ORGAN DYSFUNCTION SNOMED Code(s): 818573888 (4) Colon distention Current Visit: Yes Status: Acute Code(s): K63.89 - OTHER SPECIFIED DISEASES OF INTESTINE SNOMED Code(s): 416908829 (5) Meningitis Current Visit: Yes Status: Acute Code(s): G03.9 - MENINGITIS, UNSPECIFIED SNOMED Code(s): 7551613 (6) Sepsis Current Visit: Yes Status: Acute Code(s): A41.9 - SEPSIS, UNSPECIFIED ORGANISM SNOMED Code(s): 94157632 Plan: Will give the patient scheduled lactulose for the next few days. Slowly increase the tube feedings. Blood cultures from yesterday are still positive. Prognosis is poor.
[2018-08-05 14:07] LABS: Glucose,Whole Blood 130 mg/dL (75-99)
[2018-08-05] MEDS: NOREPINEPHRINE 32 MG in SODIUM CHLORIDE 0.9% 218 ML IV SCH (17:54)
[2018-08-05] MEDS: SODIUM CHLORIDE 0.45% 1,000 ML IV SCH ×2 (17:55→19:00)
[2018-08-05 18:21] LABS: Glucose,Whole Blood 123 mg/dL (75-99)
[2018-08-05] MEDS: LACTULOSE 20 GM/30 ML CUP PO SCH (21:45)
[2018-08-05 22:25] LABS: Glucose,Whole Blood 124 mg/dL (75-99)
--- NOTE | 2018-08-05 22:47 | P.PN ---
Subjective Progress Note Date: 08/05/18 53-year-old male presents to the emergency center with ongoing difficulties with abdominal pain and back pain. Approximate 5 days prior he developed worsening amounts of back pain and was taking some medication for it. 3 days prior to this admission he did come to the emergency center with com plaints of back and abdominal pain. Imaging studies were performed and there was evidence of some colonic dilatation without other acute concern there was no diverticulitis or free air. During the time in the emergency center the patient's status worsened. His mental status altered, although he did not have evidence of high-grade fever there was leukocytosis. Given that the imaging studies were not acutely different, the patient underwent lumbar puncture. This material was markedly abnormal and with evidence of the significant white blood cells of the CSF the infectious diseases consultation was requested. The patient was transferred to the intensive care unit. At this time the patient is sitting upright in the intensive care unit. He is awake and alert, the visitors in the room relate that he is more cognizant than he was in the emergency center. The patient however continues to have a altered affect. Of note drug screen is positive admission for opiates, oxycodone, benzodiazepines, tricyclics. At the time of the call the patient's CSF material was evaluated personally in t he laboratory. An extensive pleocytosis was seen but no evidnece of bacteria were noted. The smears were reviewed with the lab techs and no bacteria was seen. Of note the medication list from the emergency center is reviewed and there is a notation on prednisone 50 mg a day. 07/31/2018 the patient remains in intensive care unit now is intubated sedated and mechanically ventilated but seems to be more stable today than yesterday. Still seems to be somewhat uncomfortable and further steps are being taken to improve his discomfort and likely paralysis to improve his coordination with the ventilator. Has ongoing leukocytosis, no evidence of renal failure. Not on vasopressor therapy at this time. Laboratories during to identify staph aureus in cultures 08/01/2018 patient remains intubated sedated and mechanically ventilated. Hemodynamically he is become hypertension and cleviprexl has been started. Patient is sedated and comfortable, synchronous with the ventilator. No further fevers today. 08/03/2018 patient remains profoundly ill, intubated sedated and mechanically ventilated on Cleviprex therapy. Despite antibiotic therapy is continued to have positive blood cultures and has had some further fevers again today. He's been followed by surgery and a computed tomography scan of abdomen and pelvis was performed without evidence of any acute perforation tumor mass. Does have retained stool. The computed tomography scan does show evidence of worsening bibasilar infiltrates. 08/04/2018 patient remains in intensive care unit intubated, sedated and mechanically ventilated hemodynamically stable. No increased needs on the ventilator have been noted. Urine output is adequate. Cleviprex has been discontinued. Patient however was having ongoing fevers. Antibiotic changes occurred yesterday. Given the concerns with persistent bacteremia echocardiogram was performed potential abnormality and cardiology's been consulted for EZ. No other acute changes are noted. 08/05/2018 H remains intubated sedated mechanically ventilated he is not on vasopressor therapy. EZ has been performed without evidence of endocarditis Patient has had ongoing fever after a 12 hour span of improved fever. There is concerns to some swelling to the left knee and constantly and aspiration was performed workup is in process. Patient continues to have evidence of positive cultures. Objective - Vital Signs Vital signs: Vital Signs Temp 101.6 F H 08/05/18 16:30 Pulse 118 H 08/05/18 20:42 Resp 35 H 08/05/18 19:00 BP 138/98 08/01/18 19:00 Pulse Ox 95 08/05/18 19:00 Intake & Output 08/05/18 08/05/18 08/06/18 06:59 18:59 06:59 Intake Total 4000.741 2861 509.167 Output Total 1585 1970 130 Balance 346.524 -370 379.167 Weight 135.6 kg 135.6 kg Intake: IV 1550 1200 70 ACETAMINOPHEN IV (For NPO 100 ) 1,000 mg In Empty Bag 1 bag @ 400 mls/hr IVPB Q6HR PRN Rx#:[id number] Potassium Chloride 10 meq 200 In Water For Injection 1 100ml.bag @ 100 mls/hr IVPB Q1H TOY Rx#: [id number] Sodium Chloride 0.45% 1, 1100 1200 70 000 ml @ 100 mls/hr IV . Q10H TOY Rx#:[id number] Thiamine 100 mg In Sodium 100 Chloride 0.9% 100 ml @ 202 mls/hr IVPB Q12H TOY Rx#:[id number] cefTRIAXone 2 gm In 50 Sodium Chloride 0.9% 50 ml @ 100 mls/hr IVPB Q12HR TOY Rx#:[id number] Intake, IV Titration 381.524 300 389.167 Amount Cisatracurium 200 mg In 103.766 200 Sodium Chloride 0.9% 180 ml @ 4 MCG/KG/MIN 28.824 mls/hr IV .Q6H57M TOY Rx# :[id number] Insulin Regular 100 unit 24.758 In Sodium Chloride 0.9% 100 ml @ Per Protocol IV .Q0M TOY Rx#:[id number] Propofol 1,000 mg In 200 200 100 Empty Bag 1 bag @ Titrate IV .Q0M TOY Rx#: [id number] fentaNYL (PF) 1,000 mcg 53 100 89.167 In Sodium Chloride 0.9% 80 ml @ 100 MCG/HR 10 mls /hr IV .Q10H TOY Rx#: [id number] Tube Feeding 100 20 Other 30 Output: Gastric Drainage 300 Urine 1585 1670 130 Other: Voiding Method Indwelling Catheter Indwelling Catheter ABP, PAP, CO, CI - Last Documented Arterial Blood Pressure 123/78 - Exam 53-year-old male presents to Hospital from home with a 5 day history of progressive illness. He has had abdominal pain, back pain and now has developed the progressive discomfort with his neck and then some altered mental status. Patient has had alteration status is now intubated sedated and mechanically ventilated Fevers have recurred HEENT: Anicteric conjunctiva are pink and moist nasal mucosa grossly intact without significant lesions, there is no thrush. Neck: The neck is not rigid Lungs: Symmetrical bilateral air entry few basilar crackles Heart: Tachycardic no audible murmur click or rub Abdomen: Obese, mildly distended is only minimal tenderness upon palpation of the right upper quadrant with percussion, no palpable mass or organomegaly no rigidity and no guarding or rebound, no stooling is noted Extremities: The upper extremities have excellent pulses they are symmetric, no significant petechiae or telangiectasia. No splinter hemorrhages were noted. Without open lesions Neuro: Patient intubated sedated and mechanically ventilated and paralysis is now discontinued - Labs CBC & Chem 7: 08/05/18 04:45 08/05/18 04:45 Labs: Abnormal Lab Results - Last 24 Hours (Table) 0408/05/18 08/05/18 Range/Units 23:02 02:42 03:54 WBC (3.8-10.6) k/uL RBC (4.30-5.90) m/uL Hgb (13.0-17.5) gm/dL Hct (39.0-53.0) % MCV (80.0-100.0) fL Neutrophils # (Manual) (1.3-7.7) k/uL Lymphocytes # (Manual) (1.0-4.8) k/uL Metamyelocytes # (Man) (0) k/uL Myelocytes # (Manual) (0) k/uL ABG pCO2 (35-45) mmHg ABG pO2 (83-108) mmHg ABG HCO3 (21-25) mmol/L ABG Total CO2 (19-24) mmol/L Chloride (98-107) mmol/L Carbon Dioxide (22-30) mmol/L BUN (9-20) mg/dL Creatinine (0.66-1.25) mg/dL Glucose (74-99) mg/dL POC Glucose (mg/dL) 124 H 130 H 154 H (75-99) mg/dL Calcium (8.4-10.2) mg/dL Total Protein (6.3-8.2) g/dL Albumin (3.5-5.0) g/dL 08/05/18 08/05/18 08/05/18 Range/Units 04:40 04:45 04:45 WBC 19.7 H (3.8-10.6) k/uL RBC 3.67 L (4.30-5.90) m/uL Hgb 12.4 L (13.0-17.5) gm/dL Hct 36.9 L (39.0-53.0) % MCV 100.6 H (80.0-100.0) fL Neutrophils # (Manual) 17.50 H (1.3-7.7) k/uL Lymphocytes # (Manual) 0.99 L (1.0-4.8) k/uL Metamyelocytes # (Man) 0.59 H (0) k/uL Myelocytes # (Manual) 0.59 H (0) k/uL ABG pCO2 60 H (35-45) mmHg ABG pO2 78 L (83-108) mmHg ABG HCO3 36 H (21-25) mmol/L ABG Total CO2 37 H (19-24) mmol/L Chloride 109 H (98-107) mmol/L Carbon Dioxide 33 H (22-30) mmol/L BUN 26 H (9-20) mg/dL Creatinine 0.63 L (0.66-1.25) mg/dL Glucose 140 H (74-99) mg/dL POC Glucose (mg/dL) (75-99) mg/dL Calcium 8.3 L (8.4-10.2) mg/dL Total Protein 4.7 L (6.3-8.2) g/dL Albumin 2.2 L (3.5-5.0) g/dL 08/05/18 08/05/18 08/05/18 Range/Units 06:03 06:59 08:01 WBC (3.8-10.6) k/uL RBC (4.30-5.90) m/uL Hgb (13.0-17.5) gm/dL Hct (39.0-53.0) % MCV (80.0-100.0) fL Neutrophils # (Manual) (1.3-7.7) k/uL Lymphocytes # (Manual) (1.0-4.8) k/uL Metamyelocytes # (Man) (0) k/uL Myelocytes # (Manual) (0) k/uL ABG pCO2 (35-45) mmHg ABG pO2 (83-108) mmHg ABG HCO3 (21-25) mmol/L ABG Total CO2 (19-24) mmol/L Chloride (98-107) mmol/L Carbon Dioxide (22-30) mmol/L BUN (9-20) mg/dL Creatinine (0.66-1.25) mg/dL Glucose (74-99) mg/dL POC Glucose (mg/dL) 140 H 132 H 136 H (75-99) mg/dL Calcium (8.4-10.2) mg/dL Total Protein (6.3-8.2) g/dL Albumin (3.5-5.0) g/dL 08/05/18 08/05/18 08/05/18 Range/Units 11:02 12:04 13:51 WBC (3.8-10.6) k/uL RBC (4.30-5.90) m/uL Hgb (13.0-17.5) gm/dL Hct (39.0-53.0) % MCV (80.0-100.0) fL Neutrophils # (Manual) (1.3-7.7) k/uL Lymphocytes # (Manual) (1.0-4.8) k/uL Metamyelocytes # (Man) (0) k/uL Myelocytes # (Manual) (0) k/uL ABG pCO2 (35-45) mmHg ABG pO2 (83-108) mmHg ABG HCO3 (21-25) mmol/L ABG Total CO2 (19-24) mmol/L Chloride (98-107) mmol/L Carbon Dioxide (22-30) mmol/L BUN (9-20) mg/dL Creatinine (0.66-1.25) mg/dL Glucose (74-99) mg/dL POC Glucose (mg/dL) 137 H 132 H 130 H (75-99) mg/dL Calcium (8.4-10.2) mg/dL Total Protein (6.3-8.2) g/dL Albumin (3.5-5.0) g/dL 08/05/18 08/05/18 Range/Units 17:42 22:22 WBC (3.8-10.6) k/uL RBC (4.30-5.90) m/uL Hgb (13.0-17.5) gm/dL Hct (39.0-53.0) % MCV (80.0-100.0) fL Neutrophils # (Manual) (1.3-7.7) k/uL Lymphocytes # (Manual) (1.0-4.8) k/uL Metamyelocytes # (Man) (0) k/uL Myelocytes # (Manual) (0) k/uL ABG pCO2 (35-45) mmHg ABG pO2 (83-108) mmHg ABG HCO3 (21-25) mmol/L ABG Total CO2 (19-24) mmol/L Chloride (98-107) mmol/L Carbon Dioxide (22-30) mmol/L BUN (9-20) mg/dL Creatinine (0.66-1.25) mg/dL Glucose (74-99) mg/dL POC Glucose (mg/dL) 123 H 124 H (75-99) mg/dL Calcium (8.4-10.2) mg/dL Total Protein (6.3-8.2) g/dL Albumin (3.5-5.0) g/dL Microbiology - Last 24 Hours (Table) 08/04/18 04:25 Blood Culture Gram Stain - Preliminary Blood Blood Culture - Preliminary Presumptive Staph aureus 08/05/18 09:55 Body Fluid Culture - Preliminary Knee - Left 08/05/18 09:55 Anaerobic Culture - Preliminary Knee - Left 08/04/18 04:25 Blood Culture - Final Blood 08/03/18 17:55 Urine Culture - Final Urine,Catheterized 08/03/18 17:16 Blood Culture Gram Stain - Preliminary Blood Blood Culture - Preliminary Presumptive Staph aureus Laboratory Results WBC 19.7 k/uL (3.8-10.6) H 08/05/18 04:45 RBC 3.67 m/uL (4.30-5.90) L 08/05/18 04:45 Hgb 12.4 gm/dL (13.0-17.5) L 08/05/18 04:45 Hct 36.9 % (39.0-53.0) L 08/05/18 04:45 MCV 100.6 fL (80.0-100.0) H 08/05/18 04:45 MCH 33.9 pg (25.0-35.0) 08/05/18 04:45 MCHC 33.7 g/dL (31.0-37.0) 08/05/18 04:45 RDW 14.4 % (11.5-15.5) 08/05/18 04:45 Plt Count 254 k/uL (150-450) 08/05/18 04:45 Neutrophils % 89 % 08/01/18 04:15 Neutrophils % (Manual) 83 % 08/05/18 04:45 Band Neutrophils % 6 % 08/05/18 04:45 Lymphocytes % 4 % 08/01/18 04:15 Lymphocytes % (Manual) 5 % 08/05/18 04:45 Monocytes % 4 % 08/01/18 04:15 Monocytes % (Manual) 1 % 08/05/18 04:45 Eosinophils % 1 % 08/01/18 04:15 Eosinophils % (Manual) 1 % 08/04/18 04:25 Basophils % 0 % 08/01/18 04:15 Metamyelocytes % 3 % 08/05/18 04:45 Myelocytes % 3 % 08/05/18 04:45 Neutrophils # 13.7 k/uL (1.3-7.7) H 08/01/18 04:15 Neutrophils # (Manual) 17.50 k/uL (1.3-7.7) H 08/05/18 04:45 Lymphocytes # 0.7 k/uL (1.0-4.8) L 08/01/18 04:15 Lymphocytes # (Manual) 0.99 k/uL (1.0-4.8) L 08/05/18 04:45 Monocytes # 0.6 k/uL (0-1.0) 08/01/18 04:15 Monocytes # (Manual) 0.20 k/uL (0-1.0) 08/05/18 04:45 Eosinophils # 0.1 k/uL (0-0.7) 08/01/18 04:15 Eosinophils # (Manual) 0.22 k/uL (0-0.7) 08/04/18 04:25 Basophils # 0.1 k/uL (0-0.2) 08/01/18 04:15 Metamyelocytes # (Man) 0.59 k/uL (0) H 08/05/18 04:45 Myelocytes # (Manual) 0.59 k/uL (0) H 08/05/18 04:45 Nucleated RBCs 0 /100 WBC (0-0) 08/05/18 04:45 Manual Slide Review Performed 08/05/18 04:45 Toxic Granulation Present 08/04/18 04:25 RBC Morphology Normal 07/30/18 15:34 Hypochromasia Slight 08/05/18 04:45 Poikilocytosis (manual Present 08/05/18 04:45 Macrocytosis Slight 08/05/18 04:45 ESR 70 mm/hr (0-15) H 07/30/18 15:34 PT 11.3 sec (9.0-12.0) 07/30/18 11:23 INR 1.1 (<1.2) 07/30/18 11:23 APTT 22.0 sec (22.0-30.0) 07/30/18 11:23 D-Dimer 2.27 mg/L FEU (<0.60) H 07/30/18 15:36 Sample Site shorty 08/05/18 04:40 ABG pH 7.38 (7.35-7.45) 08/05/18 04:40 ABG pCO2 60 mmHg (35-45) H 08/05/18 04:40 ABG pO2 78 mmHg (83-108) L 08/05/18 04:40 ABG HCO3 36 mmol/L (21-25) H 08/05/18 04:40 ABG Total CO2 37 mmol/L (19-24) H 08/05/18 04:40 ABG O2 Saturation 95.6 % (94-97) 08/05/18 04:40 ABG Base Excess 10.3 mmol/L 08/05/18 04:40 Abhinav Test Yes 08/05/18 04:40 ABG Lactic Acid 0.9 mmol/L (0.5-1.6) 08/03/18 05:15 VBG pH 7.44 (7.31-7.41) H 07/30/18 15:34 VBG pCO2 32 mmHg (37-51) L 07/30/18 15:34 VBG HCO3 21 mmol/L (24-28) L 07/30/18 15:34 FiO2 60 % 08/05/18 04:40 Sodium 145 mmol/L (137-145) 08/05/18 04:45 Potassium 4.3 mmol/L (3.5-5.1) 08/05/18 04:45 Chloride 109 mmol/L (98-107) H 08/05/18 04:45 Carbon Dioxide 33 mmol/L (22-30) H 08/05/18 04:45 Anion Gap 3 mmol/L 08/05/18 04:45 BUN 26 mg/dL (9-20) H 08/05/18 04:45 Creatinine 0.63 mg/dL (0.66-1.25) L 08/05/18 04:45 Est GFR (CKD-EPI)AfAm >90 (>60 ml/min/1.73 sqM) 08/05/18 04:45 Est GFR (CKD-EPI)NonAf >90 (>60 ml/min/1.73 sqM) 08/05/18 04:45 Glucose 140 mg/dL (74-99) H 08/05/18 04:45 POC Glucose (mg/dL) 124 mg/dL (75-99) H 08/05/18 22:22 POC Glu [employer] ID Jessica Neil 08/05/18 22:[address] Glu mg/dL 151 07/31/18 04:28 Hemoglobin A1c 6.9 % (4.0-6.0) H 07/31/18 04:28 Lactic Ac Sepsis Rflx Y 07/30/18 12:03 Plasma Lactic Acid Jama 1.4 mmol/L (0.7-2.0) 07/31/18 04:28 Calcium 8.3 mg/dL (8.4-10.2) L 08/05/18 04:45 Phosphorus 3.1 mg/dL (2.5-4.5) 08/03/18 05:15 Magnesium 2.7 mg/dL (1.6-2.3) H 08/04/18 20:25 Total Bilirubin 0.6 mg/dL (0.2-1.3) 08/05/18 04:45 AST 34 U/L (17-59) 08/05/18 04:45 ALT 31 U/L (21-72) 08/05/18 04:45 Alkaline Phosphatase 114 U/L (38-126) 08/05/18 04:45 Ammonia 12 umol/L (<30) 07/30/18 15:34 Troponin I <0.012 ng/mL (0.000-0.034) 07/30/18 11:23 C-Reactive Protein 245.0 mg/L (<10.0) H 07/30/18 15:34 Total Protein 4.7 g/dL (6.3-8.2) L 08/05/18 04:45 Albumin 2.2 g/dL (3.5-5.0) L 08/05/18 04:45 Lipase <10 U/L (23-300) L 07/31/18 04:28 Urine Color Yellow 07/30/18 11:23 Urine Appearance Clear (Clear) 07/30/18 11:23 Urine pH 6.0 (5.0-8.0) 07/30/18 11:23 Ur Specific [place] >1.050 (1.001-1.035) H 07/30/18 11:23 Urine Protein Trace (Negative) H 07/30/18 11:23 Urine Glucose (UA) Trace (Negative) H 07/30/18 11:23 Urine Ketones Negative (Negative) 07/30/18 11:23 Urine Blood Trace (Negative) H 07/30/18 11:23 Urine Nitrite Negative (Negative) 07/30/18 11:23 Urine Bilirubin Negative (Negative) 07/30/18 11:23 Urine Urobilinogen <2.0 mg/dL (<2.0) 07/30/18 11:23 Ur Leukocyte Esterase Trace (Negative) H 07/30/18 11:23 Urine RBC 8 /hpf (0-5) H 07/30/18 11:23 Urine WBC 4 /hpf (0-5) 07/30/18 11:23 Urine Mucus Rare /hpf (None) H 07/30/18 11:23 CSF Tube Number 2 07/30/18 17:30 CSF Volume 0.25 07/30/18 17:30 CSF Appearance Hazy 07/30/18 17:30 CSF Color Xanthochromic 07/30/18 17:30 CSF RBC 965 u/L (0-10) H 07/30/18 17:30 CSF Tot Nucleated Cells 1415 u/L (0-5) H* 07/30/18 17:30 CSF Mononuclear WBCs % 8 % 07/30/18 17:30 CSF Polynuclear WBCs % 92 % 07/30/18 17:30 CSF Crenated Cells 0 % 07/30/18 17:30 CSF Fresh RBCs 100 % 07/30/18 17:30 CSF Glucose 29 mg/dL (40-70) L* 07/30/18 17:30 CSF Total Protein >600 mg/dL (12-60) H 07/30/18 17:30 CSF VDRL Titer TNP 07/30/18 17:30 CSF VDRL Nonreactive (Nonreactive) 07/30/18 17:30 Vancomycin Trough 16.6 ug/mL 08/03/18 14:55 Salicylates <1.0 mg/dL 07/30/18 15:34 Urine Opiates Screen Detected (NotDetected) H 07/30/18 12:43 Ur Oxycodone Screen Detected (NotDetected) H 07/30/18 12:43 Urine Methadone Screen Not Detected (NotDetected) 07/30/18 12:43 Ur Propoxyphene Screen Not Detected (NotDetected) 07/30/18 12:43 Acetaminophen <10.0 ug/mL 07/30/18 15:34 Ur Barbiturates Screen Not Detected (NotDetected) 07/30/18 12:43 U Tricyclic Antidepress Detected (NotDetected) H 07/30/18 12:43 Ur Phencyclidine Scrn Not Detected (NotDetected) 07/30/18 12:43 Ur Amphetamines Screen Not Detected (NotDetected) 07/30/18 12:43 U Methamphetamines Scrn Not Detected (NotDetected) 07/30/18 12:43 U Benzodiazepines Scrn Detected (NotDetected) H 07/30/18 12:43 Urine Cocaine Screen Not Detected (NotDetected) 07/30/18 12:43 U Marijuana (THC) Screen Not Detected (NotDetected) 07/30/18 12:43 HSV I DNA PCR Not detected (Not detected) 07/30/18 17:30 HSV II DNA PCR Not detected (Not detected) 07/30/18 17:30 HSV (PCR) Source 07/30/18 17:30 Influenza Type A RNA Not Detected (Not Detectd) 07/30/18 13:35 Influenza Type B (PCR) Not Detected (Not Detectd) 07/30/18 13:35 Blood Type O Positive 07/30/18 11:23 Blood Type Confirm O Positive 07/30/18 12:39 Blood Type Recheck CABO Indicated 07/30/18 11:23 Antibody Screen NEGATIVE 07/30/18 11:23 Spec Expiration Date 08/02/2018232207/30/18 11:23 Microbiology 08/04/18 04:25 Blood Blood Culture Gram Stain - Preliminary 08/04/18 04:25 Blood Blood Culture - Preliminary Presumptive Staph aureus 08/05/18 09:55 Knee - Left Body Fluid Culture - Preliminary 08/05/18 09:55 Knee - Left Anaerobic Culture - Preliminary 08/04/18 04:25 Blood Blood Culture - Final 08/03/18 17:55 Urine,Catheterized Urine Culture - Final 08/03/18 17:16 Blood Blood Culture Gram Stain - Preliminary 08/03/18 17:16 Blood Blood Culture - Preliminary Presumptive Staph aureus 08/03/18 17:16 Blood Blood Culture - Final 08/01/18 05:40 Blood Blood Culture Gram Stain - Final 08/01/18 05:40 Blood Blood Culture - Final Staph aureus 08/01/18 06:00 Blood Blood Culture Gram Stain - Final 08/01/18 06:00 Blood Blood Culture - Final Staphylococcus aureus 08/01/18 05:40 Blood Blood Culture - Final 07/31/18 00:15 Sputum Gram Stain - Final 07/31/18 00:15 Sputum Sputum Culture - Final Staphylococcus aureus 07/30/18 20:45 Blood Blood Culture Gram Stain - Final 07/30/18 20:45 Blood Blood Culture - Final Staphylococcus aureus 07/30/18 20:45 Blood Blood Culture Gram Stain - Final 07/30/18 20:45 Blood Blood Culture - Final Staphylococcus aureus 08/01/18 06:00 Blood Blood Culture - Final 07/30/18 15:34 Blood Blood Culture Gram Stain - Final 07/30/18 15:34 Blood Blood Culture - Final Staphylococcus aureus 07/30/18 17:30 Cerebral Spinal Fluid CSF Gram Stain - Final 07/30/18 17:30 Cerebral Spinal Fluid CSF Culture - Final Staphylococcus aureus 07/30/18 12:43 Urine,Clean Catch Urine Culture - Final Staphylococcus aureus 07/30/18 20:45 Blood Blood Culture - Final 07/30/18 20:45 Blood Blood Culture - Final 07/30/18 15:34 Blood Blood Culture - Final Assessment and Plan (1) Abdominal pain Current Visit: Yes Status: Acute Code(s): R10.9 - UNSPECIFIED ABDOMINAL PAIN SNOMED Code(s): 48475080 (2) Acute exacerbation of chronic low back pain Current Visit: Yes Status: Acute Code(s): M54.5 - LOW BACK PAIN; G89.29 - OTHER CHRONIC PAIN SNOMED Code(s): 979667139 (3) Altered mental status Narrative/Plan: 53-year-old male presents to hospital with progressive symptoms over the 5 days before admission. Approximately 3 days prior he been in [facility] with complaints of ongoing abdominal pain. There is evidence of some constipation at that point in time and patient was symptomatically treated. However he now has a great difficulties with ongoing abdominal pain worsening back pain and now while in the emergency center the altered mental status developed. Because of these findings in the leukocytosis lumbar puncture was performed the reveals a markedly abnormal fluid. There were 1415 white blood cells, 965 red blood cells, glucose was 29 and protein was greater than 600 with some xanthochromia being seen. The Gram stain is personally reviewed without evidence of any bacterial pathogens being seen. At this time the patient has evidence of bacterial meningitis with evidence of a systemic inflammatory response, leukocytosis, lactic acidosis, hypoglycorrhachia and evidence of marked elevated protein of the CSF. Without evidence of gram- negative organisms seen on the Gram stain is unlikely the patient has no severe meningitidis in no prophylaxis is given to visitors or to the care team here at the hospital. This will be with ongoing review. At this time cultures are in process however antimicrobial therapy is being utilized with concerns to multiple potential pathogens which would include Streptococcus pneumoniae, listeria meningitis which is of some great concern given the patient's history of alcohol use and what appears to be high doses of steroids as of late. Constantly for antibiotic therapy high doses of ampicillin, ceftriaxone and vancomycin are being utilized. Although I do not suspect brain abscess the patient does have potential intra-abdominal pathology with a dilated colon and constantly metronidazole is added to the ceftriaxone for treatment of potential intra-abdominal infection also. Cultures are all in process at this point in time he may further help direct antimicrobial therapy in the near future. Fortunately with hydration and initiation of some metabolic therapy his mentation seems to be a bit improved and as described in the emergency center. The case as directed we discussed with the surgeon and at this time no acute indication for surgical intervention to the abdomen at this time, treatment for constipation is in process. Also discussed with the hospitalist as far as the course of treatment for the meningitis and follow-up. 07/31/2018 the patient remains in intensive care unit, has now been intubated mechanically ventilated and is sedated and paralyzed later to improve synchrony with the ventilator. There is now evidence of positive blood culture, positive urine culture, and positive CSF culture for staph aureus. Laboratory has yet to definitively determine MSSA versus MRSA. However noted a pathogen has been identified ampicillin can be discontinued since it is not likely that this is listeria . Continue vancomycin, Rocephin and metronidazole. Although patient does have meningitis there is still concerned about an intra-abdominal process and consequ ently Rocephin and Flagyl would give coverage for that. Follow blood cultures are requested to determine the clearance of his bacteremia. Patient did have an outpatient computed tomography scan of the spine without evidence of discitis or osteomyelitis. A parameningeal focus of infection is still in consideration, but no evidence of that by the imaging studies to date. 08/01/2018 patient remains in intensive care unit intubated state and mechanically ventilated. There has been some improvement. He is no longer hypotensive actually is hypertensive and cleviprex has been added. Oxygenation is adequate Leukocytosis continues with response to his MSSA sepsis, bacteremia, and meningitis. Patient did have a computed tomography scan of the spine on 07/27/2018 without evidence of discitis or osteomyelitis of the spine. CT of the brain without intracranial abscess Patient has evidence of MSSA meningitis and sepsis currently being treated with Rocephin, vancomycin and Flagyl. The patient did have complaints of stabbing abdominal pain at admission and is being followed by surgery and since there is a concern for potential intra-abdominal process also the metronidazole continues for now Once the blood cultures are finalized vancomycin will likely be discontinued at that time. 08/03/2018 patient has now become febrile again and remains intubated, sedated and mechanically ventilated and paralyzed requiring Cleviprex. Blood cultures continue to have ongoing MSSA. Imaging studies of failed to find any distinct abscess related to his unremitting infection and bacteremia. However the most recent computed tomography scan does show evidence of bibasilar infiltrates With MSSA vancomycin will be discontinued. Continue the high-dose ceftriaxone. Flagyl has been utilized in conjunction with Rocephin for potential intra-abdominal sepsis. Given the lack of improvement of the bacteremia, and now the changes in the pulmonary status, we'll plan to discontinue metronidazole initiating meropenem in addition to the ceftriaxone. Goals for potential synergistic reaction between the 2 agents to clear the staph aureus bacteremia, treated underlying pneumonia, and will remove the need for metronidazole for treatment of intra- abdominal infection. We'll obtain some follow-up blood cultures. Prognosis is very poor. 08/04/2018 patient's fever has now improved. As noted the echocardiogram was mildly abnormal and EZ has been requested to evaluate the possibility of endocarditis. Patient continues to have positive blood cultures. However antibiotic therapy was altered yesterday and await if there is no further improvement in his status. Would consider follow-up computed tomography scan of the head if there is any further fever. Continue antibiotic therapy with Rocephin meropenem at this time. 08/05/2018 the patient had transient improvement in his fever which has now recurred. He is not requiring vasopressor therapy. Respiratory status is stable. EZ was performed without evidence of endocarditis. Patient however continues to have evidence of ongoing sepsis with ongoing bacteremia despite appropriate antibiotic therapy. There was a change to add meropenem and after minimal transient improvement is again had ongoing fevers and continues to have the positive blood cultures for MSSA. At admission there was evidence of meningitis and sepsis. No other continues with ongoing possible culture. Without evidence of endocarditis a abscess that has not been delineated remains the most likely etiology of the ongoing bacteremia. The site of this has not been delineated by the multiple CT scans that have been performed so far. Patient likely needs further imaging of the central nervous system with MRI to exclude collection is not visible by computed tomography scan. We also need further evaluation of the intra-abdominal contents given the difficulties that were noted since admission, ongoing lack of stool production and abdominal pain. Unclear if his ongoing abdominal pain at this time given the patient's mental status. Query as to the need for transfer to tertiary center if ongoing care is to continue. Current Visit: Yes Status: Acute Code(s): R41.82 - ALTERED MENTAL STATUS, UNSPECIFIED SNOMED Code(s): 198843728 (4) SIRS (systemic inflammatory response syndrome) Current Visit: Yes Status: Acute Code(s): R65.10 - SIRS OF NON-INFECTIOUS ORIGIN W/O ACUTE ORGAN DYSFUNCTION SNOMED Code(s): 670382762
[2018-08-06 00:05] LABS: Glucose,Whole Blood 149 mg/dL (75-99)
[2018-08-06] MEDS: ACETAMINOPHEN IV (For NPO) 1,000 MG in EMPTY BAG 1 BAG IVPB PRN (01:21)
[2018-08-06] MEDS: METOPROLOL TARTRATE 5 MG/5 ML VIAL IVP PRN (01:21)
[2018-08-06] MEDS: PROPOFOL 1,000 MG in EMPTY BAG 1 BAG IV SCH ×5 (01:35→15:31)
[2018-08-06 01:44] LABS: Glucose,Whole Blood 126 mg/dL (75-99)
[2018-08-06 02:03] LABS: Glucose,Whole Blood 141 mg/dL (75-99)
[2018-08-06] MEDS: IPRATROPIUM-ALBUTEROL 3 ML NEB INHALATION SCH ×4 (03:13→15:42)
[2018-08-06 04:25] LABS: ABG Base Excess 11.6 mmol/L; ABG HCO3 35 mmol/L (21-25); ABG Oxygen Saturation 96.1 % (94-97); ABG PCO2 49 mmHg (35-45); ABG PH 7.47 (7.35-7.45); ABG PO2 81 mmHg (83-108); ABG TCO2 37 mmol/L (19-24)
[2018-08-06 04:26] LABS: Basophils # (A) 0.1 k/uL (0-0.2); Basophils % (A) 1 %; Eosinophils # (A) 0.2 k/uL (0-0.7); Eosinophils % (A) 1 %; HCT 34.1 % (39.0-53.0); HGB 11.7 gm/dL (13.0-17.5); Lymphocytes # (A) 1.2 k/uL (1.0-4.8); Lymphocytes % (A) 7 %; MCH 34.2 pg (25.0-35.0); MCHC 34.2 g/dL (31.0-37.0); MCV 99.9 fL (80.0-100.0); Mean Platelet Volume 7.3; Monocytes # (A) 0.6 k/uL (0-1.0); Monocytes % (A) 4 %; Neutrophils # (A) 14.1 k/uL (1.3-7.7); Neutrophils % (A) 86 %; Platelet Count 308 k/uL (150-450); RBC 3.41 m/uL (4.30-5.90); RDW 13.3 % (11.5-15.5); WBC 16.5 k/uL (3.8-10.6)
[2018-08-06] MEDS: SODIUM CHLORIDE 0.45% 1,000 ML IV SCH (04:43)
[2018-08-06] MEDS: CISATRACURIUM 200 MG in SODIUM CHLORIDE 0.9% 180 ML IV SCH ×2 (04:43→12:09)
[2018-08-06] MEDS: ARTIFICIAL TEARS-HYPROMELLOSE DROPS 15 ML BTL BOTH EYES SCH ×3 (04:43→12:15)
[2018-08-06 04:49] LABS: ALT 31 U/L (21-72); AST 38 U/L (17-59); Albumin 2.2 g/dL (3.5-5.0); Alkaline Phosphatase 110 U/L (38-126); Anion Gap 3 mmol/L; Blood Urea Nitrogen 25 mg/dL (9-20); Calcium 8.3 mg/dL (8.4-10.2); Carbon Dioxide 34 mmol/L (22-30); Chloride 109 mmol/L (98-107); Glucose 135 mg/dL (74-99); Magnesium 2.4 mg/dL (1.6-2.3); Phosphorus 2.9 mg/dL (2.5-4.5); Potassium 3.7 mmol/L (3.5-5.1); Sodium 146 mmol/L (137-145); Total Bilirubin 0.7 mg/dL (0.2-1.3); Total Protein 4.9 g/dL (6.3-8.2)
[2018-08-06 06:26] LABS: Glucose,Whole Blood 136 mg/dL (75-99)
--- NOTE | 2018-08-06 06:30 | XR ---
EXAMINATION TYPE: XR chest 1V portable DATE OF EXAM: 08/06/2018 HISTORY: intubated. REFERENCE: Previous study dated 08/05/2018. FINDINGS: The patient is ET tube and NG tube remain in place, unchanged in appearance. There is continuing bibasilar airspace disease, worse on the right than the left. There are small, bi lateral effusions. Heart size is upper limits of normal. IMPRESSION: NO SIGNIFICANT INTERVAL CHANGE IN THE APPEARANCE OF THE CHEST.
[2018-08-06] MEDS ORDERED: POTASSIUM BICARBONATE/CIT AC 20 MEQ TABLET.EFF NG-TUBE SCH (07:00)
[2018-08-06] MEDS: INSULIN ASPART (NovoLOG) 100 UNIT/ML VIAL SQ SCH ×2 (07:10→12:15)
[2018-08-06] MEDS: IBUPROFEN IV 800 MG in SODIUM CHLORIDE 0.9% 250 ML IV PRN (07:16)
[2018-08-06] MEDS: THIAMINE 100 MG in SODIUM CHLORIDE 0.9% 100 ML IVPB SCH (08:24)
[2018-08-06] MEDS: CHLORHEXIDINE GLUCONATE 15 ML CUP MUCOUS MEM SCH (08:25)
[2018-08-06] MEDS: LACTULOSE 20 GM/30 ML CUP PO SCH (08:25)
[2018-08-06] MEDS: HEPARIN SODIUM,PORCINE 5,000 UNIT/ML 1 ML VIAL SQ SCH (08:25)
[2018-08-06] MEDS: PANTOPRAZOLE 40 MG/10 ML VIAL IV SCH (08:26)
[2018-08-06] MEDS: MEROPENEM 2 GM in SODIUM CHLORIDE 0.9% 100 ML IVPB SCH (09:14)
--- NOTE | 2018-08-06 09:14 | PN ---
PROGRESS NOTE DATE OF SERVICE: 08/05/2018 This 53-year-old gentleman admitted with acute meningitis bacteremia. The patient had a knee effusion which was tapped by Dr. Briceño, suprapatellar bursa effusion. Otherwise, multiple consultants are following the patient closely. Patient on broad spectrum IV antibiotics. Surgery, Infectious Disease and Pulmonary are following the patient closely. The cultures from 08/04 is positive and the knee cultures today is in progress. Past medical history reviewed. Review of systems could not be taken, the patient is mechanically sedated. CURRENT MEDICATIONS ARE: 1. Tylenol p.r.n. 2. DuoNeb q.i.d. and p.r.n. 3. Rocephin 2 g IV b.i.d. 4. Peridex. 5. Clevidipine 25 mg. 6. Ventolin. 7. Heparin. 8. Dilaudid. 9. Ibuprofen. 10.Cephulac. 11.Meropenem 2 g IV q.8h. 12.Replacement protocol. 13.Multivitamins. 14.Narcan. 15.Levophed drip. 16.Propofol. 17.Thiamine. PHYSICAL EXAM: Patient is mechanically sedated. Pulse is 118, blood pressure is 123/70, respiration 20, temp is normal, pulse ox 94% on 60% FIO2. HEENT: Conjunctivae normal. Oral mucosa moist. NECK: No jugular venous distention. No lymph node enlargement. CARDIOVASCULAR: S1, S2. RESPIRATORY: Diminished breath sounds at the bases. Bilateral scattered rhonchi and crackles. ABDOMEN: Soft, obese, nontender. LEGS: Bilateral leg edema. NERVOUS SYSTEM: Mechanically sedated. LABS: WBC 19.2, hemoglobin 12.4. ABGs noted. Otherwise, glucose 124. Cultures as mentioned earlier. ASSESSMENT: 1. Fever, change in mental status with possible acute meningitis with persistent emesis, sepsis, bacteremia. 2. Acute hypoxic respiratory failure, possibly secondary to sepsis, on mechanical ventilation. 3. Abdominal pain and distention with possible sepsis. 4. Bibasilar opacities, possible bibasilar pneumonia. 5. Low back pain for evaluation. 6. Status post lumbar puncture. 7. Lactic acidosis, possibly secondary to sepsis, present on admission. 8. Acute respiratory acidosis. 9. Increased random blood sugar. 10.Chronic back pain. 11.History of DJD. 12.History of nicotine dependence. 13.History of obesity with body mass index of 38. 14.FULL CODE. RECOMMENDATIONS AND DISCUSSION: I recommend to continue current management, continue symptomatic treatment, continue the broad-spectrum IV antibiotics. We will continue the rest of medications. Otherwise, I would recommend increase IV fluids and dose of Lasix, continue to monitor. Guarded prognosis. MMODL / IJN: [id number] / MTDD
--- NOTE | 2018-08-06 09:55 | P.PN ---
Subjective Progress Note Date: 08/06/18 Patient seen and examined at bedside. Currently sedated. Patient on 35 mL of tube feeds per hour. No emesis episodes. Patient has started lactulose with 1 dose last night and 1 dose this morning without any bowel function. Objective - Vital Signs Vital signs: Vital Signs Temp 101.5 F H 08/06/18 07:00 Pulse 112 H 08/06/18 08:00 Resp 28 H 08/06/18 08:00 BP 112/77 08/06/18 08:00 Pulse Ox 97 08/06/18 08:00 Intake & Output 08/05/18 08/06/18 08/06/18 18:59 06:59 18:59 Intake Total 1600 2199.167 396.172 Output Total 1970 1730 100 Balance -370 469.167 296.172 Weight 135.6 kg 137.1 kg Intake: IV 1200 1190 270 ACETAMINOPHEN IV (For NPO 100 ) 1,000 mg In Empty Bag 1 bag @ 400 mls/hr IVPB Q6HR PRN Rx#:[id number] Meropenem 2 gm In Sodium 100 Chloride 0.9% 100 ml @ 200 mls/hr IVPB Q8HR TOY Rx#:[id number] Sodium Chloride 0.45% 1, 1200 840 70 000 ml @ 70 mls/hr IV . [id number] TOY Rx#:[id number] Thiamine 100 mg In Sodium 100 100 Chloride 0.9% 100 ml @ 202 mls/hr IVPB Q12H TOY Rx#:[id number] cefTRIAXone 2 gm In 50 100 Sodium Chloride 0.9% 50 ml @ 100 mls/hr IVPB Q12HR TOY Rx#:[id number] Intake, IV Titration 300 589.167 91.172 Amount Cisatracurium 200 mg In 200 Sodium Chloride 0.9% 180 ml @ 4 MCG/KG/MIN 28.824 mls/hr IV .Q6H57M TOY Rx# :[id number] Propofol 1,000 mg In 200 300 91.172 Empty Bag 1 bag @ Titrate IV .Q0M TOY Rx#: [id number] fentaNYL (PF) 1,000 mcg 100 89.167 In Sodium Chloride 0.9% 80 ml @ 100 MCG/HR 10 mls /hr IV .Q10H TOY Rx#: [id number] Tube Feeding 100 300 35 Other 120 Output: Gastric Drainage 300 Urine 1670 1730 100 Other: Voiding Method Indwelling Catheter Indwelling Catheter ABP, PAP, CO, CI - Last Documented Arterial Blood Pressure 96/55 - Constitutional Constitutional Comment(s): Sedated - Respiratory Details: Intubated and on ventilator - Gastrointestinal Gastrointestinal Comment(s): Soft, mild distention, nontender, no rebound, no guarding - Labs CBC & Chem 7: 08/06/18 04:00 08/06/18 04:00 Labs: Abnormal Lab Results - Last 24 Hours (Table) 08/05/18 08/05/18 08/05/18 Range/Units 11:02 12:04 13:51 WBC (3.8-10.6) k/uL RBC (4.30-5.90) m/uL Hgb (13.0-17.5) gm/dL Hct (39.0-53.0) % Neutrophils # (1.3-7.7) k/uL ABG pH (7.35-7.45) ABG pCO2 (35-45) mmHg ABG pO2 (83-108) mmHg ABG HCO3 (21-25) mmol/L ABG Total CO2 (19-24) mmol/L Sodium (137-145) mmol/L Chloride (98-107) mmol/L Carbon Dioxide (22-30) mmol/L BUN (9-20) mg/dL Glucose (74-99) mg/dL POC Glucose (mg/dL) 137 H 132 H 130 H (75-99) mg/dL Calcium (8.4-10.2) mg/dL Magnesium (1.6-2.3) mg/dL Total Protein (6.3-8.2) g/dL Albumin (3.5-5.0) g/dL 08/05/18 08/05/18 08/06/18 Range/Units 17:42 22:22 00:02 WBC (3.8-10.6) k/uL RBC (4.30-5.90) m/uL Hgb (13.0-17.5) gm/dL Hct (39.0-53.0) % Neutrophils # (1.3-7.7) k/uL ABG pH (7.35-7.45) ABG pCO2 (35-45) mmHg ABG pO2 (83-108) mmHg ABG HCO3 (21-25) mmol/L ABG Total CO2 (19-24) mmol/L Sodium (137-145) mmol/L Chloride (98-107) mmol/L Carbon Dioxide (22-30) mmol/L BUN (9-20) mg/dL Glucose (74-99) mg/dL POC Glucose (mg/dL) 123 H 124 H 149 H (75-99) mg/dL Calcium (8.4-10.2) mg/dL Magnesium (1.6-2.3) mg/dL Total Protein (6.3-8.2) g/dL Albumin (3.5-5.0) g/dL 08/06/18 08/06/18 08/06/18 Range/Units 01:18 02:00 04:00 WBC 16.5 H (3.8-10.6) k/uL RBC 3.41 L (4.30-5.90) m/uL Hgb 11.7 L (13.0-17.5) gm/dL Hct 34.1 L (39.0-53.0) % Neutrophils # 14.1 H (1.3-7.7) k/uL ABG pH (7.35-7.45) ABG pCO2 (35-45) mmHg ABG pO2 (83-108) mmHg ABG HCO3 (21-25) mmol/L ABG Total CO2 (19-24) mmol/L Sodium (137-145) mmol/L Chloride (98-107) mmol/L Carbon Dioxide (22-30) mmol/L BUN (9-20) mg/dL Glucose (74-99) mg/dL POC Glucose (mg/dL) 126 H 141 H (75-99) mg/dL Calcium (8.4-10.2) mg/dL Magnesium (1.6-2.3) mg/dL Total Protein (6.3-8.2) g/dL Albumin (3.5-5.0) g/dL 08/06/18 08/06/18 08/06/18 Range/Units 04:00 04:22 06:23 WBC (3.8-10.6) k/uL RBC (4.30-5.90) m/uL Hgb (13.0-17.5) gm/dL Hct (39.0-53.0) % Neutrophils # (1.3-7.7) k/uL ABG pH 7.47 H (7.35-7.45) ABG pCO2 49 H (35-45) mmHg ABG pO2 81 L (83-108) mmHg ABG HCO3 35 H (21-25) mmol/L ABG Total CO2 37 H (19-24) mmol/L Sodium 146 H (137-145) mmol/L Chloride 109 H (98-107) mmol/L Carbon Dioxide 34 H (22-30) mmol/L BUN 25 H (9-20) mg/dL Glucose 135 H (74-99) mg/dL POC Glucose (mg/dL) 136 H (75-99) mg/dL Calcium 8.3 L (8.4-10.2) mg/dL Magnesium 2.4 H (1.6-2.3) mg/dL Total Protein 4.9 L (6.3-8.2) g/dL Albumin 2.2 L (3.5-5.0) g/dL Microbiology - Last 24 Hours (Table) 08/05/18 06:00 Blood Culture - Final Blood 08/05/18 09:55 Gram Stain - Preliminary Knee - Left Body Fluid Culture - Preliminary 08/03/18 17:16 Blood Culture Gram Stain - Final Blood Blood Culture - Final Staphylococcus aureus 08/04/18 04:25 Blood Culture Gram Stain - Preliminary Blood Blood Culture - Preliminary Presumptive Staph aureus 08/05/18 09:55 Anaerobic Culture - Preliminary Knee - Left 08/04/18 04:25 Blood Culture - Final Blood Assessment and Plan (1) Meningitis Current Visit: Yes Status: Acute Code(s): G03.9 - MENINGITIS, UNSPECIFIED SNOMED Code(s): 2660137 (2) Leukocytosis Current Visit: Yes Status: Acute Code(s): D72.829 - ELEVATED WHITE BLOOD CELL COUNT, UNSPECIFIED SNOMED Code(s): 861333190 (3) Colon distention Current Visit: Yes Status: Acute Code(s): K63.89 - OTHER SPECIFIED DISEASES OF INTESTINE SNOMED Code(s): 850609707 Plan: Continue tube feeds as tolerated. Continue to evaluate patient's tolerance of lactulose. Continue infectious disease recommendations and critical care recommendations.
--- NOTE | 2018-08-06 11:41 | PN ---
PROGRESS NOTE DATE OF SERVICE: 08/06/2018 This is a 53-year-old gentleman who was seen by my partner 5 or 6 days ago in consultation. He presented to the hospital with acute hypoxemic respiratory failure secondary to both pneumonia and acute meningitis caused by Staph aureus. He had positive cultures for Staph aureus in blood, urine, sputum and CSF. They have all been oxacillin sensitive Staph. He was placed on mechanical ventilation for apoxemic respiratory failure on July 31 and remains on the ventilator. The patient has made some progress overnight. He has been weaned off the paralytic. He remains on saline at 70 mL an hour. He is getting fentanyl at 50 mcg/hour and propofol at 50 mcg/kg per per minute. He is on Vital high-protein at 35 with a goal of 35. He remains on the ventilator on the volume assist-control mode rate of 28, tidal volume 480, FiO2 60%, PEEP of 15. Blood gases show PO2 of 81, pCO2 49, and pH 7.47. The patient is doing about the same overall as I as I mentioned above, but maybe is his sedation has improved a bit. Overall, the patient remains on Merrem and Rocephin as per ID. The nurse tells me that Dr. Kenney is interested in transferring the patient. S fine by me. Dr. Montiel will have to find an accepting physician in hospital and will be the want that either he or the Primary Service will be the 1 discussing the case with the accepting physician/critical care physician. The patient did have a transesophageal echocardiogram. Was negative for any vegetations on the valves. He did have a swollen and red left knee. I did put a needle in it. We drained quite a bit of fluid out of there. It was sent for evaluation. Nothing is back as yet. Current vital signs are reviewed his temperature is 101.5, heart rate 112, respiratory rate 28, blood pressure 112/77, mean 88, and saturations are 97% on the 60% PEEP of 15. Appears in no acute distress. Currently sedated. HEENT examination is grossly unremarkable. There is no orally placed endotracheal tube. An NG tube is also noted. Neck is supple. Full range of motion. No adenopathy or thyromegaly. Neck veins are flat. Cardiovascular examination reveals tachycardia. Heart rate about 110-1 12 beats per minute. That is improved. It is regular. No murmur noted. No S3, S4. Lungs reveal coarse rhonchi. Breath sounds are diminished throughout. No wheezes or crackles. Breath sounds are equal. Abdomen is soft. Bowel sounds are heard. Extremities are intact. Slight edema noted. The left knee looks improved. Less red and warm. Skin without rash. Neurologic examination is difficult to assess. CHEST X-RAY: From this morning again shows bilateral effusions, left right greater than left. There is also some bibasilar basilar atelectasis or infiltrate. Microbiology is still showing positive for Staph aureus as recent as August 04. LABS: Reviewed. White count 16.5, hemoglobin 11.7, hematocrit 34.1, platelet count 308,000. Sodium 146, potassium 3.7, chloride 109, CO2 is 34, anion gap is 3, BUN and creatinine were 25 and 0.67. Albumin is 2.2. Medications are reviewed. ASSESSMENT: 1. Acute hypoxemic respiratory failure secondary to pneumonia and acute meningitis caused by oxacillin sensitive Staph aureus, requiring intubation and mechanical ventilation on July 31. 2. Oxacillin sensitive Staphylococcus aureus sepsis with bacteremia and meningitis. 3. Acute bacterial meningitis secondary to oxacillin sensitive Staphylococcus aureus. 4. Diffuse abdominal pain on admission, seemingly resolved. 5. Mental status changes on admission likely secondary to meningitis/sepsis with septic encephalopathy. 6. Positive drug screen secondary to narcotics. 7. Lactic acidosis, resolved. 8. History of chronic pain syndrome. 9. Negative transesophageal echocardiogram. 10.Significant subpatellar fluid accumulation left knee, status post drainage. PLAN: The patient's transesophageal echocardiogram was negative. We did drain the left knee and sent the specimen to the laboratory for analysis. Remains on good antibiotics. The patient has been weaned off of the paralytic. Will changes his IV to 0.45. Apparently Dr. Kenney wants the patient transferred. That is fine by me. He will have to make the arrangements. No additional recommendations are made. Will continue to follow. Prognosis is guarded. Continue tube feeds. Critical care time is 36 minutes. MMODL / IJN: [id number] /
[2018-08-06] MEDS: NOREPINEPHRINE 32 MG in SODIUM CHLORIDE 0.9% 218 ML IV SCH (12:09)
[2018-08-06] MEDS: MULTIVITAMINS, THERA 1 EACH TAB PO SCH (12:15)
[2018-08-06 12:28] LABS: Glucose,Whole Blood 104 mg/dL (75-99)
[2018-08-06 12:30] VITALS: TEMP 100.1
[2018-08-06] MEDS: fentaNYL (PF) 1,000 MCG in SODIUM CHLORIDE 0.9% 80 ML IV SCH (13:36)
[2018-08-06 14:23] VITALS: BP 146/94
--- NOTE | 2018-08-06 15:47 | DS ---
DISCHARGE SUMMARY FINAL DIAGNOSES: 1. Fever, change in mental status, possible acute meningitis, bacterial with persistent sepsis and bacteremia, present on admission. 2. Acute hypoxic respiratory failure, possibly secondary to sepsis and mechanical ventilation. 3. Persistent methicillin-susceptible Staphylococcus aureus from blood cultures. 4. Abdominal pain and distention with possible sepsis. 5. Low back pain for evaluation. 6. Bibasilar opacities, possibly bibasilar pneumonia. 7. Status post lumbar puncture. 8. Lactic acidosis, possibly secondary to sepsis, present on admission. 9. Acute respiratory acidosis. 10.Increased random blood sugar. 11.Chronic back pain. 12.History of degenerative joint disease. 13.History of nicotine dependence. 14.Obesity with body mass index 38. 15.FULL CODE. DISCHARGE DISPOSITION: Patient will be transferred to [facility] in stable condition with guarded prognosis. Total time taken is 35 minutes. HISTORY OF PRESENT ILLNESS: This 53-year-old gentleman with a past medical history of multiple medical problems as mentioned, was admitted with fever, change in mental status, possibly chest pain and MRSA grown from the cultures. Patient treated with IV antibiotics. Patient also features of sepsis and acute respiratory failure, mechanically ventilated in ICU. The patient was seen by multiple consultants during the hospitalization including Dr. Briceño and as well as Dr. Kenney. The patient did not improve much when the bacteremia persisted. MRI of the back could not be done because of the mechanical ventilation and incompatibility. The patient evaluated by Dr. Kenney and Dr. Briceño, who recommended transfer to a tertiary care center. On exam, vitals are stable vitals are noted. Patient is on mechanical ventilation, PEEP of 15. I discussed the case with [facility] transfer team and the patient will be transferred to [facility] ICU for further evaluation and treatment and please refer to the progress notes and consult multiple consultations for further information. CAT scan was noted. MMODL / IJN: [id number] / ELISE
[2018-08-06 16:40] VITALS: PULSE 117; RESP 26
--- NOTE | 2018-08-06 18:33 | P.PN ---
Subjective Progress Note Date: 08/06/18 53-year-old male presents to the emergency center with ongoing difficulties with abdominal pain and back pain. Approximate 5 days prior he developed worsening amounts of back pain and was taking some medication for it. 3 days prior to this admission he did come to the emergency center with com plaints of back and abdominal pain. Imaging studies were performed and there was evidence of some colonic dilatation without other acute concern there was no diverticulitis or free air. During the time in the emergency center the patient's status worsened. His mental status altered, although he did not have evidence of high-grade fever there was leukocytosis. Given that the imaging studies were not acutely different, the patient underwent lumbar puncture. This material was markedly abnormal and with evidence of the significant white blood cells of the CSF the infectious diseases consultation was requested. The patient was transferred to the intensive care unit. At this time the patient is sitting upright in the intensive care unit. He is awake and alert, the visitors in the room relate that he is more cognizant than he was in the emergency center. The patient however continues to have a altered affect. Of note drug screen is positive admission for opiates, oxycodone, benzodiazepines, tricyclics. At the time of the call the patient's CSF material was evaluated personally in t he laboratory. An extensive pleocytosis was seen but no evidnece of bacteria were noted. The smears were reviewed with the lab techs and no bacteria was seen. Of note the medication list from the emergency center is reviewed and there is a notation on prednisone 50 mg a day. 07/31/2018 the patient remains in intensive care unit now is intubated sedated and mechanically ventilated but seems to be more stable today than yesterday. Still seems to be somewhat uncomfortable and further steps are being taken to improve his discomfort and likely paralysis to improve his coordination with the ventilator. Has ongoing leukocytosis, no evidence of renal failure. Not on vasopressor therapy at this time. Laboratories during to identify staph aureus in cultures 08/01/2018 patient remains intubated sedated and mechanically ventilated. Hemodynamically he is become hypertension and cleviprexl has been started. Patient is sedated and comfortable, synchronous with the ventilator. No further fevers today. 08/03/2018 patient remains profoundly ill, intubated sedated and mechanically ventilated on Cleviprex therapy. Despite antibiotic therapy is continued to have positive blood cultures and has had some further fevers again today. He's been followed by surgery and a computed tomography scan of abdomen and pelvis was performed without evidence of any acute perforation tumor mass. Does have retained stool. The computed tomography scan does show evidence of worsening bibasilar infiltrates. 08/04/2018 patient remains in intensive care unit intubated, sedated and mechanically ventilated hemodynamically stable. No increased needs on the ventilator have been noted. Urine output is adequate. Cleviprex has been discontinued. Patient however was having ongoing fevers. Antibiotic changes occurred yesterday. Given the concerns with persistent bacteremia echocardiogram was performed potential abnormality and cardiology's been consulted for EZ. No other acute changes are noted. 08/05/2018 H remains intubated sedated mechanically ventilated he is not on vasopressor therapy. EZ has been performed without evidence of endocarditis Patient has had ongoing fever after a 12 hour span of improved fever. There is concerns to some swelling to the left knee and constantly and aspiration was performed workup is in process. Patient continues to have evidence of positive cultures. 08/05/2018 patient remains intubated sedated mechanically ventilated now on vasopressor therapy with ongoing positive blood cultures. EZ is negative. Imaging studies have not revealed evidence of source of infection, surgical consultation has not elucidated to cause either. Objective - Vital Signs Vital signs: Vital Signs Temp 100.1 F H 08/06/18 12:00 Pulse 117 H 08/06/18 15:00 Resp 26 H 08/06/18 15:00 BP 146/94 08/06/18 15:00 Pulse Ox 100 08/06/18 15:00 Intake & Output 08/05/18 08/06/18 08/06/18 18:59 06:59 18:59 Intake Total 1600 2199.167 1321.172 Output Total 1970 1730 875 Balance -370 469.167 446.172 Weight 135.6 kg 137.1 kg Intake: IV 1200 1190 860 ACETAMINOPHEN IV (For NPO 100 ) 1,000 mg In Empty Bag 1 bag @ 400 mls/hr IVPB Q6HR PRN Rx#:[id number] Meropenem 2 gm In Sodium 100 Chloride 0.9% 100 ml @ 200 mls/hr IVPB Q8HR [facility] Rx#:[id number] Sodium Chloride 0.45% 1, 1200 840 560 000 ml @ 70 mls/hr IV . [id number] [facility] Rx#:[id number] Thiamine 100 mg In Sodium 100 100 Chloride 0.9% 100 ml @ 202 mls/hr IVPB Q12H [facility] Rx#:[id number] cefTRIAXone 2 gm In 50 200 Sodium Chloride 0.9% 50 ml @ 100 mls/hr IVPB Q12HR [facility] Rx#:[id number] Intake, IV Titration 300 589.167 391.172 Amount Cisatracurium 200 mg In 200 Sodium Chloride 0.9% 180 ml @ 4 MCG/KG/MIN 28.824 mls/hr IV .Q6H57M [facility] Rx# :[id number] Propofol 1,000 mg In 200 300 291.172 Empty Bag 1 bag @ Titrate IV .Q0M [facility] Rx#: [id number] fentaNYL (PF) 1,000 mcg 100 89.167 100 In Sodium Chloride 0.9% 80 ml @ 100 MCG/HR 10 mls /hr IV .Q10H [facility]Y Rx#: [id number] Tube Feeding 100 300 70 Other 120 Output: Gastric Drainage 300 Urine 1670 1730 875 Other: Voiding Method Indwelling Catheter Indwelling Catheter Indwelling Catheter ABP, PAP, CO, CI - Last Documented Arterial Blood Pressure 126/77 - Exam 53-year-old male presents to Hospital from home with a 5 day history of progressive illness. He has had abdominal pain, back pain and now has developed the progressive discomfort with his neck and then some altered mental status. Patient has had alteration status is now intubated sedated and mechanically ventilated Fevers have recurred and has persistently positive blood cultures HEENT: Anicteric conjunctiva are pink and moist nasal mucosa grossly intact without significant lesions, there is no thrush. Neck: The neck is not rigid Lungs: Symmetrical bilateral air entry few basilar crackles Heart: Tachycardic no audible murmur click or rub Abdomen: Obese, mildly distended is only minimal tenderness upon palpation of the right upper quadrant with percussion, no palpable mass or organomegaly no r igidity and no guarding or rebound, no stooling is noted Extremities: The upper extremities have excellent pulses they are symmetric, no significant petechiae or telangiectasia. No splinter hemorrhages were noted. Without open lesions Neuro: Patient intubated sedated and mechanically ventilated and paralysis is now discontinued - Labs CBC & Chem 7: 08/06/18 04:00 08/06/18 04:00 Labs: Abnormal Lab Results - Last 24 Hours (Table) 08/05/18 08/05/18 08/06/18 Range/Units 17:42 22:22 00:02 WBC (3.8-10.6) k/uL RBC (4.30-5.90) m/uL Hgb (13.0-17.5) gm/dL Hct (39.0-53.0) % Neutrophils # (1.3-7.7) k/uL ABG pH (7.35-7.45) ABG pCO2 (35-45) mmHg ABG pO2 (83-108) mmHg ABG HCO3 (21-25) mmol/L ABG Total CO2 (19-24) mmol/L Sodium (137-145) mmol/L Chloride (98-107) mmol/L Carbon Dioxide (22-30) mmol/L BUN (9-20) mg/dL Glucose (74-99) mg/dL POC Glucose (mg/dL) 123 H 124 H 149 H (75-99) mg/dL Calcium (8.4-10.2) mg/dL Magnesium (1.6-2.3) mg/dL Total Protein (6.3-8.2) g/dL Albumin (3.5-5.0) g/dL 08/06/18 08/06/18 08/06/18 Range/Units 01:18 02:00 04:00 WBC 16.5 H (3.8-10.6) k/uL RBC 3.41 L (4.30-5.90) m/uL Hgb 11.7 L (13.0-17.5) gm/dL Hct 34.1 L (39.0-53.0) % Neutrophils # 14.1 H (1.3-7.7) k/uL ABG pH (7.35-7.45) ABG pCO2 (35-45) mmHg ABG pO2 (83-108) mmHg ABG HCO3 (21-25) mmol/L ABG Total CO2 (19-24) mmol/L Sodium (137-145) mmol/L Chloride (98-107) mmol/L Carbon Dioxide (22-30) mmol/L BUN (9-20) mg/dL Glucose (74-99) mg/dL POC Glucose (mg/dL) 126 H 141 H (75-99) mg/dL Calcium (8.4-10.2) mg/dL Magnesium (1.6-2.3) mg/dL Total Protein (6.3-8.2) g/dL Albumin (3.5-5.0) g/dL 08/06/18 08/06/18 08/06/18 Range/Units 04:00 04:22 06:23 WBC (3.8-10.6) k/uL RBC (4.30-5.90) m/uL Hgb (13.0-17.5) gm/dL Hct (39.0-53.0) % Neutrophils # (1.3-7.7) k/uL ABG pH 7.47 H (7.35-7.45) ABG pCO2 49 H (35-45) mmHg ABG pO2 81 L (83-108) mmHg ABG HCO3 35 H (21-25) mmol/L ABG Total CO2 37 H (19-24) mmol/L Sodium 146 H (137-145) mmol/L Chloride 109 H (98-107) mmol/L Carbon Dioxide 34 H (22-30) mmol/L BUN 25 H (9-20) mg/dL Glucose 135 H (74-99) mg/dL POC Glucose (mg/dL) 136 H (75-99) mg/dL Calcium 8.3 L (8.4-10.2) mg/dL Magnesium 2.4 H (1.6-2.3) mg/dL Total Protein 4.9 L (6.3-8.2) g/dL Albumin 2.2 L (3.5-5.0) g/dL 08/06/18 Range/Units 12:13 WBC (3.8-10.6) k/uL RBC (4.30-5.90) m/uL Hgb (13.0-17.5) gm/dL Hct (39.0-53.0) % Neutrophils # (1.3-7.7) k/uL ABG pH (7.35-7.45) ABG pCO2 (35-45) mmHg ABG pO2 (83-108) mmHg ABG HCO3 (21-25) mmol/L ABG Total CO2 (19-24) mmol/L Sodium (137-145) mmol/L Chloride (98-107) mmol/L Carbon Dioxide (22-30) mmol/L BUN (9-20) mg/dL Glucose (74-99) mg/dL POC Glucose (mg/dL) 104 H (75-99) mg/dL Calcium (8.4-10.2) mg/dL Magnesium (1.6-2.3) mg/dL Total Protein (6.3-8.2) g/dL Albumin (3.5-5.0) g/dL Microbiology - Last 24 Hours (Table) 08/05/18 06:00 Blood Culture Gram Stain - Preliminary Blood 08/05/18 09:55 Gram Stain - Preliminary Knee - Left Body Fluid Culture - Preliminary 08/05/18 06:00 Blood Culture - Final Blood 08/03/18 17:16 Blood Culture Gram Stain - Final Blood Blood Culture - Final Staphylococcus aureus 08/04/18 04:25 Blood Culture Gram Stain - Preliminary Blood Blood Culture - Preliminary Presumptive Staph aureus 08/05/18 09:55 Anaerobic Culture - Preliminary Knee - Left Laboratory Results WBC 16.5 k/uL (3.8-10.6) H 08/06/18 04:00 RBC 3.41 m/uL (4.30-5.90) L 08/06/18 04:00 Hgb 11.7 gm/dL (13.0-17.5) L 08/06/18 04:00 Hct 34.1 % (39.0-53.0) L 08/06/18 04:00 MCV 99.9 fL (80.0-100.0) 08/06/18 04:00 MCH 34.2 pg (25.0-35.0) 08/06/18 04:00 MCHC 34.2 g/dL (31.0-37.0) 08/06/18 04:00 RDW 13.3 % (11.5-15.5) 08/06/18 04:00 Plt Count 308 k/uL (150-450) 08/06/18 04:00 Neutrophils % 86 % 08/06/18 04:00 Neutrophils % (Manual) 83 % 08/05/18 04:45 Band Neutrophils % 6 % 08/05/18 04:45 Lymphocytes % 7 % 08/06/18 04:00 Lymphocytes % (Manual) 5 % 08/05/18 04:45 Monocytes % 4 % 08/06/18 04:00 Monocytes % (Manual) 1 % 08/05/18 04:45 Eosinophils % 1 % 08/06/18 04:00 Eosinophils % (Manual) 1 % 08/04/18 04:25 Basophils % 1 % 08/06/18 04:00 Metamyelocytes % 3 % 08/05/18 04:45 Myelocytes % 3 % 08/05/18 04:45 Neutrophils # 14.1 k/uL (1.3-7.7) H 08/06/18 04:00 Neutrophils # (Manual) 17.50 k/uL (1.3-7.7) H 08/05/18 04:45 Lymphocytes # 1.2 k/uL (1.0-4.8) 08/06/18 04:00 Lymphocytes # (Manual) 0.99 k/uL (1.0-4.8) L 08/05/18 04:45 Monocytes # 0.6 k/uL (0-1.0) 08/06/18 04:00 Monocytes # (Manual) 0.20 k/uL (0-1.0) 08/05/18 04:45 Eosinophils # 0.2 k/uL (0-0.7) 08/06/18 04:00 Eosinophils # (Manual) 0.22 k/uL (0-0.7) 08/04/18 04:25 Basophils # 0.1 k/uL (0-0.2) 08/06/18 04:00 Metamyelocytes # (Man) 0.59 k/uL (0) H 08/05/18 04:45 Myelocytes # (Manual) 0.59 k/uL (0) H 08/05/18 04:45 Nucleated RBCs 0 /100 WBC (0-0) 08/05/18 04:45 Manual Slide Review Performed 08/05/18 04:45 Toxic Granulation Present 08/04/18 04:25 RBC Morphology Normal 07/30/18 15:34 Hypochromasia Slight 08/05/18 04:45 Poikilocytosis (manual Present 08/05/18 04:45 Macrocytosis Slight 08/05/18 04:45 ESR 70 mm/hr (0-15) H 07/30/18 15:34 PT 11.3 sec (9.0-12.0) 07/30/18 11:23 INR 1.1 (<1.2) 07/30/18 11:23 APTT 22.0 sec (22.0-30.0) 07/30/18 11:23 D-Dimer 2.27 mg/L FEU (<0.60) H 07/30/18 15:36 Sample Site [place] 08/06/18 04:22 ABG pH 7.47 (7.35-7.45) H 08/06/18 04:22 ABG pCO2 49 mmHg (35-45) H 08/06/18 04:22 ABG pO2 81 mmHg (83-108) L 08/06/18 04:22 ABG HCO3 35 mmol/L (21-25) H 08/06/18 04:22 ABG Total CO2 37 mmol/L (19-24) H 08/06/18 04:22 ABG O2 Saturation 96.1 % (94-97) 08/06/18 04:22 ABG Base Excess 11.6 mmol/L 08/06/18 04:22 Abhinav Test Yes 08/06/18 04:22 ABG Lactic Acid 0.9 mmol/L (0.5-1.6) 08/03/18 05:15 VBG pH 7.44 (7.31-7.41) H 07/30/18 15:34 VBG pCO2 32 mmHg (37-51) L 07/30/18 15:34 VBG HCO3 21 mmol/L (24-28) L 07/30/18 15:34 FiO2 60 % 08/06/18 04:22 Sodium 146 mmol/L (137-145) H 08/06/18 04:00 Potassium 3.7 mmol/L (3.5-5.1) 08/06/18 04:00 Chloride 109 mmol/L (98-107) H 08/06/18 04:00 Carbon Dioxide 34 mmol/L (22-30) H 08/06/18 04:00 Anion Gap 3 mmol/L 08/06/18 04:00 BUN 25 mg/dL (9-20) H 08/06/18 04:00 Creatinine 0.67 mg/dL (0.66-1.25) 08/06/18 04:00 Est GFR (CKD-EPI)AfAm >90 (>60 ml/min/1.73 sqM) 08/06/18 04:00 Est GFR (CKD-EPI)NonAf >90 (>60 ml/min/1.73 sqM) 08/06/18 04:00 Glucose 135 mg/dL (74-99) H 08/06/18 04:00 POC Glucose (mg/dL) 104 mg/dL (75-99) H 08/06/18 12:13 POC Glu [employer] ID Jessica Jin 08/06/18 12:[address] Glu mg/dL 151 07/31/18 04:28 Hemoglobin A1c 6.9 % (4.0-6.0) H 07/31/18 04:28 Lactic Ac Sepsis Rflx Y 07/30/18 12:03 Plasma Lactic Acid [place] 1.4 mmol/L (0.7-2.0) 07/31/18 04:28 Calcium 8.3 mg/dL (8.4-10.2) L 08/06/18 04:00 Phosphorus 2.9 mg/dL (2.5-4.5) 08/06/18 04:00 Magnesium 2.4 mg/dL (1.6-2.3) H 08/06/18 04:00 Total Bilirubin 0.7 mg/dL (0.2-1.3) 08/06/18 04:00 AST 38 U/L (17-59) 08/06/18 04:00 ALT 31 U/L (21-72) 08/06/18 04:00 Alkaline Phosphatase 110 U/L (38-126) 08/06/18 04:00 Ammonia 12 umol/L (<30) 07/30/18 15:34 Troponin I <0.012 ng/mL (0.000-0.034) 07/30/18 11:23 C-Reactive Protein 245.0 mg/L (<10.0) H 07/30/18 15:34 Total Protein 4.9 g/dL (6.3-8.2) L 08/06/18 04:00 Albumin 2.2 g/dL (3.5-5.0) L 08/06/18 04:00 Lipase <10 U/L (23-300) L 07/31/18 04:28 Urine Color Yellow 07/30/18 11:23 Urine Appearance Clear (Clear) 07/30/18 11:23 Urine pH 6.0 (5.0-8.0) 07/30/18 11:23 Ur Specific [place] >1.050 (1.001-1.035) H 07/30/18 11:23 Urine Protein Trace (Negative) H 07/30/18 11:23 Urine Glucose (UA) Trace (Negative) H 07/30/18 11:23 Urine Ketones Negative (Negative) 07/30/18 11:23 Urine Blood Trace (Negative) H 07/30/18 11:23 Urine Nitrite Negative (Negative) 07/30/18 11:23 Urine Bilirubin Negative (Negative) 07/30/18 11:23 Urine Urobilinogen <2.0 mg/dL (<2.0) 07/30/18 11:23 Ur Leukocyte Esterase Trace (Negative) H 07/30/18 11:23 Urine RBC 8 /hpf (0-5) H 07/30/18 11:23 Urine WBC 4 /hpf (0-5) 07/30/18 11:23 Urine Mucus Rare /hpf (None) H 07/30/18 11:23 CSF Tube Number 2 07/30/18 17:30 CSF Volume 0.25 07/30/18 17:30 CSF Appearance Hazy 07/30/18 17:30 CSF Color Xanthochromic 07/30/18 17:30 CSF RBC 965 u/L (0-10) H 07/30/18 17:30 CSF Tot Nucleated Cells 1415 u/L (0-5) H* 07/30/18 17:30 CSF Mononuclear WBCs % 8 % 07/30/18 17:30 CSF Polynuclear WBCs % 92 % 07/30/18 17:30 CSF Crenated Cells 0 % 07/30/18 17:30 CSF Fresh RBCs 100 % 07/30/18 17:30 CSF Glucose 29 mg/dL (40-70) L* 07/30/18 17:30 CSF Total Protein >600 mg/dL (12-60) H 07/30/18 17:30 CSF VDRL Titer TNP 07/30/18 17:30 CSF VDRL Nonreactive (Nonreactive) 07/30/18 17:30 Vancomycin Trough 16.6 ug/mL 08/03/18 14:55 Salicylates <1.0 mg/dL 07/30/18 15:34 Urine Opiates Screen Detected (NotDetected) H 07/30/18 12:43 Ur Oxycodone Screen Detected (NotDetected) H 07/30/18 12:43 Urine Methadone Screen Not Detected (NotDetected) 07/30/18 12:43 Ur Propoxyphene Screen Not Detected (NotDetected) 07/30/18 12:43 Acetaminophen <10.0 ug/mL 07/30/18 15:34 Ur Barbiturates Screen Not Detected (NotDetected) 07/30/18 12:43 U Tricyclic Antidepress Detected (NotDetected) H 07/30/18 12:43 Ur Phencyclidine Scrn Not Detected (NotDetected) 07/30/18 12:43 Ur Amphetamines Screen Not Detected (NotDetected) 07/30/18 12:43 U Methamphetamines Scrn Not Detected (NotDetected) 07/30/18 12:43 U Benzodiazepines Scrn Detected (NotDetected) H 07/30/18 12:43 Urine Cocaine Screen Not Detected (NotDetected) 07/30/18 12:43 U Marijuana (THC) Screen Not Detected (NotDetected) 07/30/18 12:43 HSV I DNA PCR Not detected (Not detected) 07/30/18 17:30 HSV II DNA PCR Not detected (Not detected) 07/30/18 17:30 HSV (PCR) Source 07/30/18 17:30 Influenza Type A RNA Not Detected (Not Detectd) 07/30/18 13:35 Influenza Type B (PCR) Not Detected (Not Detectd) 07/30/18 13:35 Blood Type O Positive 07/30/18 11:23 Blood Type Confirm O Positive 07/30/18 12:39 Blood Type Recheck CABO Indicated 07/30/18 11:23 Antibody Screen NEGATIVE 07/30/18 11:23 Spec Expiration Date 08/02/2018232207/30/18 11:23 Microbiology 08/05/18 06:00 Blood Blood Culture Gram Stain - Preliminary 08/05/18 09:55 Knee - Left Gram Stain - Preliminary 08/05/18 09:55 Knee - Left Body Fluid Culture - Preliminary 08/05/18 06:00 Blood Blood Culture - Final 08/03/18 17:16 Blood Blood Culture Gram Stain - Final 08/03/18 17:16 Blood Blood Culture - Final Staphylococcus aureus 08/04/18 04:25 Blood Blood Culture Gram Stain - Preliminary 08/04/18 04:25 Blood Blood Culture - Preliminary Presumptive Staph aureus 08/05/18 09:55 Knee - Left Anaerobic Culture - Preliminary 08/04/18 04:25 Blood Blood Culture - Final 08/03/18 17:55 Urine,Catheterized Urine Culture - Final 08/03/18 17:16 Blood Blood Culture - Final 08/01/18 05:40 Blood Blood Culture Gram Stain - Final 08/01/18 05:40 Blood Blood Culture - Final Staph aureus 08/01/18 06:00 Blood Blood Culture Gram Stain - Final 08/01/18 06:00 Blood Blood Culture - Final Staphylococcus aureus 08/01/18 05:40 Blood Blood Culture - Final 07/31/18 00:15 Sputum Gram Stain - Final 07/31/18 00:15 Sputum Sputum Culture - Final Staphylococcus aureus 07/30/18 20:45 Blood Blood Culture Gram Stain - Final 07/30/18 20:45 Blood Blood Culture - Final Staphylococcus aureus 07/30/18 20:45 Blood Blood Culture Gram Stain - Final 07/30/18 20:45 Blood Blood Culture - Final Staphylococcus aureus 08/01/18 06:00 Blood Blood Culture - Final 07/30/18 15:34 Blood Blood Culture Gram Stain - Final 07/30/18 15:34 Blood Blood Culture - Final Staphylococcus aureus 07/30/18 17:30 Cerebral Spinal Fluid CSF Gram Stain - Final 07/30/18 17:30 Cerebral Spinal Fluid CSF Culture - Final Staphylococcus aureus 07/30/18 12:43 Urine,Clean Catch Urine Culture - Final Staphylococcus aureus 07/30/18 20:45 Blood Blood Culture - Final 07/30/18 20:45 Blood Blood Culture - Final 07/30/18 15:34 Blood Blood Culture - Final - Imaging and Cardiology Chest x-ray: image reviewed (Bibasal infiltrate with bibasilar effusion) Assessment and Plan (1) Abdominal pain Status: Acute Code(s): R10.9 - UNSPECIFIED ABDOMINAL PAIN SNOMED Code(s): 79342011 (2) Acute exacerbation of chronic low back pain Status: Acute Code(s): M54.5 - LOW BACK PAIN; G89.29 - OTHER CHRONIC PAIN SNOMED Code(s): 435464463 (3) Altered mental status Narrative/Plan: 53-year-old male presents to hospital with progressive symptoms over the 5 days before admission. Approximately 3 days prior he been in the emergency center with complaints of ongoing abdominal pain. There is evidence of some constipation at that point in time and patient was symptomatically treated. However he now has a great difficulties with ongoing abdominal pain worsening back pain and now while in the emergency center the altered mental status developed. Because of these findings in the leukocytosis lumbar puncture was performed the reveals a markedly abnormal fluid. There were 1415 white blood cells, 965 red blood cells, glucose was 29 and protein was greater than 600 with some xanthochromia being seen. The Gram stain is personally reviewed without evidence of any bacterial pathogens being seen. At this time the patient has evidence of bacterial meningitis with evidence of a systemic inflammatory response, leukocytosis, lactic acidosis, hypoglycorrhachia and evidence of marked elevated protein of the CSF. Without evidence of gram- negative organisms seen on the Gram stain is unlikely the patient has no severe meningitidis in no prophylaxis is given to visitors or to the care team here at the hospital. This will be with ongoing review. At this time cultures are in process however antimicrobial therapy is being utilized with concerns to multiple potential pathogens which would include Streptococcus pneumoniae, listeria meningitis which is of some great concern given the patient's history of alcohol use and what appears to be high doses of steroids as of late. Constantly for antibiotic therapy high doses of ampicillin, ceftriaxone and vancomycin are being utilized. Although I do not suspect brain abscess the patient does have potential intra-abdominal pathology with a dilated colon and constantly metronidazole is added to the ceftriaxone for treatment of potential intra-abdominal infection also. Cultures are all in process at this point in time he may further help direct a ntimicrobial therapy in the near future. Fortunately with hydration and initiation of some metabolic therapy his mentation seems to be a bit improved and as described in the emergency center. The case as directed we discussed with the surgeon and at this time no acute indication for surgical intervention to the abdomen at this time, treatment for constipation is in process. Also discussed with the hospitalist as far as the course of treatment for the meningitis and follow-up. 07/31/2018 the patient remains in intensive care unit, has now been intubated mechanically ventilated and is sedated and paralyzed later to improve synchrony with the ventilator. There is now evidence of positive blood culture, positive urine culture, and positive CSF culture for staph aureus. Laboratory has yet to definitively determine MSSA versus MRSA. However noted a pathogen has been identified ampicillin can be discontinued since it is not likely that this is listeria . Continue vancomycin, Rocephin and metronidazole. Although patient does have meningitis there is still concerned about an intra-abdominal process and consequently Rocephin and Flagyl would give coverage for that. Follow blood cultures are requested to determine the clearance of his bacteremia. Patient did have an outpatient computed tomography scan of the spine without evidence of discitis or osteomyelitis. A parameningeal focus of infection is still in consideration, but no evidence of that by the imaging studies to date. 08/01/2018 patient remains in intensive care unit intubated state and mechanically ventilated. There has been some improvement. He is no longer hypotensive actually is hypertensive and cleviprex has been added. Oxygenation is adequate Leukocytosis continues with response to his MSSA sepsis, bacteremia, and meningitis. Patient did have a computed tomography scan of the spine on 07/27/2018 without e vidence of discitis or osteomyelitis of the spine. CT of the brain without intracranial abscess Patient has evidence of MSSA meningitis and sepsis currently being treated with Rocephin, vancomycin and Flagyl. The patient did have complaints of stabbing abdominal pain at admission and is being followed by surgery and since there is a concern for potential intra-abdominal process also the metronidazole continues for now Once the blood cultures are finalized vancomycin will likely be discontinued at that time. 08/03/2018 patient has now become febrile again and remains intubated, sedated and mechanically ventilated and paralyzed requiring Cleviprex. Blood cultures continue to have ongoing MSSA. Imaging studies of failed to find any distinct abscess related to his unremitting infection and bacteremia. However the most recent computed tomography scan does show evidence of bibasilar infiltrates With MSSA vancomycin will be discontinued. Continue the high-dose ceftriaxone. Flagyl has been utilized in conjunction with Rocephin for potential intra-abdominal sepsis. Given the lack of improvement of the bacteremia, and now the changes in the pulmonary status, we'll plan to discontinue metronidazole initiating meropenem in addition to the ceftriaxone. Goals for potential synergistic reaction between the 2 agents to clear the staph aureus bacteremia, treated underlying pneumonia, and will remove the need for metronidazole for treatment of intra- abdominal infection. We'll obtain some follow-up blood cultures. Prognosis is very poor. 08/04/2018 patient's fever has now improved. As noted the echocardiogram was mildly abnormal and EZ has been requested to evaluate the possibility of endocarditis. Patient continues to have positive blood cultures. However antibiotic therapy was altered yesterday and await if there is no further improvement in his status. Would consider follow-up computed tomography scan of the head if there is any further fever. Continue antibiotic therapy with Rocephin meropenem at this time. 08/05/2018 the patient had transient improvement in his fever which has now recurred. He is not requiring vasopressor therapy. Respiratory status is stable. EZ was performed without evidence of endocarditis. Patient however continues to have evidence of ongoing sepsis with ongoing bacteremia despite appropriate antibiotic therapy. There was a change to add meropenem and after minimal transient improvement is again had ongoing fevers and continues to have the positive blood cultures for MSSA. At admission there was evidence of meningitis and sepsis. No other continues with ongoing possible culture. Without evidence of endocarditis a abscess that has not been delineated remains the most likely etiology of the ongoing bacteremia. The site of this has not been delineated by the multiple CT scans that have been performed so far. Patient likely needs further imaging of the central nervous system with MRI to exclude collection is not visible by computed tomography scan. We also need further evaluation of the intra-abdominal contents given the difficulties that were noted since admission, ongoing lack of stool production and abdominal pain. Unclear if his ongoing abdominal pain at this time given the patient's mental status. Query as to the need for transfer to tertiary center if ongoing care is to continue. 08/06/2018 the patient continues to be intubated sedated and mechanically ventilated now is on vasopressor therapy. As noted continues to have positive blood cultures. Workup to date has not been able to identify the actual et iology of the source of the ongoing bacteremia. There was meningitis part of his initial presentation however that has not been effectively treated and should be improving. Consequently underlying abscess whether it is paraspinal, epidural, intra-abdominal remains of concern. Patient is need of further imaging that cannot be done at our facility. This is been discussed with the primary service and the pulmonary critical care team. We are working for a transfer to [facility] for further evaluations. Specifically MRI that can be done while the patient is ventilated that cannot be done at our facility. And further surgical evaluation given the agents marked abnormality of his ab domen. Status: Acute Code(s): R41.82 - ALTERED MENTAL STATUS, UNSPECIFIED SNOMED Code(s): 609257847 (4) SIRS (systemic inflammatory response syndrome) Status: Acute Code(s): R65.10 - SIRS OF NON-INFECTIOUS ORIGIN W/O ACUTE ORGAN DYSFUNCTION SNOMED Code(s): 279743210
== END 2018-08-06 16:45 | disposition short-term general hospital (02) | DRG 870 ==
LOC: EC 11:00 → 2SICU 15:50
PROVIDERS: ADMIT Hospitalist; ATTEND Hospitalist
PROC: 009U3ZX Drainage of Spinal Canal, Percutaneous Approach, Diagnostic (ICD-10-PCS; 2018-07-30)
PROC: 5A1955Z Respiratory Ventilation, Greater than 96 Consecutive Hours (ICD-10-PCS; principal; 2018-07-31)
PROC: 0BH17EZ Insertion of Endotracheal Airway into Trachea, Via Natural or Artificial Opening (ICD-10-PCS; 2018-07-31)
PROC: 06HM33Z Insertion of Infusion Device into Right Femoral Vein, Percutaneous Approach (ICD-10-PCS; 2018-08-01)
PROC: 03HY32Z Insertion of Monitoring Device into Upper Artery, Percutaneous Approach (ICD-10-PCS; 2018-08-02)
PROC: B24BZZ4 Ultrasonography of Heart with Aorta, Transesophageal (ICD-10-PCS; 2018-08-04)
PROC: 0S9D3ZZ Drainage of Left Knee Joint, Percutaneous Approach (ICD-10-PCS; 2018-08-05)
DX: A41.01 Sepsis due to Methicillin susceptible Staphylococcus aureus (principal); G00.3 Staphylococcal meningitis; G93.41 Metabolic encephalopathy; J18.9 Pneumonia, unspecified organism; J96.01 Acute respiratory failure with hypoxia; J90 Pleural effusion, not elsewhere classified; E87.3 Alkalosis; K56.7 Ileus, unspecified; R65.20 Severe sepsis without septic shock; R16.0 Hepatomegaly, not elsewhere classified; E66.9 Obesity, unspecified; F17.200 Nicotine dependence, unspecified, uncomplicated; G89.4 Chronic pain syndrome; I10 Essential (primary) hypertension; K42.9 Umbilical hernia without obstruction or gangrene; K57.30 Diverticulosis of large intestine without perforation or abscess without bleeding; K59.00 Constipation, unspecified; M19.90 Unspecified osteoarthritis, unspecified site; M54.5 Low back pain; R73.9 Hyperglycemia, unspecified; M25.462 Effusion, left knee; Z68.38 Body mass index [BMI] 38.0-38.9, adult; Z79.52 Long term (current) use of systemic steroids; Z79.899 Other long term (current) drug therapy
CPT/HCPCS: 36415; 36600; 62270; 70450; 71045; 71275; 72125; 74018; 74174; 74176; 76705; 80053; 80202; 80306; 81001; 82140; 82803; 82805; 82945; 83036; 83520; 83605; 83690; 83735; 84100; 84132; 84157; 84484; 85025; 85379; 85610; 85652; 85730; 86140; 86592; 86850; 86900; 86901; 87040; 87070; 87075; 87077; 87086; 87186; 87205; 87502; 87529; 89050; 93005; 93306; 93312; 93320; 93325; 94002; 94003; 94640; 96361; 96365; 96366; 96375; 96376; 99291; 99292

== ENCOUNTER → 2019-02-16 | Outpatient (CLI) | payer BC ==
--- NOTE | 2019-02-16 20:01 | PN ---
PROGRESS NOTE DATE OF SERVICE: 02/16/2019 53-year-old gentleman who [facility] of obstructive sleep apnea-hypopnea syndrome. The patient continued to use CPAP equipment every night for the whole night. Several months ago, patient had spinal meningitis, sepsis, and bilateral DVT problem from both legs. Again, he is successfully continuing his CPAP equipment at the present time. [place] Sleepiness Scale today is 5. I checked his CPAP unit. CPAP pressure is 16 cm of water. Usage is 100% of nights more than 4 hours with average usage is 7.1 hours per night. Leak is only 7 L/minute which is normal. Apnea-hypopnea index only 0.9, which is perfect. MEDICATIONS: Gabapentin, Davis, Flexeril, Prilosec, Zyrtec and Motrin. PHYSICAL EXAM: Patient in no distress. BP 131/69, HR 100, RR 16, height 5 feet 9.5 inches and weight 247, body mass index 35.9, temperature 98.5. Oxygen saturation on room air, 98%. Oropharynx low position of soft palate with Mallampati 3. Neck Supple, no JVD. Thyroid is not palpable. LUNGS Clear to percussion and to auscultation. Good air exchange. No wheezing or rhonchi. HEART S1, S2 regular. No murmurs, gallops, or rubs. ABDOMEN: Slightly obese. Soft and nontender. Bowel sounds are present. No organomegaly appreciated. EXTREMITIES No clubbing or cyanosis. COUNTER SERVER Awake, alert, and oriented X3. Cranial nerves 2 to 7 intact. There is no fasciculation or atrophy. noted. No focal deficits observed. Decision made, patient lost 16 pounds but presently could use CPAP equipment without difficulties. Decision not to change pressure at the present time. IMPRESSION: 1. Extremely severe obstructive sleep apnea-hypopnea syndrome with apnea-hypopnea index 87 reading from machine showed normal respiration on CPAP. The patient demonstrated 100% compliance with treatment. 2. Obesity, patient lost 16 pounds since previous visit. 3. Status post spinal meningitis and sepsis several months ago. 4. History of bilateral deep vein thrombosis several months ago. 5. Low back problems. 6. Neck problems. 7. Allergy. PLAN: 1. Patient will continue to use CPAP equipment every night for the whole night. 2. Watching and losing weight. 3. Sleep hygiene with regular time in bed for at least 7-1/2 to 8 hours. 4. No driving if feeling sleepiness. 5. I will maintain prescriptions for all necessary CPAP supplies including mask, tube, filters. 6. Follow-up visit in 1 year or earlier if patient has any problems. Thank you very much for allowing me to participate in management of your patient. Sincerely, Chino Stoll MD, PhD, FAASM Diplomat [employer] [facility] [place] MMODL / IJN: [id number] /
== END | disposition home or self-care (01) ==
LOC: SLEEP 16:47
PROVIDERS: ATTEND Internal Medicine
DX: G47.33 Obstructive sleep apnea (adult) (pediatric) (principal); M53.9 Dorsopathy, unspecified; T78.40XA Allergy, unspecified, initial encounter; E66.9 Obesity, unspecified; Z86.61 Personal history of infections of the central nervous system; Z99.89 Dependence on other enabling machines and devices; Z86.718 Personal history of other venous thrombosis and embolism; Z79.891 Long term (current) use of opiate analgesic; Z79.899 Other long term (current) drug therapy; Z79.1 Long term (current) use of non-steroidal anti-inflammatories (NSAID)

== ENCOUNTER → 2022-09-02 | Outpatient (CLI) | payer BC ==
--- NOTE | 2022-09-02 13:31 | CT ---
EXAMINATION TYPE: CT abdomen pelvis wo con DATE OF EXAM: 09/02/2022 HISTORY: Left sided flank pain. CT DLP: 946.4 mGycm. Automated Exposure Control for Dose Reduction was Utilized. TECHNIQUE: CT scan of the abdomen and pelvis is performed without oral or IV contrast. COMPARISON: CT abdomen and pelvis August 03, 2018 FINDINGS: Within the limitations of a non-contrast study, the following observations are made. LUNG BASES: Mild bibasilar linear scarring and/or atelectasis. Some calcification in the right [place] artery distribution. Partial visualization of calcification of the aortic valve. LIVER/GB: No significant abnormality is appreciated. PANCREAS: No significant abnormality is seen. SPLEEN: No significant abnormality is seen. ADRENALS: Slightly low dense thickening to the right adrenal gland consistent with benign lipid rich hyperplasia is unchanged from prior study. KIDNEYS: No renal stones or hydronephrosis seen bilaterally. BOWEL: There is wandering cecum into the right upper to mid abdomen anterior to the inferior right he patic lobe. No suspicious small or large bowel dilatation. A few colonic diverticula in the left and sigmoid colon. No CT evidence for acute diverticulitis. [id number] fecal prominence in the righ t colon GENITAL ORGANS: No gross abnormality seen. LYMPH NODES: No greater than 1cm abdominal or pelvic lymph nodes are appreciated. OSSEOUS STRUCTURES: No significant abnormality is seen. OTHER: Fairly moderate-sized fat-containing umbilical hernia sagittal image 72 is more prominent from prior. IMPRESSION: 1. No renal stones or hydronephrosis is seen bilaterally. No acute findings seen to account for patie nt's symptoms of left-sided flank pain.
== END | disposition home or self-care (01) ==
LOC: RADCTMAIN 13:06
PROVIDERS: ATTEND Family Medicine
DX: R10.9 Unspecified abdominal pain (principal)
CPT/HCPCS: 74176

== ENCOUNTER 2023-11-24 18:35 | Emergency (ER) | payer BC ==
[2023-11-24 18:45] VITALS: RESP 18
--- NOTE | 2023-11-24 19:55 | ED ---
General Adult HPI - General Chief complaint: Chest Pain Stated complaint: high blood pressure/elevated heart rate Time Seen by Provider: 11/24/23 19:24 Source: patient Mode of arrival: ambulatory Limitations: no limitations - History of Present Illness Initial comments: Patient is a 58-year-old male presenting today for high blood pressure and palpitations. The patient states symptoms have since resolved. He history recent aortic valve replacement and aortic graft on 11/08/2023, on warfarin. [facility] Patient states that around 4:00 this afternoon he was sitting watching TV when he started to feel a warm flushing sensation, over him. He noticed that he then felt like his heart was going fast but denies feeling as though he had palpitations. He denies chest pain at this time, states that he only felt the sensation of his heart going fast. He took his blood pressure and it was 180 systolic. He had repeated the blood pressure and it was 194 systolic. He called his neighbor out of concern for his symptoms to bring him to the hospital. Patient states that ever since being released from the hospital he has been walking daily, 1 miles 4 times a day. Today he was increasing his mileage to 2 miles 3 times a day. He performed 2 of his 2 mile walks, the last 1 being at approximately noon today. He was getting ready to go for his next one when today symptoms occurred. Patient states that now his symptoms have resolved and he feels like the symptoms were due to anxiety. Prior to coming to the hospital patient did take his evening dose of metoprolol. He denies any new life stressors or anything that would have triggered feelings of anxiety. Patient has been taking warfarin as prescribed, goal INR 1.5-2.5. He denies any lightheadedness, dizziness, headache, shortness of breath or difficulty in breathing, chest pain, pain that radiates to his back or shoulders, diaphoresis, abdominal pain, nausea, vomiting, fevers, chills, swelling in his legs, cough or hemoptysis. - Related Data Home Medications Medication Instructions Recorded Confirmed Ascorbic Acid [Vitamin C] 1,000 mg PO DAILY 07/27/18 07/30/18 Cyclobenzaprine [Flexeril] 10 mg PO TID PRN 07/27/18 07/30/18 Gabapentin 600 mg PO QID 07/27/18 07/30/18 Hydrocodone/Acetaminophen [[place] 1 tab PO TID PRN 07/27/18 07/30/18 10-325] Ibuprofen [Motrin Ib] 400 mg PO Q6H PRN 07/27/18 07/30/18 Multivit-Min/FA/Lycopen/Lutein 1 tab PO DAILY 07/27/18 07/30/18 [Centrum Silver Tablet] Varenicline [Chantix Continuing 1 mg PO BID 07/27/18 07/30/18 Pack] flaxseed oiL [Flaxseed Oil] 1,000 mg PO DAILY 07/27/18 07/30/18 Previous Rx's Medication Instructions Recorded diazePAM [Valium] 5 mg PO Q8H PRN 3 Days #9 tab 07/27/18 predniSONE 50 mg PO DAILY #5 tab 07/27/18 Allergies Allergy/AdvReac Type Severity Reaction Status Date / Time Unable to Assess Allergy Verified 07/30/18 11:52 Review of Systems ROS Statement: Those systems with pertinent positive or pertinent negative responses have been documented in the HPI. ROS Other: All systems not noted in ROS Statement are negative. Past Medical History Past Medical History: Hypertension Additional Past Medical History / Comment(s): chronic back pain History of Any Multi-Drug Resistant Organisms: None Reported Past Surgical History: Cardiac Valve Replacement, Orthopedic Surgery Additional Past Surgical History / Comment(s): Aortic valve replacement 11/08/23, Ascending Aortic Aneurysm repair (11/08/23) Past Anesthesia/Blood Transfusion Reactions: No Reported Reaction Past Psychological History: No Psychological Hx Reported Smoking Status: Former smoker Past Alcohol Use History: Daily, Occasional Past Drug Use History: None Reported, Opiates General Exam - General Exam Comments Initial Comments: PE: CONSTITUTIONAL: no apparent distress, well appearing SKIN: warm, dry, no jaundice, hives or petechiae, EYES: pupils are equally round, extraocular movements intact without nystagmus, clear conjunctiva, non-icteric sclera HENT: normocephalic, atraumatic, moist mucus membranes, oropharynx clear without exudates NECK: Nontender and supple with no nuchal rigidity, no lymphadenopathy, full range of motion PULMONARY: clear to auscultation without wheezes, rhonchi, or rales, normal excursion, no accessory muscle use and no stridor CARDIOVASCULAR: regular rate, rhythm, normal S1 and S2. No appreciated murmurs. Strong radial pulses with intact distal perfusion, Chest wall is nontender to palpation, well-healing sternotomy scar without erythema or or discharge, no crepitus palpated GASTROINTESTINAL: soft, non-tender, non-distended, no palpable masses, no rebound or guarding LYMPHATICS: no edema in lower extremities, MUSCULOSKELETAL: Extremities have no gross deformity, no edema, redness, or swelling, no calf tenderness to palpation NEUROLOGIC: _a/o x 3, GCS 15, normal mentation and speech. Moves all extremities x 4 without motor or sensory deficit PSYCHIATRIC: _normal mood and affect, thought process is clear and linear Limitations: no limitations Course Vital Signs 11/24/23 11/24/23 11/24/23 18:41 22:43 23:06 Temperature 98.3 F 98.2 F Pulse Rate 100 79 79 Respiratory 18 18 18 Rate Blood Pressure 161/85 144/85 144/85 O2 Sat by Pulse 99 99 99 Oximetry - Reevaluation(s) Reevaluation #1: troponin within normal limits 0.016, BNP 428, glucose 104, GFR greater than 90, hemoglobin 11 last 11.7, appears to be near baseline. 11/24/23 21:06 11/24/23 23:37 11/25/23 10:22 Reevaluation #2: Spoke with Dr. Dumont, cardiothoracic surgery, [facility], discussed patient's lab and CT findings today as well as vital signs, suspects findings 2/2 recent surgery, as long as no fever, signs of infection/redness over incision, can follow up oupatient with Dr. Samuel. Ensure patient has follow up in place with Dr. Samuel. Updated patient and discussed plan. patient is currently asymptomatic and has appointment with Dr. Samuel December 08, however will call his office tomorrow morning to discuss sooner follow up appointment. Patient comfortable with discharge home. 11/24/23 22:45 11/25/23 10:23 EKG Findings - EKG Comments: EKG Findings:: Sinus rhythm. Left axis deviation. Rate 74 bpm. Normal intervals. No significant ST elevations or depressions. No arrhythmia. compared to EKG performed on 07/30/2018, at that point patient was in sinus tachycardia, limiting comparison of EKGs, left axis deviation was present at that point as well Medical Decision Making - Medical Decision Making Was pt. sent in by a medical professional or institution (, PA, LEAD TELLER, urgent care, hospital, or snf...) When possible be specific @ -No Did you speak to anyone other than the patient for history (EMS, parent, family, police, friend...)? What history was obtained from this source @ -Patient presents with his neighbor who drove him who assisted in providing history Did you review nursing and triage notes (agree or disagree)? Why? @ -I reviewed and agree with nursing and triage notes Were old charts reviewed (outside hosp., previous admission, EMS record, old EKG, old radiological studies, urgent care reports/EKG's, snf records)? Report findings @ -Patient presented with discharge paperwork from his hospital stay at [facility] and recent Avalus valve repair and aortic graft replacement, reviewed discharge medications and follow up instructions, phone number is. To call if patient has issues after hours, I did call this phone number however reached a "[facility] line that is out of service". Differential Diagnosis (chest pain, altered mental status, abdominal pain women, abdominal pain men, vaginal bleeding, weakness, fever, dyspnea, syncope, headache, dizziness, GI bleed, back pain, seizure, CVA, palpatations, mental health, musculoskeletal)? @ -Differential Palpitations Arrhythmia, ACS , anemia, thyrotoxicosis, electrolyte imbalance, hypokalemia, pulmonary embolism, pulmonary disease, drugs, alcohol, anxiety, stress.... This is not meant to be an all-inclusive list. EKG interpreted by me (3pts min.). @ -Sinus rhythm Left axis deviation Rate 74 bpm Normal intervals No significant ST elevations or depressions No arrhythmia compared to EKG performed on 07/30/2018, at that point patient was in sinus tachycardia, limiting comparison of EKGs, left axis deviation was present at that point as well X-rays interpreted by me (1pt min.). @ -None done CT interpreted by me (1pt min.). @ -Please see below U/S interpreted by me (1pt. min.). @ -None done What testing was considered but not performed or refused? (CT, X-rays, U/S, labs)? Why? @ -None What meds were considered but not given or refused? Why? @ -None Did you discuss the management of the patient with other professionals (professionals i.e. DrLm, PA, LEAD TELLER, lab, RT, psych nurse, social services, silica dry press helper, teacher, district fire management officer, manager case)? Give summary @ -Please see hospital course Was smoking cessation discussed for >3mins.? @ -No Was critical care preformed (if so, how long)? @ -No Were there social determinants of health that impacted care today? How? (H omelessness, low income, unemployed, alcoholism, drug addiction, transportation, low edu. Level, literacy, decrease access to med. care, assisted, rehab)? @ -No Was there de-escalation of care discussed even if they declined (Discuss DNR or withdrawal of care, Hospice)? DNR status @ -No What co-morbidities impacted this encounter? (DM, HTN, Smoking, COPD, CAD, Cancer, CVA, ARF, Chemo, Hep., AIDS, mental health diagnosis, sleep apnea, morbid obesity)? @ -Hypertension Was patient admitted / discharged? Hospital course, mention meds given and route, prescriptions, significant lab abnormalities, going to OR and other pertinent info. @ -Hospital course Patient is a 58-year-old male, recent aortic valve replacement and aortic graft repair on warfarin presenting today for feeling like his heart was racing and hypertension at home.Here initial vital signs show blood pressure 161/85, respiratory rate of 18, heart rate 100, temp 98.3 degrees pulse ox 99% on room air. On my assessment patient is well-appearing, pleasant in no acute distress. He endorses resolution of symptoms. We discussed plan for EKG, comprehensive labs, ie cardiac enzymes, TSH, CBC, CMP, IV fluids, discussed chest x-ray versus CT angiogram, patient stated he would feel more comfortable having CT angiogram performed. CT angiogram chest abdomen pelvis ordered to assess for complications of patient's recent surgery, dissection. Patient notes that he is due for his [place] soon and requested home dose of [place] CT angiogram reviewed, significant for postoperative changes to the mediastinum, fluid collection just deep to the sternum measuring 24 x 15 x 32 mm "findings could represent hematoma/seroma with a superimposed infection not excluded" no evidence of thoracic aortic dissection and occlusion or aneurysmal dilation. I reviewed patient's CT personally and I agree with radiologist interpretation, I see no evidence of dissection, occlusion, dilation. Reviewed this with patient's cardiothoracic surgery team at [facility], please see hospital course. Ultimately these are anticipated findings and patient has no signs of infection can be discharged home for outpatient follow-up. I agree with an uncomfortable with this plan given patient's well appearance, lack of fever or other signs of infection and resolution of symptoms. I updated patient to this plan of care and he is comfortable and agreeable with plan. In my medical judgment there is currently no evidence of an immediate life-threatening or surgical condition. Discharge is therefore indicated at this time. Discharge treatment instructions, follow up instructions, and appropriate emergency department return precautions were discussed with the patient and/or medical decision maker. Patient and/or medical decision maker expressed understanding of and agreed with the treatment plan, follow up instructions, and emergency department return precaution. All patient's and/or medical decision maker's questions were answered. The patient was advised that a small risk still exists that a serious condition could develop and was therefore instructed to return to the ED for any changes in symptoms, persistent symptoms, inability to obtain proper follow-up or for any further concerns. Patient received verbal and written instructions for this condition. Undiagnosed new problem with uncertain prognosis? @ -No Drug Therapy requiring intensive monitoring for toxicity (Heparin, Nitro, Insulin, Cardizem)? @ -No Were any procedures done? @ -No Diagnosis/symptom? @ -Hypertension, chest tightness Acute, or Chronic, or Acute on Chronic? @ -Acute Uncomplicated (without systemic symptoms) or Complicated (systemic symptoms)? @ -Complicated Side effects of treatment? @ -No Exacerbation, Progression, or Severe Exacerbation? @ -No - Lab Data Result diagrams: 11/24/23 20:18 11/24/23 20:18 Lab Results 11/24/23 11/24/23 11/24/23 Range/Units 20:18 20:18 20:18 WBC 7.4 (3.8-10.6) k/uL RBC 3.18 L (4.30-5.90) m/uL Hgb 11.0 L (13.0-17.5) gm/dL Hct 33.0 L (39.0-53.0) % MCV 103.6 H (80.0-100.0) fL MCH 34.4 (25.0-35.0) pg MCHC 33.2 (31.0-37.0) g/dL RDW 13.3 (11.5-15.5) % Plt Count 397 (150-450) k/uL MPV 7.0 Neutrophils % 70 % Lymphocytes % 18 % Monocytes % 6 % Eosinophils % 3 % Basophils % 1 % Neutrophils # 5.2 (1.3-7.7) k/uL Lymphocytes # 1.4 (1.0-4.8) k/uL Monocytes # 0.4 (0-1.0) k/uL Eosinophils # 0.2 (0-0.7) k/uL Basophils # 0.1 (0-0.2) k/uL Hypochromasia Marked Poikilocytosis Slight Macrocytosis Slight PT 12.0 (10.0-12.5) sec INR 1.1 (<1.2) APTT 22.9 (22.0-30.0) sec Sodium 140 (137-145) mmol/L Potassium 4.6 (3.5-5.1) mmol/L Chloride 106 (98-107) mmol/L Carbon Dioxide 27 (22-30) mmol/L Anion Gap 7 mmol/L BUN 16 (9-20) mg/dL Creatinine 0.83 (0.66-1.25) mg/dL Est GFR (CKD-EPI)AfAm >90 (>60 ml/min/1.73 sqM) Est GFR (CKD-EPI)NonAf >90 (>60 ml/min/1.73 sqM) Glucose 104 H (74-99) mg/dL Calcium 9.7 (8.4-10.2) mg/dL Magnesium 2.0 (1.6-2.3) mg/dL Total Bilirubin 0.4 (0.2-1.3) mg/dL AST 28 (17-59) U/L ALT 19 (4-49) U/L Alkaline Phosphatase 91 (38-126) U/L Troponin I (0.000-0.034) ng/mL NT-Pro-B Natriuret Pep 428 pg/mL Total Protein 6.9 (6.3-8.2) g/dL Albumin 4.2 (3.5-5.0) g/dL TSH 3.970 (0.465-4.680) mIU/L 11/24/23 Range/Units 20:18 WBC (3.8-10.6) k/uL RBC (4.30-5.90) m/uL Hgb (13.0-17.5) gm/dL Hct (39.0-53.0) % MCV (80.0-100.0) fL MCH (25.0-35.0) pg MCHC (31.0-37.0) g/dL RDW (11.5-15.5) % Plt Count (150-450) k/uL MPV Neutrophils % % Lymphocytes % % Monocytes % % Eosinophils % % Basophils % % Neutrophils # (1.3-7.7) k/uL Lymphocytes # (1.0-4.8) k/uL Monocytes # (0-1.0) k/uL Eosinophils # (0-0.7) k/uL Basophils # (0-0.2) k/uL Hypochromasia Poikilocytosis Macrocytosis PT (10.0-12.5) sec INR (<1.2) APTT (22.0-30.0) sec Sodium (137-145) mmol/L Potassium (3.5-5.1) mmol/L Chloride (98-107) mmol/L Carbon Dioxide (22-30) mmol/L Anion Gap mmol/L BUN (9-20) mg/dL Creatinine (0.66-1.25) mg/dL Est GFR (CKD-EPI)AfAm (>60 ml/min/1.73 sqM) Est GFR (CKD-EPI)NonAf (>60 ml/min/1.73 sqM) Glucose (74-99) mg/dL Calcium (8.4-10.2) mg/dL Magnesium (1.6-2.3) mg/dL Total Bilirubin (0.2-1.3) mg/dL AST (17-59) U/L ALT (4-49) U/L Alkaline Phosphatase (38-126) U/L Troponin I 0.016 (0.000-0.034) ng/mL NT-Pro-B Natriuret Pep pg/mL Total Protein (6.3-8.2) g/dL Albumin (3.5-5.0) g/dL TSH (0.465-4.680) mIU/L Disposition Clinical Impression: Hypertension, Chest tightness Disposition: HOME SELF-CARE Condition: Good Instructions (If sedation given, give patient instructions): Chest Pain (ED) Additional Instructions: Every disease is a spectrum and a small chance still exists that a serious condition could develop, for this reason, please monitor yourself closely for new, changing or worsening symptoms, inability to obtain close follow-up/follow- up within 1 week with your cardiothoracic surgeon unless your cardiothoracic surgeon does not feel follow up is warranted that soon, chest pain, discharge or redness from your surgical wounds, fever/temperature 100.4 degrees or greater, chest pain that radiates to your back or shoulder, sudden onset or severe chest pain, shortness of breath/difficulty breathing, swelling in your legs, cough productive of thick sputum or blood, inability to tolerate/keep down fluids or your medications, inability to follow up with outpatient providers as instructed and should you experience these symptoms or should you have any further concerns for your wellbeing please return to the ED or call 911 immediately. PLEASE call your primary care physician as soon as possible to arrange / discuss plan for followup appointment. Appointment in the next 1-3 days is strongly encouraged if possible. Please call your cardiothoracic surgeon, Dr. Samuel in the morning to discuss follow-up appointment. PLEASE let us know here before you leave if there is anything further we can do to be of any assistance. Take care and feel Better! Is patient prescribed a controlled substance at d/c from ED?: No Referrals: Nonstaff,Physician [Primary Care Provider] - 1-2 days Time of Disposition: 22:50
[2023-11-24 20:36] LABS: Basophils # (A) 0.1 k/uL (0-0.2); Basophils % (A) 1 %; Eosinophils # (A) 0.2 k/uL (0-0.7); Eosinophils % (A) 3 %; Hypochromasia Marked; Lymphocytes # (A) 1.4 k/uL (1.0-4.8); Lymphocytes % (A) 18 %; MCH 34.4 pg (25.0-35.0); MCHC 33.2 g/dL (31.0-37.0); MCV 103.6 fL (80.0-100.0); Macrocytosis Slight; Monocytes # (A) 0.4 k/uL (0-1.0); Monocytes % (A) 6 %; Neutrophils # (A) 5.2 k/uL (1.3-7.7); Neutrophils % (A) 70 %; Platelet Count 397 k/uL (150-450); Poikilocytosis Slight; RBC 3.18 m/uL (4.30-5.90); RDW 13.3 % (11.5-15.5); WBC 7.4 k/uL (3.8-10.6)
[2023-11-24 20:52] LABS: INR 1.1 (<1.2); Partial Thromboplastin Time 22.9 sec (22.0-30.0)
[2023-11-24] MEDS: SODIUM CHLORIDE 0.9% 500 ML 500 ML IV STA (20:54)
[2023-11-24 21:00] LABS: ALT 19 U/L (4-49); AST 28 U/L (17-59); African American GFR (CKD) >90 (>60 ml/min/1.73 sqM); Albumin 4.2 g/dL (3.5-5.0); Alkaline Phosphatase 91 U/L (38-126); Anion Gap 7 mmol/L; Blood Urea Nitrogen 16 mg/dL (9-20); Calcium 9.7 mg/dL (8.4-10.2); Carbon Dioxide 27 mmol/L (22-30); Chloride 106 mmol/L (98-107); Glucose 104 mg/dL (74-99); Non-African American GFR(CKD) >90 (>60 ml/min/1.73 sqM); Potassium 4.6 mmol/L (3.5-5.1); Sodium 140 mmol/L (137-145); Total Bilirubin 0.4 mg/dL (0.2-1.3); Total Protein 6.9 g/dL (6.3-8.2)
[2023-11-24 21:05] LABS: NT-Pro-B-Type Natriuretic Pept 428 pg/mL
[2023-11-24] MEDS: HYDROcodone/APAP 10-325MG 1 EACH TAB PO ONE (21:16)
--- NOTE | 2023-11-24 21:27 | CT ---
EXAMINATION TYPE: CT angio thor/abd pel aorta CT DLP: 1777.3 mGycm, Automated exposure control for dose reduction was used. DATE OF EXAM: 11/24/2023 9:00 PM COMPARISON: 09/02/2022. CLINICAL INDICATION:Male, 58 years old with history of recent aortic valve surgery and replacment; PH H, Cardiac valve replacement x 3 weeks ago. CP, tachycardia, and high BP TECHNIQUE: Dissection protocol: Multiple axial CT images of the chest, abdomen, and pelvis were obtai karin prior and to the administration of IV contrast. 3-D reformats and maximum intensity projection fo rmat were performed on a separate workstation. Contrast used:100 mL of Isovue 370 without and with IV Contrast, Oral contrast used: FINDINGS: ARTERIAL VASCULATURE: Ascending thoracic aorta and descending thoracic aorta are within normal limits for size. There is no evidence for intramural hematoma within the aorta on noncontrast imaging. Post contrast imaging demonstrates no evidence for dissection. The major vessels of the aortic arch are pa tent. The major vessels of the abdominal aorta are patent. Mild atherosclerotic changes of the thorac ic aorta. PULMONARY ARTERIAL VASCULATURE: Normal caliber. No evidence of filling defect to suggest pulmonary em bolus. VENOUS SYSTEM: Unremarkable. LUNGS/ PLEURA: No airspace consolidation, pneumothorax or pleural effusion. Mild paraseptal emphysema changes with scarring in the right lung apex. AIRWAY: Patent and unremarkable. HEART: Size within normal limits. Aortic valve replacement changes. Atherosclerosis of the coronary a rteries. MEDIASTINUM: No gross evidence of adenopathy. Fluid collection just deep to the sternum measuring at least 24 x 15 x 32 mm. MUSCULOSKELETAL: No acute osseous abnormalities, sternotomy wires with incomplete osseous fusion of t he sternum. SOFT TISSUES/LYMPH NODES: Unremarkable. LOWER NECK: No significant findings. Abdomen: LIVER: Unremarkable GALLBLADDER AND BILE DUCTS: Unremarkable. PANCREAS: Unremarkable. SPLEEN: Unremarkable. ADRENAL GLANDS: Unremarkable. KIDNEYS AND URETERS: No evidence of hydronephrosis or renal calculus. The ureters are unremarkable. PELVIS BLADDER: Unremarkable REPRODUCTIVE: Unremarkable. ABDOMEN & PELVIS STOMACH AND BOWEL: No evidence of bowel obstruction. The appendix is normal. Large stool burden throu ghout the colon. Scattered colonic diverticula.. PERITONEUM/RETROPERITONEUM: No evidence of pneumoperitoneum or free fluid. MUSCULOSKELETAL: No acute osseous abnormalities. LYMPH NODES: No gross evidence for lymphadenopathy. SOFT TISSUE/ABDOMINAL WALL: Fat-containing umbilical hernia. IMPRESSION: 1. Cardiac valve replacement changes with postoperative changes to the mediastinum and incomplete os seous fusion of the sternum. 2. There is a fluid collection just deep to the sternum measuring 24 x 15 x 32 mm, findings could re present hematoma/seroma with superimposed infection not excluded. 3. No evidence for thoracic aortic dissection, occlusion or aneurysmal dilation.
[2023-11-24 22:44] VITALS: BP 144/85; PULSE 79
[2023-11-24 23:08] VITALS: TEMP 98.2
[2023-11-25 11:21] LABS: INR 1.2 (<1.2); Prothrombin Time 12.5 sec (10.0-12.5)
== END 2023-11-24 23:08 | disposition home or self-care (01) ==
LOC: EC 18:35
DX: R07.89 Other chest pain (principal); I10 Essential (primary) hypertension; Z88.8 Allergy status to other drugs, medicaments and biological substances; Z87.891 Personal history of nicotine dependence
CPT/HCPCS: 36415; 93005; 83880; 80053; 83735; 84443; 84484; 85025; 85610; 85730; 71275; 74174; 99285; 96360; Q9967

== ENCOUNTER → 2023-12-09 | Outpatient (CLI) | payer BC | END | disposition home or self-care (01) | LOC: LABWHC1 10:30 | PROVIDERS: ATTEND Physician Assistant | DX: Z95.2 Presence of prosthetic heart valve (principal) | CPT/HCPCS: 36415; 85610 ==

== ENCOUNTER → 2024-07-12 | Outpatient (CLI) | payer OTHER ==
--- NOTE | 2024-07-12 13:57 | XR ---
EXAMINATION TYPE: XR Hip Complete RT DATE OF EXAM: 07/12/2024 CLINICAL INDICATION: Male, 59 years old with history of S76.811A STRAIN OF MUSC/FASC/TEND AT THIGH LE SYDNEY,, Pain TECHNIQUE: AP and frogleg views of the right hip are obtained. COMPARISON: CT abdomen and pelvis September 02, 2022. FINDINGS: There is no acute fracture/dislocation evident in the right hip. The joint space in the r ight hip appears within normal limits. A few small right-sided pelvic phleboliths are present. IMPRESSION: Unremarkable study. [facility], , 07/12/2024 1:54 PM
== END | disposition home or self-care (01) ==
LOC: RADXRMAIN 13:13
PROVIDERS: ATTEND Emergency Medicine
DX: S76.811A Strain of other specified muscles, fascia and tendons at thigh level, right thigh, initial encounter (principal); X58.XXXA Exposure to other specified factors, initial encounter
CPT/HCPCS: 73502

== ENCOUNTER → 2024-07-19 | Outpatient (CLI) | payer OTHER ==
--- NOTE | 2024-07-19 14:51 | XR ---
EXAMINATION TYPE: XR lumbar spine 2 or 3V DATE OF EXAM: 07/19/2024 2:42 PM COMPARISON: None CLINICAL INDICATION: Male, 59 years old with history of S39.012D; PHH, pain TECHNIQUE: XR lumbar spine 2 or 3V - Frontal, lateral and coned in L5-S1 lateral views of the spine. FINDINGS: No evidence of any acute osseous pathology. No evidence of loss of vertebral body height i s seen. There is normal alignment of the lumbar vertebral bodies. Mild degeneration changes throughou t the spine with osteophyte formation and facet arthropathy. Atherosclerosis of the arterial vasculat ure. IMPRESSION: 1. No acute fracture. 2. Mild multilevel disc degeneration. [facility], , 07/19/2024 2:49 PM
== END | disposition home or self-care (01) ==
LOC: RADXRMAIN 14:24
PROVIDERS: ATTEND Emergency Medicine
DX: S39.012D Strain of muscle, fascia and tendon of lower back, subsequent encounter (principal); M51.360 Other intervertebral disc degeneration, lumbar region with discogenic back pain only
CPT/HCPCS: 72100

== ENCOUNTER → 2024-08-02 | Outpatient (CLI) | payer OTHER ==
--- NOTE | 2024-08-02 21:05 | MR ---
EXAMINATION TYPE: MR lumbar spine wo con DATE OF EXAM: 08/02/2024 COMPARISON: Lumbar spine x-ray July 19, 2024. CTA aorta November 24, 2023 HISTORY: Low back pain into Right side, x16 days, Injured slipped climbing out of a ditch, TECHNIQUE: Multiplanar, multisequence imaging of the lumbar spine is performed without IV contrast. FINDINGS: Sagittal images of the lumbar spine show vertebral body heights and alignment to appear sat isfactory. There is multilevel disc desiccation with relative sparing of the L5-S1 level. There is mi ld to moderate disc space narrowing at L2-L3 level. The conus medullaris has slightly some unusual t apering with diminished transverse diameter. No obvious abnormal signal or suspicious clumping of lum bosacral nerve roots. Perhaps normal variant? The bone marrow signal intensity is within normal limit s. Axial images show T12-L1 level to appear Within normal limits. Axial images at L1-L2 level show mild broad disc bulge minimally effacing the anterior thecal sac. Th ere is mild bilateral neural foraminal narrowing noted. Axial images at L2-L3 level shows moderate broad-based disc bulge effacing anterior thecal sac along with mild right greater than left facet arthropathy effacing the right lateral thecal sac. There is m oderate right-sided inferior neural foraminal narrowing seen. Axial images at L3-L4 level show mild/moderate broad-based posterior disc protrusion effacing anterio r thecal sac along with mild/moderate facet arthropathy and ligament flavum hypertrophy effacing the bilateral posterior lateral thecal sac. There is [id number] right greater than left bilateral n eural foraminal narrowing seen. Axial images at the L4-L5 levels show [id number] facet arthropathy bilaterally. There is mild b road disc bulge. There is effacement of the left posterior lateral thecal sac. There is moderate left -sided neural foraminal narrowing due to left foraminal disc protrusion component. Axial images at the L5-S1 level shows mild/moderate facet arthropathy bilaterally. Spinal canal is pr eserved. Bilateral neural foramina are patent. Paraspinal muscle bulk is maintained. IMPRESSION: 1. Multilevel degenerative changes are present as detailed above. 2. Cannot exclude abnormal conus medullaris or cord anomaly. Are typical protocol does not include co ntiguous axial images. Consider targeted repeat MRI without and with contrast to further evaluate the conus from mid L1 to inferior L2 level. [facility], , 08/02/2024 9:03 PM
== END | disposition home or self-care (01) ==
LOC: RADMRIMAIN 20:15
PROVIDERS: ATTEND Emergency Medicine
DX: S76.811D Strain of other specified muscles, fascia and tendons at thigh level, right thigh, subsequent encounter (principal); S39.012D Strain of muscle, fascia and tendon of lower back, subsequent encounter; M51.26 Other intervertebral disc displacement, lumbar region; M47.816 Spondylosis without myelopathy or radiculopathy, lumbar region
CPT/HCPCS: 72148

== ENCOUNTER → 2024-08-14 | Outpatient (CLI) | payer OTHER ==
--- NOTE | 2024-08-14 13:35 | MR ---
EXAMINATION TYPE: MR hip RT wo con DATE OF EXAM: 08/14/2024 12:11 PM COMPARISON: Radiograph 07/12/2024 CLINICAL INDICATION: Male, 59 years old with history of S76.811D STRAIN OF MUSC/FASC/TEND AT THIGH LE SYDNEY, Rt hip pain and groin, climbing injury TECHNIQUE: Multiplanar, multisequence images of the right hip were obtained without IV contrast. IV Contrast: None FINDINGS: There is mild degenerative change of the bilateral hips with some axial joint space narrowing. No sig nificant hip joint effusion. No evidence for hip fracture or AVN. The SI joints appear symmetric and intact with mild degenerative change on both sides. Lytic symphysi s appears intact. Patchy red marrow hyperplasia is present throughout. No suspicious bone marrow replacement. The rectus femoris origins as well as the iliopsoas and gluteal insertions appear intact. There is mi ld increased signal at the left hamstrings origin suggesting tendinosis. Prostate gland mildly enlarged measuring 4.6 cm wide. No abnormal fluid collection in the pelvis or a denopathy. Symmetric course, caliber, and signal intensity of the sciatic nerves. Incidental small bilateral hydroceles. IMPRESSION: 1. 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 Additional mild degenerative change at the SI joints. 2. No acute fracture seen. 3. Mild left hamstring origin tendinosis. Otherwise, no significant soft tissue injury is identified. [facility], Workstation: [id number], 08/14/2024 1:33 PM
== END | disposition home or self-care (01) ==
LOC: RADMRIMAIN 11:23
PROVIDERS: ATTEND Emergency Medicine
DX: S76.811D Strain of other specified muscles, fascia and tendons at thigh level, right thigh, subsequent encounter (principal); S39.012D Strain of muscle, fascia and tendon of lower back, subsequent encounter; M16.0 Bilateral primary osteoarthritis of hip; M67.854 Other specified disorders of tendon, left hip